=== PATIENT | female | born 1965 ===

== ENCOUNTER → 2020-08-18 07:56 | Outpatient (BNVA) | payer OTHER, SELFPAY | PROVIDERS: Visit Provider Advanced Practice Midwife | DX: Z76.89 Persons encountering health services in other specified circumstances (principal) ==

== ENCOUNTER → 2020-11-11 08:12 | Outpatient (BNVA) | payer OTHER, SELFPAY | PROVIDERS: PCP Internal Medicine; Visit Provider Internal Medicine Gastroenterology ==

== ENCOUNTER 2021-01-15 07:15 | Outpatient (REF) | payer OTHER, SELFPAY ==
--- NOTE | ~2021-01-15 | MM_ITS ---
EXAMINATION: MM SCREENING DIGITAL BREAST TOMOSYNTHESIS, BILATERAL CLINICAL INFORMATION: Screening. Asymptomatic. The lifetime risk of breast cancer based on the Tyrer-Cuzick Model is 9%. COMPARISON: Mammography: 10/30/2019, 10/26/2018, 10/05/2017 TECHNIQUE: Digital breast tomosynthesis is performed in both the craniocaudal and mediolateral oblique views along with computer-aided detection (CAD). Synthesized 2D images are generated from the tomosynthesis. FINDINGS: There are scattered areas of fibroglandular density (ACR BI-RADS breast composition Category b). There are no significant masses, abnormal calcifications, or other abnormalities. The axilla and skin contours are unremarkable. No significant changes from prior exams. MM/MM tomosynthesis screening BI IMPRESSION: No mammographic evidence of malignancy. ASSESSMENT: BI-RADS 1: Negative RECOMMENDATION: Routine annual mammography screening. This patient's information was entered into a reminder system with a target due date for their next mammogram.
== END 2021-01-15 07:16 | disposition home or self-care (01) ==
LOC: HO.MAMMO 07:15
PROVIDERS: PCP Internal Medicine; Visit Provider Internal Medicine
DX: Z12.31 Encounter for screening mammogram for malignant neoplasm of breast (principal)
CPT/HCPCS: 77063; 77067

== ENCOUNTER 2021-01-26 08:12 | Outpatient (REF) | payer OTHER, SELFPAY ==
[2021-01-26 08:53] LABS: COVID-19 Test Negative (Negative)
== END 2021-01-26 08:13 | disposition home or self-care (01) ==
LOC: HO.EMPCOV 08:12
PROVIDERS: Visit Provider Internal Medicine
DX: Z20.822 Contact with and (suspected) exposure to COVID-19 (principal)
CPT/HCPCS: 36415; 87635; C9803

== ENCOUNTER 2021-02-18 09:52 | Outpatient (REF) | payer OTHER, SELFPAY ==
[2021-02-18 10:10] LABS: COVID-19 Test Negative (Negative)
== END 2021-02-18 09:53 | disposition home or self-care (01) ==
LOC: HO.EMPCOV 09:52
PROVIDERS: Visit Provider Internal Medicine
DX: Z20.822 Contact with and (suspected) exposure to COVID-19 (principal)
CPT/HCPCS: 36415; 87635; C9803

== ENCOUNTER 2021-05-03 07:15 | Outpatient (REF) | payer OTHER, SELFPAY ==
[2021-05-03 08:02] LABS: MANUAL DIFF FLAG NO
[2021-05-03 08:07] LABS: Basophils Percent Auto 0.2 % (0-2); Eosinophils Absolute Auto 0.1 X10*3/uL (0.0-0.4); Hematocrit 41.8 % (37-47); Hemoglobin 13.7 g/dl (12.0-16.0); Lymphocytes Absolute Auto 1.7 X10*3/uL (1.2-4.9); Lymphocytes Percent Auto 34.9 % (20-40); Mean Corpuscular HGB Conc 32.8 g/dl (31.0-35.0); Mean Corpuscular Hemoglobin 30.8 pg (27.0-33.0); Mean Corpuscular Volume 93.9 fL (80-98); Mean Platelet Volume 10.7 fL (9.4-12.3); Monocytes Absolute Auto 0.4 X10*3/uL (0.1-1.2); Monocytes Percent Auto 8.1 % (2-11); Neutrophils Absolute Auto 2.7 X10*3/uL (2.0-8.3); Neutrophils Percent Auto 55.8 % (45-73); Platelet Count 208 X10*3/uL (160-400); Red Blood Count 4.45 X10*6/uL (4.20-5.50); Red Cell Distribution Width 12.6 % (11.0-16.0); White Blood Count 4.8 X10*3/uL (4.8-10.8)
[2021-05-03 08:25] LABS: Alanine Aminotransferase 16 U/L (0-31); Albumin Level 3.8 g/dL (3.5-5.0); Alkaline Phosphatase 74 U/L (39-117); Anion Gap 10 (12-20); Aspartate Amino Transferase 23 U/L (5-31); Bilirubin Total 0.4 mg/dL (0.0-1.0); Blood Urea Nitrogen 11 mg/dL (9-16); Calcium 8.9 mg/dL (8.4-10.2); Carbon Dioxide 27 mmol/L (22-29); Chloride 108 mmol/L (96-108); Cholesterol 172 mg/dL; Estimated Glomerular Filt Rate > 60; Glucose Fasting 97 mg/dL (60-99); HDL Cholesterol 62 mg/dL; LDL Cholesterol Calculated 100 mg/dl; Potassium 4.3 mmol/L (3.3-5.1); Sodium 141 mmol/L (135-145); Total Protein 6.5 g/dL (6.5-8.0); Triglycerides 54 mg/dL
[2021-05-03 08:51] LABS: TSH reflex Free T4 0.74 uIU/mL (0.32-4.0); Vitamin D 25-OH Total 33.6 ng/mL (>30)
[2021-05-03 09:17] LABS: Glucose Urine UA NEG (NEG); Leukocyte Esterase Urine TRACE (NEG); Nitrite Urine NEG (NEG); Specific Gravity - Urine 1.025 (1.005-1.025); UACC Culture Trigger YES; Urine Blood NEG (NEG); Urine Ketones NEG (NEG); Urine Protein NEG (NEG-TRACE)
[2021-05-03 09:37] LABS: Appearance Urine HAZY; Color Urine YELLOW
[2021-05-03 09:41] LABS: RBC Urine 0 /HPF (0); Squamous Epithelial Cell Urine TRACE /LPF; WBC Urine 0-2 /HPF (0-4)
== END 2021-05-03 07:16 | disposition home or self-care (01) ==
LOC: HO.LAB 07:15
PROVIDERS: PCP Internal Medicine; Visit Provider Internal Medicine
DX: Z00.00 Encounter for general adult medical examination without abnormal findings (principal); E04.1 Nontoxic single thyroid nodule; E55.9 Vitamin D deficiency, unspecified
CPT/HCPCS: 36415; 80053; 80061; 81001; 81003; 82306; 84443; 85025; 87086

== ENCOUNTER 2021-06-02 08:43 | Outpatient (REF) | payer OTHER, SELFPAY ==
--- NOTE | ~2021-06-02 | MM_ITS ---
EXAMINATION: BONE DENSITOMETRY CLINICAL INDICATION: Menopause. COMPARISON: None (current study represents initial baseline exam). TECHNIQUE: Using a [employer] DXA System (software version: 13.1) manufactured by [employer], dual-energy x-ray absorptiometry was performed of the lumbar spine and left hip. The images are of good technical quality. Summary results are attached. FINDINGS: AP SPINE L1-L4: BMD 1.088 g/cm2, Z-score -0.1, T-score -0.8, normal. LEFT FEMUR, NECK: BMD 0.871 g/cm2, Z-score -0.3, T-score -1.2, osteopenia. LEFT FEMUR, TOTAL: BMD 0.942 g/cm2, Z-score 0.0, T-score -0.5, normal. IDENTIFIED RISK FACTORS: Hysterectomy, menopause, bilateral oophorectomy. HISTORY OF FRACTURE: None listed. MEDICATIONS: Calcium, vitamin D. MM/XR DEXA axial skeleton IMPRESSION: 1. DIAGNOSIS: Osteopenia based on the lowest T-score value of -1.2 in the femoral neck applying World Health Organization criteria. 2. 10-YEAR FRACTURE RISK PREDICTION, FRAX: Major osteoporotic fracture (clinical spine, forearm, hip or shoulder) 3.1%. Hip fracture 0.2%. 3. Treatment Recommendations: NOF guidelines recommend consideration for treatment in postmenopausal women and men age 50 and older presenting with the following: -A hip or vertebral (clinical or morphometric) fracture. -T-score less than or equal to -2.5 at the femoral neck or spine after appropriate evaluation to exclude secondary causes. -Low bone mass at the hip or spine and a 10-year fracture probability by FRAX of greater than or equal to 3% for hip fracture or greater than or equal to 20% for major osteoporotic fracture based on the [place] adapted WHO algorithm. 4. Other Recommendations: All treatment decisions require clinical judgment and consideration of individual patient factors, including patient preferences, comorbidities, previous drug use, risk factors not captured in the FRAX model (e.g. frailty, falls, vitamin D deficiency, increased bone turnover, interval significant decline in bone density) and possible under or overestimation of fracture risk by FRAX. Additional medical evaluation for secondary cause of low bone mineral density may be appropriate. FUTURE SCAN RECOMMENDATION: People with diagnosed cases of osteoporosis or at high risk for fracture should have regular bone mineral density tests. For patients eligible for Medicare, routine testing is allowed once every 2 years. The testing frequency can be increased to one year for patients who have rapidly progressing disease, those who are receiving or discontinuing medical therapy to restore bone mass, or have additional risk factors.
== END 2021-06-02 08:44 | disposition home or self-care (01) ==
LOC: HO.MAMMO 08:43
PROVIDERS: Visit Provider Internal Medicine
DX: Z13.820 Encounter for screening for osteoporosis (principal); N95.8 Other specified menopausal and perimenopausal disorders; Z78.0 Asymptomatic menopausal state; Z98.890 Other specified postprocedural states; Z79.899 Other long term (current) drug therapy; Z90.722 Acquired absence of ovaries, bilateral
CPT/HCPCS: 77080

== ENCOUNTER → 2021-08-20 07:51 | Outpatient (BNVA) | payer OTHER, SELFPAY | PROVIDERS: PCP Internal Medicine; Visit Provider Advanced Practice Midwife ==

== ENCOUNTER 2021-12-27 14:10 | Outpatient (REF) | payer OTHER, SELFPAY ==
--- NOTE | ~2021-12-27 | XR_ITS ---
EXAMINATION: XR KNEE, LEFT CLINICAL INFORMATION: Unspecified injury of the left lower leg COMPARISON: None TECHNIQUE: Four views of the left knee. FINDINGS: There is mild loss of medial and patellofemoral compartment joint space with mild periarticular spurring medial compartment. No bony erosive changes. There are no loose bodies. No visible acute fracture or dislocation. There is no joint effusion or soft tissue swelling. XR/XR knee LT 3V IMPRESSION: Mild degenerative changes medial compartment with mild periarticular spurring.
== END 2021-12-27 14:11 | disposition home or self-care (01) ==
LOC: HO.XRAY 14:10
PROVIDERS: PCP Internal Medicine; Visit Provider Nurse Practitioner Acute Care
DX: S89.92XA Unspecified injury of left lower leg, initial encounter (principal)
CPT/HCPCS: 73562

== ENCOUNTER 2021-12-30 14:04 | Outpatient (REF) | payer OTHER, SELFPAY ==
[2021-12-30 14:54] LABS: COVID-19 Test Negative (Negative)
== END 2021-12-30 14:05 | disposition home or self-care (01) ==
LOC: HO.LAB 14:04
PROVIDERS: PCP Internal Medicine; Visit Provider Internal Medicine
DX: Z20.822 Contact with and (suspected) exposure to COVID-19 (principal)
CPT/HCPCS: 87635; C9803

== ENCOUNTER 2022-01-03 04:06 | Emergency (ER) | payer OTHER, SELFPAY ==
[2022-01-03] VITALS (10 sets, daily range): BP systolic 97–116; BP diastolic 56–73; PULSE 67–88; RESP 12–17; TEMP 36.8–37.1; O2SAT 98; BMI 23.4
--- NOTE | ~2022-01-03 | US_ITS ---
EXAMINATION: US VENOUS ULTRASOUND WITH DOPPLER LOWER EXTREMITY, LEFT CLINICAL INFORMATION: Left leg pain COMPARISON: None TECHNIQUE: Ultrasound of the deep veins is performed from the hip to the calf with compression sonography and color and pulse Doppler assessment. Spectral analysis with color-flow imaging is performed. FINDINGS: There is normal venous compression and respiratory variation and augmented flow. The visualized common femoral vein, superficial femoral vein, profunda femoral vein, popliteal vein, and the trifurcation region shows no evidence of deep venous thrombosis. There is a small Bundy's cyst medial proximal calf measuring 7.8 x 2.1 x 1.7 cm. If the patient's symptoms persist, followup ultrasound in 5 days 7 days might be of value to exclude proximal propagation from a non-visualized calf vein. US/US venous duplex LE LT IMPRESSION: No DVT demonstrated in the left lower extremity. Small Bundy's cyst.
[2022-01-03] MEDS: 0.9 % Sodium Chloride 1,000 ML 999 ML IVCONT (07:10)
--- NOTE | 2022-01-03 07:20 | ED_ITS ---
HPI - Syncope General Chief Complaint: Syncope Stated Complaint: Syncopal Epsoide Time Seen by Provider: 01/03/22 06:42 Source: patient Mode of arrival: EMS Limitations: no limitations History of Present Illness MD complaint: loss of consciousness, felt faint and collapsed Onset (ago): minute(s) (prior to arrival) -: second(s) Prodromal symptoms: lightheaded and diaphoresis Witnessed: Yes - by Bystander (daughter) Context: other (had just stood up to go bathroom - felt herself dizzy knew she was going to pass out.) Injuries sustained associated with event: none Current symptoms: none History: other (recently seen for L posterior knee pain dx with arthritis) Treatments prior to arrival: none Related Data Home Medications Medication Instructions Recorded Confirmed ascorbic acid (vitamin C) 500 mg 500 mg PO DAILY 11/04/20 12/27/21 tablet cholecalciferol (vitamin D3) 50 50 mcg PO DAILY 11/04/20 12/27/21 mcg (2,000 unit) capsule mecobalamin (vitamin B12) 1,000 1,000 mcg PO DAILY 11/04/20 12/27/21 mcg chewable tablet multivitamin 1 tab PO DAILY 11/04/20 12/27/21 omega-3 fatty acids 1,000 mg 1,000 mg PO DAILY 11/04/20 12/27/21 capsule (Fish Oil Concentrate) Previous Rx's Medication Instructions Recorded lorazepam 0.5 mg tablet 0.5 mg PO DAILY PRN 15 Days #15 tab 07/26/21 acetaminophen 500 mg tablet 1,000 mg PO Q6H PRN #20 tab 12/27/21 ibuprofen 800 mg tablet 800 mg PO Q8H PRN #20 tab 12/27/21 lidocaine 5 % topical patch 1 patch TOPICAL DAILY PRN #30 ea 12/31/21 MDD 1 a day Allergies Allergy/AdvReac Type Severity Reaction Status Date / Time No Known Allergies Allergy Verified 12/27/21 13:43 Review of Systems Review of Systems: Constitutional : No Fever, No Chills, No Fatigue, No Malaise ENT/Mouth : No sore throat, No Rhinorrhea Eyes: No Eye Pain, No Swelling, No Redness Cardiovascular : No Chest Pain, No SOB, No Dyspnea on Exertion, No Orthopnea, No Edema, No Palpitations Respiratory : No Cough, No Sputum, No Wheezing Gastrointestinal : No Nausea, No Vomiting, No Diarrhea, No Constipation, No abdominal Pain, No Hematochezia, No Melena Genitourinary : No Dysuria, No Urinary Frequency, No Hematuria, Musculoskeletal : No joint pain, No Myalgias, No Joint Swelling, pos L posterior knee pain Skin : No Skin Lesions, No rash Neuro : No Weakness, No Numbness, pos Dizziness, No Headache, pos syncope Psych : No Anxiety/Panic, No Depression Heme/Lymph: No Bruising, No Bleeding,No Lymphadenopathy Endocrine : No Polyuria, No Polydipsia All other systems reviewed and are negative [facility] Past Medical History Attestation statement: The following information was validated with the patient. Medical History Acquired chest/rib deformity Artificial menopause History of depression Thyroid nodule Tubular adenoma of colon Vitamin D deficiency Surgical History Hx of colonoscopy Hx of hysterectomy with oophorectomy Hx of tubal ligation Family History Family History Father Throat cancer Emphysema of lung TIA (transient ischemic attack) Social History Social History Household Members: Children and Other Household Members Other:: grandkids Housing: House Alcohol intake: current Alcohol intake frequency: holidays/special occasions only Patient Tobacco Use Status: Never used Tobacco e-Cigarette/Vaping Use: Never Used Second Hand Smoke Exposure: Yes Use of substances other than those prescribed or required for medical reasons: No Advance Directives: No Advance Directives Information Provided: No Patient : No service: No Current occupational status: employed 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 Oriented X3. No acute distress. Eyes: Pupils equal, round and reactive to light. ENT: Pharynx normal. Neck: Normal inspection. Neck supple. CVS: Normal heart rate and rhythm. Pulses normal. Respiratory: No respiratory distress. Breath sounds normal. Abdomen: Soft and non-tender. Skin: Skin warm and dry. Normal skin color. Normal skin turgor. Extremities: No lower extremity edema. No calf ttp . ttp in L pop fossa Neuro: Oriented X 3. No motor deficit. No sensory deficit. Course Course Course Narrative: negative orthostatic VS repeat trop ordered DVT study negative, ddimer negative, EKG and trop x 2 negative, stable for DC at this time MDM - Syncope MDM Narrative Medical decision making narrative: 56 yo female with hx of arthritis, s/p hysterectomy for fibroids comes in with c/o getting up to go to the bathroom tonight when she felt dizzy and knew she was going to pass out. She told her daughter who caught her. The patient reports she has been suffering from L posterior knee pain told she had arthritis. She denies GIB symptoms or CP/SOB. At this time will need EKG, labs, ortho VS, IVF, DVT study of LLE. Possibly vasovagal vs VTE (low to mod probability) Lab Data Result diagrams: 01/03/22 07:27 01/03/22 07:27 Labs: Lab Results 01/03/22 01/03/22 01/03/22 Range/Units 07:27 07:27 07:27 WBC 4.4 L (4.8-10.8) X10*3/uL RBC 4.48 (4.20-5.50) X10*6/uL Hgb 13.9 (12.0-16.0) g/dl Hct 41.9 (37.0-47.0) % MCV 93.5 (80.0-98.0) fL MCH 31.0 (27.0-33.0) pg MCHC 33.2 (31.0-35.0) g/dl RDW 12.8 (11.0-16.0) % Plt Count 225 (160-400) X10*3/uL MPV 10.3 (9.4-12.3) fL Immature Gran % (Auto) 0.0 (0.0-0.4) % Neut % (Auto) 68.1 (45-73) % Lymph % (Auto) 24.8 (20-40) % Osborne % (Auto) 6.7 (2-11) % Eos % (Auto) 0.2 (0-4) % Baso % (Auto) 0.2 (0-2) % Lymph # (Auto) 1.1 L (1.2-4.9) X10*3/uL Osborne # (Auto) 0.3 (0.1-1.2) X10*3/uL Eos # (Auto) 0.0 (0.0-0.4) X10*3/uL Baso # (Auto) 0.0 (0.0-0.2) X10*3/uL Abs Immat Gran (auto) 0.00 (0.00-0.03) X10*3/uL Absolute Neuts (auto) 3.0 (2.0-8.3) x10*3/uL Absolute Nucleated RBC 0.000 (0.0-0.012) X10*3/uL Nucleated RBC % (auto) 0.0 (0.0-0.2) /100WBC D-Dimer High Sensitivty < 150 NG/ML Sodium 144 (135-145) mmol/L Potassium 3.8 (3.3-5.1) mmol/L Chloride 111 H (96-108) mmol/L Carbon Dioxide 28 (22-29) mmol/L Anion Gap 9 L (12-20) BUN 12 (9-16) mg/dL Creatinine 0.71 (0.5-1.4) mg/dL Estim Creat Clear Calc 81.4 Estimated GFR > 60 Random Glucose 95 (60-115) mg/dL Calcium 8.9 (8.4-10.2) mg/dL Magnesium 2.2 (1.6-2.6) mg/dL Total Bilirubin 0.4 (0.0-1.0) mg/dL Direct Bilirubin 0.2 (0.0-0.5) mg/dL AST 17 (5-31) U/L ALT 17 (0-31) U/L Alkaline Phosphatase 67 (39-117) U/L Troponin I High Sens (<3.5-17.0) ng/L Total Protein 6.4 L (6.5-8.0) g/dL Albumin 3.8 (3.5-5.0) g/dL Urine Color Urine Appearance Urine pH (5.0-8.0) Ur Specific [place] (1.005-1.025) Urine Protein (NEG-TRACE) MG/DL Urine Glucose (UA) (NEG) MG/DL Urine Ketones (NEG) MG/DL Urine Blood (NEG) Urine Nitrite (NEG) Ur Leukocyte Esterase (NEG) Urine RBC (0) /HPF Urine WBC (0-4) /HPF Ur Squamous Epith Cells /LPF Urine Bacteria /LPF 01/03/22 01/03/22 01/03/22 Range/Units 07:27 07:27 09:27 WBC (4.8-10.8) X10*3/uL RBC (4.20-5.50) X10*6/uL Hgb (12.0-16.0) g/dl Hct (37.0-47.0) % MCV (80.0-98.0) fL MCH (27.0-33.0) pg MCHC (31.0-35.0) g/dl RDW (11.0-16.0) % Plt Count (160-400) X10*3/uL MPV (9.4-12.3) fL Immature Gran % (Auto) (0.0-0.4) % Neut % (Auto) (45-73) % Lymph % (Auto) (20-40) % Osborne % (Auto) (2-11) % Eos % (Auto) (0-4) % Baso % (Auto) (0-2) % Lymph # (Auto) (1.2-4.9) X10*3/uL Osborne # (Auto) (0.1-1.2) X10*3/uL Eos # (Auto) (0.0-0.4) X10*3/uL Baso # (Auto) (0.0-0.2) X10*3/uL Abs Immat Gran (auto) (0.00-0.03) X10*3/uL Absolute Neuts (auto) (2.0-8.3) x10*3/uL Absolute Nucleated RBC (0.0-0.012) X10*3/uL Nucleated RBC % (auto) (0.0-0.2) /100WBC D-Dimer High Sensitivty NG/ML Sodium (135-145) mmol/L Potassium (3.3-5.1) mmol/L Chloride (96-108) mmol/L Carbon Dioxide (22-29) mmol/L Anion Gap (12-20) BUN (9-16) mg/dL Creatinine (0.5-1.4) mg/dL Estim Creat Clear Calc Estimated GFR Random Glucose (60-115) mg/dL Calcium (8.4-10.2) mg/dL Magnesium (1.6-2.6) mg/dL Total Bilirubin (0.0-1.0) mg/dL Direct Bilirubin (0.0-0.5) mg/dL AST (5-31) U/L ALT (0-31) U/L Alkaline Phosphatase (39-117) U/L Troponin I High Sens < 3.5 < 3.5 (<3.5-17.0) ng/L Total Protein (6.5-8.0) g/dL Albumin (3.5-5.0) g/dL Urine Color STRAW Urine Appearance CLEAR Urine pH 7.0 (5.0-8.0) Ur Specific [place] <= 1.005 (1.005-1.025) Urine Protein NEG (NEG-TRACE) MG/DL Urine Glucose (UA) NEG (NEG) MG/DL Urine Ketones NEG (NEG) MG/DL Urine Blood NEG (NEG) Urine Nitrite NEG (NEG) Ur Leukocyte Esterase 1+ H (NEG) Urine RBC 0 (0) /HPF Urine WBC 0-2 (0-4) /HPF Ur Squamous Epith Cells TRACE /LPF Urine Bacteria NONE /LPF ECG Data Attestation: I personally reviewed and interpreted this ECG as follows: ECG interpretation date: 01/03/22 ECG interpretation time: 07:24 Interpretation: Rate: 63 Rhythm: NSR Holland: normal Normal P waves. Normal SANDRA. Normal QRS complex. ST T wave : no MARCIN, inverted t wave in V1 qTC: normal prior studies: no acute ischemia The study has been interpreted contemporaneously by me. Discharge Plan Discharge Clinical Impression: Vasovagal syncope Bundy's cyst of knee Qualifiers: Laterality: left Qualified Code(s): M71.22 - Synovial cyst of popliteal space [Bundy], left knee Patient Disposition: Home, Self-Care Instructions: Syncope (ED), Bakers Cyst (ED) Additional Instructions: return to ED for any worsening symptoms or concerns drink plenty of fluids today - rest paige wrap the knee for comfort Prescriptions: No Action lorazepam 0.5 mg tablet 0.5 mg PO DAILY PRN (Reason: anxiety) 15 Days Qty: 15 0RF lidocaine 5 % adhesive patch,medicated 1 patch topical DAILY MDD 1 a day PRN (Reason: pain (scale score 7-10)) Qty: 30 0RF Rx Instructions: leave on most painful area for up to 12 hrs cholecalciferol (vitamin D3) 50 mcg (2,000 unit) capsule 50 mcg PO DAILY 0RF multivitamin Tablet 1 tab PO DAILY 0RF omega-3 fatty acids [Fish Oil Concentrate] 1,000 mg capsule 1,000 mg PO DAILY 0RF mecobalamin (vitamin B12) 1,000 mcg tablet,chewable 1,000 mcg PO DAILY 0RF ascorbic acid (vitamin C) 500 mg tablet 500 mg PO DAILY 0RF ibuprofen 800 mg tablet 800 mg PO Q8H PRN (Reason: pain) Qty: 20 0RF acetaminophen 500 mg tablet 1,000 mg PO Q6H PRN (Reason: fever) Qty: 20 0RF Stand Alone Forms: Work/School Release Interventions: ED Discharge Assessment Last Done: 01/03/22 10:26 Discharge Date/Time: 01/03/22 10:27
--- NOTE | 2022-01-03 07:24 | ECG_ITS ---
Test Reason : syncope Blood Pressure : / mmHG Vent. Rate : 072 BPM Atrial Rate : 072 BPM P-R Int : 120 ms QRS Dur : 080 ms QT Int : 406 ms P-R-T Axes : 050 035 031 degrees QTc Int : 444 ms Normal sinus rhythm Normal ECG When compared with ECG of 03-JAN-2022 04:21, No significant change was found Referred By: Chikis Juan Electronically Signed By:
[2022-01-03 07:33] LABS: MANUAL DIFF FLAG NO
[2022-01-03 07:35] LABS: Appearance Urine CLEAR; Color Urine STRAW; Glucose Urine UA NEG (NEG); Leukocyte Esterase Urine 1+ (NEG); Nitrite Urine NEG (NEG); Specific Gravity - Urine <= 1.005 (1.005-1.025); UACC Culture Trigger YES; Urine Blood NEG (NEG); Urine Ketones NEG (NEG); Urine Protein NEG (NEG-TRACE)
[2022-01-03 07:38] LABS: Basophils Percent Auto 0.2 % (0-2); Eosinophils Percent Auto 0.2 % (0-4); Hematocrit 41.9 % (37.0-47.0); Hemoglobin 13.9 g/dl (12.0-16.0); Lymphocytes Absolute Auto 1.1 X10*3/uL (1.2-4.9); Lymphocytes Percent Auto 24.8 % (20-40); Mean Corpuscular HGB Conc 33.2 g/dl (31.0-35.0); Mean Corpuscular Volume 93.5 fL (80.0-98.0); Mean Platelet Volume 10.3 fL (9.4-12.3); Monocytes Absolute Auto 0.3 X10*3/uL (0.1-1.2); Monocytes Percent Auto 6.7 % (2-11); Neutrophils Percent Auto 68.1 % (45-73); Platelet Count 225 X10*3/uL (160-400); Red Blood Count 4.48 X10*6/uL (4.20-5.50); Red Cell Distribution Width 12.8 % (11.0-16.0); White Blood Count 4.4 X10*3/uL (4.8-10.8)
[2022-01-03 07:53] LABS: RBC Urine 0 /HPF (0); Squamous Epithelial Cell Urine TRACE /LPF; WBC Urine 0-2 /HPF (0-4)
[2022-01-03 07:59] LABS: Alanine Aminotransferase 17 U/L (0-31); Albumin Level 3.8 g/dL (3.5-5.0); Alkaline Phosphatase 67 U/L (39-117); Anion Gap 9 (12-20); Aspartate Amino Transferase 17 U/L (5-31); Bilirubin Direct 0.2 mg/dL (0.0-0.5); Bilirubin Total 0.4 mg/dL (0.0-1.0); Blood Urea Nitrogen 12 mg/dL (9-16); Calcium 8.9 mg/dL (8.4-10.2); Carbon Dioxide 28 mmol/L (22-29); Chloride 111 mmol/L (96-108); Creatinine Clr Calc Pharmacy 81.4; Estimated Glomerular Filt Rate > 60; Glucose Random 95 mg/dL (60-115); Magnesium 2.2 mg/dL (1.6-2.6); Potassium 3.8 mmol/L (3.3-5.1); Sodium 144 mmol/L (135-145); Total Protein 6.4 g/dL (6.5-8.0); Troponin-I High Sensitivity < 3.5 ng/L (<3.5-17.0)
[2022-01-03 08:02] LABS: D Dimer High Sensitivity < 150 NG/ML
[2022-01-03 09:58] LABS: Troponin-I High Sensitivity < 3.5 ng/L (<3.5-17.0)
== END 2022-01-03 10:27 | disposition home or self-care (01) ==
PROVIDERS: Emergency Provider Emergency Medicine; PCP Internal Medicine
DX: M71.22 Synovial cyst of popliteal space [Baker], left knee (principal); R55 Syncope and collapse
CPT/HCPCS: 36415; 80048; 80076; 81001; 83735; 84484; 85025; 85379; 87086; 93005; 93971; 96360; 99284; 99285

== ENCOUNTER 2022-01-06 08:37 | Outpatient (REF) | payer OTHER, SELFPAY ==
--- NOTE | ~2022-01-06 | XR_ITS ---
EXAMINATION: XR KNEE AP STANDING CLINICAL INFORMATION: Pain in the left knee. Osteoarthritis. COMPARISON: X-ray of the left knee 12/27/2021 and x-ray of the right knee 03/08/2018 TECHNIQUE: AP bilateral standing view of the knees was obtained. FINDINGS: RIGHT KNEE LIMITED: In the medial compartment there are marginal osteophytes with minimal if any joint space narrowing indicative of a [id number] osteoarthritis unchanged. Lateral compartment is normal. Surrounding bone and soft tissues are unremarkable. LEFT KNEE LIMITED: In the medial compartment, there are marginal osteophytes with minimal if any joint space narrowing indicative of [id number] osteoarthritis unchanged. Lateral compartment is normal. Surrounding bone and soft tissues are unremarkable. XR/XR knee standing BI IMPRESSION: RIGHT KNEE LIMITED: Osteoarthritis unchanged compared with 2017. LEFT KNEE: Osteoarthritis unchanged compared with x-ray 12/27/2021.
== END 2022-01-06 08:38 | disposition home or self-care (01) ==
LOC: HO.HOSX 08:37
PROVIDERS: PCP Internal Medicine; Visit Provider Orthopaedic Surgery
DX: M17.12 Unilateral primary osteoarthritis, left knee (principal)
CPT/HCPCS: 73565

== ENCOUNTER 2022-01-11 08:57 | Outpatient (REF) | payer OTHER, SELFPAY ==
[2022-01-11 09:39] LABS: COVID-19 Test Negative (Negative)
== END 2022-01-11 08:58 | disposition home or self-care (01) ==
LOC: HO.LAB 08:57
PROVIDERS: Visit Provider Internal Medicine
DX: Z20.822 Contact with and (suspected) exposure to COVID-19 (principal)
CPT/HCPCS: 87635; C9803

== ENCOUNTER 2022-01-15 07:30 | Outpatient (REF) | payer OTHER, SELFPAY ==
[2022-01-15 07:50] LABS: MANUAL DIFF FLAG NO
[2022-01-15 08:18] LABS: Hematocrit 43.2 % (37.0-47.0); Hemoglobin 14.2 g/dl (12.0-16.0); Imm Gran Abs Auto 0.01 X10*3/uL (0.00-0.03); Imm Gran Pct Auto 0.3 % (0.0-0.4); Lymphocytes Absolute Auto 1.7 X10*3/uL (1.2-4.9); Lymphocytes Percent Auto 54.1 % (20-40); Mean Corpuscular HGB Conc 32.9 g/dl (31.0-35.0); Mean Corpuscular Hemoglobin 30.8 pg (27.0-33.0); Mean Corpuscular Volume 93.7 fL (80.0-98.0); Mean Platelet Volume 10.4 fL (9.4-12.3); Monocytes Absolute Auto 0.3 X10*3/uL (0.1-1.2); Monocytes Percent Auto 10.2 % (2-11); Neutrophils Percent Auto 33.4 % (45-73); Platelet Count 251 X10*3/uL (160-400); Red Blood Count 4.61 X10*6/uL (4.20-5.50); Red Cell Distribution Width 12.8 % (11.0-16.0); White Blood Count 3.1 X10*3/uL (4.8-10.8)
[2022-01-15 08:46] LABS: Cholesterol 179 mg/dL; HDL Cholesterol 60 mg/dL; LDL Cholesterol Calculated 109 mg/dl; Triglycerides 51 mg/dL
[2022-01-15 09:10] LABS: TSH reflex Free T4 0.88 uIU/mL (0.32-4.0); Vitamin D 25-OH Total 37.7 ng/mL (>30)
== END 2022-01-15 07:31 | disposition home or self-care (01) ==
LOC: HO.LAB 07:30
PROVIDERS: PCP Internal Medicine; Visit Provider Internal Medicine
DX: Z00.00 Encounter for general adult medical examination without abnormal findings (principal); E78.00 Pure hypercholesterolemia, unspecified; E55.9 Vitamin D deficiency, unspecified
CPT/HCPCS: 36415; 80061; 82306; 84443; 85025

== ENCOUNTER 2022-01-20 12:38 | Outpatient (REF) | payer OTHER, SELFPAY ==
[2022-01-20 15:46] LABS: COVID-19 Test Negative (Negative); IDNOW Serial# 08D9AD1C
== END 2022-01-20 12:39 | disposition home or self-care (01) ==
LOC: HO.LAB 12:38
PROVIDERS: Visit Provider Internal Medicine
DX: Z20.822 Contact with and (suspected) exposure to COVID-19 (principal)
CPT/HCPCS: 87635; C9803

== ENCOUNTER 2022-01-22 08:08 | Outpatient (REF) | payer OTHER, SELFPAY ==
--- NOTE | ~2022-01-22 | MM_ITS ---
EXAMINATION: MM SCREENING DIGITAL BREAST TOMOSYNTHESIS, BILATERAL CLINICAL INFORMATION: Screening. Asymptomatic. The lifetime risk of breast cancer based on the Tyrer-Cuzick Model is 8%. COMPARISON: Mammography: 01/15/2021, 10/30/2019, 10/26/2018, 10/05/2017 TECHNIQUE: Digital breast tomosynthesis is performed in both the craniocaudal and mediolateral oblique views along with computer-aided detection (CAD). Synthesized 2D images are generated from the tomosynthesis. FINDINGS: There are scattered areas of fibroglandular density (ACR BI-RADS breast composition Category b). The right breast is unremarkable. There is no interval mass or architectural abnormality. Neither breast shows abnormal calcifications. The bilateral axilla and skin contours are unremarkable. Left breast has a 4 x 5 mm circumscribed nodule adjacent to the dermis periareolar 6:00 position, increased in size from prior studies. This may represent a small cyst. Patient will be recalled for targeted ultrasound. MM/MM tomosynthesis screening BI IMPRESSION: Left: Circumscribed 0.5 cm subdermal nodule periareolar 6:00 position increased in size from prior studies, possibly a cyst. Right: No mammographic evidence of malignancy. ASSESSMENT: BI-RADS 0: Incomplete - Need Additional Imaging Evaluation RECOMMENDATION: 1. Targeted ultrasound left breast. 2. Radiology department staff will contact the patient for additional imaging. This patient's information was entered into a reminder system with a target due date for their next mammogram.
== END 2022-01-22 08:09 | disposition home or self-care (01) ==
LOC: HO.MAMMO 08:08
PROVIDERS: PCP Internal Medicine; Visit Provider Internal Medicine
DX: Z12.31 Encounter for screening mammogram for malignant neoplasm of breast (principal)
CPT/HCPCS: 77063; 77067

== ENCOUNTER 2022-01-27 12:47 | Outpatient (REF) | payer OTHER, SELFPAY ==
--- NOTE | ~2022-01-27 | US_ITS ---
EXAMINATION: US DIAGNOSTIC ULTRASOUND BREAST, LEFT CLINICAL INFORMATION: Recall from screening for circumscribed subdermal nodule 6:00 periareolar left breast, increased in size from prior studies, possibly a cyst. COMPARISON: Mammography 01/22/2022, 01/15/2021, 10/30/2019, 10/26/2018. TECHNIQUE: Ultrasound left breast is targeted to the periareolar lower breast. Grayscale imaging and color Doppler are performed without and with harmonics. FINDINGS: There is a simple cyst at the deep dermis 6:00 periareolar position measuring 0.5 x 0.4 cm. The cyst is anechoic and circumscribed and shows increased through-transmission of sound. There is no peripheral or internal color flow. The cyst may be the intradermal sebaceous on some of the images but not confirmed on all views. Nevertheless, the finding is incidental and benign. There is no solid mass or architectural abnormality or focal duct ectasia. No skin thickening or edema tracking in soft tissue planes. Results are discussed with the patient and her daughter at time of visit. US/US breast LT limited IMPRESSION: Incidental cyst 6:00 periareolar left breast under 1 cm, corresponding to the finding on mammography. ASSESSMENT: BI-RADS 2: Benign RECOMMENDATION: Routine annual mammography screening. This patient's information was entered into a reminder system with a target due date for their next mammogram.
== END 2022-01-27 12:48 | disposition home or self-care (01) ==
LOC: HO.MAMMO 12:47
PROVIDERS: Visit Provider Internal Medicine
DX: N63.25 Unspecified lump in the left breast, overlapping quadrants (principal)
CPT/HCPCS: 76642

== ENCOUNTER 2022-02-09 08:23 | Outpatient (REF) | payer OTHER, SELFPAY ==
--- NOTE | ~2022-02-09 | US_ITS ---
EXAMINATION: US THYROID CLINICAL INFORMATION: Nontoxic multinodular goiter. COMPARISON: US thyroid 09/18/2019 and 12/06/2017. TECHNIQUE: Linear transducer grayscale and color Doppler examination with attention to the region of the thyroid. FINDINGS: SIZE: Measurements of the thyroid lobes and nodules are given in sagittal, anteroposterior and transverse dimensions respectively. Right Thyroid Lobe: 6.4 x 2.5 x 2.2 cm, volume 18.3 mL. Previously 5.9 x 2.0 x 2.6 cm, volume 13.1 mL. Parenchyma: The gland echotexture is homogeneous. Thyroid vascularity is normal. Left Thyroid Lobe: 5.8 x 2.3 x 2.1 cm, volume 14.7 mL. Previously 5.7 x 2.3 x 2.2 cm, volume 15.0 mL. Parenchyma: The gland echotexture is homogeneous. Thyroid vascularity is normal. Isthmus: 0.54 cm in maximum AP dimension. Previously 0.50 cm. Estimated total number of nodules greater than or equal to 1 cm: 1. Security Officer nodules are described as follows: 1. Location: Right superior. Size: 0.54 x 0.49 x 0.44 cm, volume 0.06 mL. Previously: 0.55 x 0.41 x 0.43 cm, volume 0.05 mL. Nodule characteristics: Composition: Spongiform (0). Echogenicity: Anechoic (0). Shape: Not taller than wide (0). Margins: Smooth (0). Echogenic Foci: None (0). ACR TI-RADS total points: 0 ACR TI-RADS category: 1 Significant change in size (>/= 20% in 2 dimensions and minimal increase of 2 mm or 50% or greater increase in volume): Change in features: Change in ACR TI-RADS risk category: Not applicable 2. Location: Right superior. Size: 0.29 x 0.27 x 0.26 cm, volume 0.01 mL. Previously: 0.33 x 0.21 x 0.30 cm, volume 0.01 mL. Nodule characteristics: Composition: Cystic(0). ACR TI-RADS total points: 0 ACR TI-RADS category: 1 Significant change in size (>/= 20% in 2 dimensions and minimal increase of 2 mm or 50% or greater increase in volume): Change in features: Change in ACR TI-RADS risk category: Not applicable 3. Location: Left superior. Size: 1.1 x 0.44 x 0.84 cm, volume 0.21 mL. Previously: 0.84 x 0.41 x 0.66 cm, volume 0.12 mL. Nodule characteristics: Composition: Cannot be determined (2). Echogenicity: Very hypoechoic (3). Shape: Not taller than wide (0). Margins: Smooth (0). Echogenic Foci: None (0). ACR TI-RADS total points: 5 ACR TI-RADS category: 4 Significant change in size (>/= 20% in 2 dimensions and minimal increase of 2 mm or 50% or greater increase in volume): Change in features: Change in ACR TI-RADS risk category: Not applicable 4. Location: Left mid. Size: 0.37 x 0.23 x 0.28 cm, volume 0.01 mL. Previously: 0.26 x 0.22 x 0.28 cm, volume 0.01 mL. Nodule characteristics: Composition: Cystic(0). ACR TI-RADS total points: 0 ACR TI-RADS category: 1 Significant change in size (>/= 20% in 2 dimensions and minimal increase of 2 mm or 50% or greater increase in volume): Change in features: Change in ACR TI-RADS risk category: Not applicable 5. Location: Left mid. Size: 0.29 x 0.24 x 0.38 cm, volume 0.01 mL. Previously: Not seen on the previous study. Nodule characteristics: Composition: Cystic(0). ACR TI-RADS total points: 0 ACR TI-RADS category: 1 NODES: No lymphadenopathy is seen in the tissue surrounding the thyroid gland. US/US thyroid IMPRESSION: Enlarged heterogeneous thyroid gland. Multiple bilateral small thyroid nodules not appreciably changed from September 2019. ACR TI-RADS RECOMMENDATION REFERENCE: Ultrasound-guided fine-needle aspiration, followup ultrasound, no further follow up. * TR1 (0 point) and TR 2 (2 points): No FNA or follow up * TR3 (3 points): FNA if more than or equal to 2.5 cm in maximum dimension, followup ultrasound in 1, 3 and 5 years if 1.5 to 2.4 cm in maximum dimension. * TR4 (4-6 points): FNA if more than or equal to 1.5 cm in maximum dimension, followup ultrasound in 1, 2, 3 and 5 years if 1 to 1.4 cm in maximum dimension. * TR5 (more than or equal to 7 points): FNA if more than or equal to 1 cm in maximum dimension, followup ultrasound every year for 5 years if 0.5 to 0.9 cm in maximum dimension. * TR3, TR4 or TR5 nodules that are below the size threshold for follow up receive no follow up.
== END 2022-02-09 08:24 | disposition home or self-care (01) ==
LOC: HO.US 08:23
PROVIDERS: Visit Provider Internal Medicine
DX: E04.2 Nontoxic multinodular goiter (principal)
CPT/HCPCS: 76536

== ENCOUNTER 2022-02-11 09:38 | Outpatient (REF) | payer OTHER, SELFPAY ==
[2022-02-11 10:03] LABS: COVID-19 Test Negative (Negative); IDNOW Serial# 08D9AD1C
== END 2022-02-11 09:39 | disposition home or self-care (01) ==
LOC: HO.LAB 09:38
PROVIDERS: Visit Provider Internal Medicine
DX: Z20.822 Contact with and (suspected) exposure to COVID-19 (principal)
CPT/HCPCS: 87635; C9803

== ENCOUNTER 2022-02-11 09:56 | Outpatient (REF) | payer OTHER, SELFPAY ==
--- NOTE | 2022-02-11 12:58 | EEG_ITS ---
Activity consists of low voltage fast frequencies seen diffusely, intermixed with a low voltage 11 hertz posterior alpha frequency. Photic stimulation is without activation. Hyperventilation was omitted. No sleep stages are identified. No focal, lateralizing, or paroxysmal discharges seen. IMPRESSION: This waking EEG is within normal limits. MD TIFFANIE Philip/FELICITAS / [id number]
== END 2022-02-11 09:57 | disposition home or self-care (01) ==
LOC: HO.NEURO 09:56
PROVIDERS: PCP Internal Medicine; Visit Provider Internal Medicine
DX: R55 Syncope and collapse (principal)
CPT/HCPCS: 95816

== ENCOUNTER 2022-02-16 08:12 | Outpatient (REF) | payer OTHER, SELFPAY ==
[2022-02-16 08:53] LABS: COVID-19 Test Negative (Negative); IDNOW Serial# 16C4AD1C
== END 2022-02-16 08:13 | disposition home or self-care (01) ==
LOC: HO.LAB 08:12
PROVIDERS: Visit Provider Internal Medicine
DX: Z20.822 Contact with and (suspected) exposure to COVID-19 (principal)
CPT/HCPCS: 87635; C9803

== ENCOUNTER 2022-02-25 07:20 | Outpatient (REF) | payer OTHER, SELFPAY ==
[2022-02-25 08:06] LABS: COVID-19 Test Negative (Negative); IDNOW Serial# 08D9AD1C
== END 2022-02-25 07:21 | disposition home or self-care (01) ==
LOC: HO.LAB 07:20
PROVIDERS: Visit Provider Internal Medicine
DX: Z20.822 Contact with and (suspected) exposure to COVID-19 (principal)
CPT/HCPCS: 87635; C9803

== ENCOUNTER 2022-03-25 07:29 | Outpatient (REF) | payer OTHER, SELFPAY ==
[2022-03-25 07:54] LABS: COVID-19 Test Negative (Negative); IDNOW Serial# 16C4AD1C
== END 2022-03-25 07:30 | disposition home or self-care (01) ==
LOC: HO.LAB 07:29
PROVIDERS: Visit Provider Internal Medicine
DX: Z20.822 Contact with and (suspected) exposure to COVID-19 (principal)
CPT/HCPCS: 87635; C9803

== ENCOUNTER 2022-04-28 07:39 | Outpatient (REF) | payer OTHER, SELFPAY ==
[2022-04-28 08:12] LABS: COVID-19 Test Negative (Negative); IDNOW Serial# 16C4AD1C
== END 2022-04-28 07:40 | disposition home or self-care (01) ==
LOC: HO.LAB 07:39
PROVIDERS: Visit Provider Internal Medicine
DX: Z20.822 Contact with and (suspected) exposure to COVID-19 (principal)
CPT/HCPCS: 87635; C9803

== ENCOUNTER 2022-05-03 07:36 | Outpatient (REF) | payer OTHER, SELFPAY ==
[2022-05-03 08:15] LABS: COVID-19 Test Negative (Negative); IDNOW Serial# 16C4AD1C
== END 2022-05-03 07:37 | disposition home or self-care (01) ==
LOC: HO.LAB 07:36
PROVIDERS: Visit Provider Internal Medicine
DX: Z20.822 Contact with and (suspected) exposure to COVID-19 (principal)
CPT/HCPCS: 87635; C9803

== ENCOUNTER 2022-05-19 07:45 | Outpatient (REF) | payer OTHER, SELFPAY ==
[2022-05-19 08:33] LABS: COVID-19 Test Negative (Negative)
== END 2022-05-19 07:46 | disposition home or self-care (01) ==
LOC: HO.LAB 07:45
PROVIDERS: Visit Provider Internal Medicine
DX: Z20.822 Contact with and (suspected) exposure to COVID-19 (principal)
CPT/HCPCS: 87635; C9803

== ENCOUNTER 2022-05-25 07:43 | Outpatient (REF) | payer OTHER, SELFPAY ==
[2022-05-25 08:05] LABS: COVID-19 Test Negative (Negative); IDNOW Serial# 16C4AD1C
== END 2022-05-25 07:44 | disposition home or self-care (01) ==
LOC: HO.LAB 07:43
PROVIDERS: Visit Provider Internal Medicine
DX: Z20.822 Contact with and (suspected) exposure to COVID-19 (principal)
CPT/HCPCS: 87635; C9803

== ENCOUNTER 2022-06-02 07:35 | Outpatient (REF) | payer OTHER, SELFPAY ==
[2022-06-02 08:08] LABS: COVID-19 Test Negative (Negative); IDNOW Serial# 16C4AD1C
== END 2022-06-02 07:36 | disposition home or self-care (01) ==
LOC: HO.LAB 07:35
PROVIDERS: Visit Provider Internal Medicine
DX: Z20.822 Contact with and (suspected) exposure to COVID-19 (principal)
CPT/HCPCS: 87635; C9803

== ENCOUNTER 2022-06-29 07:40 | Outpatient (REF) | payer OTHER, SELFPAY ==
[2022-06-29 08:42] LABS: IDNOW Serial# 55D5AD1C
[2022-06-29 08:43] LABS: COVID-19 Test Positive (Negative)
== END 2022-06-29 07:41 | disposition home or self-care (01) ==
LOC: HO.LAB 07:40
PROVIDERS: Visit Provider Internal Medicine
DX: Z20.822 Contact with and (suspected) exposure to COVID-19 (principal)
CPT/HCPCS: 87635; C9803

== ENCOUNTER 2022-07-04 10:56 | Outpatient (REF) | payer OTHER, SELFPAY ==
[2022-07-04 11:39] LABS: COVID-19 Test Negative (Negative); IDNOW Serial# 9DB6401D
== END 2022-07-04 10:57 | disposition home or self-care (01) ==
LOC: HO.LAB 10:56
PROVIDERS: Visit Provider Internal Medicine
DX: Z20.822 Contact with and (suspected) exposure to COVID-19 (principal)
CPT/HCPCS: 87635; C9803

== ENCOUNTER 2022-07-14 07:47 | Outpatient (REF) | payer OTHER, SELFPAY ==
[2022-07-14 08:49] LABS: COVID-19 Test Negative (Negative); IDNOW Serial# 16C4AD1C
== END 2022-07-14 07:48 | disposition home or self-care (01) ==
LOC: HO.LAB 07:47
PROVIDERS: Visit Provider Internal Medicine
DX: Z20.822 Contact with and (suspected) exposure to COVID-19 (principal)
CPT/HCPCS: 87635; C9803

== ENCOUNTER 2022-07-20 07:32 | Outpatient (REF) | payer OTHER, SELFPAY ==
[2022-07-20 08:27] LABS: COVID-19 Test Negative (Negative); IDNOW Serial# 9DB6401D
== END 2022-07-20 07:33 | disposition home or self-care (01) ==
LOC: HO.LAB 07:32
PROVIDERS: Visit Provider Internal Medicine
DX: Z20.822 Contact with and (suspected) exposure to COVID-19 (principal)
CPT/HCPCS: 87635; C9803

== ENCOUNTER 2022-07-28 07:46 | Outpatient (REF) | payer OTHER, SELFPAY ==
[2022-07-28 08:50] LABS: IDNOW Serial# 9DB6401D
[2022-07-28 08:51] LABS: COVID-19 Test Negative (Negative)
== END 2022-07-28 07:47 | disposition home or self-care (01) ==
LOC: HO.LAB 07:46
PROVIDERS: Visit Provider Internal Medicine
DX: Z20.822 Contact with and (suspected) exposure to COVID-19 (principal)
CPT/HCPCS: 87635; C9803

== ENCOUNTER 2022-08-25 08:28 | Outpatient (REF) | payer OTHER, SELFPAY ==
[2022-08-26 10:08] LABS: BV Int Neg Control Negative (Negative); BV Int Pos Control Positive (Positive)
== END 2022-08-25 08:29 | disposition home or self-care (01) ==
LOC: HO.LNP 08:28
PROVIDERS: Visit Provider Advanced Practice Midwife
DX: N89.8 Other specified noninflammatory disorders of vagina (principal)
CPT/HCPCS: 87480; 87510; 87660

== ENCOUNTER 2022-09-29 08:08 | Day surgery (SDC) | payer OTHER, SELFPAY ==
[2022-09-26 10:59] VITALS: BMI 23.4
--- NOTE | 2022-09-28 10:40 | P.CONAN_ITS ---
Documented by User: Leisa Juares NP 09/28/22 10:41 HPI - Anesthesia Eval Consult details Narrative: 57yo F for Upper Endoscopy PMFSH Active Problems Active Problems: All Active Problems (Updated 08/25/22 @ 08:23 by Corazon Mckeon) Heartburn (Acute) Injury of posterior cruciate ligament of left knee (Acute) Posterior knee pain (Acute) Osteoarthritis of left knee (Acute) Effusion, left knee (Acute) Annual physical exam (Acute) Syncope (Acute) Multinodular goiter (Acute) Anxiety with flying (Acute) Intermittent dysphagia (Acute) Encounter for annual routine gynecological examination (Acute) Vaginal odor (Acute) Vaginal discharge (Acute) Osteopenia (Acute) Artificial menopause (Acute) Acquired chest/rib deformity (Acute) Vitamin D deficiency (Acute) Thyroid nodule (Acute) Past Medical History Medical History Acquired chest/rib deformity Artificial menopause History of depression Osteopenia Thyroid nodule Tubular adenoma of colon Vitamin D deficiency Family History Family History Father Throat cancer Emphysema of lung TIA (transient ischemic attack) Surgical History Surgical History Hx of colonoscopy Hx of foot surgery Hx of hysterectomy with oophorectomy Hx of tubal ligation Social History Social History Household Members: None Housing: House Alcohol intake: current Alcohol intake frequency: holidays/special occasions only Patient Tobacco Use Status: Never used Tobacco e-Cigarette/Vaping Use: Never Used Second Hand Smoke Exposure: Yes Use of substances other than those prescribed or required for medical reasons: No Are you DNR?: No Advance Directives: No Advance Directives Information Provided: Yes service: No Current occupational status: employed 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 Sexual orientation: Straight/Heterosexual Gender identity: Female Cognitive needs: No Hearing needs: No Vision needs: Yes Meds Allergies Allergy/AdvReac Type Severity Reaction Status Date / Time No Known Allergies Allergy Verified 09/22/22 13:53 Home Medications Medication Instructions Recorded Confirmed Last Taken Type ascorbic acid (vitamin C) 500 mg 500 mg PO DAILY 11/04/20 09/22/22 Unknown History tablet cholecalciferol (vitamin D3) 50 50 mcg PO DAILY 11/04/20 09/22/22 Unknown History mcg (2,000 unit) capsule mecobalamin (vitamin B12) 1,000 1,000 mcg PO DAILY 11/04/20 09/22/22 Unknown History mcg chewable tablet multivitamin 1 tab PO DAILY 11/04/20 09/22/22 Unknown History omega-3 fatty acids 1,000 mg 1,000 mg PO DAILY 11/04/20 09/22/22 Unknown History capsule (Fish Oil Concentrate) Exam Exam Date and Time: September 28, 2022 1040 Height,Weight and Vital Signs: Height 5 ft 5 in Weight 63.957 kg Assessment and Plan Assessment Anesthesia Assessment: Chart Reviewed Documented by User: Benedict Rain MD 09/29/22 09:58 [facility] Past Medical History Medical History Acquired chest/rib deformity Artificial menopause History of depression Osteopenia Thyroid nodule Tubular adenoma of colon Vitamin D deficiency Family History Family History Father Throat cancer Emphysema of lung TIA (transient ischemic attack) Family history of problems with anesthesia: No Surgical History Surgical History Hx of colonoscopy Hx of foot surgery Hx of hysterectomy with oophorectomy Hx of tubal ligation History of Problems with Anesthesia: No Social History Social History Household Members: None Housing: House Alcohol intake: current Alcohol intake frequency: holidays/special occasions only Patient Tobacco Use Status: Never used Tobacco e-Cigarette/Vaping Use: Never Used Second Hand Smoke Exposure: Yes Use of substances other than those prescribed or required for medical reasons: No Are you DNR?: No Advance Directives: No Advance Directives Information Provided: Yes service: No Current occupational status: employed 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 Sexual orientation: Straight/Heterosexual Gender identity: Female Cognitive needs: No Hearing needs: No Vision needs: Yes Meds Allergies Allergy/AdvReac Type Severity Reaction Status Date / Time No Known Allergies Allergy Verified 09/22/22 13:53 Home Medications Medication Instructions Recorded Confirmed Last Taken Type ascorbic acid (vitamin C) 500 mg 500 mg PO DAILY 11/04/20 09/22/22 Unknown History tablet cholecalciferol (vitamin D3) 50 50 mcg PO DAILY 11/04/20 09/22/22 Unknown History mcg (2,000 unit) capsule mecobalamin (vitamin B12) 1,000 1,000 mcg PO DAILY 11/04/20 09/22/22 Unknown History mcg chewable tablet multivitamin 1 tab PO DAILY 11/04/20 09/22/22 Unknown History omega-3 fatty acids 1,000 mg 1,000 mg PO DAILY 11/04/20 09/22/22 Unknown History capsule (Fish Oil Concentrate) Exam Airway Mallampati Class: II TM Dist: >3cm Neck ROM: Full Loose/Missing/Broken Teeth: No Heart: [id number] Lungs: cta b/l Assessment and Plan Assessment Anesthesia Assessment: Anesthesia Plan Discussed Final Anesthetic Review Family History of Problems with Anesthesia: No History of Problems with Anesthesia: No NPO: Yes ASA Class: II Final Preanesthetic Review: No Changes in Pt Med Stat, Meds/Allgs Chart Reviewed, Consent Obtained/Reviewed and Anes Risks/Benef Reviewed Patient Risk: Intermediate Procedure Risk: Intermediate Assessment/Block/Sedation in SS: Assess/Block/Sedation-SS Anesthetic Plan Anesthetic Plan: MAC: and Agree w/ Assess. and Plan Disposition: Standard PACU
[2022-09-29 08:30] VITALS: BP 108/65; PULSE 73; RESP 15; TEMP 36.5; O2SAT 99
[2022-09-29] MEDS: Lactated Ringers 1,000 ML 100 ML IVCONT (08:45)
--- NOTE | 2022-09-29 11:06 | P.OP_ITS ---
Operative Note Operative Note Date of Service: 09/29/22 Narrative: Procedure: Esophagogastroduodenoscopy Endoscopist: Nancy Green MD Indication: Intermittent dysphagia Anesthesia Provider: Dr Mayra Mathew Anesthesia Type: MAC ?? EGD Procedure:?? The procedure, indications, preparation and potential complications were reviewed with the patient, who indicated understanding and gave written informed consent to proceed. A physical exam was performed. The endoscope was introduced through the mouth, and advanced to the third part of duodenum. The mucosa was carefully examined on slow withdrawal of the endoscope. The patient tolerated the procedure well. There were no immediate complications.? ? EGD Findings:? * Esophagus:?Subtle mucosal rings were noted in upper and mid esophagus. Cold forceps biopsies were obtained from middle esophagus. Multiple mucosal breaks and ulcerations from 34 cm to 30 cm involving almost 80% of the circumference. Contact bleeding was noted at the ulcerations especially near the Z line at 34 cm. Small hiatal hernia was noted with diaphragmatic pinch at 36 cm. * Stomach:? Normal mucosa was noted in the stomach. * Duodenum:? Erythema with multiple erosions were noted in the duodenal bulb. Cold forceps biopsies were taken. The duodenal sweep, second and third portion of the duodenum appeared normal. ? EGD Impressions:? * Grade D esophagitis * Mucosa suspicious for EoE (biopsy) * Hiatal hernia * Normal stomach * Peptic duodenitis (biopsy) ?? Recommendations:?? * Follow biopsy results. Our office will call or send a letter with results within 7-10 days. * Continue PPI therapy 40mg once daily for 8 weeks followed by 20mg once daily. * Avoid NSAIDs. Above has been reviewed with the patient. Relevant educational hand outs were provided at discharge.
--- NOTE | 2022-09-29 11:06 | MHC.SHP ---
Pre-Procedural Eval Section A Date of Service: 09/29/22 The patient is an INPATIENT: No The History & Physical has been completed within 30 days and I have reviewed it.: Yes Section B Chief Complaint: Other dysphagia Allergies: Allergies Allergy/AdvReac Type Severity Reaction Status Date / Time No Known Allergies Allergy Verified 09/22/22 13:53 Plan Diagnosis/Plan: Unchanged I have reviewed the history and physical and performed a pertinent physical examination on my patient. No changes have occurred unless specified. Time Spent With Patient Time: Total time managing care of this patient today ____ minutes.
[2022-09-29 11:11] VITALS: BP 88/60; PULSE 113; RESP 16; TEMP 36.9; O2SAT 98
[2022-09-29 11:27] VITALS: BP 94/73; PULSE 98; RESP 16; TEMP 36.9; O2SAT 98
[2022-09-29 11:41] VITALS: BP 107/74; PULSE 96; RESP 16; TEMP 36.9; O2SAT 98
== END 2022-09-29 12:11 | disposition home or self-care (01) ==
PROVIDERS: Visit Provider Internal Medicine
PROC: 0DJ08ZZ Inspection of Upper Intestinal Tract, Via Natural or Artificial Opening Endoscopic (ICD-10-PCS; CPT 43235; principal; 2022-09-29 09:30)
DX: R13.19 Other dysphagia (principal); K20.80 Other esophagitis without bleeding; K29.80 Duodenitis without bleeding; K44.9 Diaphragmatic hernia without obstruction or gangrene; K21.9 Gastro-esophageal reflux disease without esophagitis; E04.1 Nontoxic single thyroid nodule; E55.9 Vitamin D deficiency, unspecified; M85.80 Other specified disorders of bone density and structure, unspecified site; Z79.899 Other long term (current) drug therapy
CPT/HCPCS: 43239; 88305

== ENCOUNTER 2022-10-04 13:56 | Outpatient (REF) | payer OTHER, SELFPAY ==
[2022-10-04 14:41] LABS: Influenza A PCR NEGATIVE (Negative); Influenza B PCR NEGATIVE (Negative); Resp Syncy Virus RNA Qual PCR NEGATIVE (Negative); SARS COV2 PCR INHOUSE NEGATIVE (Negative)
== END 2022-10-04 13:57 | disposition home or self-care (01) ==
LOC: HO.LNP 13:56
PROVIDERS: Visit Provider Physician Assistant
DX: Z20.822 Contact with and (suspected) exposure to COVID-19 (principal); B34.9 Viral infection, unspecified
CPT/HCPCS: 0241U

== ENCOUNTER 2022-10-19 10:09 | Outpatient (REF) | payer OTHER, SELFPAY ==
--- NOTE | ~2022-10-19 | FL_ITS ---
EXAMINATION: FL BARIUM SWALLOW CLINICAL INFORMATION: R13.19 - Other dysphagia. Patient notes recent endoscopy showing esophagitis and hernia. COMPARISON: Ultrasound thyroid 02/09/2022, chest radiographs 10/17/2017 TECHNIQUE: Barium swallow examination is performed using fluoroscopic evaluation in addition to multiple fluoroscopic spot views, including cine images during swallowing. The patient is imaged both upright and prone and using both thick and thin sulfate along with effervescent granules. Barium pill challenge also performed. Fluoroscopy time: 1.5 minutes DAP: 3.45 Gycm2 Images: 27 FINDINGS: Swallowing function is normal and there is no aspiration. The cervical esophagus has no web or diverticulum or stricture. The cervical thoracic junction appears normal. Barium pill challenge shows prompt transit from mouth to stomach without delay. The thoracic esophagus shows normal motility with no obstruction, stricture, or ulceration. There is no hiatal hernia demonstrated. There is moderate gastroesophageal reflux during water siphon test to mid thoracic esophagus. A cursory view of the upper abdomen shows no gastric outlet obstruction. FL/FL barium swallow IMPRESSION: -Moderate gastroesophageal reflux during water siphon test to mid thoracic esophagus. -Normal motility. No ulceration or stricture.
== END 2022-10-19 10:10 | disposition home or self-care (01) ==
LOC: HO.XRAY 10:09
PROVIDERS: PCP Internal Medicine; Visit Provider Internal Medicine
DX: R13.19 Other dysphagia (principal)
CPT/HCPCS: 74220

== ENCOUNTER → 2022-10-21 12:54 | Outpatient (BNVA) | payer OTHER, SELFPAY | PROVIDERS: PCP Internal Medicine; Visit Provider Internal Medicine | DX: Z13.89 Encounter for screening for other disorder (principal) ==

== ENCOUNTER 2022-11-22 01:18 | Emergency (ER) | payer OTHER, SELFPAY ==
--- NOTE | 2022-11-22 | ECG_ITS ---
Test Reason : dizziness Blood Pressure : / mmHG Vent. Rate : 068 BPM Atrial Rate : 068 BPM P-R Int : 120 ms QRS Dur : 080 ms QT Int : 406 ms P-R-T Axes : 066 023 027 degrees QTc Int : 431 ms Normal sinus rhythm Anterior T wave inversions - consider ischemia Abnormal eCG When compared with ECG of 03-JAN-2022 04:21, T wave inversion now evident in Anterior leads Referred By: Generic ED Physician Electronically Signed By:Singh Cody
[2022-11-22 01:22] VITALS: BP 113/73; BP 124/84; PULSE 67; PULSE 70; RESP 20; TEMP 36.6; O2SAT 97; O2SAT 99; BMI 24.1
[2022-11-22 01:46] LABS: MANUAL DIFF FLAG NO
[2022-11-22 01:47] LABS: Basophils Percent Auto 0.5 % (0-2); Eosinophils Percent Auto 0.7 % (0-4); Hematocrit 39.7 % (37.0-47.0); Hemoglobin 13.2 g/dl (12.0-16.0); Imm Gran Abs Auto 0.04 X10*3/uL (0.00-0.03); Imm Gran Pct Auto 0.7 % (0.0-0.4); Lymphocytes Percent Auto 51.5 % (20-40); Mean Corpuscular HGB Conc 33.2 g/dl (31.0-35.0); Mean Corpuscular Hemoglobin 31.1 pg (27.0-33.0); Mean Corpuscular Volume 93.6 fL (80.0-98.0); Mean Platelet Volume 10.2 fL (9.4-12.3); Monocytes Absolute Auto 0.5 X10*3/uL (0.1-1.2); Monocytes Percent Auto 8.8 % (2-11); Neutrophils Absolute Auto 2.2 x10*3/uL (2.0-8.3); Neutrophils Percent Auto 37.8 % (45-73); Platelet Count 242 X10*3/uL (160-400); Red Blood Count 4.24 X10*6/uL (4.20-5.50); Red Cell Distribution Width 12.4 % (11.0-16.0); White Blood Count 5.8 X10*3/uL (4.8-10.8)
[2022-11-22 02:00] VITALS: BP 122/68; PULSE 84; RESP 16; TEMP 36.7; O2SAT 95
[2022-11-22 02:05] LABS: Anion Gap 13 (12-20); Blood Urea Nitrogen 20 mg/dL (9-16); Calcium 8.7 mg/dL (8.4-10.2); Carbon Dioxide 22 mmol/L (22-29); Chloride 110 mmol/L (96-108); Creatinine Clr Calc Pharmacy 76.2; Estimated Glomerular Filt Rate > 60; Glucose Random 101 mg/dL (60-115); Potassium 3.9 mmol/L (3.3-5.1); Sodium 141 mmol/L (135-145)
[2022-11-22 03:04] LABS: Troponin-I High Sensitivity < 3.5 ng/L (<3.5-17.0)
--- NOTE | 2022-11-22 03:44 | ED_ITS ---
HPI - Dizziness General Chief Complaint: Dizziness Stated Complaint: Dizziness Time Seen by Provider: 11/22/22 02:27 Source: patient and EMS Mode of arrival: EMS Limitations: no limitations History of Present Illness HPI Narrative: 57-year-old female who came in for evaluation of feeling shaky and dizzy. Patient woke up from sleep feeling shaky and anxious, patient went to her daughter's bedroom when she felt dizzy, patient declined CP or SOB, no LOC or syncopal episode , no weakness, no numbness, no change in his speech. Patient declined any bad dreams or nightmares that she can recall, patient also declined hyperventilation. while patient in the ED all her symptoms were resolved. Related Data Home Medications Medication Instructions Recorded Confirmed ascorbic acid (vitamin C) 500 mg 500 mg PO DAILY 11/04/20 09/22/22 tablet cholecalciferol (vitamin D3) 50 50 mcg PO DAILY 11/04/20 09/22/22 mcg (2,000 unit) capsule mecobalamin (vitamin B12) 1,000 1,000 mcg PO DAILY 11/04/20 09/22/22 mcg chewable tablet multivitamin 1 tab PO DAILY 11/04/20 09/22/22 omega-3 fatty acids 1,000 mg 1,000 mg PO DAILY 11/04/20 09/22/22 capsule (Fish Oil Concentrate) Previous Rx's Medication Instructions Recorded acetaminophen 500 mg tablet 1,000 mg PO Q6H PRN fever #20 tabs 12/27/21 lorazepam 0.5 mg tablet 0.5 mg PO DAILY PRN anxiety 15 01/13/22 days #15 tabs omeprazole 20 mg capsule,delayed 20 mg PO DAILY 90 days #90 caps 10/21/22 release Allergies Allergy/AdvReac Type Severity Reaction Status Date / Time No Known Allergies Allergy Verified 11/22/22 01:27 Review of Systems Review of Systems: All other systems are reviewed and are negative Constitutional: Reports as per HPI and Reports no additional constitutional complaints Eyes: Reports as per HPI and Reports no additional eye complaints Reports system reviewed and no additional complaints, except as documented Cardiovascular: Reports as per HPI and Reports no additional cardiovascular comp laints Respiratory: Reports as per HPI and Reports no additional respiratory complaints Gastrointestinal: Reports as per HPI and Reports no additional gastrointestinal complaints Genitourinary: Reports no additional female genitourinary complaints Musculoskeletal: Reports no additional musculoskeletal complaints Skin/Breast: Reports system reviewed and no additional complaints, except as docu Psychiatric: Reports no additional psychiatric complaints Endocrine: Reports no additional endocrine complaints Hematologic/Lymphatic: Reports no additional hematologic/lymphatic complaints Allergic/Immunologic: Reports no additional allergic/immunologic complaints Reports system reviewed and no additional complaints, except as documented and Reports Abnormal speech present [facility] Past Medical History Medical History Acquired chest/rib deformity Artificial menopause History of depression Osteopenia Thyroid nodule Tubular adenoma of colon Vitamin D deficiency Surgical History History of esophagogastroduodenoscopy (EGD) Hx of colonoscopy Hx of foot surgery Hx of hysterectomy with oophorectomy Hx of tubal ligation Family History Family History Father Throat cancer Emphysema of lung TIA (transient ischemic attack) Social History Social History Household Members: None Housing: House Alcohol intake: current Alcohol intake frequency: holidays/special occasions only Patient Tobacco Use Status: Never used Tobacco e-Cigarette/Vaping Use: Never Used Second Hand Smoke Exposure: Yes Advance Directives: No Advance Directives Information Provided: Yes service: No Current occupational status: employed 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 Blood pressure normal. Heart rate normal. Respiration rate normal. Temperature normal. Oxygen saturation normal. Appearance: Anxious, Alert. Oriented X3. No acute distress. Head: Normal external exam. Normocephalic. Atraumatic. No Izquierdo signs noted. No raccoon eyes noted Eyes: PERRLA. EOMI. Conjunctiva and sclera normal. Eyelids normal. ENT: TM's Normal. Pharynx normal. Uvula midline. Moist mucous membranes. No tr ismus noted. No drooling noted. No muffled voice noted. Neck: Normal inspection. Neck supple. FROM. No adenopathy. Thyroid Normal. No meningeal signs. No neck mass noted. CVS: Normal heart rate and rhythm. Heart sound normal. No murmurs noted. Pulses normal throughout. Respiratory: No respiratory distress. Painless inspiration. Breath sounds normal. No wheezes/rales/rhonchi noted. Chest nontender. No accessory muscle usage noted or decreased air movement noted. Abdomen: Soft and nontender. Bowel sounds normal in all 4 quadrants. No distention noted. No organomegaly noted. No visible injury noted. Back: No CVA tenderness. Full range of motion noted. Skin: Skin warm and dry. Normal skin color. Normal skin turgor. No rashes/lesions/lacerations noted. Extremities: No lower extremity edema. Extremities exhibit normal range of motion. Extremities nontender. Neuro: Oriented X 3. Cranial nerve exam: II-XII are grossly intact No motor deficit. No sensory deficit. Reflexes normal. Course Course Course Narrative: 57-year-old female came in with symptoms of feeling nervous and shaky and dizzy. Patient had a workup in the emergency department has unremarkable EKG and tr oponin, electrolytes within normal, vital sign within normal, normal neuro exam, patient is back to her normal baseline. Medical Decision Making Differential Diagnosis Differential Diagnoses: The differential diagnosis associated with the presentation includes ( CVA, TIA, vertigo, dehydration, anemia, electrolyte disturbance, anxiety.) Lab Data MDM Lab Attestation statement: I reviewed the patient's lab results. 11/22/22 01:41 11/22/22 01:41 Labs: Lab Results 11/22/22 11/22/22 11/22/22 Range/Units 01:41 01:41 02:39 WBC 5.8 (4.8-10.8) X10*3/uL RBC 4.24 (4.20-5.50) X10*6/uL Hgb 13.2 (12.0-16.0) g/dl Hct 39.7 (37.0-47.0) % MCV 93.6 (80.0-98.0) fL MCH 31.1 (27.0-33.0) pg MCHC 33.2 (31.0-35.0) g/dl RDW 12.4 (11.0-16.0) % Plt Count 242 (160-400) X10*3/uL MPV 10.2 (9.4-12.3) fL Immature Gran % (Auto) 0.7 H (0.0-0.4) % Neut % (Auto) 37.8 L (45-73) % Lymph % (Auto) 51.5 H (20-40) % Hart % (Auto) 8.8 (2-11) % Eos % (Auto) 0.7 (0-4) % Baso % (Auto) 0.5 (0-2) % Lymph # (Auto) 3.0 (1.2-4.9) X10*3/uL Hart # (Auto) 0.5 (0.1-1.2) X10*3/uL Eos # (Auto) 0.0 (0.0-0.4) X10*3/uL Baso # (Auto) 0.0 (0.0-0.2) X10*3/uL Abs Immat Gran (auto) 0.04 H (0.00-0.03) X10*3/uL Absolute Neuts (auto) 2.2 (2.0-8.3) x10*3/uL Absolute Nucleated RBC 0.000 (0.0-0.012) X10*3/uL Nucleated RBC % (auto) 0.0 (0.0-0.2) /100WBC Sodium 141 (135-145) mmol/L Potassium 3.9 (3.3-5.1) mmol/L Chloride 110 H (96-108) mmol/L Carbon Dioxide 22 (22-29) mmol/L Anion Gap 13 (12-20) BUN 20 H (9-16) mg/dL Creatinine 0.75 (0.5-1.4) mg/dL Estim Creat Clear Calc 76.2 Estimated GFR > 60 Random Glucose 101 (60-115) mg/dL Calcium 8.7 (8.4-10.2) mg/dL Troponin I High Sens < 3.5 (<3.5-17.0) ng/L Independent Interpretation I performed an independent interpretation of an: EKG ( Normal sinus rhythm at 68 beats per minutes, normal axis deviation, normal intervals, no ST-T changes.) Discharge Plan Discharge Clinical Impression: Anxiety Patient Disposition: Home, Self-Care Instructions: Anxiety (ED) Prescriptions: No Action cholecalciferol (vitamin D3) 50 mcg (2,000 unit) capsule 50 mcg PO DAILY multivitamin Tablet 1 tab PO DAILY omega-3 fatty acids [Fish Oil Concentrate] 1,000 mg capsule 1,000 mg PO DAILY mecobalamin (vitamin B12) 1,000 mcg tablet,chewable 1,000 mcg PO DAILY ascorbic acid (vitamin C) 500 mg tablet 500 mg PO DAILY lorazepam 0.5 mg tablet 0.5 mg PO DAILY PRN (Reason: anxiety) 15 Days Qty: 15 0RF acetaminophen 500 mg tablet 1,000 mg PO Q6H PRN (Reason: fever) Qty: 20 0RF omeprazole 20 mg capsule,delayed release(DR/EC) 20 mg PO DAILY 90 Days Qty: 90 0RF Referrals: Arnel Paulino MD [Primary Care Provider] -
[2022-11-22 03:48] VITALS: BP 102/61; PULSE 67; RESP 16; TEMP 37; O2SAT 98
== END 2022-11-22 04:00 | disposition home or self-care (01) ==
PROVIDERS: Emergency Provider Emergency Medicine; PCP Internal Medicine
DX: R42 Dizziness and giddiness (principal); F41.1 Generalized anxiety disorder; F43.0 Acute stress reaction; Z79.899 Other long term (current) drug therapy
CPT/HCPCS: 36415; 80048; 84484; 85025; 93005; 99283; 99284

== ENCOUNTER 2022-11-30 11:58 | Day surgery (SDC) | payer OTHER, SELFPAY ==
[2022-11-24 12:32] VITALS: BMI 24.7
[2022-11-30 12:42] VITALS: BMI 24.1
[2022-11-30 12:49] VITALS: BP 102/60; PULSE 90; RESP 18; TEMP 36.9; O2SAT 97; BMI 24.1
[2022-11-30] MEDS: Lactated Ringers 1,000 ML 50 ML IVCONT (13:14)
--- NOTE | 2022-11-30 14:52 | MHC.SHP ---
Pre-Procedural Eval Section A Date of Service: 11/30/22 Section B Chief Complaint: Esophagitis, unspecified without bleeding Details of Present Illness: PMH Acquired chest/rib deformity Artificial menopause History of depression Osteopenia Thyroid nodule Tubular adenoma of colon Vitamin D deficiency Surgical History History of esophagogastroduodenoscopy (EGD) Hx of colonoscopy Hx of foot surgery Hx of hysterectomy with oophorectomy Hx of tubal ligation Relevant Social History: None Present Medications: see Short Stay Collaborative assessment Medical History: Significant History (as above ) History of Previous Operations: Relevant previous surgery/procedure and date(s) (as above ) Allergies: Allergies Allergy/AdvReac Type Severity Reaction Status Date / Time No Known Allergies Allergy Verified 11/22/22 01:27 Review of Systems Review of Systems Comment: 10 point ROS negative except as above Exam Exam Comment: Gen appear: No acute distress HEENT: no icterus Chest: No overt resp distress Abd: soft, nontender, nondistended Psych: Stable affect, answering questions appropriately Neuro: A/Ox3 noted to move all extremities spontaneously Ext: no peripheral edema Plan Diagnosis/Plan: Unchanged I have reviewed the history and physical and performed a pertinent physical examination on my patient. No changes have occurred unless specified. Time Spent With Patient Time: Total time managing care of this patient today ____ minutes.
[2022-11-30 15:30] VITALS: BP 97/59; PULSE 97; RESP 15; TEMP 37.3; O2SAT 95
--- NOTE | 2022-11-30 15:43 | P.OP_ITS ---
Operative Note Operative Note Date of Service: 11/30/22 Narrative: Procedure: Esophagogastroduodenoscopy Endoscopist: Nancy Green MD Indication: Hx of esophagitis Anesthesia Provider: Dr Castellon Anesthesia Type: MAC ?? EGD Procedure:?? The procedure, indications, preparation and potential complications were revi ewed with the patient, who indicated understanding and gave written informed consent to proceed. A physical exam was performed. The endoscope was introduced through the mouth, and advanced to the second part of duodenum. The mucosa was carefully examined on slow withdrawal of the endoscope. The patient tolerated the procedure well. There were no immediate complications.? ? EGD Findings:? * Esophagus:? Again, trachealisation and furrowing of esophageal mucosa was noted. The Z line was at 30 cm. Large hiatal hernia with diaphragmatic pinch noted at 36 cm. Lower esophagus forceps biopsies were obtained to rule out eosinophilic esophagitis. * Stomach:? Normal mucosa was noted in the stomach. Retroflexion in the fundus confirmed size and morphology of the hiatal hernia. * Duodenum:? Normal mucosa was noted in the whole of the examined duodenum. ? EGD Impressions:? * Abnormal esophageal mucosa (biopsy) * Normal stomach * Normal duodenum ?? Recommendations:?? * Follow biopsy results. Our office will call or send a letter with results within 7-10 days. * Continue PPI therapy. Above has been reviewed with the patient. Relevant educational hand outs were provided at discharge.
[2022-11-30 15:45] VITALS: BP 105/63; PULSE 83; RESP 16; O2SAT 96
[2022-11-30 16:00] VITALS: BP 107/63; PULSE 79; RESP 14; TEMP 36.6; O2SAT 99
== END 2022-11-30 16:19 | disposition home or self-care (01) ==
PROVIDERS: PCP Internal Medicine; Visit Provider Internal Medicine
PROC: 0DJ08ZZ Inspection of Upper Intestinal Tract, Via Natural or Artificial Opening Endoscopic (ICD-10-PCS; CPT 43235; principal; 2022-11-30 13:10)
DX: K22.9 Disease of esophagus, unspecified (principal); K44.9 Diaphragmatic hernia without obstruction or gangrene; M95.4 Acquired deformity of chest and rib; M85.80 Other specified disorders of bone density and structure, unspecified site; E55.9 Vitamin D deficiency, unspecified; E04.1 Nontoxic single thyroid nodule; F32.A Depression, unspecified; Z79.899 Other long term (current) drug therapy
CPT/HCPCS: 43239; 88305; J2250

== ENCOUNTER 2022-12-17 08:15 | Outpatient (REF) | payer OTHER, SELFPAY ==
[2022-12-17 08:23] LABS: MANUAL DIFF FLAG NO
[2022-12-17 08:49] LABS: Basophils Percent Auto 0.3 % (0-2); Hematocrit 42.8 % (37.0-47.0); Hemoglobin 13.9 g/dl (12.0-16.0); Imm Gran Abs Auto 0.01 X10*3/uL (0.00-0.03); Imm Gran Pct Auto 0.3 % (0.0-0.4); Lymphocytes Absolute Auto 1.3 X10*3/uL (1.2-4.9); Mean Corpuscular HGB Conc 32.5 g/dl (31.0-35.0); Mean Corpuscular Hemoglobin 30.4 pg (27.0-33.0); Mean Corpuscular Volume 93.7 fL (80.0-98.0); Mean Platelet Volume 10.8 fL (9.4-12.3); Monocytes Absolute Auto 0.4 X10*3/uL (0.1-1.2); Neutrophils Absolute Auto 2.3 x10*3/uL (2.0-8.3); Neutrophils Percent Auto 57.4 % (45-73); Platelet Count 238 X10*3/uL (160-400); Red Blood Count 4.57 X10*6/uL (4.20-5.50); Red Cell Distribution Width 12.8 % (11.0-16.0)
[2022-12-17 09:24] LABS: Alanine Aminotransferase 23 U/L (0-31); Albumin Level 3.9 g/dL (3.5-5.0); Alkaline Phosphatase 83 U/L (39-117); Anion Gap 10 (12-20); Aspartate Amino Transferase 32 U/L (5-31); Bilirubin Total 0.4 mg/dL (0.0-1.0); Blood Urea Nitrogen 15 mg/dL (9-16); Calcium 9.1 mg/dL (8.4-10.2); Carbon Dioxide 28 mmol/L (22-29); Chloride 107 mmol/L (96-108); Estimated Glomerular Filt Rate > 60; Glucose Random 84 mg/dL (60-115); Potassium 4.9 mmol/L (3.3-5.1); Sodium 140 mmol/L (135-145); Total Protein 6.4 g/dL (6.5-8.0)
[2022-12-17 09:43] LABS: TSH reflex Free T4 0.64 uIU/mL (0.32-4.0)
== END 2022-12-17 08:16 | disposition home or self-care (01) ==
LOC: HO.LAB 08:15
PROVIDERS: PCP Internal Medicine; Visit Provider Internal Medicine
DX: R00.2 Palpitations (principal)
CPT/HCPCS: 36415; 80053; 84443; 85025

== ENCOUNTER 2022-12-19 03:51 | Emergency (ER) | payer OTHER, SELFPAY ==
[2022-12-19 03:56] VITALS: BP 110/74; PULSE 92; O2SAT 100
[2022-12-19 04:06] VITALS: BP 121/77; PULSE 83; RESP 16; TEMP 36.7; O2SAT 99; BMI 25.9
[2022-12-19] MEDS: ondansetron HCL 4 MG/2 ML VIAL IVPUSH (04:45)
[2022-12-19 04:46] VITALS: BP 103/74; PULSE 76; RESP 18; O2SAT 97
[2022-12-19 04:46] LABS: MANUAL DIFF FLAG NO
[2022-12-19 04:48] LABS: Eosinophils Percent Auto 0.6 % (0-4); Hematocrit 42.9 % (37.0-47.0); Hemoglobin 14.2 g/dl (12.0-16.0); Imm Gran Abs Auto 0.01 X10*3/uL (0.00-0.03); Imm Gran Pct Auto 0.3 % (0.0-0.4); Lymphocytes Absolute Auto 0.5 X10*3/uL (1.2-4.9); Lymphocytes Percent Auto 13.6 % (20-40); Mean Corpuscular HGB Conc 33.1 g/dl (31.0-35.0); Mean Corpuscular Volume 90.7 fL (80.0-98.0); Mean Platelet Volume 10.4 fL (9.4-12.3); Monocytes Absolute Auto 0.2 X10*3/uL (0.1-1.2); Monocytes Percent Auto 6.6 % (2-11); Neutrophils Absolute Auto 2.6 x10*3/uL (2.0-8.3); Neutrophils Percent Auto 78.9 % (45-73); Platelet Count 233 X10*3/uL (160-400); Red Blood Count 4.73 X10*6/uL (4.20-5.50); Red Cell Distribution Width 12.8 % (11.0-16.0); White Blood Count 3.3 X10*3/uL (4.8-10.8)
[2022-12-19 05:06] LABS: Alanine Aminotransferase 27 U/L (0-31); Albumin Level 3.9 g/dL (3.5-5.0); Alkaline Phosphatase 84 U/L (39-117); Anion Gap 12 (12-20); Aspartate Amino Transferase 31 U/L (5-31); Bilirubin Direct 0.2 mg/dL (0.0-0.5); Bilirubin Total 0.7 mg/dL (0.0-1.0); Blood Urea Nitrogen 15 mg/dL (9-16); Calcium 8.6 mg/dL (8.4-10.2); Carbon Dioxide 24 mmol/L (22-29); Chloride 109 mmol/L (96-108); Creatinine Clr Calc Pharmacy 85.9; Estimated Glomerular Filt Rate > 60; Glucose Random 101 mg/dL (60-115); Lipase 32 U/L (8-78); Potassium 4.1 mmol/L (3.3-5.1); Sodium 141 mmol/L (135-145); Total Protein 6.6 g/dL (6.5-8.0)
--- NOTE | 2022-12-19 05:11 | ED_ITS ---
HPI - Nausea/Vomiting/Diarrhea General Chief complaint: Nausea/Vomiting/Diarrhea Stated complaint: DIZZY,WEAK,NAUSEA,DIARRHEA X'S HOURS Time Seen by Provider: 12/19/22 05:05 Source: patient Mode of arrival: ambulatory Limitations: no limitations History of Present Illness HPI Narrative: Patient comes to the emergency room complaining of nausea and diarrhea. Patient states that it started 3-4 hours after she ate reheated cell min. patient complaining of abdominal cramping, no chest pain or shortness of breath, no URI or UTI symptoms patient states that she drank a bottle of milk of magnesia hoping that she would feel better. Related Data Home Medications Medication Instructions Recorded Confirmed ascorbic acid (vitamin C) 500 mg 500 mg PO DAILY 11/04/20 12/18/22 tablet cholecalciferol (vitamin D3) 50 50 mcg PO DAILY 11/04/20 12/18/22 mcg (2,000 unit) capsule mecobalamin (vitamin B12) 1,000 1,000 mcg PO DAILY 11/04/20 12/18/22 mcg chewable tablet multivitamin 1 tab PO DAILY 11/04/20 12/18/22 omega-3 fatty acids 1,000 mg 1,000 mg PO DAILY 11/04/20 12/18/22 capsule (Fish Oil Concentrate) Previous Rx's Medication Instructions Recorded acetaminophen 500 mg tablet 1,000 mg PO Q6H PRN fever #20 tabs 12/27/21 omeprazole 20 mg capsule,delayed 20 mg PO DAILY 90 days #90 caps 10/21/22 release lorazepam 0.5 mg tablet 0.5 mg PO DAILY PRN anxiety 15 12/16/22 days #15 tabs loperamide 2 mg tablet 2 mg PO Q4H PRN loose stool #14 12/19/22 tabs ondansetron 4 mg disintegrating 4 mg PO Q6H PRN nausea and 12/19/22 tablet vomiting #10 tabs Allergies Allergy/AdvReac Type Severity Reaction Status Date / Time No Known Allergies Allergy Verified 12/19/22 04:06 Review of Systems Review of Systems: Constitutional : No Weight loss, No Fever, No Chills, No Night Sweats, No Fatigue, No Malaise ENT/Mouth : No Hearing loss, No Ear Pain, No Nasal Congestion, No Sinus Pain, No Hoarseness, No sore throat, No Rhinorrhea, No Swallowing Difficulty Eyes: No Eye Pain, No Swelling, No Redness, No Foreign Body, No Discharge, No Vision Changes Cardiovascular : No Chest Pain, No SOB, No Dyspnea on Exertion, No Orthopnea, No Edema, No Palpitations Respiratory : No Cough, No Sputum, No Wheezing, No Smoke Exposure, No Dyspnea Gastrointestinal : Complaining of nausea, no vomiting, complaining of multiple episodes of diarrhea, complaining of abdominal cramping Genitourinary : no irregular bleeding, No Dysuria, No Urinary Frequency, No Hematuria, No Urinary Incontinence, No Urgency, No Flank Pain, No Urinary Flow Changes, No Hesitancy Musculoskeletal : No joint pain, No Myalgias, No Joint Swelling Skin : No Skin Lesions, No rash Neuro : No Weakness, No Numbness, No Paresthesias, No Loss of Consciousness, No Dizziness, No Headache Psych : No Anxiety/Panic, No Depression, No SI/HI/AH/VH, No Social Issues, Heme/Lymph: No Bruising, No Bleeding,No Lymphadenopathy Endocrine : No Polyuria, No Polydipsia, No Temperature Intolerance PMFSH Past Medical History Medical History Acquired chest/rib deformity Artificial menopause History of depression Osteopenia Thyroid nodule Tubular adenoma of colon Vitamin D deficiency Surgical History History of esophagogastroduodenoscopy (EGD) Hx of colonoscopy Hx of foot surgery Hx of hysterectomy with oophorectomy Hx of tubal ligation Family History Family History Father Throat cancer Emphysema of lung TIA (transient ischemic attack) Social History Social History Household Members: None Housing: House Alcohol intake: current Alcohol intake frequency: holidays/special occasions only Patient Tobacco Use Status: Never used Tobacco e-Cigarette/Vaping Use: Never Used Second Hand Smoke Exposure: Yes Advance Directives: No Advance Directives Information Provided: Yes Patient : No service: No Current occupational status: employed 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 Oriented X3. No acute distress. Eyes: Pupils equal, round and reactive to light. ENT: Pharynx normal. Neck: Normal inspection. Neck supple. No lymph nodes noted. No crepitus CVS: Normal heart rate and rhythm. Pulses normal. Normal S1 and S2 Respiratory: No respiratory distress. Breath sounds normal. No Wheezing. No rales Abdomen: Soft and nontender. No rigidity. No distention. Skin: Skin warm and dry. Normal skin color. Normal skin turgor. Extremities: No lower extremity edema. No Lacerations. No Rash Neuro: Oriented X 3. No motor deficit. No sensory deficit. Moving all extremities. No slurred speech. CN 2 through 12 grossly intact Psych: calm, cooperative, normal affect Course Course Course Narrative: Patient's white blood cell count 3.3, chronic, chemistry unremarkable -patient receiving IV fluids, Zofran and loperamide -patient likely has acute gastroenteritis. Medications Administered Discontinued Medications Generic Name Dose Route Start Last Admin Trade Name Freq PRN Reason Stop Dose Admin Ondansetron HCl 4 mg 12/19/22 04:34 12/19/22 04:45 Ondansetron Hcl 4 Mg/2 Ml Vial IVPUSH 12/19/22 04:35 4 mg ONCE ONE Administration Medical Decision Making Medical Decision Making [facility] [place] Narrative: -patient likely has acute gastroenteritis. Differential Diagnosis Differential Diagnoses: The differential diagnosis associated with the presentation includes (scmbroid, ciguatera, gastroenteritis) Lab Data [facility] [place] Lab Attestation statement: I reviewed the patient's lab results. 12/19/22 04:41 12/19/22 04:41 Labs: Lab Results 12/19/22 12/19/22 Range/Units 04:41 04:41 WBC 3.3 L (4.8-10.8) X10*3/uL RBC 4.73 (4.20-5.50) X10*6/uL Hgb 14.2 (12.0-16.0) g/dl Hct 42.9 (37.0-47.0) % MCV 90.7 (80.0-98.0) fL MCH 30.0 (27.0-33.0) pg MCHC 33.1 (31.0-35.0) g/dl RDW 12.8 (11.0-16.0) % Plt Count 233 (160-400) X10*3/uL MPV 10.4 (9.4-12.3) fL Immature Gran % (Auto) 0.3 (0.0-0.4) % Neut % (Auto) 78.9 H (45-73) % Lymph % (Auto) 13.6 L (20-40) % [place] % (Auto) 6.6 (2-11) % Eos % (Auto) 0.6 (0-4) % Baso % (Auto) 0.0 (0-2) % Lymph # (Auto) 0.5 L (1.2-4.9) X10*3/uL [place] # (Auto) 0.2 (0.1-1.2) X10*3/uL Eos # (Auto) 0.0 (0.0-0.4) X10*3/uL Baso # (Auto) 0.0 (0.0-0.2) X10*3/uL Abs Immat Gran (auto) 0.01 (0.00-0.03) X10*3/uL Absolute Neuts (auto) 2.6 (2.0-8.3) x10*3/uL Absolute Nucleated RBC 0.000 (0.0-0.012) X10*3/uL Nucleated RBC % (auto) 0.0 (0.0-0.2) /100WBC Sodium 141 (135-145) mmol/L Potassium 4.1 (3.3-5.1) mmol/L Chloride 109 H (96-108) mmol/L Carbon Dioxide 24 (22-29) mmol/L Anion Gap 12 (12-20) BUN 15 (9-16) mg/dL Creatinine 0.73 (0.5-1.4) mg/dL Estim Creat Clear Calc 85.9 Estimated GFR > 60 Random Glucose 101 (60-115) mg/dL Calcium 8.6 (8.4-10.2) mg/dL Total Bilirubin 0.7 (0.0-1.0) mg/dL Direct Bilirubin 0.2 (0.0-0.5) mg/dL AST 31 (5-31) U/L ALT 27 (0-31) U/L Alkaline Phosphatase 84 (39-117) U/L Total Protein 6.6 (6.5-8.0) g/dL Albumin 3.9 (3.5-5.0) g/dL Lipase 32 (8-78) U/L Discharge Plan Discharge Clinical Impression: Food poisoning Patient Disposition: Home, Self-Care Instructions: Food Poisoning (ED) Additional Instructions: Please follow-up with your primary care physician tomorrow. If you have any worsening or new symptoms, please return to the emergency room or call 911 Prescriptions: New ondansetron 4 mg tablet,disintegrating 4 mg PO Q6H PRN (Reason: nausea and vomiting) Qty: 10 0RF loperamide 2 mg tablet 2 mg PO Q4H PRN (Reason: loose stool) Qty: 14 0RF Rx Instructions: administer after each loose stool until symptoms controlled; do not exceed 8 mg per 24 hrs No Action cholecalciferol (vitamin D3) 50 mcg (2,000 unit) capsule 50 mcg PO DAILY multivitamin Tablet 1 tab PO DAILY omega-3 fatty acids [Fish Oil Concentrate] 1,000 mg capsule 1,000 mg PO DAILY mecobalamin (vitamin B12) 1,000 mcg tablet,chewable 1,000 mcg PO DAILY ascorbic acid (vitamin C) 500 mg tablet 500 mg PO DAILY acetaminophen 500 mg tablet 1,000 mg PO Q6H PRN (Reason: fever) Qty: 20 0RF lorazepam 0.5 mg tablet 0.5 mg PO DAILY PRN (Reason: anxiety) 15 Days Qty: 15 1RF omeprazole 20 mg capsule,delayed release(DR/EC) 20 mg PO DAILY 90 Days Qty: 90 0RF
[2022-12-19] MEDS: Loperamide HCl 2 MG CAPSULE 4 MG PO (05:19)
[2022-12-19] MEDS: 0.9 % Sodium Chloride 1,000 ML 999 ML IVCONT (05:20)
[2022-12-19 05:21] LABS: HCG Quantitative < 2 mIU/mL
[2022-12-19 05:30] LABS: Appearance Urine Clear; Color Urine Yellow; Glucose Urine UA Negative (Negative); Leukocyte Esterase Urine Small (1+) (Negative); Nitrite Urine Negative (Negative); PH >= 9.0 (5.0-9.0); UMIC TRIGGER UACC YES; Urine Blood Negative (Negative); Urine Ketones Negative (Negative); Urine Protein Negative (Neg-Trace)
[2022-12-19 05:41] LABS: Bacteria Urine None Seen (None Seen); Hyaline Casts Urine 0-2 /LPF (0-2); RBC Urine 0-2 /HPF (0-2); Squamous Epithelial Cell Urine 0-2 /HPF (0-2); UACC Culture Trigger YES; WBC Urine 0-5 /HPF (0-5)
[2022-12-19 06:06] VITALS: BP 107/72; PULSE 84; RESP 18; TEMP 36.6; O2SAT 98
== END 2022-12-19 06:10 | disposition home or self-care (01) ==
PROVIDERS: Emergency Provider Emergency Medicine
DX: A05.9 Bacterial foodborne intoxication, unspecified (principal); R42 Dizziness and giddiness; R19.7 Diarrhea, unspecified; R25.2 Cramp and spasm; Z79.899 Other long term (current) drug therapy
CPT/HCPCS: 36415; 80048; 80076; 81001; 83690; 84702; 85025; 87086; 96374; 99284; J2405

== ENCOUNTER → 2022-12-26 15:40 | Outpatient (BNVA) | payer OTHER, SELFPAY | PROVIDERS: PCP Internal Medicine; Visit Provider Internal Medicine | DX: Z13.89 Encounter for screening for other disorder (principal) ==

== ENCOUNTER → 2022-12-27 07:39 | Outpatient (REF) | payer OTHER, SELFPAY ==
--- NOTE | 2022-12-27 07:44 | HM_ITS ---
Conclusion: 1. Patient was monitored for total period of 3 days 2. Baseline was normal sinus rhythm with average heart of 76 beats per minute 3. No significant pauses or bradycardia noted 4. Very rare ectopy noted 5. Patient marked 1 event without associated symptoms that correlated with sinus rhythm MTDD
--- NOTE | 2022-12-27 07:44 | CA_ITS ---
Transthoracic Echocardiogram Patient (Last, First, Middle): Baylee Romero E Gender: Female Date of : 1965 Age: 57 Procedure Date: 12/27/2022 Procedure Type: Transthoracic Echocardiogram Location: OP Height: 165.1 cm Weight: 67.59 kg BSA: 1.75 m2 Heart Rate: bpm BP: 110 / 58 mmHg Administrative Services Director: TO Referring MD: Arnel Paulino MD [employer] Supervisor: Pieter Lopez MD Symptoms: R00.2 - Palpitations Study Quality: Good ECG Rhythm: Sinus Conclusions: - Essentially normal study Findings Left Ventricle Normal left ventricular size, thickness, and systolic function. The visually estimated ejection fraction is between 60-65%. Spectral Doppler is indicative of a normal filling pattern. Peak GLS is -21.4%, within normal limits. Right Ventricle Normal right ventricular cavity size and systolic function. Atria Both atria are normal in size. Interatrial shunt cannot be excluded. Aortic Valve Normal aortic valve structure and function. There is no aortic valve stenosis. There is no aortic valve regurgitation. Mitral Valve There is mild anterior and posterior mitral leaflet thickening. There is trace mitral valve regurgitation. There is no mitral valve stenosis. Pulmonic Valve The pulmonic valve is likely normal. There is trace pulmonic valve regurgitation. Tricuspid Valve Normal tricuspid valve structure. There is trace tricuspid valve regurgitation. The right ventricular systolic pressure is normal. The right ventricular systolic pressure is 17 mmHg. Normal right atrial pressure. There is no evidence of pulmonary hypertension. Great Vessels All visible segments of the aorta are normal in size. The pulmonary artery was not well visualized. Venous The inferior vena cava is normal in size and collapses greater than 50% with inspiration. Pericardium/Pleural There is no evidence of pericardial effusion. Prior Study Comparison No prior study available for comparison. Measurements 2D Linear Measurements IVSd: 0.88 0.6-0.9/0.6-1.0 cm LVIDd: 4.56 3.9-5.3/4.2-5.9 cm LVIDd Index: 2.61 2.4-3.2/2.2-3.1 cm/m2 LVIDs: 2.95 2.0-3.6 cm LVPWd: 0.71 0.7-1.1 cm LA Diam: 3.00 2.7-3.8/3.0-4.0 cm LAIDs Index: 1.71 1.5-2.3 cm/m2 LV Mass: 142.95 67-162/88-224 g LV Mass Index: 81.68 43-95/49-115 g/m2 LVOT Diam: 2.00 3.0+(-)1.3 cm 2D Systolic Function EF 4C: 64.00 >55% EF 2C: 67.80 >55% EF BiP: 65.50 >55% Mitral Valve MV Pk E: 0.90 MV PK A: 0.70 MV Decel Time: 182.00 E/A: 1.30 E'Lateral: 13.30 E'Medial: 9.79 E/E' Med: 9.20 E/E' Lat: 6.80 PHT: 53.00 MVA PHT: 4.15 Decel Hooker: 4.96 Aortic Valve AoV Pk Andrez: 1.48 AoV Mn Andrez: 1.12 AoV VTI: 0.34 AoV Pk Grad: 9.00 Aov Mn Grad: 5.00 LISA Cont.VTI: 2.42 LVOT LVOT Pk Andrez: 1.16 LVOT Mn Andrez: 0.79 LVOT VTI: 0.26 LVOT Pk Grad: 5.00 LVOT Mn Grad: 3.00 LVOT Diam: 2.00 LVOT Area: 3.14 Diastolic Function MV Pk E: 0.90 MV Pk A: 0.70 E/A: 1.30 E'Medial: 9.79 E/E' Med: 9.20 E' Laterial: 13.30 E/E' Lat: 6.80 Right Ventricle TAPSE (mm): 20.00 TVS' Andrez: 10.40 Tricuspid Valve TR Pk Andrez: 1.89 TR Pk Grad: 14.00 RA Press: 3.00 RVSP: 17.00 Great Vessels Aorta Sinus of Valsalva: 3.17 2.0-3.[address] [place]: 2.26 1.7-3.4 cm Ao Asc: 3.20 2.1-3.4 cm Updated in Other Vendor System with Status of Final Pieter Lopez MD electronically signed on 12/28/2022 9:29:25 AM with status of Final
== END ==
LOC: HO.CARD 07:39
PROVIDERS: PCP Internal Medicine; Visit Provider Internal Medicine
DX: R00.2 Palpitations (principal)
CPT/HCPCS: 93242; 93306; 93356

== ENCOUNTER 2023-01-28 07:52 | Outpatient (REF) | payer OTHER, SELFPAY ==
--- NOTE | ~2023-01-28 | MM_ITS ---
EXAMINATION: MM SCREENING DIGITAL BREAST TOMOSYNTHESIS, BILATERAL CLINICAL INFORMATION: Screening. Asymptomatic. The lifetime risk of breast cancer based on the Tyrer-Cuzick Model is 7%. COMPARISON: Mammography: 01/22/2022, 01/15/2021, 10/30/2019, 10/26/2018; left breast ultrasound 01/27/2022. TECHNIQUE: Digital breast tomosynthesis is performed in both the craniocaudal and mediolateral oblique views along with computer-aided detection (CAD). Synthesized 2D images are generated from the tomosynthesis. FINDINGS: There are scattered areas of fibroglandular density (ACR BI-RADS breast composition Category b). There are no significant masses, abnormal calcifications, or other abnormalities. There is a small intradermal cyst again seen anterior 6:00 left breast. The axilla and skin contours are unremarkable. There are no significant changes from prior study. MM/MM tomosynthesis screening BI IMPRESSION: No mammographic evidence of malignancy. ASSESSMENT: BI-RADS 2: Benign RECOMMENDATION: Routine annual mammography screening. This patient's information was entered into a reminder system with a target due date for their next mammogram.
[2023-01-28 08:28] LABS: MANUAL DIFF FLAG NO
[2023-01-28 08:34] LABS: Eosinophils Absolute Auto 0.2 X10*3/uL (0.0-0.4); Eosinophils Percent Auto 5.6 % (0-4); Hematocrit 41.7 % (37.0-47.0); Hemoglobin 13.6 g/dl (12.0-16.0); Imm Gran Abs Auto 0.01 X10*3/uL (0.00-0.03); Imm Gran Pct Auto 0.3 % (0.0-0.4); Lymphocytes Absolute Auto 1.5 X10*3/uL (1.2-4.9); Lymphocytes Percent Auto 47.9 % (20-40); Mean Corpuscular HGB Conc 32.6 g/dl (31.0-35.0); Mean Corpuscular Hemoglobin 29.8 pg (27.0-33.0); Mean Corpuscular Volume 91.2 fL (80.0-98.0); Mean Platelet Volume 10.1 fL (9.4-12.3); Monocytes Absolute Auto 0.3 X10*3/uL (0.1-1.2); Monocytes Percent Auto 8.6 % (2-11); Neutrophils Absolute Auto 1.1 x10*3/uL (2.0-8.3); Neutrophils Percent Auto 36.6 % (45-73); Platelet Count 253 X10*3/uL (160-400); Red Blood Count 4.57 X10*6/uL (4.20-5.50)
[2023-01-28 09:05] LABS: Alanine Aminotransferase 26 U/L (0-31); Albumin Level 3.9 g/dL (3.5-5.0); Alkaline Phosphatase 80 U/L (39-117); Anion Gap 10 (12-20); Aspartate Amino Transferase 22 U/L (5-31); Bilirubin Total 0.4 mg/dL (0.0-1.0); Blood Urea Nitrogen 11 mg/dL (9-16); Calcium 8.9 mg/dL (8.4-10.2); Carbon Dioxide 25 mmol/L (22-29); Chloride 109 mmol/L (96-108); Cholesterol 168 mg/dL; Estimated Glomerular Filt Rate > 60; Glucose Fasting 82 mg/dL (60-99); HDL Cholesterol 52 mg/dL; LDL Cholesterol Calculated 102 mg/dl; Potassium 4.2 mmol/L (3.3-5.1); Sodium 140 mmol/L (135-145); Total Protein 6.3 g/dL (6.5-8.0); Triglycerides 74 mg/dL
[2023-01-28 09:07] LABS: Appearance Urine Clear; Color Urine Yellow; Glucose Urine UA Negative (Negative); Leukocyte Esterase Urine Small (1+) (Negative); Nitrite Urine Negative (Negative); Specific Gravity - Urine 1.025 (1.005-1.025); UMIC TRIGGER UACC YES; Urine Blood Negative (Negative); Urine Ketones Trace mg/dL (Negative); Urine Protein Trace mg/dL (Neg-Trace)
[2023-01-28 09:20] LABS: Vitamin D 25-OH Total 36.9 ng/mL (>30)
[2023-01-28 09:20] LABS: Bacteria Urine None Seen (None Seen); Granular Casts Urine Present; RBC Urine 0-2 /HPF (0-2); Squamous Epithelial Cell Urine 0-2 /HPF (0-2); UACC Culture Trigger YES; WBC Urine 0-5 /HPF (0-5)
== END 2023-01-28 07:53 | disposition home or self-care (01) ==
LOC: HO.MAMMO 07:52
PROVIDERS: PCP Internal Medicine; Visit Provider Internal Medicine
DX: Z00.00 Encounter for general adult medical examination without abnormal findings (principal); Z12.31 Encounter for screening mammogram for malignant neoplasm of breast; E78.00 Pure hypercholesterolemia, unspecified; E55.9 Vitamin D deficiency, unspecified; R82.90 Unspecified abnormal findings in urine
CPT/HCPCS: 36415; 77063; 77067; 80053; 80061; 81001; 82306; 84443; 85025; 87086

== ENCOUNTER → 2023-02-23 08:22 | Outpatient (BNVA) | payer OTHER, SELFPAY | PROVIDERS: PCP Internal Medicine; Visit Provider Dietitian, Registered | DX: E66.3 Overweight (principal); Z68.29 Body mass index [BMI] 29.0-29.9, adult; K21.9 Gastro-esophageal reflux disease without esophagitis; K21.00 Gastro-esophageal reflux disease with esophagitis, without bleeding | CPT/HCPCS: 97802 ==

== ENCOUNTER 2023-04-18 09:05 | Outpatient (AMB) | payer OTHER, SELFPAY ==
--- NOTE | 2023-04-18 09:14 | A.OFFVIS_ITS ---
Intake Vital Signs 04/18/23 09:15 Height 5 ft 5 in Weight 152 lb 1.903 oz BMI 25.3 BP 110/75 Blood Pressure Location Lt brachial Position Sitting Pulse 77 Intake Visit Reasons: Gastroesophageal reflux disease (GERD) Intake Note: Baylee presents in the office as a follow up for GERD. CC: She states that she is having acid reflux. She is not sure if it was what she ate that day or if its something to worry about. IT only happened that one time and has been okay since. [employer] Tobacco Required: No Allergies No Known Allergies Allergy (Verified 04/18/23 09:15) HPI HPI Comments History of Present Illness Details 57y.o F with hx of thyroid nodules, GERD who is presenting for follow up for intermittent dysphagia. Initial visit 08/2022: Pt states that she noticed her first episode in June with rice and then another episode last month with pork. [place] that food got stuck in upper esophagus and had to wash it down with water/fluids. She has noticed regurgitation of scant volume of old food once. Otherwise, denies any abd pain, N,V changes in bowel habits, unintentional weight loss. Last colonoscopy 2018: 2 mm tubular adenoma, adequate prep. 09/14/22: Reports excellent response to PPI therapy. Has not had any further episodes of food getting stuck since starting PPI. No issues with regurgitation any more. Has not had barium swallow done yet - scheduled for Oct. EGD 09/2022 (done OFF ppi): * Grade D esophagitis * Mucosa suspicious for EoE (biopsy) * Hiatal hernia * Normal stomach * Peptic duodenitis (biopsy)?? Path: A.? Duodenum, biopsy:? Chronic active duodenitis. B.? Esophagus, mid, biopsy:? Squamous epithelium within normal limits; no inflammation seen. 10/21/22: No complaints today since resuming PPI therapy after the procedure. Tried to discontinue to PPI, today is day 2 but is already feeling some return of symptoms. EGD 11/30/22: (On ppi x 8 weeks) * Esophagus:? Again, trachealisation and furrowing of esophageal mucosa was noted. The Z line was at 30 cm. Large hiatal hernia with diaphragmatic pinch noted at 36 cm. Lower esophagus forceps biopsies were obtained to rule out eosinophilic esophagitis. * Stomach:? Normal mucosa was noted in the stomach. Retroflexion in the fundus confirmed size and morphology of the hiatal hernia. * Duodenum:? Normal mucosa was noted in the whole of the examined duodenum.? Path: Esophagus, lower, biopsy:? Squamous epithelium within normal limits; no inflammation seen; negative for eosinophilic esophagitis. 12/26/22: Was recently seen in ER last week for food borne GI illness from left over [employer] lunch. Currently no GI complaints to include abd pain, N,V,D. Has been doing well with Omeprazole 20mg, did not noticing return of sx with reduction in dose. 04/18/23: Requested follow up today for 2 reasons. Had breakthrough heartburn one day a few weeks ago. Thinks it was triggered by having [place] for breakfast. Secondly, she has questions if she should consider surgical repair for hiatal hernia. Otherwise, doing well. No dysphagia or sensation of food getting stuck. Has been able to taper down to Omeprazole 10mg without any difficulty. [facility] Medical History Acquired chest/rib deformity Artificial menopause Esophagitis determined by biopsy History of depression Osteopenia Overweight (BMI 25.0-29.9) Thyroid nodule Tubular adenoma of colon Vitamin D deficiency Surgical History History of esophagogastroduodenoscopy (EGD) Hx of colonoscopy Hx of foot surgery Hx of hysterectomy with oophorectomy Hx of tubal ligation Family History Father Throat cancer Emphysema of lung TIA (transient ischemic attack) Social History Household Members: None Housing: House Alcohol intake: current Alcohol intake frequency: holidays/special occasions only Patient Tobacco Use Status: Never used Tobacco e-Cigarette/Vaping Use: Never Used Second Hand Smoke Exposure: Yes service: No Current occupational status: employed 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 Sexual orientation: Straight/Heterosexual Gender identity: Female Cognitive needs: No Hearing needs: No Vision needs: Yes Female Reproductive History Menstrual Age of Menarche: 14 Review of Systems Const All systems reviewed & are unremarkable except as noted in HPI and below Physical Exam Vital Signs: Last Vital Signs Pulse 77 04/18/23 09:15 BP 110/75 04/18/23 09:15 BMI result Body Mass Index 25.3 Gen appear: NAD HEENT: nonicteric, no cervical lymphadenopathy Chest: CTA CVS: Regular S1/S2 Abd: soft, nontender, nondistended, bowel sounds + Ext: no peripheral edema Neuro: A/Ox3, noted to move all extremities spontaneously Psych: interacting appropriately Assessment & Plan Assessment & Plan (1) Heartburn: Code(s): R12 - Heartburn (2) Intermittent dysphagia: Code(s): R13.19 - Other dysphagia (3) GERD with esophagitis: Code(s): K21.00 - Gastro-esophageal reflux disease with esophagitis, without bleeding (4) Hiatal hernia: Code(s): K44.9 - Diaphragmatic hernia without obstruction or gangrene Plan EGD and barium swallow proven GERD with esophagitis grade D in Sep 2022. Clinical and endoscopic evidence of response to PPI in Nov 2022 i.e complete endoscopic and histological healing of esophagitis. Reviewed with the pt that surgical repair of type 1 hiatal hernia typically not needed as long as GERD is manageable with medical interventions - in her case she is able to taper down to the lowest dose of Omeprazole 10 mg. However, I am happy to refer to foregut surgeon for further discussion and evaluation. Pt would like to discuss with her daughter who works at [facility] and then get back to us through the portal for referral. Plan: - Cont omeprazole to 10mg once daily. - Reassured that occ breakthrough sx triggered by food are not alarming but to reach out to us if has persistent sx i.e sx occur a few days of the week consistently. - Pt will reach out once she has decided re surg referral - Follow up in December as previously planned. Coding Level of Care Code Est Pt Level 4 (40149) Diagnoses Heartburn R12 Intermittent dysphagia R13.19 GERD with esophagitis K21.00 Hiatal hernia K44.9
[2023-04-18 09:15] VITALS: BP 110/75; PULSE 77; BMI 25.3
== END 2023-04-18 09:46 | disposition home or self-care (01) ==
PROVIDERS: PCP Internal Medicine; Visit Provider Internal Medicine
DX: R12 Heartburn (principal); R13.19 Other dysphagia; K21.00 Gastro-esophageal reflux disease with esophagitis, without bleeding; K44.9 Diaphragmatic hernia without obstruction or gangrene
CPT/HCPCS: 99214

== ENCOUNTER → 2023-04-18 09:05 | Outpatient (BNVA) | payer OTHER, SELFPAY | PROVIDERS: PCP Internal Medicine; Visit Provider Internal Medicine ==

== ENCOUNTER 2023-05-18 10:15 | Outpatient (AMB) | payer OTHER, SELFPAY ==
[2023-05-18 10:21] VITALS: BP 112/70; PULSE 73; O2SAT 98; BMI 26.1
--- NOTE | 2023-05-18 10:21 | A.OFFPC_ITS ---
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 Accompanied by: Self / Same As Patient Allergies No Known Allergies Allergy (Verified 05/18/23 10:32) Medication List - Last Reconciled 05/18/23 by Arnel Paulino MD acetaminophen 1,000 mg (2 x 500 mg) PO Q6H PRN ascorbic acid (vitamin C) 500 mg PO DAILY cholecalciferol (vitamin D3) 50 mcg PO DAILY loperamide 2 mg PO Q4H PRN lorazepam 0.5 mg PO DAILY PRN 15 days mecobalamin (vitamin B12) 1,000 mcg PO DAILY multivitamin 1 tab PO DAILY omega-3 fatty acids (Fish Oil Concentrate) 1,000 mg PO DAILY omeprazole 10 mg PO DAILY ondansetron 4 mg PO Q6H PRN tizanidine 2 mg PO BEDTIME PRN 30 days Tobacco use date assessed: 05/18/23 Dental Screening Dental Screen Date: 05/18/23 Did you have a dental visit in the last 12 months?: No Did you have a dental problem in the last 6 months where you did not have access to dental care?: No Was dental information given to patient?: Patient has dentist HPI Knee Discomfort/ Pain HPI Details Patient comes in today complaining of increasing right knee pain/tightness and discomfort for the past 8 to 9 days Recalls that she could hardly move/bend her right knee last week due to the pain and swelling and that the back of her right knee felt very tight all week last week Notes that her knee symptoms are slightly better this week but she still feels some swelling over the medial aspect of her knee She denies any recent injury or trauma to her knee Last had x-rays of her knees done last year in 12/2021 - x-rays revealed (+) bilateral OA changes No other acute complaints or symptoms are noted presently [facility] Medical History Acquired chest/rib deformity Artificial menopause Esophagitis determined by biopsy History of depression Osteopenia Overweight (BMI 25.0-29.9) Thyroid nodule Tubular adenoma of colon Vitamin D deficiency Surgical History History of esophagogastroduodenoscopy (EGD) Hx of colonoscopy Hx of foot surgery Hx of hysterectomy with oophorectomy Hx of tubal ligation Family History Father Throat cancer Emphysema of lung TIA (transient ischemic attack) Social History Household Members: None Housing: House Alcohol intake: current Alcohol intake frequency: holidays/special occasions only Patient Tobacco Use Status: Never used Tobacco e-Cigarette/Vaping Use: Never Used Second Hand Smoke Exposure: Yes service: No Current occupational status: employed 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 1. Little interest or pleasure in doing things: not at all 2. Feeling down, depressed, or hopeless: not at all 3. Trouble falling or staying asleep, or sleeping too much: several days 4. Feeling tired or having little energy: not at all 5. Poor appetite or overeating: several days 6. Feeling bad about yourself - or that you are a failure or have let yourself or your family down: not at all 7. Trouble concentrating on things, such as reading the newspaper or watching television: not at all 8. Moving or speaking so slowly that other people could have noticed. Or the opposite - being so fidgety or restless that you have been moving around a lot more than usual: not at all 9. Thoughts that you would be better off or of hurting yourself in some way: not at all Total score: 2 Depression Screening Interpretation: Negative 41423 - PHQ-9 Billing: Yes Source: Developed by Drs. Micah Le, Antonia Ellis, Didier Gastelum and colleagues, with an educational luke from [employer]. Thrive Questionnaire Date Thrive assessed: 05/18/23 I am a: Patient What is your living situation today?: I have a steady place to live Within the past 12 months, did the food you bought not last and you didn't have the money to get more?: Never true Within the past 12 months, did you worry whether your food would run out before you got money to buy more?: Never true Do you have trouble paying for medicines?: No Do you have trouble getting transportation to medical appointments?: No Do you have trouble paying your heating and electricity bill?: No Do you have trouble taking care of your child, family member or friend?: No Do you have trouble with day-to-day activities such as bathing, preparing meals, shopping, managing finances, etc.?: No Are you currently unemployed and looking for a job?: No Are you interested in more education?: No Please select the resources that you would like help with: None Currently or been in a relationship where the following occur: no concerns reported AUDIT C Alcohol Use Questionnaire (AUDIT-C) 1. How often do you have a drink containing alcohol?: Monthly or less 2. How many drinks containing alcohol do you have on a typical day when you are drinking?: 1 or 2 3. How often do you have six or more drinks on one occasion?: Never Total Score: 1 Score Reviewed/Action Taken: Yes CARSON-7 AMB Questionnaire CARSON-7 Date CARSON - 7 assessed: 05/18/23 Feeling nervous, anxious, or on edge: 0 = Not at all Not being able to stop or control worryin = Not at all Worrying too much about different things: 0 = Not at all Trouble relaxin = Not at all Being so restless that it is hard to sit still: 0 = Not at all Becoming easily annoyed or irritable: 0 = Not at all Feeling afraid as if something awful might happen: 0 = Not at all Total CARSON-7 score (0-4 normal; 5-9 mild; 10-14 moderate; 15-21 severe): 0 Source: Developed by Drs. Micah Le, Antonia Ellis, Didier Gastelum and colleagues, with an educational luke from [employer]. Review of Systems Const Denies fatigue, Denies fever(s) and Denies headache(s) ENT Denies dysphagia, Denies dizziness, Denies headache(s) and Denies sore throat Card Denies chest pain, Denies irregular heart rhythm, Denies palpitations and Denies dyspnea Resp Denies cough and Denies dyspnea GI Denies abdominal pain, Denies change in bowel habits, Denies dysphagia, Denies nausea and Denies vomiting Musc Reports arthralgias (over the right knee - more of a 'discomfort' at present) and Reports joint swelling (in the right knee - last week; no swelling now) Neuro Denies dizziness and Denies headache(s) Endo Denies fatigue and Denies palpitations Physical exam (Primary Care) Vital Signs: Last Vital Signs Pulse 73 05/18/23 10:21 BP 112/70 05/18/23 10:21 Pulse Ox 98 05/18/23 10:21 Oxygen Delivery Method Room Air 05/18/23 10:21 BMI result Body Mass Index 26.1 Tobacco/Smoking Status: Tobacco use Status Tobacco use date assessed 05/18/23 05/18/23 10:26 Patient Tobacco Use Status Never used Tobacco 05/18/23 10:26 e-Cigarette/Vaping Use Never Used 05/18/23 10:26 PHQ-9: PHQ-9 Score PHQ-9: Total score 2 05/18/23 10:26 Depression Screening Interpretation: Negative Thrive Assessment: Date of Thrive Assessment Date Thrive assessed 05/18/23 05/18/23 10:26 Currently or been in a relationship where the following occur: no concerns reported Const General: no acute distress and alert HENMT Throat: Yes posterior oropharynx normal Neck Neck: Yes no lymphadenopathy and Yes supple Resp Auscultation: clear to auscultation bilaterally, no rales and no wheezes Cardio Rate: regular rate Rhythm: regular rhythm Heart sounds: no murmurs GI Palpation (GI): Soft to palpation and nontender Auscultation: normal bowel sounds Extrem General: Yes no clubbing, cyanosis or edema Right lower extremity: knee Details: tenderness (mild) Location: of the pre- patellar area; no swelling Assessment and Plan Assessment & Plan (1) Pain and swelling of right knee: Code(s): M25.561 - Pain in right knee; M25.461 - Effusion, right knee Plan: X-rays of the knees done back in December 2021 revealed (+) OA changes in both knees Will send her for repeat right knee x-rays MARIKA for further evaluation Will also refer her to orthopedics for further evaluation and management of her recent right knee symptoms Plan Follow up as scheduled in July 2023 Orders: Orders XR knee RT 4V Today M25.461 - Effusion, right knee, M25.561 - Pain in right knee Referrals Orthopedics Referral M25.461 - Effusion, right knee, M25.561 - Pain in right knee Coding Level of Care Code Est Pt Level 3 (07436) Diagnoses Pain and swelling of right knee M25.561; M25.461
== END 2023-05-18 10:39 | disposition home or self-care (01) ==
PROVIDERS: PCP Internal Medicine; Visit Provider Internal Medicine
DX: M25.561 Pain in right knee (principal); M25.461 Effusion, right knee
CPT/HCPCS: 99213

== ENCOUNTER 2023-05-18 10:41 | Outpatient (REF) | payer OTHER, SELFPAY ==
--- NOTE | ~2023-05-18 | XR_ITS ---
EXAMINATION: XR KNEE, RIGHT CLINICAL INFORMATION: Reason for Exam M25.561 - Pain in right knee COMPARISON: Knee radiographs 01/06/2022 TECHNIQUE: 4 views of the knee FINDINGS: No acute fracture or dislocation. Moderate degenerative changes of the knee with loss of medial compartment joint space and medial and patellofemoral compartment osteophytes and quadriceps tendon enthesopathy. No joint effusion. Soft tissues are unremarkable. XR/XR knee RT 4V IMPRESSION: * No acute osseous abnormality. * Moderate degenerative changes of the knee.
== END 2023-05-18 10:42 | disposition home or self-care (01) ==
LOC: HO.XRAY 10:41
PROVIDERS: PCP Internal Medicine; Visit Provider Internal Medicine
DX: M25.461 Effusion, right knee (principal); M25.561 Pain in right knee
CPT/HCPCS: 73564

== ENCOUNTER 2023-05-25 08:22 | Outpatient (AMB) | payer OTHER, SELFPAY ==
[2023-05-25 08:35] VITALS: BMI 26.2
--- NOTE | 2023-05-25 08:35 | MHC.AMNUTRGE ---
Intake VS Expanded 05/25/23 08:35 Height 5 ft 5 in Weight 157 lb 6.561 oz BMI 26.2 Intake Visit Reasons: Gastroesophageal reflux disease (GERD) Allergies No Known Allergies Allergy (Verified 05/18/23 10:32) HPI Nutrition Presentation Details Pt presents for MNT for GERD. Pt was referred by Dr. Paulino Most Recent Diabetes Results: Cholesterol 168 mg/dL 01/28/23 HDL Cholesterol 52 mg/dL 01/28/23 Triglycerides 74 mg/dL 01/28/23 Creatinine 0.76 mg/dL (0.5-1.4) 01/28/23 Blood Urea Nitrogen 11 mg/dL (9-16) 01/28/23 Sodium 140 mmol/L (135-145) 01/28/23 Potassium 4.2 mmol/L (3.3-5.1) 01/28/23 Chloride 109 mmol/L (96-108) H 01/28/23 Carbon Dioxide 25 mmol/L (22-29) 01/28/23 Calcium 8.9 mg/dL (8.4-10.2) 01/28/23 AST 22 U/L (5-31) 01/28/23 ALT 26 U/L (0-31) 01/28/23 Total Protein 6.3 g/dL (6.5-8.0) L 01/28/23 Albumin 3.9 g/dL (3.5-5.0) 01/28/23 [facility] Medical History Acquired chest/rib deformity Artificial menopause Esophagitis determined by biopsy History of depression Osteopenia Overweight (BMI 25.0-29.9) Thyroid nodule Tubular adenoma of colon Vitamin D deficiency Surgical History History of esophagogastroduodenoscopy (EGD) Hx of colonoscopy Hx of foot surgery Hx of hysterectomy with oophorectomy Hx of tubal ligation Family History Father Throat cancer Emphysema of lung TIA (transient ischemic attack) Social History Household Members: None Housing: House Alcohol intake: current Alcohol intake frequency: holidays/special occasions only Patient Tobacco Use Status: Never used Tobacco e-Cigarette/Vaping Use: Never Used Second Hand Smoke Exposure: Yes service: No Current occupational status: employed 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 Sexual orientation: Straight/Heterosexual Gender identity: Female Cognitive needs: No Hearing needs: No Vision needs: Yes Female Reproductive History Menstrual Age of Menarche: 14 Assessment & Plan Assessment & Plan (1) Overweight (BMI 25.0-29.9): Code(s): E66.3 - Overweight (2) GERD (gastroesophageal reflux disease): Code(s): K21.9 - Gastro-esophageal reflux disease without esophagitis Qualifiers: Esophagitis bleeding: without hemorrhage Esophagitis presence: with esophagitis Qualified Code(s): K21.00 - Gastro-esophageal reflux disease with esophagitis, without bleeding Plan: Educate Pt on meal planning to reduce GERD symptoms ? Used wt : 73 kg Est kcal as per MSJ: [id number](40% carb, 30% fat/prot) Est fluid needs: 1800 ml/d (25 ml/kg bw) Rec fiber: increase to 8-10 g per day and gradually increase to 25 g/d or as tolerated Rec Na: <2000 mg /d Educate patient on: (R= Reviewed, V = verbalizes understanding N/R= Needs review N/A= not applicable) General guidelines to reduce GERD symptoms (low acid foods, low fat foods, probiotics) R Healthy Plate method concept: R Patient Instructions: see 1600 jose meal plan, low in fat, low acidic foods Coding Level of Care Code Nutr Indiv Subseq (53906) Diagnoses Overweight (BMI 25.0-29.9) E66.3 GERD (gastroesophageal reflux disease) K21.00 Esophagitis bleeding: without hemorrhage Esophagitis presence: with esophagitis Time Spent (min) 30
== END 2023-05-25 09:32 | disposition home or self-care (01) ==
PROVIDERS: PCP Internal Medicine; Referring Provider Internal Medicine; Visit Provider Dietitian, Registered
DX: E66.3 Overweight (principal); K21.00 Gastro-esophageal reflux disease with esophagitis, without bleeding

== ENCOUNTER → 2023-05-25 08:22 | Outpatient (BNVA) | payer OTHER, SELFPAY | PROVIDERS: Visit Provider Dietitian, Registered | DX: K21.00 Gastro-esophageal reflux disease with esophagitis, without bleeding (principal); E66.3 Overweight; Z68.26 Body mass index [BMI] 26.0-26.9, adult; Z71.3 Dietary counseling and surveillance | CPT/HCPCS: 97803 ==

== ENCOUNTER 2023-06-07 07:54 | Outpatient (AMB) | payer OTHER, SELFPAY ==
--- NOTE | 2023-06-07 08:00 | A.OFFVIS_ITS ---
Intake Vital Signs 06/07/23 08:03 Height 5 ft 5 in Weight 157 lb BMI 26.1 Intake Visit Reasons: New PRob - Right knee pain Intake Note: Baylee is a 57 year old female who presents today as a new patient for a evaluation for her right knee pain and giving way. She describes her pain as sharp and severe in nature. Most of the pain is along the medial aspect of her knee. She did injure her knee approximately 1 year ago. She twisted her knee and had acute onset of pain. Since that time her symptoms have gotten worse in spite of continued non operative treatments. She has had injections in the past which gave her minimal relief. She has also done physical therapy for 12 weeks over the last 6 months aggravated her pain. She has tried Tylenol and anti- inflammatory medicines which gave her minimal relief. The patient states that her right knee will give out several times per day. Allergies No Known Allergies Allergy (Verified 06/07/23 08:03) Medication List - Last Reconciled 06/07/23 by Jordan Kaye MD acetaminophen 1,000 mg (2 x 500 mg) PO Q6H PRN ascorbic acid (vitamin C) 500 mg PO DAILY cholecalciferol (vitamin D3) 50 mcg PO DAILY loperamide 2 mg PO Q4H PRN lorazepam 0.5 mg PO DAILY PRN 15 days mecobalamin (vitamin B12) 1,000 mcg PO DAILY multivitamin 1 tab PO DAILY omega-3 fatty acids (Fish Oil Concentrate) 1,000 mg PO DAILY omeprazole 10 mg PO DAILY ondansetron 4 mg PO Q6H PRN tizanidine 2 mg PO BEDTIME PRN 30 days PFSH Medical History Acquired chest/rib deformity Artificial menopause Esophagitis determined by biopsy History of depression Osteopenia Overweight (BMI 25.0-29.9) Thyroid nodule Tubular adenoma of colon Vitamin D deficiency Surgical History History of esophagogastroduodenoscopy (EGD) Hx of colonoscopy Hx of foot surgery Hx of hysterectomy with oophorectomy Hx of tubal ligation Family History Father Throat cancer Emphysema of lung TIA (transient ischemic attack) Social History Household Members: None Housing: House Alcohol intake: current Alcohol intake frequency: holidays/special occasions only Patient Tobacco Use Status: Never used Tobacco e-Cigarette/Vaping Use: Never Used Second Hand Smoke Exposure: Yes service: No Current occupational status: employed 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 Sexual orientation: Straight/Heterosexual Gender identity: Female Cognitive needs: No Hearing needs: No Vision needs: Yes Female Reproductive History Menstrual Age of Menarche: 14 Physical Exam Vital Signs: BMI result Body Mass Index 26.1 Const Other: Well-nourished well-developed very friendly female awake alert and oriented x3 in no acute distress Extrem Other: Bilateral lower extremity examination shows good capillary refill, no skin lesions noted, normal sensation light touch Right knee examination shows a minimal effusion, minimal crepitus with range of motion, tenderness along her medial joint line, positive Hamilton's test, no instability Results Reviewed Results Reviewed: X-rays of the patient's right knee show mild diffuse joint space narrowing, no acute bony abnormalities Assessment & Plan Assessment & Plan (1) Tear of medial meniscus of right knee: Code(s): S83.241A - Other tear of medial meniscus, current injury, right knee, initial encounter Plan: Ms. Trujillo presents with progressively worsening right knee pain and mechanical symptoms most likely due to a medial meniscus tear. Thus, will send her for an MRI of her right knee for further evaluation. Will contact her by phone once the MRI results are available. She will continue with her activity m odifications in the meantime. Feel free to call me at any time should questions regarding her orthopedic management arise. Thank you very much for asking me to see this very friendly patient. I spent 22 minutes in reviewing the patient's records and imaging studies, seeing the patient and documenting in the medical record. Orders: Orders MR knee RT wo con Today S83.241A - Other tear of medial meniscus, current injury, right knee, initial encounter Coding Level of Care Code Est Pt Level 2 (79527) Diagnoses Tear of medial meniscus of right knee S83.241A
[2023-06-07 08:03] VITALS: BMI 26.1
== END 2023-06-07 08:15 | disposition home or self-care (01) ==
PROVIDERS: PCP Internal Medicine; Visit Provider Orthopaedic Surgery
DX: S83.241A Other tear of medial meniscus, current injury, right knee, initial encounter (principal)
CPT/HCPCS: 99212

== ENCOUNTER → 2023-06-07 07:54 | Outpatient (BNVA) | payer OTHER, SELFPAY | PROVIDERS: PCP Internal Medicine; Visit Provider Orthopaedic Surgery ==

== ENCOUNTER 2023-06-17 13:29 | Outpatient (REF) | payer OTHER, SELFPAY ==
--- NOTE | ~2023-06-17 | MR_ITS ---
EXAMINATION: MR KNEE WITHOUT CONTRAST, RIGHT CLINICAL INFORMATION: Right knee pain for 2 weeks. COMPARISON: Right knee radiographs dated 05/18/2023. TECHNIQUE: MRI of the knee without contrast was performed using routine sequences on a high-field scanner. FINDINGS: MENISCI: Medial Meniscus: Complex tearing of the posterior horn with a complete radial component measuring up to 0.5 cm in ML dimension. Oblique inner margin tearing extends into the posterior root as well as along the inner margin/tibial articular surface of the medial extruded meniscal body. There is a posteromedial parameniscal cyst measuring up to 1.7 x 0.3 x 0.5 cm. Lateral Meniscus: Intact. LIGAMENTS: Cruciate: Intact. Collateral: Intact. EXTENSOR MECHANISM: Small superior patellar enthesophytes. Mild distal quadriceps tendinosis. Intact patellar tendon. Normal patellofemoral alignment. ARTICULAR CARTILAGE/BONE: Patellofemoral Compartment: Patellar median ridge articular cartilage thinning with areas of full-thickness fissuring and mild subchondral cystic change. Mild central trochlear signal heterogeneity. Tiny marginal osteophytes. Medial Compartment: Articular cartilage thinning and signal heterogeneity with small marginal osteophytes. Lateral Compartment: Mild articular cartilage signal heterogeneity with small marginal osteophytes. JOINT FLUID AND BURSAE: Trace joint effusion and trace Bundy's cyst. Lobulated fluid extending both superior and inferior to the Bundy's cyst measuring up to 7.9 cm in craniocaudal dimension, consistent with a synovial recess versus ganglion cyst. MR/MR knee RT wo con IMPRESSION: 1. Complex tearing of the medial meniscus posterior horn with a complete radial component measuring 0.5 cm in ML dimension. Oblique inner margin tearing extending into the posterior root as well as along the inner margin/tibial articular surface of the extruded meniscal body. Posteromedial parameniscal cyst measuring up to 1.7 cm. 2. Mild distal quadriceps tendinosis. 3. Mild tricompartmental osteoarthritis. Trace joint effusion and trace Bundy's cyst. Lobulated fluid extending both superior and inferior to the Bundy's cyst measuring up to 7.9 cm, consistent with a synovial recess versus ganglion cyst.
== END 2023-06-17 13:30 | disposition home or self-care (01) ==
LOC: HO.MRI 13:29
PROVIDERS: PCP Internal Medicine; Visit Provider Orthopaedic Surgery
DX: S83.241A Other tear of medial meniscus, current injury, right knee, initial encounter (principal)
CPT/HCPCS: 73721

== ENCOUNTER 2023-06-28 08:14 | Outpatient (AMB) | payer OTHER, SELFPAY ==
--- NOTE | 2023-06-28 08:19 | A.OFFVIS_ITS ---
Intake Vital Signs 06/28/23 08:20 Height 5 ft 5 in Weight 157 lb BMI 26.1 Intake Visit Reasons: OV - Right Knee Euflexxa Gel Inj #1 Intake Note: Baylee is a 57 year old female who presents with complaints of right knee pain. She describes her pain as sharp in nature. She has had cortisone injections in the past which gave her minimal relief. She has also done physical therapy exercises which aggravated her pain. She has tried Tylenol and anti- inflammatory medicines which gave her minimal relief. Allergies No Known Allergies Allergy (Verified 06/28/23 08:20) Medication List - Last Reconciled 06/28/23 by Jordan Kaye MD acetaminophen 1,000 mg (2 x 500 mg) PO Q6H PRN ascorbic acid (vitamin C) 500 mg PO DAILY cholecalciferol (vitamin D3) 50 mcg PO DAILY loperamide 2 mg PO Q4H PRN lorazepam 0.5 mg PO DAILY PRN 15 days mecobalamin (vitamin B12) 1,000 mcg PO DAILY multivitamin 1 tab PO DAILY omega-3 fatty acids (Fish Oil Concentrate) 1,000 mg PO DAILY omeprazole 10 mg PO DAILY ondansetron 4 mg PO Q6H PRN tizanidine 2 mg PO BEDTIME PRN 30 days PFSH Medical History Esophagitis determined by biopsy Overweight (BMI 25.0-29.9) Osteopenia Artificial menopause Acquired chest/rib deformity Tubular adenoma of colon Thyroid nodule Vitamin D deficiency History of depression Surgical History History of esophagogastroduodenoscopy (EGD) Hx of foot surgery Hx of colonoscopy Hx of tubal ligation Hx of hysterectomy with oophorectomy Family History Father Throat cancer Emphysema of lung TIA (transient ischemic attack) Social History Household Members: None Housing: House Alcohol intake: current Alcohol intake frequency: holidays/special occasions on ly Patient Tobacco Use Status: Never used Tobacco e-Cigarette/Vaping Use: Never Used Second Hand Smoke Exposure: Yes service: No Current occupational status: employed 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 Sexual orientation: Straight/Heterosexual Gender identity: Female Cognitive needs: No Hearing needs: No Vision needs: Yes Female Reproductive History Menstrual Age of Menarche: 14 Physical Exam Vital Signs: BMI result Body Mass Index 26.1 Const Other: Well-nourished well-developed very friendly female awake alert and oriented x3 in no acute distress Extrem Other: Bilateral lower extremity examination shows good capillary refill, no skin lesions noted, normal sensation light touch Right knee examination shows a minimal effusion, mild crepitus with range of motion, no instability Office Procedures Joint Injection/Drain Joint Injection/Drain Primary Site: right knee Prep: site was prepped using aseptic technique Injected: 20 mg of (Euflexxa) and 1% plain lidocaine Procedure: The patient tolerated the procedure well Coding - Large joint Procedure code (CPT) selection complete Results Reviewed Results Reviewed: 06/28/23 08:12 Hyaluronate Sodium [Euflexxa] 20 mg INTRAARTIC .STK-MED ONE Lidocaine HCl 2 % MPF [Xylocaine 2 % MPF] 5 ml .ROUTE .STK-MED ONE X-rays of the patient's right knee show mild to moderate diffuse joint space narrowing, no acute bony abnormalities Assessment & Plan Assessment & Plan (1) Arthritis of right knee: Code(s): M17.11 - Unilateral primary osteoarthritis, right knee Plan: Ms. Romero presents with right knee pain due to early degenerative joint disease. I had a lengthy discussion with the patient regarding the treatment options. The patient has had injections of cortisone in the past. They gave her minimal relief. She wishes to hold off on surgery for as long as possible. Thus, the risks and benefits of a Euflexxa series of viscosupplementation injections were discussed at length with the patient. The patient wished to proceed. She tolerated the 1st injection well. She will continue with her activity modifications. She will follow up next week for her 2nd injection as scheduled. Feel free to call me at any time should questions regarding her orthopedic management arise. I spent 22 minutes in reviewing the patient's records and imaging studies, seeing the patient and documenting in the medical record. Orders: Orders AMB Joint Injection/Aspiration Today M17.11 - Unilateral primary osteoarthritis, right knee Coding Level of Care Code Est Pt Level 2 (73409) Diagnoses Arthritis of right knee M17.11 CPT Codes Coding - 68358 Large joint: 48616 - Large joint ([id number])
[2023-06-28 08:20] VITALS: BMI 26.1
== END 2023-06-28 08:57 | disposition home or self-care (01) ==
PROVIDERS: PCP Internal Medicine; Visit Provider Orthopaedic Surgery
DX: M17.11 Unilateral primary osteoarthritis, right knee (principal)
CPT/HCPCS: 20610; 99213

== ENCOUNTER → 2023-06-28 08:14 | Outpatient (BNVA) | payer OTHER, SELFPAY | PROVIDERS: PCP Internal Medicine; Visit Provider Orthopaedic Surgery | DX: M17.11 Unilateral primary osteoarthritis, right knee (principal) | CPT/HCPCS: 20610; J7323 ==

== ENCOUNTER 2023-07-05 08:17 | Outpatient (AMB) | payer OTHER, SELFPAY ==
--- NOTE | 2023-07-05 08:25 | MHC.OFFVIS ---
Intake Vital Signs 07/05/23 08:26 Height 5 ft 5 in Weight 157 lb BMI 26.1 Intake Visit Reasons: OV - Right Knee Euflexxa Gel Inj #2 Intake Note: Baylee is a 57 year old female who presents today for a her 2nd Euflexxa gel injection. Patient reports her last injection gave her fairly good relief. She states that her right knee discomfort has improved but she still has symptoms of instability. She states that her right knee will give out several times per day. She has not tried wearing a knee brace. Allergies No Known Allergies Allergy (Verified 07/05/23 08:26) [facility], [facility] Medical History Esophagitis determined by biopsy Overweight (BMI 25.0-29.9) Osteopenia Artificial menopause Acquired chest/rib deformity Tubular adenoma of colon Thyroid nodule Vitamin D deficiency History of depression Surgical History History of esophagogastroduodenoscopy (EGD) Hx of foot surgery Hx of colonoscopy Hx of tubal ligation Hx of hysterectomy with oophorectomy Family History Father Throat cancer Emphysema of lung TIA (transient ischemic attack) Social History Household Members: None Housing: House Alcohol intake: current Alcohol intake frequency: holidays/special occasions only Patient Tobacco Use Status: Never used Tobacco e-Cigarette/Vaping Use: Never Used Second Hand Smoke Exposure: Yes service: No Current occupational status: employed 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 Sexual orientation: Straight/Heterosexual Gender identity: Female Cognitive needs: No Hearing needs: No Vision needs: Yes Female Reproductive History Menstrual Age of Menarche: 14 Physical Exam Vital Signs: BMI result Body Mass Index 26.1 Const Other: Well-nourished well-developed very friendly female awake alert and oriented x3 in no acute distress Extrem Other: Right knee examination shows a minimal effusion, mild crepitus with range of motion, tenderness along her medial and lateral joint lines, positive Hamilton's test Office Procedures Joint Injection/Drain Joint Injection/Drain Primary Site: right knee Prep: site was prepped using aseptic technique Injected: 20 mg of (Euflexxa) Procedure: The patient tolerated the procedure well Coding - Large joint Procedure code (CPT) selection complete Results Reviewed Results Reviewed: 07/05/23 08:19 Hyaluronate Sodium [Euflexxa] 20 mg INTRAARTIC .STK-MED ONE 07/05/23 08:31 Lidocaine HCl 2 % MPF [Xylocaine 2 % MPF] 5 ml .ROUTE .STK-MED ONE Assessment & Plan Assessment & Plan (1) Arthritis of right knee: Code(s): M17.11 - Unilateral primary osteoarthritis, right knee Plan Ms. Romero presents with right knee pain and mechanical symptoms due to early degenerative joint disease as well as meniscus tearing. I had a lengthy discussion with patient regarding the treatment options. After verbal consent was given the 2nd Euflexxa viscosupplementation injection was given into her right knee. She tolerated the injection well. She will also be fitted for a right knee brace to help with her symptoms of instability. I do find that brace is a medical necessity to help prevent falls. She will follow up for her 3rd injection as scheduled. Feel free to call me at any time should questions regarding her orthopedic management arise. Orders: Orders AMB Joint Injection/Aspiration Today M17.11 - Unilateral primary osteoarthritis, right knee Coding Level of Care Code Procedure Only Diagnoses Arthritis of right knee M17.11 CPT Codes Coding - Large joint: 56393 - Large joint ([id number])
[2023-07-05 08:26] VITALS: BMI 26.1
== END 2023-07-05 08:52 | disposition home or self-care (01) ==
PROVIDERS: PCP Internal Medicine; Visit Provider Orthopaedic Surgery
DX: M17.11 Unilateral primary osteoarthritis, right knee (principal)
CPT/HCPCS: 20610

== ENCOUNTER → 2023-07-05 08:17 | Outpatient (BNVA) | payer OTHER, SELFPAY | PROVIDERS: PCP Internal Medicine; Visit Provider Orthopaedic Surgery | DX: M17.11 Unilateral primary osteoarthritis, right knee (principal) | CPT/HCPCS: 20610; J7323 ==

== ENCOUNTER 2023-07-12 08:19 | Outpatient (AMB) | payer OTHER, SELFPAY ==
--- NOTE | 2023-07-12 08:27 | MHC.OFFVIS ---
Intake Vital Signs 07/12/23 08:29 Height 5 ft 5 in Weight 157 lb BMI 26.1 Intake Visit Reasons: OV - Right Knee Euflexxa Gel Inj #3 Intake Note: Baylee is a 57 year old female who presents today for her 3rd euflexxa gel injection for her right knee. Patient reports she feels like they are working a little. She denies any fevers or chills. She has returned to working out at the gym. Allergies No Known Allergies Allergy (Verified 07/12/23 08:28) Medication List - Last Reconciled 07/12/23 by Jordan Kaye MD acetaminophen 1,000 mg (2 x 500 mg) PO Q6H PRN ascorbic acid (vitamin C) 500 mg PO DAILY cholecalciferol (vitamin D3) 50 mcg PO DAILY loperamide 2 mg PO Q4H PRN lorazepam 0.5 mg PO DAILY PRN 15 days mecobalamin (vitamin B12) 1,000 mcg PO DAILY multivitamin 1 tab PO DAILY omega-3 fatty acids (Fish Oil Concentrate) 1,000 mg PO DAILY omeprazole 10 mg PO DAILY ondansetron 4 mg PO Q6H PRN tizanidine 2 mg PO BEDTIME PRN 30 days PFSH Medical History Esophagitis determined by biopsy Overweight (BMI 25.0-29.9) Osteopenia Artificial menopause Acquired chest/rib deformity Tubular adenoma of colon Thyroid nodule Vitamin D deficiency History of depression Surgical History History of esophagogastroduodenoscopy (EGD) Hx of foot surgery Hx of colonoscopy Hx of tubal ligation Hx of hysterectomy with oophorectomy Family History Father Throat cancer Emphysema of lung TIA (transient ischemic attack) Social History Household Members: None Housing: House Alcohol intake: current Alcohol intake frequency: holidays/special occasions only Patient Tobacco Use Status: Never used Tobacco e-Cigarette/Vaping Use: Never Used Second Hand Smoke Exposure: Yes service: No Current occupational status: employed 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 Sexual orientation: Straight/Heterosexual Gender identity: Female Cognitive needs: No Hearing needs: No Vision needs: Yes Female Reproductive History Menstrual Age of Menarche: 14 Physical Exam Vital Signs: BMI result Body Mass Index 26.1 Extrem Other: Right knee examination shows a minimal effusion, palpable crepitus with range of motion, no instability Office Procedures Joint Injection/Drain Joint Injection/Drain Primary Site: right knee Prep: site was prepped using aseptic technique Injected: 20 mg of (Euflexxa) and 1% plain lidocaine Procedure: The patient tolerated the procedure well Coding 97070 - Large joint Procedure code (CPT) selection complete Results Reviewed Results Reviewed: 07/12/23 08:18 Hyaluronate Sodium [Euflexxa] 20 mg INTRAARTIC .STK-MED ONE Lidocaine HCl 2 % MPF [Xylocaine 2 % MPF] 5 ml .ROUTE .STK-MED ONE Assessment & Plan Assessment & Plan (1) Arthritis of right knee: Code(s): M17.11 - Unilateral primary osteoarthritis, right knee Plan Ms. Romero presents with right knee pain due to degenerative joint disease. The risks and benefits of a 3rd Euflexxa injection were discussed at length with the patient. The patient wished to proceed. She tolerated the injection well. She will continue with her exercise program. She will follow up with me on an as-needed basis should her symptoms not plateau at an unacceptable level over the next few months. Feel free to call me at any time should questions regarding her orthopedic management arise. I spent 22 minutes in reviewing the patient's records and imaging studies, seeing the patient and documenting in the medical record. Orders: Orders AMB Joint Injection/Aspiration Today M17.11 - Unilateral primary osteoarthritis, right knee Coding Level of Care Code Procedure Only Diagnoses Arthritis of right knee M17.11 CPT Codes Coding - 70460 Large joint: 74770 - Large joint ([id number])
[2023-07-12 08:29] VITALS: BMI 26.1
== END 2023-07-12 08:43 | disposition home or self-care (01) ==
PROVIDERS: PCP Internal Medicine; Visit Provider Orthopaedic Surgery
DX: M17.11 Unilateral primary osteoarthritis, right knee (principal)
CPT/HCPCS: 20610

== ENCOUNTER → 2023-07-12 08:19 | Outpatient (BNVA) | payer OTHER, SELFPAY | PROVIDERS: PCP Internal Medicine; Visit Provider Orthopaedic Surgery | DX: M17.11 Unilateral primary osteoarthritis, right knee (principal) | CPT/HCPCS: 20610; J7323 ==

== ENCOUNTER 2023-07-25 09:22 | Outpatient (AMB) | payer OTHER, SELFPAY ==
[2023-07-25 09:28] VITALS: BP 110/78; PULSE 67; O2SAT 98; BMI 26.8
--- NOTE | 2023-07-25 09:28 | MHC.PC.OV ---
Vital Signs 07/25/23 09:28 Height 5 ft 5 in Weight 161 lb 2 oz BMI 26.8 BP 110/78 Blood Pressure Location Lt brachial Position Sitting Pulse 67 Pulse Source Pulse Oximeter Pulse Oximetry (%) 98 Oxygen Delivery Method Room Air Intake Visit Reasons: esophagitis, anxiety, palpitations Associate Director Required: No Accompanied by: Self / Same As Patient Allergies No Known Allergies Allergy (Verified 07/25/23 09:40) Medication List - Last Reconciled 07/25/23 by Arnel Paulino MD acetaminophen 1,000 mg (2 x 500 mg) PO Q6H PRN ascorbic acid (vitamin C) 500 mg PO DAILY cholecalciferol (vitamin D3) 50 mcg PO DAILY loperamide 2 mg PO Q4H PRN lorazepam 0.5 mg PO DAILY PRN 15 days mecobalamin (vitamin B12) 1,000 mcg PO DAILY multivitamin 1 tab PO DAILY omega-3 fatty acids (Fish Oil Concentrate) 1,000 mg PO DAILY omeprazole 10 mg PO DAILY ondansetron 4 mg PO Q6H PRN tizanidine 2 mg PO BEDTIME PRN 30 days Tobacco use date assessed: 07/25/23 Dental Screening Dental Screen Date: 07/25/23 Did you have a dental visit in the last 12 months?: Yes Did you have a dental problem in the last 6 months where you did not have access to dental care?: No Was dental information given to patient?: Patient has dentist HPI esophagitis, anxiety, palpitations HPI Details Patient comes in today for her follow up visit States that she feels okay Just received her 3rd and final injection of Euflexxa into her right knee a couple of weeks ago Feels that the injections seem to be helping slightly as of now and will continue to follow up with orthopedics regularly for her knee She denies any headaches or dizziness Denies any chest pains, no SOB No nausea/vomiting, no abdominal pain No change in bowel habits noted PFSH Medical History Primary osteoarthritis of both knees Esophagitis determined by biopsy Overweight (BMI 25.0-29.9) Osteopenia Artificial menopause Acquired chest/rib deformity Tubular adenoma of colon Thyroid nodule Vitamin D deficiency History of depression Surgical History History of esophagogastroduodenoscopy (EGD) Hx of foot surgery Hx of colonoscopy Hx of tubal ligation Hx of hysterectomy with oophorectomy Family History Father Throat cancer Emphysema of lung TIA (transient ischemic attack) Social History Household Members: None Housing: House Alcohol intake: current Alcohol intake frequency: holidays/special occasions only Patient Tobacco Use Status: Never used Tobacco e-Cigarette/Vaping Use: Never Used Second Hand Smoke Exposure: Yes service: No Current occupational status: employed 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 1. Little interest or pleasure in doing things: not at all 2. Feeling down, depressed, or hopeless: not at all 3. Trouble falling or staying asleep, or sleeping too much: several days 4. Feeling tired or having little energy: not at all 5. Poor appetite or overeating: several days 6. Feeling bad about yourself - or that you are a failure or have let yourself or your family down: not at all 7. Trouble concentrating on things, such as reading the newspaper or watching television: not at all 8. Moving or speaking so slowly that other people could have noticed. Or the opposite - being so fidgety or restless that you have been moving around a lot more than usual: not at all 9. Thoughts that you would be better off or of hurting yourself in some way: not at all Total score: 2 Depression Screening Interpretation: Negative Depression Screening Done: Yes 37271 - PHQ-9 Billing: Yes Source: Developed by Drs. Micah Le, Antonia Ellis, Didier Gastelum and colleagues, with an educational luke from [employer]. Thrive Questionnaire Date Thrive assessed: 07/25/23 I am a: Patient What is your living situation today?: I have a steady place to live Within the past 12 months, did the food you bought not last and you didn't have the money to get more?: Never true Within the past 12 months, did you worry whether your food would run out before you got money to buy more?: Never true Do you have trouble paying for medicines?: No Do you have trouble getting transportation to medical appointments?: No Do you have trouble paying your heating and electricity bill?: No Do you have trouble taking care of your child, family member or friend?: No Do you have trouble with day-to-day activities such as bathing, preparing meals, shopping, managing finances, etc.?: No Are you currently unemployed and looking for a job?: No Are you interested in more education?: No Please select the resources that you would like help with: None Currently or been in a relationship where the following occur: no concerns reported AUDIT C Alcohol Use Questionnaire (AUDIT-C) 1. How often do you have a drink containing alcohol?: Monthly or less 2. How many drinks containing alcohol do you have on a typical day when you are drinking?: 1 or 2 3. How often do you have six or more drinks on one occasion?: Never Total Score: 1 Score Reviewed/Action Taken: Yes CARSON-7 AMB Questionnaire CARSON-7 Date CARSON - 7 assessed: 07/25/23 Feeling nervous, anxious, or on edge: 0 = Not at all Not being able to stop or control worryin = Not at all Worrying too much about different things: 0 = Not at all Trouble relaxin = Not at all Being so restless that it is hard to sit still: 0 = Not at all Becoming easily annoyed or irritable: 0 = Not at all Feeling afraid as if something awful might happen: 0 = Not at all Total CARSON-7 score (0-4 normal; 5-9 mild; 10-14 moderate; 15-21 severe): 0 Source: Developed by Drs. Micah Le, Antonia Ellis, Didier Gastelum and colleagues, with an educational luke from [employer]. Review of Systems Const Denies chills, Denies difficulty sleeping, Denies fatigue, Denies fever(s) and Denies headache(s) ENT Denies dysphagia, Denies dizziness, Denies otalgia, Denies headache(s), Denies neck pain, Denies odynophagia and Denies sore throat Card Denies chest pain, Denies palpitations and Denies dyspnea Resp Denies cough and Denies dyspnea GI Denies abdominal pain, Denies constipation, Denies dysphagia, Denies heartburn, Denies diarrhea, Denies nausea, Denies odynophagia and Denies vomiting Denies difficulty voiding, Denies nocturia and Denies dysuria Musc Reports arthralgias (recurrent, over both knees) and Denies neck pain Skin/Breast Denies rash Neuro Denies dizziness and Denies headache(s) Endo Denies fatigue and Denies palpitations Physical exam (Primary Care) Vital Signs: Last Vital Signs Pulse 67 07/25/23 09:28 BP 110/78 07/25/23 09:28 Pulse Ox 98 07/25/23 09:28 Oxygen Delivery Method Room Air 07/25/23 09:28 BMI result Body Mass Index 26.8 Tobacco/Smoking Status: Tobacco use Status Tobacco use date assessed 07/25/23 07/25/23 09:32 Patient Tobacco Use Status Never used Tobacco 07/25/23 09:32 e-Cigarette/Vaping Use Never Used 07/25/23 09:32 PHQ-9: PHQ-9 Score PHQ-9: Total score 2 07/25/23 09:32 Depression Screening Interpretation: Negative Thrive Assessment: Date of Thrive Assessment Date Thrive assessed 07/25/23 07/25/23 09:32 Currently or been in a relationship where the following occur: no concerns reported Const General: no acute distress and alert HENMT Ears: TM's normal bilaterally and EAC's normal Throat: Yes posterior oropharynx normal and Yes tonsils normal Neck Neck: Yes no lymphadenopathy and Yes supple Resp Auscultation: clear to auscultation bilaterally, no rales and no wheezes Cardio Rate: regular rate Rhythm: regular rhythm Heart sounds: no murmurs GI Palpation (GI): Soft to palpation and nontender Auscultation: normal bowel sounds Extrem General: Yes no clubbing, cyanosis or edema Right lower extremity: knee Details: tenderness (mild) Location: of the pre-patellar area; no swelling Left lower extremity: knee Details: tenderness Location: of the pre-patellar area; no swelling Assessment and Plan Assessment & Plan (1) Esophagitis determined by biopsy: Code(s): K20.90 - Esophagitis, unspecified without bleeding Plan: Initial EGD in 09/2022 revealed (+) findings of grade D esophagitis Repeat EGD in November 2022 showed (+) improvement of esophageal irritation with Tx Continue Omeprazole QD - has been advised by GI to stay on 10 mg QD and if symptoms flare up, can go to 20 mg QD Her previous symptoms of dysphagia and throat discomfort have completely resolved with Rx Dietary restrictions reinforced Follow up with GI as scheduled (2) Nocturnal leg cramps: Code(s): G47.62 - Sleep related leg cramps Plan: Symptoms are consistent with nocturnal leg cramps (possible RLS), which can occur more often when her muscles are fatigued towards the end of the day Continue Tizanidine 2 mg Q HS PRN (3) Palpitations: Code(s): R00.2 - Palpitations Plan: States that she's had no recurrence of her symptoms lately Echocardiogram and extended Holter monitor done over the past few months have all come out normal (4) Multinodular goiter: Code(s): E04.2 - Nontoxic multinodular goiter Plan: Repeat thyroid US done on 02/09/22 revealed (+) enlarged heterogenous thyroid gland and multiple bilateral thyroid nodules that are mostly unchanged from US back in 09/2019; US last done in 09/2019 showed no suspicious nodules and recommended yearly surveillance Was referred to endocrinology and was seen on 09/22/22 - Dr. Castillo felt that patient was clinically biochemically euthyroid and since her?recent thyroid ultrasound showed no change in the size of the nodules, she was returned back to our care as her primary care provider Have recommended that a repeat thyroid ultrasound should be done in about 2-3 years time and?if the nodules change in size or characteristics, she can be referred back to endocrinology for further management/work ups (5) Primary osteoarthritis of both knees: Code(s): M17.0 - Bilateral primary osteoarthritis of knee Plan: X-rays of both knees done over the past couple of years have revealed (+) OA changes in both knees Has been seen by orthopedics in the past for her left knee pain and recommended to try physical therapy back then She recently completed 3 injections of Euflexxa into her right knee by Dr. Kaye and feels that the injections have helped somewhat but advised to give it some more time before they can tell how much the injections have helped Has been advised that if the injections do not help much, arthroscopic surgery will be the next step Follow up with orthopedics as scheduled (6) Vitamin D deficiency: Code(s): E55.9 - Vitamin D deficiency, unspecified Plan: Continue Vitamin D3 2000 units QD (7) Osteopenia: Code(s): M85.80 - Other specified disorders of bone density and structure, unspecified site Qualifiers: Osteopenia location: femoral neck Laterality: left Qualified Code(s): M85.852 - Other specified disorders of bone density and structure, left thigh Plan: BMD done in 05/2021 revealed (+) osteopenia based on the lowest T-score value of -1.2 in the femoral neck; will repeat BMD next year (2023) for follow up Patient is encouraged to continue daily Vitamin D and Calcium supplements and to exercise regularly and stay physically active (8) Anxiety: Code(s): F41.9 - Anxiety disorder, unspecified Plan: Continue Lorazepam 0.5 mg QD PRN (9) Overweight (BMI 25.0-29.9): Code(s): E66.3 - Overweight Plan: Reinforced diet/exercise as tolerated/lose weight Plan To return as scheduled in January 2024 for her next annual physical examination She is reminded to get her labs done 1 to 2 weeks before she comes in for her appointment then Orders: Orders Complete Blood Count Auto Diff 01/12/24 K20.90 - Esophagitis, unspecified without bleeding, Z00.00 - Encounter for general adult medical examination without abnormal findings Vitamin D 25-OH Total 01/12/24 E55.9 - Vitamin D deficiency, unspecified, Z00.00 - Encounter for general adult medical examination without abnormal findings Comprehensive [facility]. Panel Fast 01/12/24 E78.00 - Pure hypercholesterolemia, unspecified, Z00.00 - Encounter for general adult medical examination without abnormal findings Lipid Panel 01/12/24 E78.00 - Pure hypercholesterolemia, unspecified, Z00.00 - Encounter for general adult medical examination without abnormal findings TSH reflex Free T4 01/12/24 E78.00 - Pure hypercholesterolemia, unspecified, Z00.00 - Encounter for general adult medical examination without abnormal findings UA CC w/rflx Micro + Cult 01/12/24 R30.0 - Dysuria, Z00.00 - Encounter for general adult medical examination without abnormal findings Coding Level of Care Code Est Pt Level 4 (56192) Diagnoses Esophagitis determined by biopsy K20.90 Nocturnal leg cramps G47.62 Palpitations R00.2 Multinodular goiter E04.2 Primary osteoarthritis of both knees M17.0 Vitamin D deficiency E55.9 Osteopenia of neck of left femur M85.852 Osteopenia location: femoral neck Laterality: left Anxiety F41.9 Overweight (BMI 25.0-29.9) E66.3
== END 2023-07-25 10:28 | disposition home or self-care (01) ==
PROVIDERS: Visit Provider Internal Medicine
DX: K20.90 Esophagitis, unspecified without bleeding (principal); G47.62 Sleep related leg cramps; R00.2 Palpitations; E04.2 Nontoxic multinodular goiter; M17.0 Bilateral primary osteoarthritis of knee; E55.9 Vitamin D deficiency, unspecified; M85.852 Other specified disorders of bone density and structure, left thigh; F41.9 Anxiety disorder, unspecified; E66.3 Overweight
CPT/HCPCS: 99214

== ENCOUNTER 2023-08-21 08:56 | Outpatient (AMB) | payer OTHER, SELFPAY ==
[2023-08-21 09:45] VITALS: BP 118/62; PULSE 82; TEMP 36.7; O2SAT 97; BMI 26.0
--- NOTE | 2023-08-21 09:45 | MHC.OFFWIV ---
Intake Vital Signs 08/21/23 09:45 Height 5 ft 5 in Weight 156 lb 6 oz BMI 26.0 BP 118/62 Blood Pressure Location Rt brachial Position Sitting Pulse 82 Pulse Source Pulse Oximeter Temp 98.1 F Temp Source Oral Pulse Oximetry (%) 97 Oxygen Delivery Method Room Air Intake Visit Reasons: EST/sore throat (lobby masked) Intake Note: Patient is here for a sore throat pt states begin Monday. Patient Tobacco Use Status: Never used Tobacco Allergies No Known Allergies Allergy (Verified 08/21/23 10:28) Medication List - Last Reconciled 08/21/23 by Faizan Cam MD acetaminophen 1,000 mg (2 x 500 mg) PO Q6H PRN ascorbic acid (vitamin C) 500 mg PO DAILY cholecalciferol (vitamin D3) 50 mcg PO DAILY loperamide 2 mg PO Q4H PRN lorazepam 0.5 mg PO DAILY PRN 15 days mecobalamin (vitamin B12) 1,000 mcg PO DAILY multivitamin 1 tab PO DAILY omega-3 fatty acids (Fish Oil Concentrate) 1,000 mg PO DAILY omeprazole 10 mg PO DAILY ondansetron 4 mg PO Q6H PRN tizanidine 2 mg PO BEDTIME PRN 30 days HPI EST/sore throat (lobby masked) HPI Details Patient presents for a sick visit. Reporting symptoms of sinus congestion, sore throat and difficulty swallowing. Low-grade fever. No family member is sick. No recent travel. Patient reports symptoms of malaise and fatigue. [facility] Medical History Primary osteoarthritis of both knees Esophagitis determined by biopsy Overweight (BMI 25.0-29.9) Osteopenia Artificial menopause Acquired chest/rib deformity Tubular adenoma of colon Thyroid nodule Vitamin D deficiency History of depression Surgical History History of esophagogastroduodenoscopy (EGD) Hx of foot surgery Hx of colonoscopy Hx of tubal ligation Hx of hysterectomy with oophorectomy Family History Father Throat cancer Emphysema of lung TIA (transient ischemic attack) Social History Household Members: None Housing: House Alcohol intake: current Alcohol intake frequency: holidays/special occasions only Patient Tobacco Use Status: Never used Tobacco e-Cigarette/Vaping Use: Never Used Second Hand Smoke Exposure: Yes service: No Current occupational status: employed 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 Sexual orientation: Straight/Heterosexual Gender identity: Female Cognitive needs: No Hearing needs: No Vision needs: Yes Female Reproductive History Menstrual Age of Menarche: 14 Physical Exam Vital Signs: Last Vital Signs Temp 98.1 F 08/21/23 09:45 Pulse 82 08/21/23 09:45 BP 118/62 08/21/23 09:45 Pulse Ox 97 08/21/23 09:45 Oxygen Delivery Method Room Air 08/21/23 09:45 BMI result Body Mass Index 26.0 Const General: cooperative and healthy appearing Nutritional Appearance: well nourished Orientation/consciousness: patient oriented x3 Limitations: no limitations HEENT Head: Yes normal to inspection Eyes General: appearance normal, both eyes and all related structures Neck Neck: Yes normal visual inspection Chest Chest palpation & inspection: normal palpation of entire chest wall Resp Effort & Inspection: normal respiratory effort Neuro General: patient oriented x3 Assessment & Plan Assessment & Plan (1) Upper respiratory tract infection: Code(s): J06.9 - Acute upper respiratory infection, unspecified Plan: Antibiotics ordered. Increase fluid intake. Tylenol for aches and pains. If symptoms worsen, follow-up here for a recheck. Coding Level of Care Code Est Pt Level 3 (85287) Diagnoses Upper respiratory tract infection J06.9
== END 2023-08-21 10:55 | disposition home or self-care (01) ==
PROVIDERS: PCP Internal Medicine; Visit Provider Internal Medicine
DX: J06.9 Acute upper respiratory infection, unspecified (principal); J02.9 Acute pharyngitis, unspecified
CPT/HCPCS: 87880; 99213

== ENCOUNTER 2023-08-29 07:51 | Outpatient (AMB) | payer OTHER, SELFPAY ==
[2023-08-29 08:03] VITALS: BP 98/68; BMI 26.0
--- NOTE | 2023-08-29 08:03 | MHC.OFFVIS ---
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 She is doing well with no concerns. Attempting to eat a healthy diet with vitamin D and stays active with exercise. Currently not sexually active. Denies any vaginal dryness or irritation. Last pap smear; 2012, s/p hyst for benign reasons. Last mammogram; UTD. Colonoscopy is UTD. Denies any family history of breast, ovarian or colon cancer. [facility] Medical History Primary osteoarthritis of both knees Esophagitis determined by biopsy Overweight (BMI 25.0-29.9) Osteopenia Artificial menopause Acquired chest/rib deformity Tubular adenoma of colon Thyroid nodule Vitamin D deficiency History of depression Surgical History History of esophagogastroduodenoscopy (EGD) Hx of foot surgery Hx of colonoscopy Hx of tubal ligation Hx of hysterectomy with oophorectomy Family History Father Throat cancer Emphysema of lung TIA (transient ischemic attack) Social History Household Members: None Housing: House Alcohol intake: current Alcohol intake frequency: holidays/special occasions only Patient Tobacco Use Status: Never used Tobacco e-Cigarette/Vaping Use: Never Used Second Hand Smoke Exposure: Yes service: No Current occupational status: employed 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 Sexual orientation: Straight/Heterosexual Gender identity: Female Cognitive needs: No Hearing needs: No Vision needs: Yes Female Reproductive History Menstrual Age of Menarche: 14 Menopause type: surgical Total pregnancies: 2 Full term: 2 Number of Living Children: 2 Date of last pap smear: 03/07/13 (neg) Date of Mammogram: 01/28/23 (Birad 2) Review of Systems Const All systems reviewed & are unremarkable except as noted in HPI and below Reports as per HPI Eyes Reports no additional complaints ENT Reports no additional complaints Card Reports no additional complaints Resp Reports no additional complaints GI Reports as per HPI and Reports no additional complaints Reports as per HPI Musc Reports no additional complaints Skin/Breast Reports as per HPI Neuro Reports no additional complaints Psych Reports no additional complaints Endo Reports no additional complaints Bill/Lymph Reports no additional complaints Aller/Immun Reports no additional complaints Physical Exam Vital Signs: Last Vital Signs BP 98/68 08/29/23 08:03 BMI result Body Mass Index 26.0 Const General: cooperative, healthy appearing, no acute distress, well developed and alert Orientation/consciousness: patient oriented x3 HEENT Head: Yes normal to inspection Eyes General: appearance normal, both eyes and all related structures Neck Neck: Yes normal visual inspection Thyroid: Thyroid normal Chest Chest palpation & inspection: normal inspection of the chest and other (no puckering, dimpling, peau de orange, retraction, discharge, masses) Breast/axilla inspection: normal inspection of the breasts Breast/axilla palpation: normal palpation of the breasts Resp Effort & Inspection: normal respiratory effort GI Inspection: Yes normal to inspection Palpation (GI): Soft to palpation Rectal Exam - Female: deferred General: Yes bladder normal to palpation External Female Exam: normal external appearance and normal appearance of the urethra Speculum Exam - Vagina: normal appearance of the vagina, normal palpation and normal vaginal discharge Speculum Exam - Cervix: normal appearance of the cervix and Cervix absent (vag cuff, no lesions or nodules) Bimanual exam- vagina & uterus: normal bimanual exam, normal palpation, bladder normal to palpation and uterus absent Bimanual Exam- Adnexa, other: no masses Skin General skin exam: no rashes or lesions noted Rashes: no rashes Neuro General: patient oriented x3 Cognition (Neuro): normal cognition Extrem General: Yes normal to inspection Psych Attitude: cooperative Thought process: Normal thought process present Assessment & Plan Assessment & Plan (1) Encounter for well woman exam with routine gynecological exam: Code(s): Z01.419 - Encounter for gynecological examination (general) (routine) without abnormal findings Plan: Discussed: Current recommendations for pap smears per ASCCP guidelines. Breast awareness, periodic self breast exams and yearly mammogram. Maintain a healthy lifestyle, well balanced diet including Calcium 1,200 mg and Vitamin D 600 IU daily, and routine exercise. All of her questions and concerns were addressed to the best of my ability. 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 Coding Level of Care Code Est Pt Prev Care 40-64y(68318) Diagnoses Encounter for well woman exam with routine gynecological exam Z01.419
== END 2023-08-29 08:36 | disposition home or self-care (01) ==
PROVIDERS: Visit Provider Advanced Practice Midwife
DX: Z01.419 Encounter for gynecological examination (general) (routine) without abnormal findings (principal)
CPT/HCPCS: 99396

== ENCOUNTER → 2023-08-29 07:51 | Outpatient (BNVA) | payer OTHER, SELFPAY | PROVIDERS: Visit Provider Advanced Practice Midwife ==

== ENCOUNTER 2023-09-05 08:00 | Outpatient (AMB) | payer OTHER, SELFPAY ==
--- NOTE | 2023-09-05 08:04 | MHC.OFFWIV ---
Intake Vital Signs 09/05/23 08:05 Height 5 ft 5 in Weight 156 lb BMI 26.0 BP 102/70 Blood Pressure Location Rt brachial Position Sitting Pulse 90 Pulse Source Pulse Oximeter Temp 99.7 F Temp Source Temporal Artery Scan Pulse Oximetry (%) 98 Oxygen Delivery Method Room Air Intake Visit Reasons: EST/back ache head ache stuffy nose (lobby masked) Intake Note: pt is here for c/o back aches, headache, stuffy nose Patient Tobacco Use Status: Never used Tobacco Allergies No Known Allergies Allergy (Verified 09/05/23 08:06) Do you need a note to return to daycare/school/sports/work: Yes HPI HPI Comments History of Present Illness Details Patient is a 58-year-old female in today with a sick visit. Patient reports fever, chills, body aches, headache, cough x1 day. Denies nausea, vomiting, diarrhea, chest pain, shortness of breath. Has not tried utilizing medication for symptom relief. Denies anyone else in the household being ill. Patient's head is normocephalic, TMs intact visible pearly ch, patient has frontal and maxillary sinus tenderness. Nasal congestion, erythema of the pharynx. No lymphadenopathy, full range of motion flexion extension of neck. likely to be upper respiratory infection. Will swab patient in house. This is unlikely to be meningitis, epiglottitis, or pose threat to the airway. Will prescribe prednisone to be taken as directed. Patient has also been instructed that she can use Tylenol and Motrin for symptom relief. Will return to patient results of swab. Patient has been educated on signs of worsening symptoms and when to return to the walk-in and when to present to the emergency room. [facility] Medical History Primary osteoarthritis of both knees Esophagitis determined by biopsy Overweight (BMI 25.0-29.9) Osteopenia Artificial menopause Acquired chest/rib deformity Tubular adenoma of colon Thyroid nodule Vitamin D deficiency History of depression Surgical History History of esophagogastroduodenoscopy (EGD) Hx of foot surgery Hx of colonoscopy Hx of tubal ligation Hx of hysterectomy with oophorectomy Family History Father Throat cancer Emphysema of lung TIA (transient ischemic attack) Household Members: None Housing: House Alcohol intake: current Alcohol intake frequency: holidays/special occasions only Patient Tobacco Use Status: Never used Tobacco e-Cigarette/Vaping Use: Never Used Second Hand Smoke Exposure: Yes service: No Current occupational status: employed 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 Sexual orientation: Straight/Heterosexual Gender identity: Female Cognitive needs: No Hearing needs: No Vision needs: Yes Female Reproductive History Menstrual Age of Menarche: 14 Review of Systems Const All systems reviewed & are unremarkable except as noted in HPI and below Reports headache(s) Eyes Denies change in vision, Denies diplopia and Denies eye discharge ENT Denies dizziness, Denies ear discharge, Reports headache(s), Reports nasal congestion, Reports sinus pressure and Reports sore throat Card Denies chest pain and Denies dyspnea Resp Reports cough, Denies dyspnea and Denies wheezing GI Denies diarrhea and Denies vomiting Neuro Reports as per HPI, Denies dizziness and Reports headache(s) Aller/Immun Denies wheezing Physical Exam Vital Signs: Last Vital Signs Temp 99.7 F 09/05/23 08:05 Pulse 90 09/05/23 08:05 BP 102/70 09/05/23 08:05 Pulse Ox 98 09/05/23 08:05 Oxygen Delivery Method Room Air 09/05/23 08:05 BMI result Body Mass Index 26.0 vital signs reviewed and are stable Const General: cooperative Limitations: no limitations HEENT Head: Yes normocephalic Ears: TM's normal bilaterally General nose exam: Nasal discharge present Face and sinus: Yes sinus tenderness Throat: Yes uvula midline and Yes cobblestoning Neck Neck: Yes full ROM and Yes no lymphadenopathy Resp Auscultation: clear to auscultation bilaterally Cardio Rate: regular rate Rhythm: regular rhythm Heart sounds: S1 normal heart sound present and S2 normal heart sound present Results Reviewed Results Reviewed: will call patient with results Assessment & Plan Assessment & Plan (1) Upper respiratory tract infection: Code(s): J06.9 - Acute upper respiratory infection, unspecified Qualifiers: URI type: unspecified URI Qualified Code(s): J06.9 - Acute upper respiratory infection, unspecified Plan: patient will be given prednisone to be taken as directed. Patient has also been instructed to alternate using Tylenol and [id number] Motrin for symptom relief. Patient has been educated on the side effects of these medications and how to take them properly. Patient has been educated on signs of worsening symptoms when to return to the walk-in clinic and when to report to the emergency room. Patient was agreeable to this plan. Orders: Orders SARS-CoV2/FLU/RSV Today R09.89 - Other specified symptoms and signs involving the circulatory and respiratory systems Medications: New prednisone 40 mg (2 x 20 mg) PO DAILY 5 tabs 0RF Coding Level of Care Code Est Pt Level 2 (40332) Diagnoses Upper respiratory tract infection, unspecified type J06.9 URI type: unspecified URI Time Spent (min) 15
[2023-09-05 08:05] VITALS: BP 102/70; PULSE 90; TEMP 37.6; O2SAT 98; BMI 26.0
== END 2023-09-05 08:36 | disposition home or self-care (01) ==
PROVIDERS: PCP Internal Medicine; Visit Provider Nurse Practitioner Primary Care
DX: J06.9 Acute upper respiratory infection, unspecified (principal)
CPT/HCPCS: 99212

== ENCOUNTER 2023-09-05 08:28 | Outpatient (REF) | payer OTHER, SELFPAY ==
[2023-09-05 13:09] LABS: Influenza A PCR NEGATIVE (Negative); Influenza B PCR NEGATIVE (Negative); Resp Syncy Virus RNA Qual PCR NEGATIVE (Negative); SARS COV2 PCR INHOUSE POSITIVE (Negative)
== END 2023-09-05 08:29 | disposition home or self-care (01) ==
LOC: HO.LNP 08:28
PROVIDERS: Visit Provider Nurse Practitioner Primary Care
DX: Z11.52 Encounter for screening for COVID-19 (principal); Z20.822 Contact with and (suspected) exposure to COVID-19; R09.89 Other specified symptoms and signs involving the circulatory and respiratory systems
CPT/HCPCS: 0241U

== ENCOUNTER 2023-10-12 09:14 | Outpatient (AMB) | payer OTHER, SELFPAY ==
--- NOTE | 2023-10-12 09:25 | MHC.OFFVIS ---
Intake Intake Visit Reasons: OV - Right Knee pain Intake Note: Baylee is a 58 year old patient, she is here for her follow up on her gel shot that she received back in July. She states her knee has been feeling better after the shot. 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 She denies any fevers or chills. She takes Tylenol as needed for her discomfort. She denies any locking or giving way. 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 Allergies No Known Allergies Allergy (Verified 10/12/23 09:27) Medication List - Last Reconciled 10/12/23 by Jordan Kaye MD acetaminophen 1,000 mg (2 x 500 mg) PO Q6H PRN ascorbic acid (vitamin C) 500 mg PO DAILY cholecalciferol (vitamin D3) 50 mcg PO DAILY loperamide 2 mg PO Q4H PRN lorazepam 0.5 mg PO DAILY PRN 15 days mecobalamin (vitamin B12) 1,000 mcg PO DAILY multivitamin 1 tab PO DAILY omega-3 fatty acids (Fish Oil Concentrate) 1,000 mg PO DAILY omeprazole 10 mg PO DAILY ondansetron 4 mg PO Q6H PRN prednisone 40 mg (2 x 20 mg) PO DAILY tizanidine 2 mg PO BEDTIME PRN 30 days PFSH Medical History Primary osteoarthritis of both knees Esophagitis determined by biopsy Overweight (BMI 25.0-29.9) Osteopenia Artificial menopause Acquired chest/rib deformity Tubular adenoma of colon Thyroid nodule Vitamin D deficiency History of depression Surgical History History of esophagogastroduodenoscopy (EGD) Hx of foot surgery Hx of colonoscopy Hx of tubal ligation Hx of hysterectomy with oophorectomy Family History Father Throat cancer Emphysema of lung TIA (transient ischemic attack) Social History Household Members: None Housing: House Alcohol intake: current Alcohol intake frequency: holidays/special occasions only Patient Tobacco Use Status: Never used Tobacco e-Cigarette/Vaping Use: Never Used Second Hand Smoke Exposure: Yes service: No Current occupational status: employed 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 Sexual orientation: Straight/Heterosexual Gender identity: Female Cognitive needs: No Hearing needs: No Vision needs: Yes Female Reproductive History Menstrual Age of Menarche: 14 Physical Exam Const Other: Well-nourished well-developed very friendly female awake alert and oriented x3 in no acute distress Extrem Other: Bilateral lower extremity examination shows good capillary refill, no skin lesions noted, normal sensation light touch Right knee examination shows a minimal effusion, mild crepitus with range of motion, minimal discomfort with range of motion, no instability Assessment & Plan Assessment & Plan (1) Arthritis of right knee: Code(s): M17.11 - Unilateral primary osteoarthritis, right knee Plan Ms. Romero presents with right knee pain due to degenerative joint disease. I had a lengthy discussion with the patient regarding the treatment options. At point the patient's symptoms are tolerable to her. She will continue with her activity modifications. She will follow up with me on an as-needed basis should her symptoms worsen in any way. Feel free to call me at any time should questions regarding her orthopedic management arise. I spent 20 minutes in reviewing the patient's records and imaging studies, seeing the patient and documenting in the medical record. Coding Level of Care Code Est Pt Level 2 (17130) Diagnoses Arthritis of right knee M17.11
== END 2023-10-12 09:46 | disposition home or self-care (01) ==
PROVIDERS: PCP Internal Medicine; Visit Provider Orthopaedic Surgery
DX: M17.11 Unilateral primary osteoarthritis, right knee (principal)
CPT/HCPCS: 99213

== ENCOUNTER → 2023-10-12 09:14 | Outpatient (BNVA) | payer OTHER, SELFPAY | PROVIDERS: PCP Internal Medicine; Visit Provider Orthopaedic Surgery ==

== ENCOUNTER 2023-10-22 03:05 | Emergency (ER) | payer OTHER, SELFPAY ==
[2023-10-22 03:14] VITALS: BP 112/78; PULSE 86; O2SAT 98
[2023-10-22 03:17] VITALS: BP 116/69; PULSE 77; RESP 18; TEMP 36.4; O2SAT 98; BMI 26.0
--- NOTE | 2023-10-22 03:38 | MHC.EDTECH ---
Patient brought into triage area,labs,and a urine sample obtained and sent to lab.
[2023-10-22 03:49] LABS: MANUAL DIFF FLAG NO
[2023-10-22 03:50] LABS: Appearance Urine Clear; Basophils Percent Auto 0.3 % (0-2); Color Urine Yellow; Eosinophils Percent Auto 0.8 % (0-4); Glucose Urine UA Negative (Negative); Hematocrit 43.2 % (37.0-47.0); Hemoglobin 14.4 g/dl (12.0-16.0); Leukocyte Esterase Urine Small (1+) (Negative); Lymphocytes Absolute Auto 1.5 X10*3/uL (1.2-4.9); Lymphocytes Percent Auto 36.3 % (20-40); Mean Corpuscular HGB Conc 33.3 g/dl (31.0-35.0); Mean Corpuscular Hemoglobin 30.3 pg (27.0-33.0); Mean Corpuscular Volume 90.9 fL (80.0-98.0); Mean Platelet Volume 10.1 fL (9.4-12.3); Monocytes Absolute Auto 0.4 X10*3/uL (0.1-1.2); Monocytes Percent Auto 9.3 % (2-11); Neutrophils Absolute Auto 2.1 x10*3/uL (2.0-8.3); Neutrophils Percent Auto 53.3 % (45-73); Nitrite Urine Negative (Negative); Platelet Count 249 X10*3/uL (160-400); Red Blood Count 4.75 X10*6/uL (4.20-5.50); Specific Gravity - Urine 1.025 (1.005-1.025); UMIC TRIGGER UACC YES; Urine Blood Trace (Negative); Urine Ketones Negative (Negative); Urine Protein Negative (Neg-Trace)
[2023-10-22 03:51] LABS: Bacteria Urine None Seen (None Seen); Hyaline Casts Urine 0-2 /LPF (0-2); RBC Urine 0-2 /HPF (0-2); WBC Urine 21-50 /HPF (0-5)
[2023-10-22 03:53] LABS: UACC Culture Trigger YES
[2023-10-22 03:55] LABS: Urine Pregnancy NEGATIVE (NEGATIVE)
[2023-10-22 03:56] LABS: UPreg QC Valid YES
[2023-10-22 04:08] LABS: Alanine Aminotransferase 25 U/L (0-31); Alkaline Phosphatase 86 U/L (39-117); Anion Gap 13 (12-20); Aspartate Amino Transferase 50 U/L (5-31); Bilirubin Direct 0.1 mg/dL (0.0-0.5); Bilirubin Total 0.3 mg/dL (0.0-1.0); Blood Urea Nitrogen 16 mg/dL (9-16); Calcium 9.3 mg/dL (8.4-10.2); Carbon Dioxide 25 mmol/L (22-29); Chloride 109 mmol/L (96-108); Creatinine Clr Calc Pharmacy 74.6; Estimated Glomerular Filt Rate > 60; Glucose Random 94 mg/dL (60-115); Sodium 143 mmol/L (135-145); Total Protein 7.3 g/dL (6.5-8.0)
[2023-10-22 04:53] VITALS: BP 116/76; PULSE 72; RESP 18; TEMP 36.4; O2SAT 97
[2023-10-22] MEDS: Ondansetron ODT 4 MG TAB.RAPDIS TRANSLINGU (04:55)
--- NOTE | 2023-10-22 04:56 | PC.NURSE ---
administered Zofran for nausea. pt noted to have eyal nahid and crackers. states she has been tolerating it without vomiting. c/o minor upset stomach. advised pt to stop eating an drinking if symptoms worsened. states she feels better than when she first came in.
--- NOTE | 2023-10-22 08:32 | ECG_ITS ---
Test Reason : DIZZINESS Blood Pressure : / mmHG Vent. Rate : 072 BPM Atrial Rate : 072 BPM P-R Int : 118 ms QRS Dur : 086 ms QT Int : 400 ms P-R-T Axes : 029 018 033 degrees QTc Int : 438 ms Normal sinus rhythm T wave abnormality, consider anterior ischemia Abnormal ECG When compared with ECG of 22-NOV-2022 01:32, No significant change was found Referred By: Carlos Kessler Electronically Signed By:RANDOLPH LOPEZ
--- NOTE | 2023-10-22 08:33 | ED.GENADULT ---
HPI - General Adult General Chief complaint: Abdominal Pain Stated complaint: dizziness nausea Time Seen by Provider: 10/22/23 08:23 Source: patient Mode of arrival: EMS Limitations: no limitations History of Present Illness HPI narrative: Patient is a 58 year old female with a past medical history of osteopenia, nontoxic thyroid nodule, multonodular goiter, Vitamin D deficiency, GERD, hx of hysterectomy presenting via EMS with sudden onset upset stomach , nausea that started this morning. Patient reports its not abdominal pain instead its just a boring discomfort, also tells me this started after eating pork last night. Her daughter had pork last night and she feels fine. Reports she hasnt actually been able to vomit but feels like she has to. Denies sick contacts. Had some lightheadedness this AM which has since resolved. Denies CP, sob, diarrhea, headache, vision changes, dizziness, weakness at this time. NIHSS-0 Related Data Home Medications Medication Instructions Recorded Confirmed ascorbic acid (vitamin C) 500 mg 500 mg PO DAILY 11/04/20 10/12/23 tablet cholecalciferol (vitamin D3) 50 50 mcg PO DAILY 11/04/20 10/12/23 mcg (2,000 unit) capsule mecobalamin (vitamin B12) 1,000 1,000 mcg PO DAILY 11/04/20 10/12/23 mcg chewable tablet multivitamin 1 tab PO DAILY 11/04/20 10/12/23 omega-3 fatty acids 1,000 mg 1,000 mg PO DAILY 11/04/20 10/12/23 capsule (Fish Oil Concentrate) Previous Rx's Medication Instructions Recorded acetaminophen 500 mg tablet 1,000 mg (2 x 500 mg) PO Q6H PRN 12/27/21 fever #20 tabs lorazepam 0.5 mg tablet 0.5 mg PO DAILY PRN anxiety 15 12/16/22 days #15 tabs loperamide 2 mg tablet 2 mg PO Q4H PRN loose stool #14 12/19/22 tabs omeprazole 10 mg capsule,delayed 10 mg PO DAILY #90 caps 12/26/22 release tizanidine 2 mg tablet 2 mg PO BEDTIME PRN leg 01/04/23 cramps/pain 30 days #30 tabs ondansetron 4 mg disintegrating 4 mg PO Q6H PRN nausea and 01/31/23 tablet vomiting #10 tabs prednisone 20 mg tablet 40 mg (2 x 20 mg) PO DAILY #5 tabs 09/05/23 ondansetron 4 mg disintegrating 4 mg PO Q6H PRN nausea and 10/22/23 tablet vomiting #14 tabs Allergies Allergy/AdvReac Type Severity Reaction Status Date / Time No Known Allergies Allergy Verified 10/22/23 03:21 Review of Systems Review of Systems: Constitutional : No Weight loss, No Fever, No Chills, No Fatigue, No Malaise ENT/Mouth : No sore throat, No Rhinorrhea Eyes: No Eye Pain, No Swelling, No Redness Cardiovascular : No Chest Pain, No SOB, No Dyspnea on Exertion, No Orthopnea, No Edema, No Palpitations Respiratory : No Cough, No Sputum, No Wheezing Gastrointestinal : No abdominal pain, +Nausea. No Vomiting, No Diarrhea, No Constipation,No Hematochezia, No Melena Genitourinary : No Dysuria, No Urinary Frequency, No Hematuria, Musculoskeletal : No joint pain, No Myalgias, No Joint Swelling Skin : No Skin Lesions, No rash Neuro : No Dizziness. No Weakness, No Numbness, No Headache Psych : No Anxiety/Panic, No Depression Heme/Lymph: No Bruising, No Bleeding,No Lymphadenopathy Endocrine : No Polyuria, No Polydipsia All other systems reviewed and are negative Yes all other systems are reviewed and are negative [facility] Past Medical History Attestation statement: The following information was validated with the patient. Source: old records reviewed and nursing notes reviewed Onset Date is defined in the Problem List Problems that require an onset date and time if occurred within 24 hrs of arrival to the ED Aortic Dissection and Rupture; Neurologic impairment; Cardiopulmonary Arrest; Endotracheal Intubation; Insertion or Replacement of Mechanical Circulatory Assist Device Medical History Primary osteoarthritis of both knees Esophagitis determined by biopsy Overweight (BMI 25.0-29.9) Osteopenia Artificial menopause Acquired chest/rib deformity Tubular adenoma of colon Thyroid nodule Vitamin D deficiency History of depression Surgical History History of esophagogastroduodenoscopy (EGD) Hx of foot surgery Hx of colonoscopy Hx of tubal ligation Hx of hysterectomy with oophorectomy Family History Family History Father Throat cancer Emphysema of lung TIA (transient ischemic attack) Social History Social History Household Members: None Housing: House Alcohol intake: never Patient Tobacco Use Status: Never used Tobacco Smoked in Last 30 Days: No e-Cigarette/Vaping Use: Never Used Second Hand Smoke Exposure: Yes Use of substances other than those prescribed or required for medical reasons: No Advance Directives: No Advance Directives Information Provided: No service: No Current occupational status: employed 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 Oriented X3.? No acute distress.? Head: Normocephalic, atraumatic, no step-offs or deformities Eyes: Pupils equal, round and reactive to light.? ENT: Pharynx normal.??External ears normal, TMs normal bilaterally and EAC's normal. No pain with manipulation of external ears bilaterally. No mastoid tenderness. Neck: Normal inspection.? Neck supple.? CVS: Normal heart rate and rhythm.? Pulses normal.? Respiratory: No respiratory distress.? Breath sounds normal.? Abdomen: Soft and nontender.?Normoactive BS throughout Skin: Skin warm and dry.? Normal skin color.? Normal skin turgor.? Extremities: No lower extremity edema.? No calf ttp. 5/5 strength to bilateral upper and lower extremities Back: No midline tenderness, no C-spine tenderness, full range of motion, no CVA tenderness bilaterally Neuro: Oriented X 3.? No motor deficit.? No sensory deficit. CN 2-12 intact Course Reevaluation(s) Reevaluation #1: CBC with baseline leukopenia. Chemistry no acute findings requiring intervention. UA without infection. Urine negative. Patient is still feeling nauseous however she is telling me she is afraid to vomit I explained to patient if she feels like vomiting she should just vomit and not hold it back this could also cause worsening symptoms Time: 10:30 Reevaluation #2: Patient vomited and states she feels so much better. She states she has not having any abdominal discomfort and she is much better. Re-evaluation abdominal discomfort no need for imaging. I suspect this is likely viral or gastroenteritis or food poisoning. Patient feeling well tolerating p.o.. Educated patient on diagnosis and treatment plan, answered all question, patient verbalizes understanding. At this time patient will be discharged home, advised to return with new or worsening symptoms. Educated on worrisome signs and symptoms and when to return. At this time I feel comfortable discharge home. Time: 11:28 Medications Administered Discontinued Medications Generic Name Dose Route Start Last Admin Trade Name Freq PRN Reason Stop Dose Admin Diphenhydramine HCl 25 mg 10/22/23 08:49 10/22/23 09:01 Diphenhydramine Hcl 25 Mg Capsule PO 10/22/23 08:50 25 mg ONCE ONE Administration Metoclopramide HCl 10 mg 10/22/23 08:49 10/22/23 09:01 Metoclopramide Hcl 10 Mg Tablet PO 10/22/23 08:50 10 mg ONCE ONE Administration Ondansetron HCl 4 mg 10/22/23 04:24 10/22/23 04:55 Ondansetron Odt 4 Mg Tab.Rapdis TRANSLINGU 10/22/23 04:25 4 mg ONCE ONE Administration Prochlorperazine Edisylate 5 mg 10/22/23 11:02 10/22/23 11:24 Prochlorperazine Edisylate 10 Mg/2 Ml Vial IVPUSH 10/22/23 11:03 Not Given ONCE ONE Medical Decision Making Medical Decision Making MDM Narrative: Patient is a 58 year old female presenting w/ upset stomach , nausea this am PE benign Likely viral illness vs food poisoning versus gastroenteritis. Unlikely acute abdomen, metabolic derangements, stroke, posterior stroke, UTI. History and physical exam not consistent with vertigo. No signs of obstruction. Unlikely , torsion, pancreatitis, diverticulitis, pancreatitis, cholecystitis. Will rule out flu versus COVID versus RSV. Plan labs, imaging, serology Differential Diagnosis Differential Diagnoses: The differential diagnosis associated with the presentation includes Likely viral illness vs food poisoning versus gastroenteritis. Unlikely acute abdomen, metabolic derangements, stroke, posterior stroke, UTI. History and physical exam not consistent with vertigo. No signs of obstruction. Unlikely , torsion, pancreatitis, diverticulitis, pancreatitis, cholecystitis. Will rule out flu versus COVID versus RSV. Admission/Observation Consideration of admission/observation: Escalation of care including admission/observation considered Lab Data MDM Lab Attestation statement: I reviewed the patient's lab results. CBC unremarkable from patients baseline. CMP revealed an elevated AST of 50. UA significant for 1+ leukocytes and WBC. test negative 10/22/23 03:42 10/22/23 03:42 Labs: Lab Results 10/22/23 10/22/23 Range/Units 03:42 09:05 WBC 4.0 L (4.8-10.8) X10*3/uL RBC 4.75 (4.20-5.50) X10*6/uL Hgb 14.4 (12.0-16.0) g/dl Hct 43.2 (37.0-47.0) % MCV 90.9 (80.0-98.0) fL MCH 30.3 (27.0-33.0) pg MCHC 33.3 (31.0-35.0) g/dl RDW 13.0 (11.0-16.0) % Plt Count 249 (160-400) X10*3/uL MPV 10.1 (9.4-12.3) fL Immature Gran % (Auto) 0.0 (0.0-0.4) % Neut % (Auto) 53.3 (45-73) % Lymph % (Auto) 36.3 (20-40) % [place] % (Auto) 9.3 (2-11) % Eos % (Auto) 0.8 (0-4) % Baso % (Auto) 0.3 (0-2) % Lymph # (Auto) 1.5 (1.2-4.9) X10*3/uL [place] # (Auto) 0.4 (0.1-1.2) X10*3/uL Eos # (Auto) 0.0 (0.0-0.4) X10*3/uL Baso # (Auto) 0.0 (0.0-0.2) X10*3/uL Abs Immat Gran (auto) 0.00 (0.00-0.03) X10*3/uL Absolute Neuts (auto) 2.1 (2.0-8.3) x10*3/uL Absolute Nucleated RBC 0.000 (0.0-0.012) X10*3/uL Nucleated RBC % (auto) 0.0 (0.0-0.2) /100WBC Sodium 143 (135-145) mmol/L Potassium 4.0 (3.3-5.1) mmol/L Chloride 109 H (96-108) mmol/L Carbon Dioxide 25 (22-29) mmol/L Anion Gap 13 (12-20) BUN 16 (9-16) mg/dL Creatinine 0.83 (0.5-1.4) mg/dL Estim Creat Clear Calc 74.6 Estimated GFR > 60 Random Glucose 94 (60-115) mg/dL Calcium 9.3 (8.4-10.2) mg/dL Total Bilirubin 0.3 (0.0-1.0) mg/dL Direct Bilirubin 0.1 (0.0-0.5) mg/dL AST 50 H (5-31) U/L ALT 25 (0-31) U/L Alkaline Phosphatase 86 (39-117) U/L Total Protein 7.3 (6.5-8.0) g/dL Albumin 4.0 (3.5-5.0) g/dL Urine Color Yellow Urine Appearance Clear Urine pH 6.0 (5.0-9.0) Ur Specific [place] 1.025 (1.005-1.025) Urine Protein Negative (Neg-Trace) mg/dL Urine Glucose (UA) Negative (Negative) mg/dL Urine Ketones Negative (Negative) mg/dL Urine Blood Trace (Negative) Urine Nitrite Negative (Negative) Ur Leukocyte Esterase Small (1+) H (Negative) Urine RBC 0-2 (0-2) /HPF Urine WBC 21-50 H (0-5) /HPF Ur Squamous Epith Cells 3-5 (0-2) /HPF Urine Bacteria None Seen (None Seen) Hyaline Casts 0-2 (0-2) /LPF Urine Test NEGATIVE (NEGATIVE) COVID-19 ([place]) Negative (Negative) COVID-19 Clin Com See Note Influenza Type A ([place]) Negative (Negative) Influenza Type B ([place]) Negative (Negative) Influenza A & B Note See Note Independent Interpretation I performed an independent interpretation of an: CT Scan Radiology Impression Discussion of test interpretation with radiology: I have reviewed the radiologist's reading. Critical Care Time Critical Care Time Critical Care Time: No Discharge Plan Discharge Clinical Impression: Nausea & vomiting Patient Disposition: Home, Self-Care Instructions: Acute Nausea and Vomiting (ED) Additional Instructions: Take your medications as prescribed. If you were prescribed antibiotics today, it is important that you take your medication to their entirety, do not skip any doses, do not finish them early. Follow-up with your primary care provider this week. Return to the emergency department with new or worsening symptoms. Such as fevers, chills, chest pain, shortness of breath, nausea, vomiting, dizziness, headache, vision changes, lethargy In case of emergency call 911 Zofran has been sent for nausea and vomiting. Please take this as instructed Prescriptions: New ondansetron 4 mg tablet,disintegrating 4 mg PO Q6H PRN (Reason: nausea and vomiting) Qty: 14 0RF No Action ondansetron 4 mg tablet,disintegrating 4 mg PO Q6H PRN (Reason: nausea and vomiting) Qty: 10 0RF loperamide 2 mg tablet 2 mg PO Q4H PRN (Reason: loose stool) Qty: 14 0RF Rx Instructions: administer after each loose stool until symptoms controlled; do not exceed 8 mg per 24 hrs cholecalciferol (vitamin D3) 50 mcg (2,000 unit) capsule 50 mcg PO DAILY multivitamin Tablet 1 tab PO DAILY omega-3 fatty acids [Fish Oil Concentrate] 1,000 mg capsule 1,000 mg PO DAILY mecobalamin (vitamin B12) 1,000 mcg tablet,chewable 1,000 mcg PO DAILY ascorbic acid (vitamin C) 500 mg tablet 500 mg PO DAILY acetaminophen 500 mg tablet 1,000 mg PO Q6H PRN (Reason: fever) Qty: 20 0RF tizanidine 2 mg tablet 2 mg PO BEDTIME PRN (Reason: leg cramps/pain) 30 Days Qty: 30 2RF prednisone 20 mg tablet 40 mg PO DAILY Qty: 5 0RF lorazepam 0.5 mg tablet 0.5 mg PO DAILY PRN (Reason: anxiety) 15 Days Qty: 15 1RF omeprazole 10 mg capsule,delayed release(DR/EC) 10 mg PO DAILY Qty: 90 2RF Referrals: Arnel Paulino MD [Primary Care Provider] - 2 days Stand Alone Forms: Work/School Release
[2023-10-22] MEDS: Metoclopramide HCl 10 MG TABLET PO (09:01)
[2023-10-22] MEDS: diphenhydrAMINE HCL 25 MG CAPSULE PO (09:01)
[2023-10-22 09:28] LABS: IDNOW Serial# 9DB6401D; Influenza A Negative (Negative); Influenza B2 Negative (Negative)
[2023-10-22 09:29] LABS: COVID-19 Test Negative (Negative); IDNOW Serial# 152EDE1D
--- NOTE | 2023-10-22 11:24 | PC.NURSE ---
Patient reports went into bathroom and threw up does not want IV medication at this time, provider aware
[2023-10-22 11:58] LABS: Lipase 47 U/L (8-78)
== END 2023-10-22 11:43 | disposition home or self-care (01) ==
PROVIDERS: Emergency Medicine Emergency Medical Services; Physician Assistant; Emergency Provider Emergency Medicine; PCP Internal Medicine
DX: R11.2 Nausea with vomiting, unspecified (principal); R42 Dizziness and giddiness; R94.31 Abnormal electrocardiogram [ECG] [EKG]; Z79.899 Other long term (current) drug therapy; Z11.52 Encounter for screening for COVID-19; Z20.828 Contact with and (suspected) exposure to other viral communicable diseases
CPT/HCPCS: 36415; 80048; 80076; 81001; 81025; 83690; 85025; 87086; 87502; 87635; 93005; 99283; 99284

== ENCOUNTER → 2023-10-22 08:32 | Outpatient (BNV) | payer OTHER, SELFPAY | PROVIDERS: Emergency Provider Emergency Medicine; PCP Internal Medicine; Visit Provider Internal Medicine | DX: R42 Dizziness and giddiness (principal) | CPT/HCPCS: 93010 ==

== ENCOUNTER 2023-11-23 08:24 | Outpatient (AMB) | payer OTHER, SELFPAY ==
[2023-11-23 08:33] VITALS: BMI 25.8
--- NOTE | 2023-11-23 08:33 | A.OFFVIS_ITS ---
Intake VS Expanded 11/23/23 08:33 Height 5 ft 5 in Weight 155 lb 3.287 oz BMI 25.8 Intake Visit Reasons: GERD/ LVM Allergies No Known Allergies Allergy (Verified 10/22/23 03:21) HPI Nutrition Presentation Details Pt presents for MNT f/u for GERD Pt reports doing well, had recent ER visit related to n/v however feeling better now Reports working on choosing low fat protein foods : choosing poultry vs beef/pork and reducing of fried foods. Reports having 3 meals/day following [employer] plate method Physical activity: participating in exercise prog 4 x/wk 45-60 m in AM fluid: water 64 oz/d fruits: 2/d dairy: 3 /d vegetables: 2 serving/d Most Recent Diabetes Results: Creatinine 0.83 mg/dL (0.5-1.4) 10/22/23 Blood Urea Nitrogen 16 mg/dL (9-16) 10/22/23 Sodium 143 mmol/L (135-145) 10/22/23 Potassium 4.0 mmol/L (3.3-5.1) 10/22/23 Chloride 109 mmol/L (96-108) H 10/22/23 Carbon Dioxide 25 mmol/L (22-29) 10/22/23 Calcium 9.3 mg/dL (8.4-10.2) 10/22/23 AST 50 U/L (5-31) H 10/22/23 ALT 25 U/L (0-31) 10/22/23 Total Protein 7.3 g/dL (6.5-8.0) 10/22/23 Albumin 4.0 g/dL (3.5-5.0) 10/22/23 [facility] Medical History Primary osteoarthritis of both knees Esophagitis determined by biopsy Overweight (BMI 25.0-29.9) Osteopenia Artificial menopause Acquired chest/rib deformity Tubular adenoma of colon Thyroid nodule Vitamin D deficiency History of depression Surgical History History of esophagogastroduodenoscopy (EGD) Hx of foot surgery Hx of colonoscopy Hx of tubal ligation Hx of hysterectomy with oophorectomy Family History Father Throat cancer Emphysema of lung TIA (transient ischemic attack) Social History Household Members: None Housing: House Alcohol intake: never Patient Tobacco Use Status: Never used Tobacco e-Cigarette/Vaping Use: Never Used Second Hand Smoke Exposure: Yes service: No Current occupational status: employed 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 Sexual orientation: Straight/Heterosexual Gender identity: Female Cognitive needs: No Hearing needs: No Vision needs: Yes Female Reproductive History Menstrual Age of Menarche: 14 Assessment & Plan Assessment & Plan (1) Overweight (BMI 25.0-29.9): Code(s): E66.3 - Overweight Plan: Educate patient on: (R= Reviewed, V = verbalizes understanding N/R= Needs review N/A= not applicable) * General guidelines to reduce GERD symptoms (low acid foods, low fat foods, probiotics) R, V * Healthy Plate method concept: R, V * physical activity: R, V (2) GERD (gastroesophageal reflux disease): Code(s): K21.9 - Gastro-esophageal reflux disease without esophagitis Qualifiers: Esophagitis bleeding: without hemorrhage Esophagitis presence: with esophagitis Qualified Code(s): K21.00 - Gastro-esophageal reflux disease with esophagitis, without bleeding Plan: Review meal planning to reduce GERD symptoms ? Used wt : 73 kg (05/2023) ( 70 kg 11/2023) Est kcal as per MSJ: 6060-4709(40% carb, 30% fat/prot) Est fluid needs: 1800 ml/d (25 ml/kg bw) Rec fiber: increase to 8-10 g per day and gradually increase to 25 g/d or as tolerated Rec Na: <2000 mg /d Educate patient on: (R= Reviewed, V = verbalizes understanding N/R= Needs review N/A= not applicable) * General guidelines to reduce GERD symptoms (low acid foods, low fat foods, probiotics) R, V * Healthy Plate method concept: R, V * physical activity: R, V Patient Instructions: Continue working on following healthy plate method Keep hydrated by having water with meals and snacks Be mindful of foods high in fats, sauces, spices, red meats include probiotics/prebiotic sources of foods daily in your diet Coding Level of Care Code Nutr Indiv Subseq (15450) Diagnoses Overweight (BMI 25.0-29.9) E66.3 Gastroesophageal reflux disease with esophagitis without hemorrhage K21.00 Esophagitis bleeding: without hemorrhage Esophagitis presence: with esophagitis Time Spent (min) 24
== END 2023-11-23 09:06 | disposition home or self-care (01) ==
PROVIDERS: PCP Internal Medicine; Visit Provider Dietitian, Registered
DX: E66.3 Overweight (principal); K21.00 Gastro-esophageal reflux disease with esophagitis, without bleeding

== ENCOUNTER → 2023-11-23 08:24 | Outpatient (BNVA) | payer OTHER, SELFPAY | PROVIDERS: PCP Internal Medicine; Visit Provider Dietitian, Registered | DX: K21.00 Gastro-esophageal reflux disease with esophagitis, without bleeding (principal); E66.3 Overweight; Z68.25 Body mass index [BMI] 25.0-25.9, adult; Z71.3 Dietary counseling and surveillance | CPT/HCPCS: 97803 ==

== ENCOUNTER 2023-12-25 15:15 | Outpatient (AMB) | payer OTHER, SELFPAY ==
[2023-12-25 15:27] VITALS: BP 104/58; PULSE 80; BMI 26.3
--- NOTE | 2023-12-25 15:27 | MHC.OFFVIS ---
Intake Vital Signs 12/25/23 15:27 Height 5 ft 5 in Weight 157 lb 13.616 oz BMI 26.3 BP 104/58 L Blood Pressure Location Lt brachial Position Sitting Pulse 80 Pulse Source Pulse Oximeter Intake Visit Reasons: 1 year follow up Intake Note: Pt presents to the office today for a 1 year follow up for GERD. Pt states she has been feeling well and states the omeperazole has been helping. She did state that she had some wine a few weeks ago that she believes triggered her GERD but states other than that it hasn't been bothering her as much. Pt denies any N/V/D. Allergies No Known Allergies Allergy (Verified 12/25/23 15:33) HPI HPI Comments History of Present Illness Details 57y.o F with hx of thyroid nodules, GERD who is presenting for follow up for intermittent dysphagia. Initial visit 08/2022: Pt states that she noticed her first episode in June with rice and then another episode last month with pork. [place] that food got stuck in upper esophagus and had to wash it down with water/fluids. She has noticed regurgitation of scant volume of old food once. Otherwise, denies any abd pain, N,V changes in bowel habits, unintentional weight loss. Last colonoscopy 2018: 2 mm tubular adenoma, adequate prep. 09/14/22: Reports excellent response to PPI therapy. Has not had any further episodes of food getting stuck since starting PPI. No issues with regurgitation any more. Has not had barium swallow done yet - scheduled for EGD 09/2022 (done OFF ppi): Grade D esophagitis Mucosa suspicious for EoE (biopsy) Hiatal hernia Normal stomach Peptic duodenitis (biopsy)?? Path: A.? Duodenum, biopsy:? Chronic active duodenitis. B.? Esophagus, mid, biopsy:? Squamous epithelium within normal limits; no inflammation seen. 10/21/22: No complaints today since resuming PPI therapy after the procedure. Tried to discontinue to PPI, today is day 2 but is already feeling some return of symptoms. EGD 11/30/22: (On ppi x 8 weeks) Esophagus:? Again, trachealisation and furrowing of esophageal mucosa was noted. The Z line was at 30 cm. Large hiatal hernia with diaphragmatic pinch noted at 36 cm. Lower esophagus forceps biopsies were obtained to rule out eosinophilic esophagitis. Stomach:? Normal mucosa was noted in the stomach. Retroflexion in the fundus confirmed size and morphology of the hiatal hernia. Duodenum:? Normal mucosa was noted in the whole of the examined duodenum.? Path: Esophagus, lower, biopsy:? Squamous epithelium within normal limits; no inflammation seen; negative for eosinophilic esophagitis. 12/26/22: Was recently seen in ER last week for food borne GI illness from left over [employer] lunch. Currently no GI complaints to include abd pain, N,V,D. Has been doing well with Omeprazole 20mg, did not noticing return of sx with reduction in dose. 04/18/23: Requested follow up today for 2 reasons. Had breakthrough heartburn one day a few weeks ago. Thinks it was triggered by having noble for breakfast. Secondly, she has questions if she should consider surgical repair for hiatal hernia. Otherwise, doing well. No dysphagia or sensation of food getting stuck. Has been able to taper down to Omeprazole 10mg without any difficulty. 12/25/23: Here for yearly follow up. Sx mostly controlled but triggered by certain foods such as alcohol. Avoids most of them. Remains omeprazole 10mg PO once daily. Was in ER in Oct for food poisoning and since then avoiding red meat. Pt today also a bit overwhelmed in office as describes having episodes where she feels very anxious with chest pressure and feeling of doom jerry at night. Had been taking low dose ativan PRN but not helping much. [facility] Medical History Primary osteoarthritis of both knees Esophagitis determined by biopsy Overweight (BMI 25.0-29.9) Osteopenia Artificial menopause Acquired chest/rib deformity Tubular adenoma of colon Thyroid nodule Vitamin D deficiency History of depression Surgical History History of esophagogastroduodenoscopy (EGD) Hx of foot surgery Hx of colonoscopy Hx of tubal ligation Hx of hysterectomy with oophorectomy Family History Father Throat cancer Emphysema of lung TIA (transient ischemic attack) Social History Household Members: None Housing: House Alcohol intake: never Patient Tobacco Use Status: Never used Tobacco e-Cigarette/Vaping Use: Never Used Second Hand Smoke Exposure: Yes service: No Current occupational status: employed 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 Sexual orientation: Straight/Heterosexual Gender identity: Female Cognitive needs: No Hearing needs: No Vision needs: Yes Female Reproductive History Menstrual Age of Menarche: 14 Review of Systems Const All systems reviewed & are unremarkable except as noted in HPI and below Physical Exam Vital Signs: Last Vital Signs Pulse 80 12/25/23 15:27 BP 104/58 L 12/25/23 15:27 BMI result Body Mass Index 26.3 NAD Nonicteric Abd soft, nontender A/Ox3, normal gait Assessment & Plan Assessment & Plan (1) Heartburn: Code(s): R12 - Heartburn (2) Intermittent dysphagia: Code(s): R13.19 - Other dysphagia (3) GERD with esophagitis: Code(s): K21.00 - Gastro-esophageal reflux disease with esophagitis, without bleeding (4) Hiatal hernia: Code(s): K44.9 - Diaphragmatic hernia without obstruction or gangrene (5) Anxiety: Code(s): F41.9 - Anxiety disorder, unspecified Plan EGD and barium swallow proven GERD with esophagitis grade D in Sep 2022. Clinical and endoscopic evidence of response to PPI in Nov 2022 i.e complete endoscopic and histological healing of esophagitis. Cont to get break through sx and reviewed options: change med to nexium to monitor response, refer to surg for consideration of anti-reflux surgery including LYNX vs TIF vs fundoplication. Pt prefers to change med for now and monitor response. However if response not adequate despite this prefers to explore the option of TIF which is done at [facility]. Plan: - Pt just picked up a refill of omeprazole - will send nexium later this month - Pt to call us if sx unchanged in 6-8 weeks for referral to [facility] - Otherwise follow up in a year #? Panic attack Reports feeling of doom with chest pressure and feeling very anxious. DOes not think ativan helps as much. - Pt was encouraged to discuss referral to [facility] for ? anxiety vs panic disorder management Coding Level of Care Code Est Pt Level 4 (01977) Diagnoses Heartburn R12 Intermittent dysphagia R13.19 GERD with esophagitis K21.00 Hiatal hernia K44.9 Anxiety F41.9
== END 2023-12-25 16:22 | disposition home or self-care (01) ==
PROVIDERS: PCP Internal Medicine; Visit Provider Internal Medicine
DX: R12 Heartburn (principal); R13.19 Other dysphagia; K21.00 Gastro-esophageal reflux disease with esophagitis, without bleeding; K44.9 Diaphragmatic hernia without obstruction or gangrene; F41.9 Anxiety disorder, unspecified
CPT/HCPCS: 99214

== ENCOUNTER → 2023-12-25 15:15 | Outpatient (BNVA) | payer OTHER, SELFPAY | PROVIDERS: PCP Internal Medicine; Visit Provider Internal Medicine ==

== ENCOUNTER 2024-01-23 08:49 | Outpatient (AMB) | payer OTHER, SELFPAY ==
--- NOTE | 2024-01-23 08:52 | MHC.PC.OV ---
Vital Signs 01/23/24 08:53 Height 5 ft 5 in Weight 155 lb BMI 25.8 BP 110/56 L Blood Pressure Location Lt brachial Position Sitting Pulse 78 Pulse Source Pulse Oximeter Pulse Oximetry (%) 98 Oxygen Delivery Method Room Air Intake Visit Reasons: Annual Exam Intake Note: Patient is here today for a physical. Sewage Screen Operator Required: No Lab Assistant: Not Required per policy Accompanied by: Self / Same As Patient Allergies No Known Allergies Allergy (Verified 01/23/24 09:28) Medication List - Last Reconciled 01/23/24 by Arnel Paulino MD esomeprazole magnesium (Nexium) 20 mg PO DAILY lorazepam 0.5 mg PO DAILY PRN 15 days multivitamin 1 tab PO DAILY ondansetron 4 mg PO Q6H PRN Tobacco use date assessed: 01/23/24 Dental Screening Dental Screen Date: 01/23/24 Did you have a dental visit in the last 12 months?: Yes Did you have a dental problem in the last 6 months where you did not have access to dental care?: No Was dental information given to patient?: Patient has dentist HPI Annual Exam HPI Details Patient comes in today for her annual physical examination States that she feels okay She denies any headaches or dizziness Denies any chest pains, no SOB No nausea/vomiting, no abdominal pain - states that her heartburn symptoms have been better controlled since she was switched from Omeprazole to Nexium No change in bowel habits noted Denies any acute urinary symptoms She was not able to get her previously ordered labs done yet She is scheduled for her annual mammogram in a couple of weeks She last had her screening colonoscopy done in 2017 - (+) tubular adenoma and was recommended for a repeat colonoscopy in 5 years (2022) She is scheduled for her annual gynecology exam and pap smear in September 2024 She was recently seen by the packaging operator next door for guidance on her diet for her GERD with esophagitis and was advised that she needs to get a referral from her PCP [facility] Medical History (Updated 01/23/24 @ 10:34 by Arnel Paulino MD) Primary osteoarthritis of both knees Esophagitis determined by biopsy Overweight (BMI 25.0-29.9) Osteopenia Artificial menopause Acquired chest/rib deformity Tubular adenoma of colon Thyroid nodule Vitamin D deficiency History of depression Surgical History (Updated 01/23/24 @ 09:36 by Arnel Paulino MD) History of esophagogastroduodenoscopy (EGD) Hx of foot surgery Hx of colonoscopy Hx of tubal ligation Hx of hysterectomy with oophorectomy Family History Father Throat cancer Emphysema of lung TIA (transient ischemic attack) Social History Household Members: None Housing: House Alcohol intake: never Patient Tobacco Use Status: Never used Tobacco e-Cigarette/Vaping Use: Never Used Second Hand Smoke Exposure: Yes service: No Current occupational status: employed 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 1. Little interest or pleasure in doing things: not at all 2. Feeling down, depressed, or hopeless: not at all 3. Trouble falling or staying asleep, or sleeping too much: more than half the days 4. Feeling tired or having little energy: not at all 5. Poor appetite or overeating: not at all 6. Feeling bad about yourself - or that you are a failure or have let yourself or your family down: not at all 7. Trouble concentrating on things, such as reading the newspaper or watching television: not at all 8. Moving or speaking so slowly that other people could have noticed. Or the opposite - being so fidgety or restless that you have been moving around a lot more than usual: not at all 9. Thoughts that you would be better off or of hurting yourself in some way: not at all Total score: 2 Depression Screening Interpretation: Negative Depression Screening Done: Yes 84407 - PHQ-9 Billing: Yes Source: Developed by Drs. Micah Le, Antonia Ellis, Didier Gastelum and colleagues, with an educational luke from [employer]. Thrive Questionnaire Date Thrive assessed: 01/23/24 I am a: Patient What is your living situation today?: I have a steady place to live Within the past 12 months, did the food you bought not last and you didn't have the money to get more?: Never true Within the past 12 months, did you worry whether your food would run out before you got money to buy more?: Never true Do you have trouble paying for medicines?: No Do you have trouble getting transportation to medical appointments?: No Do you have trouble paying your heating and electricity bill?: No Do you have trouble taking care of your child, family member or friend?: No Do you have trouble with day-to-day activities such as bathing, preparing meals, shopping, managing finances, etc.?: No Are you currently unemployed and looking for a job?: No Are you interested in more education?: No Currently or been in a relationship where the following occur: no concerns reported THRIVE Score: 0 AUDIT C Alcohol Use Questionnaire (AUDIT-C) 1. How often do you have a drink containing alcohol?: Monthly or less 2. How many drinks containing alcohol do you have on a typical day when you are drinking?: 1 or 2 3. How often do you have six or more drinks on one occasion?: Never Total Score: 1 Score Reviewed/Action Taken: Yes CARSON-7 AMB Questionnaire CARSON-7 Date CARSON - 7 assessed: 01/23/24 Feeling nervous, anxious, or on edge: 1 = Several days Not being able to stop or control worryin = Several days Worrying too much about different things: 1 = Several days Trouble relaxin = Several days Being so restless that it is hard to sit still: 2 = More than half the days Becoming easily annoyed or irritable: 0 = Not at all Feeling afraid as if something awful might happen: 3 = Nearly every day Total CARSON-7 score (0-4 normal; 5-9 mild; 10-14 moderate; 15-21 severe): 9 Source: Developed by Drs. Micah Le, Antonia Ellis, Didier Gastelum and colleagues, with an educational luke from [employer]. Review of Systems Const Denies chills, Denies fatigue, Denies fever(s), Denies headache(s) and Denies malaise Eyes Denies blurry vision, Denies change in vision, Denies irritation and Denies itchy eyes ENT Denies dysphagia, Denies dizziness, Denies otalgia, Denies headache(s), Denies nasal congestion, Denies neck pain, Denies odynophagia, Denies sinus pain and Denies sore throat Card Denies chest pain, Denies rapid heart rate, Denies irregular heart rhythm, Denies palpitations and Denies dyspnea Resp Denies chest congestion, Denies cough, Denies dyspnea and Denies wheezing GI Denies abdominal pain, Denies bloating, Denies constipation, Denies dysphagia, Denies heartburn (controlled on Rx), Denies diarrhea, Denies nausea, Denies odynophagia and Denies vomiting Denies hematuria, Denies urinary frequency, Denies dysuria, Denies urinary incontinence and Denies urinary urgency Musc Denies back pain, Denies arthralgias, Denies joint swelling, Denies muscle weakness and Denies neck pain Skin/Breast Denies breast pain, Denies breast mass, Denies change in pigmentation, Denies lesions, Denies rash and Denies unusual bruising Neuro Denies dizziness, Denies headache(s) and Denies paresthesias Psych Denies anxiety and Denies depression Endo Denies fatigue and Denies palpitations Bill/Lymph Denies easy bruising Aller/Immun Denies itchy eyes and Denies wheezing Physical exam (Primary Care) Vital Signs: Last Vital Signs Pulse 78 01/23/24 08:53 BP 110/56 L 01/23/24 08:53 Pulse Ox 98 01/23/24 08:53 Oxygen Delivery Method Room Air 01/23/24 08:53 BMI result Body Mass Index 25.8 Tobacco/Smoking Status: Tobacco use Status Tobacco use date assessed 01/23/24 01/23/24 08:59 Patient Tobacco Use Status Never used Tobacco 01/23/24 08:59 e-Cigarette/Vaping Use Never Used 01/23/24 08:59 PHQ-9: PHQ-9 Score PHQ-9: Total score 2 01/23/24 08:59 Depression Screening Interpretation: Negative Thrive Assessment: Date of Thrive Assessment Date Thrive assessed 01/23/24 01/23/24 08:59 Currently or been in a relationship where the following occur: no concerns reported Const General: no acute distress, alert and awake Orientation/consciousness: patient oriented x3 HENMT Head: Yes normocephalic and Yes atraumatic Ears: external ears normal, TM's normal bilaterally and EAC's normal General nose exam: No nasal discharge present Face and sinus: Yes normal facial exam and Yes sinuses nontender Teeth and gingiva: dentition normal Throat: Yes posterior oropharynx normal and Yes tonsils normal (no TP congestion) Eyes Eyelids: Yes eyelids normal Conjunctivae: conjunctivae normal Pupils: Equal, round and reactive pupils present EOM: EOMs intact bilaterally Neck Neck: Yes no lymphadenopathy and Yes supple Thyroid: Thyroid normal Resp Auscultation: clear to auscultation bilaterally, no rales and no wheezes Cardio Rate: regular rate Rhythm: regular rhythm Heart sounds: no murmurs GI Palpation (GI): Soft to palpation, nontender and No hepatosplenomegaly present Auscultation: normal bowel sounds General: Yes no CVA tenderness Back/Spine/Pelvis Back: no CVA tenderness Thoracic/Lumbar Spine: thoracic and lumbar spine normal to inspection Skin Lesions: no lesions Rashes: no rashes Neuro General: patient oriented x3, moves all extremities, no focal motor deficits and CN's II-XI intact bilaterally Cranial nerves: Yes Equal, round and reactive pupils present Cognition (Neuro): normal cognition Gait exam (Neuro): Normal gait present Extrem General: Yes no clubbing, cyanosis or edema Assessment and Plan Assessment & Plan (1) Annual physical exam: Code(s): Z00.00 - Encounter for general adult medical examination without abnormal findings Plan: Check labs - labs were previously ordered She is scheduled for her annual mammogram in a couple of weeks She last had her screening colonoscopy done in 2018 - (+) tubular adenoma and was recommended for a repeat colonoscopy in 5 years (2022) She is scheduled for her annual gynecology exam and pap smear in September 2024 (2) Esophagitis determined by biopsy: Code(s): K20.90 - Esophagitis, unspecified without bleeding Plan: Initial EGD in 09/2022 revealed (+) findings of grade D esophagitis Repeat EGD in November 2022 showed (+) improvement of esophageal irritation with Tx and her previous symptoms of dysphagia and throat discomfort have completely resolved with Tx She was recently switched over to Esomeprazole 20 mg QD from Omeprazole by GI due to recurrence of heartburn - was advised that she should pursue surgical options for cure if symptoms persist despite switching Rx Dietary restrictions reinforced Follow up with GI as scheduled (3) GERD (gastroesophageal reflux disease): Code(s): K21.9 - Gastro-esophageal reflux disease without esophagitis Qualifiers: Esophagitis presence: with esophagitis Esophagitis bleeding: without hemorrhage Qualified Code(s): K21.00 - Gastro-esophageal reflux disease with esophagitis, without bleeding Plan: Dietary restrictions reinforced Continue Esomeprazole 20 mg QD Per request, will also refer her to packaging operator for guidance on her diet - she has already been seen once a couple of months ago (4) Nocturnal leg cramps: Code(s): G47.62 - Sleep related leg cramps Plan: Symptoms are likely due to muscle fatigue; can also be possibly RLS, which can occur more often when her muscles are fatigued towards the end of the day Continue Tizanidine 2 mg Q HS PRN If symptoms persist despite muscle relaxant Tx, can consider trial of Ropinirole at bedtime (5) Palpitations: Code(s): R00.2 - Palpitations Plan: Appears resolved - states that she's had no recurrence of her symptoms of palpitations for a while now Echocardiogram and extended Holter monitor done last year have all come out normal (6) Multinodular goiter: Code(s): E04.2 - Nontoxic multinodular goiter Plan: Repeat thyroid US done on 02/09/22 revealed (+) enlarged heterogenous thyroid gland and multiple bilateral thyroid nodules that are mostly unchanged from US back in 09/2019; US last done in 09/2019 showed no suspicious nodules and recommended yearly surveillance Was referred to endocrinology and was seen on 09/22/22 - Dr. Castillo felt that patient was clinically biochemically euthyroid and since her?recent thyroid ultrasound showed no change in the size of the nodules, she was returned back to our care as her primary care provider Have recommended that a repeat thyroid ultrasound should be done in about 2-3 years time and?if the nodules change in size or characteristics, she can be referred back to endocrinology for further management/work ups Will now send her for repeat thyroid US for follow up (7) Primary osteoarthritis of both knees: Code(s): M17.0 - Bilateral primary osteoarthritis of knee Plan: X-rays of both knees done over the past couple of years have revealed (+) OA changes in both knees Has been seen by orthopedics in the past for her left knee pain and recommended to try physical therapy back then She recently completed 3 injections of Euflexxa into her right knee by Dr. Kaye and feels that the injections have helped somewhat but was advised to give it some more time before they can tell how much the injections have helped She has been advised that if the injections do not help much, arthroscopic surgery will be the next step Follow up with orthopedics as scheduled (8) Vitamin D deficiency: Code(s): E55.9 - Vitamin D deficiency, unspecified Plan: Continue Vitamin D3 2000 units QD Will recheck her Vitamin D level for follow up (9) Osteopenia: Code(s): M85.80 - Other specified disorders of bone density and structure, unspecified site Qualifiers: Osteopenia location: femoral neck Laterality: left Qualified Code(s): M85.852 - Other specified disorders of bone density and structure, left thigh Plan: BMD done in 05/2021 revealed (+) osteopenia based on the lowest T-score value of -1.2 in the femoral neck; will repeat BMD next year (2023) for follow up Patient is encouraged to continue daily Vitamin D and Calcium supplements and to exercise regularly and stay physically active Will send her for repeat BMD at her next follow up visit later this year (10) Anxiety: Code(s): F41.9 - Anxiety disorder, unspecified Plan: Continue Lorazepam 0.5 mg QD PRN (11) Overweight (BMI 25.0-29.9): Code(s): E66.3 - Overweight Plan: Reinforced diet/exercise as tolerated/lose weight (12) Colon cancer screening: Code(s): Z12.11 - Encounter for screening for malignant neoplasm of colon Plan: Will refer her to GI for repeat colonoscopy (due in 2022) Plan Follow up in 6 months Orders: Orders US thyroid Today E04.1 - Nontoxic single thyroid nodule Vitamin B12 and Folate Today E53.8 - Deficiency of other specified B group vitamins Referrals Nutrition/Dietitian Referral K20.90 - Esophagitis, unspecified without bleeding, K21.00 - Gastro-esophageal reflux disease with esophagitis, without bleeding Gastroenterology Referral Z12.11 - Encounter for screening for malignant neoplasm of colon Coding Level of Care Code Est Pt Prev Care 40-64y(20070) Diagnoses Annual physical exam Z00.00 Esophagitis determined by biopsy K20.90 Gastroesophageal reflux disease with esophagitis without hemorrhage K21.00 Esophagitis presence: with esophagitis Esophagitis bleeding: without hemorrhage Nocturnal leg cramps G47.62 Palpitations R00.2 Multinodular goiter E04.2 Primary osteoarthritis of both knees M17.0 Vitamin D deficiency E55.9 Osteopenia of neck of left femur M85.852 Osteopenia location: femoral neck Laterality: left Anxiety F41.9 Overweight (BMI 25.0-29.9) E66.3 Colon cancer screening Z12.11
[2024-01-23 08:53] VITALS: BP 110/56; PULSE 78; O2SAT 98; BMI 25.8
== END 2024-01-23 09:35 | disposition home or self-care (01) ==
PROVIDERS: PCP Internal Medicine; Visit Provider Internal Medicine
DX: Z00.00 Encounter for general adult medical examination without abnormal findings (principal); K21.00 Gastro-esophageal reflux disease with esophagitis, without bleeding; G47.62 Sleep related leg cramps; R00.2 Palpitations; E04.2 Nontoxic multinodular goiter; M17.0 Bilateral primary osteoarthritis of knee; E55.9 Vitamin D deficiency, unspecified; M85.852 Other specified disorders of bone density and structure, left thigh; F41.9 Anxiety disorder, unspecified; E66.3 Overweight; Z12.11 Encounter for screening for malignant neoplasm of colon
CPT/HCPCS: 99396

== ENCOUNTER 2024-01-24 08:14 | Outpatient (REF) | payer OTHER, SELFPAY ==
[2024-01-24 08:36] LABS: MANUAL DIFF FLAG NO
[2024-01-24 09:20] LABS: Basophils Percent Auto 0.6 % (0-2); Eosinophils Percent Auto 1.2 % (0-4); Hemoglobin 14.1 g/dl (12.0-16.0); Lymphocytes Absolute Auto 1.3 X10*3/uL (1.2-4.9); Lymphocytes Percent Auto 39.8 % (20-40); Mean Corpuscular HGB Conc 33.6 g/dl (31.0-35.0); Mean Corpuscular Hemoglobin 30.5 pg (27.0-33.0); Mean Corpuscular Volume 90.9 fL (80.0-98.0); Mean Platelet Volume 10.5 fL (9.4-12.3); Monocytes Absolute Auto 0.3 X10*3/uL (0.1-1.2); Monocytes Percent Auto 8.7 % (2-11); Neutrophils Absolute Auto 1.7 x10*3/uL (2.0-8.3); Neutrophils Percent Auto 49.7 % (45-73); Platelet Count 237 X10*3/uL (160-400); Red Blood Count 4.62 X10*6/uL (4.20-5.50); Red Cell Distribution Width 13.2 % (11.0-16.0); White Blood Count 3.3 X10*3/uL (4.8-10.8)
[2024-01-24 09:38] LABS: Appearance Urine Clear; Color Urine Yellow; Glucose Urine UA Negative (Negative); Leukocyte Esterase Urine Trace (Negative); Nitrite Urine Negative (Negative); Specific Gravity - Urine 1.025 (1.005-1.025); UMIC TRIGGER UACC YES; Urine Blood Negative (Negative); Urine Ketones Negative (Negative); Urine Protein Negative (Neg-Trace)
[2024-01-24 09:41] LABS: Bacteria Urine None Seen (None Seen); Hyaline Casts Urine 0-2 /LPF (0-2); RBC Urine 0-2 /HPF (0-2); Squamous Epithelial Cell Urine 0-2 /HPF (0-2); WBC Urine 0-5 /HPF (0-5)
[2024-01-24 10:49] LABS: Vitamin B12 435 pg/mL (200-900)
[2024-01-24 11:21] LABS: Alanine Aminotransferase 19 U/L (0-31); Alkaline Phosphatase 76 U/L (39-117); Anion Gap 11 (12-20); Aspartate Amino Transferase 20 U/L (5-31); Bilirubin Total 0.5 mg/dL (0.0-1.0); Blood Urea Nitrogen 15 mg/dL (9-16); Calcium 9.2 mg/dL (8.4-10.2); Carbon Dioxide 25 mmol/L (22-29); Chloride 107 mmol/L (96-108); Cholesterol 162 mg/dL (<200); Estimated Glomerular Filt Rate > 60; Glucose Fasting 89 mg/dL (60-99); HDL Cholesterol 54 mg/dL (>40); LDL Cholesterol Calculated 98 mg/dL (<100); Sodium 139 mmol/L (135-145); Total Protein 7.1 g/dL (6.5-8.0); Triglycerides 54 mg/dL (<150)
[2024-01-24 11:39] LABS: TSH reflex Free T4 0.54 uIU/mL (0.32-4.0); Vitamin D 25-OH Total 34.8 ng/mL (>30)
== END 2024-01-24 08:15 | disposition home or self-care (01) ==
LOC: HO.LAB 08:14
PROVIDERS: PCP Internal Medicine; Visit Provider Internal Medicine
DX: Z00.00 Encounter for general adult medical examination without abnormal findings (principal); K20.90 Esophagitis, unspecified without bleeding; E55.9 Vitamin D deficiency, unspecified; E78.00 Pure hypercholesterolemia, unspecified; E53.8 Deficiency of other specified B group vitamins
CPT/HCPCS: 36415; 80053; 80061; 81001; 81003; 82306; 82607; 82746; 84443; 85025

== ENCOUNTER 2024-01-31 08:19 | Outpatient (REF) | payer OTHER, SELFPAY ==
--- NOTE | ~2024-01-31 | US_ITS ---
EXAMINATION: US THYROID CLINICAL INFORMATION: Nontoxic single thyroid nodule. Follow up of multiple thyroid nodules. COMPARISON: Thyroid ultrasound 02/09/2022 and 09/18/2019. TECHNIQUE: Linear transducer grayscale and color Doppler examination with attention to the region of the thyroid. FINDINGS: SIZE: Measurements of the thyroid lobes and nodules are given in sagittal, anteroposterior and transverse dimensions respectively. Right Thyroid Lobe: 5.9 x 2.8 x 2.3 cm, volume 19.4 mL. Previously 6.4 x 2.5 x 2.2 cm, volume 18.3 mL. Parenchyma: The gland echotexture is homogeneous. Thyroid vascularity is increased. Left Thyroid Lobe: 5.7 x 2.3 x 2.5 cm, volume 16.8 mL. Previously 5.8 x 2.3 x 2.1 cm, volume 14.7 mL. Parenchyma: The gland echotexture is homogeneous. Thyroid vascularity is increased. Isthmus: 0.7 cm in maximum AP dimension. Previously 0.5 cm. Estimated total number of nodules greater than or equal to 1 cm: 1. Lead Section Supervisor nodules are described as follows: 1. Location: Right upper pole. Size: 0.4 x 0.3 x 0.4 cm, volume 0.2 mL. Previously: Not documented. Nodule characteristics: Composition: Cystic(0). ACR TI-RADS total points: 0 ACR TI-RADS category: 1 2. Location: Right upper pole. Size: 0.5 x 0.4 x 0.5 cm, volume 0.06 mL. Previously: 0.5 x 0.5 x 0.4 cm, volume 0.06 mL. Nodule characteristics: Composition: Spongiform (0). ACR TI-RADS total points: 0 Previous: 0 ACR TI-RADS category: 1 Previous: 1 Significant change in size (>/= 20% in 2 dimensions and minimal increase of 2 mm or 50% or greater increase in volume): No Change in features: No Change in ACR TI-RADS risk category: No 3. Location: Right mid pole. Size: 0.5 x 0.4 x 0.4 cm, volume 0.05 mL. Previously: Not documented. Nodule characteristics: Composition: Spongiform (0). ACR TI-RADS total points: 0 ACR TI-RADS category: 1 4. Location: Right lower pole. Size: 0.5 x 0.3 x 0.5 cm, volume 0.04 mL. Previously: Not documented. Nodule characteristics: Composition: Spongiform (0). ACR TI-RADS total points: 0 ACR TI-RADS category: 1 5. Location: Left upper pole. Size: 1.1 x 0.5 x 0.8 cm, volume 0.22 mL. Previously: 1.1 x 0.4 x 0.8 cm, volume 0.21 mL. Nodule characteristics: Composition: Solid (2). Echogenicity: Very hypoechoic (3). Shape: Not taller than wide (0). Margins: Smooth (0). Echogenic Foci: None (0). ACR TI-RADS total points: 5 Previous: 5 ACR TI-RADS category: 4 Previous: 4 Significant change in size (>/= 20% in 2 dimensions and minimal increase of 2 mm or 50% or greater increase in volume): No Change in features: No Change in ACR TI-RADS risk category: No NODES: No lymphadenopathy is seen in the tissue surrounding the thyroid gland. US/US thyroid IMPRESSION: Enlarged hypervascular thyroid with only a single nodule over 1 cm in size, which is a 1.1 cm left upper pole nodule, TR class 4. This nodule meets the recommendations for follow-up in one year. ACR TI-RADS RECOMMENDATION REFERENCE: Ultrasound-guided fine-needle aspiration, follow up ultrasound, no further followup. * TR1 (0 point) and TR2 (2 points): No FNA or followup * TR3 (3 points): FNA if more than or equal to 2.5 cm in maximum dimension, follow up ultrasound in 1, 3 and 5 years if 1.5 to 2.4 cm in maximum dimension. * TR4 (4-6 points): FNA if more than or equal to 1.5 cm in maximum dimension, follow up ultrasound in 1, 2, 3 and 5 years if 1 to 1.4 cm in maximum dimension. * TR5 (more than or equal to 7 points): FNA if more than or equal to 1 cm in maximum dimension, follow up ultrasound every year for 5 years if 0.5 to 0.9 cm in maximum dimension. * TR3, TR4 or TR5 nodules that are below the size threshold for follow up receive no followup.
== END 2024-01-31 08:20 | disposition home or self-care (01) ==
LOC: HO.US 08:19
PROVIDERS: PCP Internal Medicine; Visit Provider Internal Medicine
DX: E04.1 Nontoxic single thyroid nodule (principal)
CPT/HCPCS: 76536

== ENCOUNTER 2024-02-12 08:26 | Outpatient (AMB) | payer OTHER, SELFPAY ==
[2024-02-12 08:32] VITALS: BMI 26.1
--- NOTE | 2024-02-12 08:32 | A.OFFVIS_ITS ---
Intake VS Expanded 02/12/24 08:32 Height 5 ft 5 in Weight 156 lb 11.979 oz BMI 26.1 Intake Visit Reasons: GERD/ CONFIRMED Allergies No Known Allergies Allergy (Verified 01/23/24 09:28) HPI Nutrition Presentation Details Pt presents for MNT f/u for GERD Pt has questions regarding vit D sources of foods and reports needing review on how to interpret food labels. Most Recent Diabetes Results: Cholesterol 162 mg/dL (<200) 01/24/24 HDL Cholesterol 54 mg/dL (>40) 01/24/24 Triglycerides 54 mg/dL (<150) 01/24/24 Creatinine 0.73 mg/dL (0.5-1.4) 01/24/24 Blood Urea Nitrogen 15 mg/dL (9-16) 01/24/24 Sodium 139 mmol/L (135-145) 01/24/24 Potassium 4.0 mmol/L (3.3-5.1) 01/24/24 Chloride 107 mmol/L (96-108) 01/24/24 Carbon Dioxide 25 mmol/L (22-29) 01/24/24 Calcium 9.2 mg/dL (8.4-10.2) 01/24/24 AST 20 U/L (5-31) 01/24/24 ALT 19 U/L (0-31) 01/24/24 Total Protein 7.1 g/dL (6.5-8.0) 01/24/24 Albumin 4.0 g/dL (3.5-5.0) 01/24/24 PFSH Medical History (Updated 01/23/24 @ 10:34 by Arnel Paulino MD) Primary osteoarthritis of both knees Esophagitis determined by biopsy Overweight (BMI 25.0-29.9) Osteopenia Artificial menopause Acquired chest/rib deformity Tubular adenoma of colon Thyroid nodule Vitamin D deficiency History of depression Surgical History (Updated 01/23/24 @ 09:36 by Arnel Paulino MD) History of esophagogastroduodenoscopy (EGD) Hx of foot surgery Hx of colonoscopy Hx of tubal ligation Hx of hysterectomy with oophorectomy Family History Father Throat cancer Emphysema of lung TIA (transient ischemic attack) Social History Household Members: None Housing: House Alcohol intake: never Patient Tobacco Use Status: Never used Tobacco e-Cigarette/Vaping Use: Never Used Second Hand Smoke Exposure: Yes service: No Current occupational status: employed 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 Sexual orientation: Straight/Heterosexual Gender identity: Female Cognitive needs: No Hearing needs: No Vision needs: Yes Female Reproductive History Menstrual Age of Menarche: 14 Assessment & Plan Assessment & Plan (1) Overweight (BMI 25.0-29.9): Code(s): E66.3 - Overweight Plan: Educate patient on: (R= Reviewed, V = verbalizes understanding N/R= Needs review N/A= not applicable) * General guidelines to reduce GERD symptoms (low acid foods, low fat foods, probiotics) R, V * Healthy Plate method concept: R, V * physical activity: R, V * Reading food labels: R (difference between % DV, grams, food sources of Calcium, Vit D), R * Discussed relationship of Vit D, Ca and physical activity: R, V (2) GERD (gastroesophageal reflux disease): Code(s): K21.9 - Gastro-esophageal reflux disease without esophagitis Qualifiers: Esophagitis presence: with esophagitis Esophagitis bleeding: without hemorrhage Qualified Code(s): K21.00 - Gastro-esophageal reflux disease with esophagitis, without bleeding Plan: Review meal planning to reduce GERD symptoms ? Used wt : 73 kg (05/2023) ( 70 kg 11/2023) Est kcal as per MSJ: 3918-8480(40% carb, 30% fat/prot) Est fluid needs: 1800 ml/d (25 ml/kg bw) Rec fiber: increase to 8-10 g per day and gradually increase to 25 g/d or as tolerated Rec Na: <2000 mg /d Educate patient on: (R= Reviewed, V = verbalizes understanding N/R= Needs review N/A= not applicable) * General guidelines to reduce GERD symptoms (low acid foods, low fat foods, probiotics) R, V * Healthy Plate method concept: R, V * physical activity: R, V Patient Instructions: Include food sources of vitamin D in your diet (calcium, vit D fortified foods: 1% milk , yogurts/ include fish at least twice a week : sardines, swordfish, salmon/ fortified Tofu, include mushrooms in your diet/, egg yolk, vitamin d supplement Aim at consuming minimum 600 IU per day ) distributed throughout the day. Keep physically active goal 150 minutes per week. Keep hydrated by having water with meals and snacks Coding Level of Care Code Nutr Indiv Subseq (39812) Diagnoses Overweight (BMI 25.0-29.9) E66.3 Gastroesophageal reflux disease with esophagitis without hemorrhage K21.00 Esophagitis presence: with esophagitis Esophagitis bleeding: without hemorrhage Time Spent (min) 30
== END 2024-02-12 09:09 | disposition home or self-care (01) ==
PROVIDERS: PCP Internal Medicine; Visit Provider Dietitian, Registered
DX: E66.3 Overweight (principal); K21.00 Gastro-esophageal reflux disease with esophagitis, without bleeding

== ENCOUNTER → 2024-02-12 08:26 | Outpatient (BNVA) | payer OTHER, SELFPAY | PROVIDERS: PCP Internal Medicine; Visit Provider Dietitian, Registered | DX: E66.3 Overweight (principal); Z68.26 Body mass index [BMI] 26.0-26.9, adult; K21.9 Gastro-esophageal reflux disease without esophagitis; Z71.3 Dietary counseling and surveillance | CPT/HCPCS: 97803 ==

== ENCOUNTER 2024-02-17 09:42 | Outpatient (REF) | payer OTHER, SELFPAY | END 2024-02-17 09:43 | disposition home or self-care (01) | LOC: HO.MAMMO 09:42 | PROVIDERS: PCP Internal Medicine; Visit Provider Internal Medicine | DX: Z12.31 Encounter for screening mammogram for malignant neoplasm of breast (principal) | CPT/HCPCS: 77063; 77067 ==

== ENCOUNTER → 2024-02-17 10:00 | Outpatient (BNV) | payer OTHER, SELFPAY | PROVIDERS: PCP Internal Medicine; Visit Provider Radiology Diagnostic Radiology | DX: Z12.31 Encounter for screening mammogram for malignant neoplasm of breast (principal) | CPT/HCPCS: 77063; 77067 ==

== ENCOUNTER 2024-03-06 08:02 | Outpatient (AMB) | payer OTHER, SELFPAY ==
[2024-03-06 08:07] VITALS: BP 110/60; PULSE 78; TEMP 36.7; O2SAT 98; BMI 26.0
--- NOTE | 2024-03-06 08:07 | AM.OFFWIN_ITS ---
Intake Vital Signs 03/06/24 08:07 Height 5 ft 5 in Weight 156 lb BMI 26.0 BP 110/60 Blood Pressure Location Rt brachial Position Sitting Pulse 78 Pulse Source Pulse Oximeter Temp 98.1 F Temp Source Oral Pulse Oximetry (%) 98 Intake Visit Reasons: EST/sore throat (lobby) Intake Note: pt is here for sore throat Patient Tobacco Use Status: Never used Tobacco Allergies No Known Allergies Allergy (Verified 03/06/24 08:17) Do you need a note to return to daycare/school/sports/work: No HPI HPI Comments History of Present Illness Details 58 y/o female patient who presents to [facility] with c/o white spot on the back of her throat. Pt reports noticing this morning. Denies Sore- throat, fevers, or chills. PFSH Medical History (Updated 01/23/24 @ 10:34 by Arnel Paulino MD) Primary osteoarthritis of both knees Esophagitis determined by biopsy Overweight (BMI 25.0-29.9) Osteopenia Artificial menopause Acquired chest/rib deformity Tubular adenoma of colon Thyroid nodule Vitamin D deficiency History of depression Surgical History (Updated 01/23/24 @ 09:36 by Arnel Paulino MD) History of esophagogastroduodenoscopy (EGD) Hx of foot surgery Hx of colonoscopy Hx of tubal ligation Hx of hysterectomy with oophorectomy Family History Father Throat cancer Emphysema of lung TIA (transient ischemic attack) Social History Household Members: None Housing: House Alcohol intake: never Patient Tobacco Use Status: Never used Tobacco e-Cigarette/Vaping Use: Never Used Second Hand Smoke Exposure: Yes service: No Current occupational status: employed 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 Sexual orientation: Straight/Heterosexual Gender identity: Female Cognitive needs: No Hearing needs: No Vision needs: Yes Female Reproductive History Menstrual Age of Menarche: 14 Review of Systems Const All systems reviewed & are unremarkable except as noted in HPI and below Physical Exam Vital Signs: Last Vital Signs Temp 98.1 F 03/06/24 08:07 Pulse 78 03/06/24 08:07 BP 110/60 03/06/24 08:07 Pulse Ox 98 03/06/24 08:07 BMI result Body Mass Index 26.0 Const General: comfortable and no acute distress Orientation/consciousness: patient oriented x3 HEENT Head: Yes normocephalic Ears: external ears normal and TM's normal bilaterally General nose exam: Normal nasal mucous membranes and turbinates present Face and sinus: Yes sinuses nontender Mouth: moist mucous membranes Throat: Yes tonsils normal, Yes abnormal tonsil, Yes postnasal drainage and Yes other (Tonsil stones seen back of throat) Neuro General: patient oriented x3 Results AMB Rapid Strep AMB Rapid Strep Negative Last Edit by Marcio Guy CMA on 03/06/24 08 :45 Results Reviewed Results Reviewed: Laboratory Last Values Strep Scn Rapid Clinic Negative 03/06/24 08:18 Assessment & Plan Assessment & Plan (1) Tonsil stone: Code(s): J35.8 - Other chronic diseases of tonsils and adenoids Plan: -Rapid Strep Negative - Tonsil stones present vs Infection - Advised a good oral hygiene - Use mouth wash BID - [place] back of throat and tongue Orders: Orders AMB Rapid Strep Screen Today Z13.9 - Encounter for screening, unspecified Coding Level of Care Code Est Pt Level 3 (62551) Diagnoses Tonsil stone J35.8 Time Spent (min) 15
== END 2024-03-06 08:39 | disposition home or self-care (01) ==
PROVIDERS: PCP Internal Medicine; Visit Provider Nurse Practitioner Family
DX: J35.8 Other chronic diseases of tonsils and adenoids (principal)
CPT/HCPCS: 87880; 99213

== ENCOUNTER 2024-05-07 08:02 | Outpatient (AMB) | payer OTHER, SELFPAY ==
--- NOTE | 2024-05-07 08:05 | AM.OFFWIN_ITS ---
Intake Vital Signs 05/07/24 08:09 Height 5 ft 5 in Weight 156 lb BMI 26.0 BP 122/78 Blood Pressure Location Lt brachial Position Sitting Pulse 80 Pulse Source Pulse Oximeter Temp 97.9 F Temp Source Oral Pulse Oximetry (%) 98 Intake Visit Reasons: EP congestion Intake Note: pt is here for congestion for 1 week Patient Tobacco Use Status: Never used Tobacco Allergies No Known Allergies Allergy (Verified 05/07/24 08:10) Do you need a note to return to daycare/school/sports/work: Yes HPI EP congestion HPI Details This note is constructed using voice recognition software. While every effort has been made to ensure accuracy, upholsterer limousine and hearse errors may have been included. The patient is a 52 year old female who presents to the clinic today with one- week history of sinus congestion. She reports subjective fever on Monday, but did not take her temperature, denies chills. Denies cough, shortness of breath, thighs. She has not been around anybody who is sick. She reports sinus congestion primarily frontal, has been taking a nasal decongestant spray and this has helped reduce the symptoms, which she does feel better this morning. When she is blowing her nose she is getting a pale green secretions. She is also noting that her voice has some irritation to it. No sore throat. HPI Comments History of Present Illness Details 58 y/o female patient who presents to [facility] with c/o Congestion [facility] Medical History (Updated 01/23/24 @ 10:34 by Arnel Paulino MD) Primary osteoarthritis of both knees Esophagitis determined by biopsy Overweight (BMI 25.0-29.9) Osteopenia Artificial menopause Acquired chest/rib deformity Tubular adenoma of colon Thyroid nodule Vitamin D deficiency History of depression Surgical History (Updated 01/23/24 @ 09:36 by Arnel Paulino MD) History of esophagogastroduodenoscopy (EGD) Hx of foot surgery Hx of colonoscopy Hx of tubal ligation Hx of hysterectomy with oophorectomy Family History Father Throat cancer Emphysema of lung TIA (transient ischemic attack) Social History Household Members: None Housing: House Alcohol intake: never Patient Tobacco Use Status: Never used Tobacco e-Cigarette/Vaping Use: Never Used Second Hand Smoke Exposure: Yes service: No Current occupational status: employed 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 Sexual orientation: Straight/Heterosexual Gender identity: Female Cognitive needs: No Hearing needs: No Vision needs: Yes Female Reproductive History Menstrual Age of Menarche: 14 Review of Systems Const All systems reviewed & are unremarkable except as noted in HPI and below Physical Exam Vital Signs: Last Vital Signs Temp 97.9 F 05/07/24 08:09 Pulse 80 05/07/24 08:09 BP 122/78 05/07/24 08:09 Pulse Ox 98 05/07/24 08:09 BMI result Body Mass Index 26.0 Const General: cooperative, healthy appearing, comfortable and no acute distress Orientation/consciousness: patient oriented x3 Limitations: no limitations HEENT Head: Yes normal to inspection Ears: hearing grossly normal bilaterally, external ears normal and TM's normal bilaterally General nose exam: Normal external nose present, Normal nares present and No nasal discharge present Face and sinus: Yes normal facial exam and Yes sinuses nontender Mouth: Normal oral and palatal mucosa present and moist mucous membranes Throat: Yes uvula midline, Yes abnormal tonsil (enlarged grade, no erythema or exudate) and Yes posterior oropharynx abnormal (Erythema) Eyes General: appearance normal, both eyes and all related structures Neck Neck: Yes normal visual inspection Resp Effort & Inspection: normal respiratory effort, able to speak in complete sentences, Actively coughing, no respiratory distress, not tachypneic, no tripod positioning and no use of accessory muscles Auscultation: clear to auscultation bilaterally Cardio Jugular venous distension: no JVD Rate: regular rate Rhythm: regular rhythm Heart sounds: S1 normal heart sound present, S2 normal heart sound present, no click, no gallops, no murmurs and no rubs Skin General skin exam: no rashes or lesions noted, elasticity normal and turgor normal Neuro General: patient oriented x3 Extrem General: Yes normal to inspection and Yes no clubbing, cyanosis or edema Assessment & Plan Assessment & Plan (1) URI (upper respiratory infection): Code(s): J06.9 - Acute upper respiratory infection, unspecified Qualifiers: URI type: unspecified URI Qualified Code(s): J06.9 - Acute upper respiratory infection, unspecified Plan: Supportive measures encouraged and reviewed. Advised patient to continue nasal decongestant as she has been doing so. Given timeline since onset, deferred testing at this time. Advised follow up with worsening or failure to resolve. (2) Laryngitis: Code(s): J04.0 - Acute laryngitis Plan: Likely secondary to viral URI. Prednisone burst prescribed symptomatic ma nagement. Advised to increase hydration and humidification. Follow up as needed with worsening or failure to resolve. Plan See above for full details and plan. Coding Level of Care Code Est Pt Level 3 (37855) Diagnoses Upper respiratory tract infection, unspecified type J06.9 URI type: unspecified URI Laryngitis J04.0
[2024-05-07 08:09] VITALS: BP 122/78; PULSE 80; TEMP 36.6; O2SAT 98; BMI 26.0
== END 2024-05-07 10:06 | disposition home or self-care (01) ==
PROVIDERS: PCP Internal Medicine; Visit Provider Registered Nurse
DX: J06.9 Acute upper respiratory infection, unspecified (principal); J04.0 Acute laryngitis
CPT/HCPCS: 99213

== ENCOUNTER 2024-05-20 09:23 | Outpatient (AMB) | payer OTHER, SELFPAY ==
[2024-05-20 09:25] VITALS: BP 108/70; PULSE 83; O2SAT 99; BMI 25.8
--- NOTE | 2024-05-20 09:25 | A.OFFPC_ITS ---
Vital Signs 05/20/24 09:25 Height 5 ft 5 in Weight 155 lb 0.8 oz BMI 25.8 BP 108/70 Blood Pressure Location Lt brachial Position Sitting Pulse 83 Pulse Source Pulse Oximeter Pulse Oximetry (%) 99 Oxygen Delivery Method Room Air Intake Visit Reasons: Loosing Voice Software Requirements Engineer Required: No Allergies No Known Allergies Allergy (Verified 05/20/24 10:23) Medication List - Last Reconciled 05/20/24 by Faizan Cam MD azithromycin take 500 mg today (day 1), then 250 mg for 4 days (days 2-5) PO esomeprazole magnesium 20 mg PO DAILY lorazepam 0.5 mg PO DAILY PRN 15 days multivitamin 1 tab PO DAILY Tobacco use date assessed: 01/23/24 Dental Screening Dental Screen Date: 01/23/24 HPI Loosing Voice HPI Details Patient presents for a sick visit. Reporting symptoms of sinus congestion, sore throat and difficulty swallowing. Low-grade fever. No family member is sick. No recent travel. Patient reports symptoms of malaise and fatigue. [facility] Medical History (Updated 01/23/24 @ 10:34 by Arnel Paulino MD) Primary osteoarthritis of both knees Esophagitis determined by biopsy Overweight (BMI 25.0-29.9) Osteopenia Artificial menopause Acquired chest/rib deformity Tubular adenoma of colon Thyroid nodule Vitamin D deficiency History of depression Surgical History (Updated 01/23/24 @ 09:36 by Arnel Paulino MD) History of esophagogastroduodenoscopy (EGD) Hx of foot surgery Hx of colonoscopy Hx of tubal ligation Hx of hysterectomy with oophorectomy Family History Father Throat cancer Emphysema of lung TIA (transient ischemic attack) Social History Household Members: None Housing: House Alcohol intake: never Patient Tobacco Use Status: Never used Tobacco e-Cigarette/Vaping Use: Never Used Second Hand Smoke Exposure: Yes service: No Current occupational status: employed 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 How often do you have a drink containing alcohol?: Monthly or less 2. How many drinks containing alcohol do you have on a typical day when you are drinking?: 1 or 2 3. How often do you have six or more drinks on one occasion?: Never Total Score: 1 Score Reviewed/Action Taken: Yes CARSON-7 AMB Questionnaire CARSON-7 Date CARSON - 7 assessed: 01/23/24 Source: Developed by Drs. Micah Le, Antonia Ellis, Didier Gastelum and colleagues, with an educational luke from [email or web address]. Physical exam (Primary Care) Vital Signs: Last Vital Signs Pulse 83 05/20/24 09:25 BP 108/70 05/20/24 09:25 Pulse Ox 99 05/20/24 09:25 Oxygen Delivery Method Room Air 05/20/24 09:25 BMI result Body Mass Index 25.8 Tobacco/Smoking Status: Tobacco use Status Tobacco use date assessed 01/23/24 05/20/24 09:26 Patient Tobacco Use Status Never used Tobacco 05/20/24 09:26 e-Cigarette/Vaping Use Never Used 05/20/24 09:26 Thrive Assessment: Date of Thrive Assessment Date Thrive assessed 01/23/24 05/20/24 09:26 Const General: cooperative and healthy appearing Nutritional Appearance: well nourished Orientation/consciousness: patient oriented x3 Limitations: no limitations HENMT Head: Yes normal to inspection Eyes General: appearance normal, both eyes and all related structures Neck Neck: Yes normal visual inspection Chest Chest palpation & inspection: normal palpation of entire chest wall Resp Effort & Inspection: normal respiratory effort Neuro General: patient oriented x3 Assessment and Plan Assessment & Plan (1) URI (upper respiratory infection): Code(s): J06.9 - Acute upper respiratory infection, unspecified Plan: Antibiotics ordered. Increase fluid intake. Tylenol for aches and pains. If symptoms worsen, follow-up here for a recheck. Medications: New azithromycin take 500 mg today (day 1), then 250 mg for 4 days (days 2-5) PO 6 tabs 0RF Coding Level of Care Code Est Pt Level 3 (83410) Diagnoses URI (upper respiratory infection) J06.9
== END 2024-05-20 11:36 | disposition home or self-care (01) ==
PROVIDERS: PCP Internal Medicine; Visit Provider Internal Medicine
DX: J06.9 Acute upper respiratory infection, unspecified (principal)
CPT/HCPCS: 99213

== ENCOUNTER 2024-06-22 09:41 | Outpatient (AMB) | payer OTHER, SELFPAY ==
--- NOTE | 2024-06-22 10:51 | AM.OFFWIN_ITS ---
Intake Vital Signs 3 06/22/24 10:57 Weight 157 lb BP 90/70 Blood Pressure Location Rt brachial Position Sitting Pulse 98 Pulse Source Pulse Oximeter Pulse Oximetry (%) 96 Oxygen Delivery Method Room Air Intake Visit Reasons: EP bump on face, infected? [phone] Intake Note: Patient here for Bump on right side of chin that started two days ago as a pimple and is not very inflamed and has discharge Patient Tobacco Use Status: Never used Tobacco Allergies No Known Allergies Allergy (Verified 06/22/24 10:57) Do you need a note to return to daycare/school/sports/work: No HPI HPI Comments 2 History of Present Illness0 Details 58 y/o female patient who presents to [facility] with c/o large abscess on her face x 4 days. She has been putting warm compress, and noticed the abscess draining. Denies fevers, chills, nausea or vomiting. PFSH Medical History (Updated 01/23/24 @ 10:34 by Arnel Paulino MD) Primary osteoarthritis of both knees Esophagitis determined by biopsy Overweight (BMI 25.0-29.9) Osteopenia Artificial menopause Acquired chest/rib deformity Tubular adenoma of colon Thyroid nodule Vitamin D deficiency History of depression Surgical History (Updated 01/23/24 @ 09:36 by Arnel Paulino MD) History of esophagogastroduodenoscopy (EGD) Hx of foot surgery Hx of colonoscopy Hx of tubal ligation Hx of hysterectomy with oophorectomy Family History Father Throat cancer Emphysema of lung TIA (transient ischemic attack) Social History Household Members: None Housing: House Alcohol intake: never Patient Tobacco Use Status: Never used Tobacco e-Cigarette/Vaping Use: Never Used Second Hand Smoke Exposure: Yes service: No Current occupational status: employed 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 Large abscess lower right mandible/chin, draining yellow discharge, erythema, tender to touch. Mouth: moist mucous membranes Skin General skin exam: erythema and fluctuance Neuro General: patient oriented x3, gait normal and moves all extremities Psych Speech and movement: Normal speech and movement present Assessment & Plan Assessment & Plan (1) Abscess of skin and subcutaneous tissue: Code(s): L02.91 - Cutaneous abscess, unspecified Qualifiers: Site of cutaneous abscess: face Qualified Code(s): L02.01 - Cutaneous abscess of face Plan: Warm compress to allow drainage of fluid Systemic Abx RTC if symptoms worse. Medications: New 2 sulfamethoxazole-trimethoprim 800-160 mg (Bactrim DS) 1 tab PO Q12H 14 tabs 0RF 7 days L02.01 - Cutaneous abscess of face Coding Level of Care Code Est Pt Level 3 (88214) Diagnoses Cutaneous abscess of face L02.01 Site of cutaneous abscess: face Time Spent (min) 15
[2024-06-22 10:57] VITALS: BP 90/70; PULSE 98; O2SAT 96
== END 2024-06-22 11:22 | disposition home or self-care (01) ==
PROVIDERS: PCP Internal Medicine; Visit Provider Nurse Practitioner Family
DX: L02.01 Cutaneous abscess of face (principal)
CPT/HCPCS: 99051; 99213

== ENCOUNTER 2024-07-29 08:59 | Outpatient (AMB) | payer OTHER, SELFPAY ==
[2024-07-29 09:09] VITALS: BP 94/72; PULSE 73; O2SAT 97; BMI 25.2
--- NOTE | 2024-07-29 09:09 | MHC.PC.OV ---
Vital Signs 07/29/24 09:09 Height 5 ft 5 in Weight 151 lb 4 oz BMI 25.2 BP 94/72 Blood Pressure Location Lt brachial Position Sitting Pulse 73 Pulse Source Pulse Oximeter Pulse Oximetry (%) 97 Oxygen Delivery Method Room Air Intake Visit Reasons: GERD with esophagitis, anxiety Technology Sales Consultant Required: No Accompanied by: Self / Same As Patient Allergies No Known Allergies Allergy (Verified 07/29/24 09:29) Medication List - Last Reconciled 07/29/24 by Arnel Paulino MD esomeprazole magnesium 20 mg PO DAILY lorazepam 0.5 mg PO DAILY PRN 15 days multivitamin 1 tab PO DAILY Tobacco use date assessed: 07/29/24 Dental Screening Dental Screen Date: 07/29/24 Did you have a dental visit in the last 12 months?: Yes Did you have a dental problem in the last 6 months where you did not have access to dental care?: No Was dental information given to patient?: Patient has dentist HPI GERD with esophagitis, anxiety HPI Details Patient comes in today for her follow up visit States that she feels okay except for recurrent left shoulder pain, which she states has been bothering her for about 3 months now Thinks that she may have pulled her shoulder while working out a few months ago Notes that her shoulder pain feels worse when she raises her left arm above her head but the ROM in her shoulder is otherwise normal She denies any headaches or dizziness Denies any chest pains, no SOB No nausea/vomiting, no abdominal pain States that her symptoms of heartburn have been well-controlled on her current Rx (Nexium) No change in bowel habits noted Needs a couple of her Rx refilled Would also like to know how she did on her labs done right after her physical in January 2024 and how her thyroid US came out [facility] Medical History Primary osteoarthritis of both knees Esophagitis determined by biopsy Overweight (BMI 25.0-29.9) Osteopenia Artificial menopause Acquired chest/rib deformity Tubular adenoma of colon Thyroid nodule Vitamin D deficiency History of depression Surgical History History of esophagogastroduodenoscopy (EGD) Hx of foot surgery Hx of colonoscopy Hx of tubal ligation Hx of hysterectomy with oophorectomy Family History Father Throat cancer Emphysema of lung TIA (transient ischemic attack) Social History Household Members: None Housing: House Alcohol intake: never Patient Tobacco Use Status: Never used Tobacco e-Cigarette/Vaping Use: Never Used Second Hand Smoke Exposure: Yes service: No Current occupational status: employed 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 1. Little interest or pleasure in doing things: not at all 2. Feeling down, depressed, or hopeless: not at all 3. Trouble falling or staying asleep, or sleeping too much: more than half the days 4. Feeling tired or having little energy: not at all 5. Poor appetite or overeating: not at all 6. Feeling bad about yourself - or that you are a failure or have let yourself or your family down: not at all 7. Trouble concentrating on things, such as reading the newspaper or watching television: not at all 8. Moving or speaking so slowly that other people could have noticed. Or the opposite - being so fidgety or restless that you have been moving around a lot more than usual: not at all 9. Thoughts that you would be better off or of hurting yourself in some way: not at all Total score: 2 Depression Screening Interpretation: Negative Depression Screening Done: Yes 79293 - PHQ-9 Billing: Yes Source: Developed by Drs. Micah Le, Antonia Ellis, Didier Gastelum and colleagues, with an educational luke from [place]. Thrive Questionnaire Date Thrive assessed: 07/29/24 I am a: Patient What is your living situation today?: I have a steady place to live Within the past 12 months, did the food you bought not last and you didn't have the money to get more?: Never true Within the past 12 months, did you worry whether your food would run out before you got money to buy more?: Never true Do you have trouble paying for medicines?: No Do you have trouble getting transportation to medical appointments?: No Do you have trouble paying your heating and electricity bill?: No Do you have trouble taking care of your child, family member or friend?: No Do you have trouble with day-to-day activities such as bathing, preparing meals, shopping, managing finances, etc.?: No Are you currently unemployed and looking for a job?: No Are you interested in more education?: No Please select the resources that you would like help with: None Currently or been in a relationship where the following occur: No concerns reported THRIVE Score: 0 AUDIT C Alcohol Use Questionnaire (AUDIT-C) 1. How often do you have a drink containing alcohol?: Monthly or less 2. How many drinks containing alcohol do you have on a typical day when you are drinking?: 1 or 2 3. How often do you have six or more drinks on one occasion?: Never Total Score: 1 Score Reviewed/Action Taken: Yes CARSON-7 AMB Questionnaire CARSON-7 Date CARSON - 7 assessed: 07/29/24 Feeling nervous, anxious, or on edge: 0 = Not at all Not being able to stop or control worryin = Not at all Worrying too much about different things: 0 = Not at all Trouble relaxin = Not at all Being so restless that it is hard to sit still: 0 = Not at all Becoming easily annoyed or irritable: 0 = Not at all Feeling afraid as if something awful might happen: 0 = Not at all Total CARSON-7 score (0-4 normal; 5-9 mild; 10-14 moderate; 15-21 severe): 0 Source: Developed by Drs. Micah Le, Antonia Ellis, Didier Gastelum and colleagues, with an educational luke from [place]. Review of Systems Const Denies chills, Denies fatigue, Denies fever(s) and Denies headache(s) ENT Denies dysphagia, Denies dizziness, Denies otalgia, Denies headache(s), Denies neck pain, Denies odynophagia and Denies sore throat Card Denies chest pain, Denies irregular heart rhythm, Denies palpitations and Denies dyspnea Resp Denies chest congestion, Denies cough and Denies dyspnea GI Denies abdominal pain, Denies constipation, Denies dysphagia, Denies heartburn (controlled on Rx), Denies diarrhea, Denies nausea, Denies odynophagia and Denies vomiting Denies urinary frequency, Denies dysuria and Denies urinary incontinence Musc Denies back pain, Reports arthralgias (in the left shoulder - see HPI), Denies muscle cramps (her previous leg cramps at night appear to have cleared up) and Denies neck pain Skin/Breast Denies rash Neuro Denies dizziness, Denies headache(s) and Denies paresthesias Psych Denies anxiety and Denies depression Endo Denies fatigue and Denies palpitations Bill/Lymph Denies easy bruising Physical exam (Primary Care) Vital Signs: Last Vital Signs Pulse 73 07/29/24 09:09 BP 94/72 07/29/24 09:09 Pulse Ox 97 07/29/24 09:09 Oxygen Delivery Method Room Air 07/29/24 09:09 BMI result Body Mass Index 25.2 Tobacco/Smoking Status: Tobacco use Status Tobacco use date assessed 07/29/24 07/29/24 09:10 Patient Tobacco Use Status Never used Tobacco 07/29/24 09:10 e-Cigarette/Vaping Use Never Used 07/29/24 09:10 PHQ-9: PHQ-9 Score PHQ-9: Total score 2 07/29/24 09:21 Depression Screening Interpretation: Negative Thrive Assessment: Date of Thrive Assessment Date Thrive assessed 07/29/24 07/29/24 09:10 Currently or been in a relationship where the following occur: No concerns reported Const General: no acute distress and alert HENMT Ears: TM's normal bilaterally and EAC's normal Throat: Yes posterior oropharynx normal and Yes tonsils normal (no TP congestion) Neck Neck: Yes no lymphadenopathy and Yes supple Thyroid: Thyroid normal Resp Auscultation: clear to auscultation bilaterally, no rales and no wheezes Cardio Rate: regular rate Rhythm: regular rhythm Heart sounds: no murmurs GI Palpation (GI): Soft to palpation and nontender Auscultation: normal bowel sounds General: Yes no CVA tenderness Back/Spine/Pelvis Back: no CVA tenderness Thoracic/Lumbar Spine: No lumbar spinal tenderness Skin Rashes: no rashes Extrem General: Yes no clubbing, cyanosis or edema Left upper extremity: shoulder/upper arm Details: tenderness (minimal - mostly when arm is raised above her head) Location: of the A-C joint and normal ROM Office Procedures Flu Questionnaire Does the patient have a severe egg allergy?: No Immunizations Fluarix Triv [id number] (PF) 45 mcg (15 mcg x 3)/0.5 mL IM syringe Performing Provider: Arnel Paulino MD [place] [facility] Documented (not given) by: JUAN Rosenberg on 07/29/24 09:21 Reason Not Given: Patient Refused Results Reviewed Results Reviewed: Laboratory Tests 01/24/24 01/24/24 08:31 08:34 WBC 3.3 L Hgb 14.1 Hct 42.0 Plt Count 237 Sodium 139 Potassium 4.0 Creatinine 0.73 Estimated GFR > 60 Fasting Glucose 89 Calcium 9.2 AST 20 ALT 19 Triglycerides 54 Cholesterol 162 LDL Cholesterol, Calc 98 HDL Cholesterol 54 25-OH Vitamin D Total 34.8 TSH 0.54 Ur Specific [place] 1.025 Urine Protein Negative Urine Glucose (UA) Negative Urine Blood Negative Urine Nitrite Negative Ur Leukocyte Esterase Trace H Coding Level of Care Code Est Pt Level 4 (79215) Diagnoses Gastroesophageal reflux disease with esophagitis without hemorrhage K21.00 Esophagitis bleeding: without hemorrhage Multinodular goiter E04.2 Primary osteoarthritis of both knees M17.0 Vitamin D deficiency E55.9 Osteopenia of neck of left femur M85.852 Osteopenia location: femoral neck Laterality: left Left shoulder pain, unspecified chronicity M25.512 Chronicity: unspecified Anxiety F41.9 Overweight (BMI 25.0-29.9) E66.3 Colon cancer screening Z12.11 Assessment & Plan Assessment & Plan (1) GERD with esophagitis: Code(s): K21.00 - Gastro-esophageal reflux disease with esophagitis, without bleeding Category: Medical Qualifiers: Esophagitis bleeding: without hemorrhage Qualified Code(s): K21.00 - Gastro-esophageal reflux disease with esophagitis, without bleeding Plan: Patient's initial EGD in 09/2022 revealed (+) findings of grade D esophagitis Repeat EGD in November 2022 showed (+) improvement of esophageal irritation with Tx and her previous symptoms of dysphagia and throat discomfort have completely resolved with Tx She was switched over to Esomeprazole 20 mg QD from Omeprazole by GI due to recurrence of heartburn - was advised that she should pursue surgical options for cure if symptoms persist despite switching Rx Patient states that her symptoms have improved significantly on Esomeprazole 20 mg QD - is advised to continue on current Rx Dietary restrictions reinforced Follow up with GI as scheduled (2) Multinodular goiter: Code(s): E04.2 - Nontoxic multinodular goiter Category: Medical Plan: Thyroid US done on 02/09/22 revealed (+) enlarged heterogenous thyroid gland and multiple bilateral thyroid nodules that are mostly unchanged from US back in 09/2019; US last done in 09/2019 showed no suspicious nodules and recommended yearly surveillance Was referred to endocrinology and was seen on 09/22/22 - Dr. Castillo felt that patient was clinically biochemically euthyroid and since her?recent thyroid ultrasound showed no change in the size of the nodules, she was returned back to our care as her primary care provider Have recommended that a repeat thyroid ultrasound should be done in about 2-3 years time and?if the nodules change in size or characteristics, she can be referred back to endocrinology for further management/work ups Repeat thyroid US done most recently on 01/31/2024 revealed (+) enlarged hypervascular thyroid with only a single nodule over 1 cm in size, which is a 1.1 cm left upper pole nodule, TR class 4. This nodule meets the recommendations for follow-up in one year Advised that we will repeat her US again next year (3) Primary osteoarthritis of both knees: Code(s): M17.0 - Bilateral primary osteoarthritis of knee Category: Medical Plan: X-rays of both knees done over the past couple of years have revealed (+) OA changes in both knees Has been seen by orthopedics in the past for her left knee pain and recommended to try physical therapy back then She completed 3 injections of Euflexxa into her right knee by Dr. Kaye and feels that the injections have helped somewhat She has been advised that if the injections do not help, arthroscopic surgery will then be the next step Follow up with orthopedics as scheduled (4) Vitamin D deficiency: Code(s): E55.9 - Vitamin D deficiency, unspecified Category: Medical Plan: Continue Vitamin D3 2000 units QD (5) Osteopenia: Code(s): M85.80 - Other specified disorders of bone density and structure, unspecified site Category: Medical Qualifiers: Osteopenia location: femoral neck Laterality: left Qualified Code(s): M85.852 - Other specified disorders of bone density and structure, left thigh Plan: BMD done in 05/2021 revealed (+) osteopenia based on the lowest T-score value of -1.2 in the femoral neck; will repeat BMD next year (2023) for follow up Patient is encouraged to continue daily Vitamin D and Calcium supplements and to exercise regularly and stay physically active Will send her now for repeat BMD for follow up (6) Left shoulder pain: Code(s): M25.512 - Pain in left shoulder Category: Medical Qualifiers: Chronicity: unspecified Qualified Code(s): M25.512 - Pain in left shoulder Plan: Patient states that her left shoulder has been bothering her for about 3 months now and she feels (+) pain in her shoulder mostly when she raises her arm above her head Thinks that she may have pulled something while working out a few months ago Per request, will send her for left shoulder x-rays for further evaluation (7) Anxiety: Code(s): F41.9 - Anxiety disorder, unspecified Category: Medical Plan: This is mostly associated only with flying on a plane Continue Lorazepam 0.5 mg QD PRN - Rx refilled (8) Overweight (BMI 25.0-29.9): Code(s): E66.3 - Overweight Category: Medical Plan: Reinforced diet/exercise as tolerated/lose weight (9) Colon cancer screening: Code(s): Z12.11 - Encounter for screening for malignant neoplasm of colon Category: Medical Plan: Will refer her again to GI for repeat colonoscopy (was last done in 2017 and recommended to get repeat colonoscopy in 5 years Patient was referred back in January 2024 but she states that no one called her up to schedule her for this - will redo referral Plan To return in 6 months for her next annual physical examination Patient is advised to try getting her labs done just BEFORE she comes in for her annual PE in January 2025 She declined flu vaccine today Orders: Orders XR shoulder LT min 2V Today M25.512 - Pain in left shoulder Complete Blood Count Auto Diff 6 Months D64.9 - Anemia, unspecified, Z00.00 - Encounter for general adult medical examination without abnormal findings Comprehensive [place]. Panel Fast 6 Months E78.00 - Pure hypercholesterolemia, unspecified, Z00.00 - Encounter for general adult medical examination without abnormal findings Lipid Panel 6 Months E78.00 - Pure hypercholesterolemia, unspecified, Z00.00 - Encounter for general adult medical examination without abnormal findings TSH reflex Free T4 6 Months E78.00 - Pure hypercholesterolemia, unspecified, Z00.00 - Encounter for general adult medical examination without abnormal findings UA CC w/rflx Micro + Cult 6 Months R30.0 - Dysuria, Z00.00 - Encounter for general adult medical examination without abnormal findings Influenza [id number] Immunization Today Z23 - Encounter for immunization XR DEXA axial skeleton Today M85.852 - Other specified disorders of bone density and structure, left thigh, Z78.0 - Asymptomatic menopausal state Vitamin D 25-OH Total 6 Months E55.9 - Vitamin D deficiency, unspecified, Z00.00 - Encounter for general adult medical examination without abnormal findings Referrals Gastroenterology Referral Z12.11 - Encounter for screening for malignant neoplasm of colon Medications: Refilled lorazepam 0.5 mg PO DAILY 15 days PRN 15 tabs 1RF anxiety esomeprazole magnesium 20 mg PO DAILY 90 caps 1RF
== END 2024-07-29 10:15 | disposition home or self-care (01) ==
PROVIDERS: PCP Internal Medicine; Visit Provider Internal Medicine
DX: K21.00 Gastro-esophageal reflux disease with esophagitis, without bleeding (principal); E04.2 Nontoxic multinodular goiter; M17.0 Bilateral primary osteoarthritis of knee; E55.9 Vitamin D deficiency, unspecified; M85.852 Other specified disorders of bone density and structure, left thigh; M25.512 Pain in left shoulder; F41.9 Anxiety disorder, unspecified; E66.3 Overweight; Z12.11 Encounter for screening for malignant neoplasm of colon; Z23 Encounter for immunization

== ENCOUNTER → 2024-07-29 08:59 | Outpatient (BNVA) | payer OTHER, SELFPAY | PROVIDERS: PCP Internal Medicine; Visit Provider Internal Medicine | DX: K21.00 Gastro-esophageal reflux disease with esophagitis, without bleeding (principal); E04.2 Nontoxic multinodular goiter; M17.0 Bilateral primary osteoarthritis of knee; E55.9 Vitamin D deficiency, unspecified; M85.852 Other specified disorders of bone density and structure, left thigh; M25.512 Pain in left shoulder; F41.9 Anxiety disorder, unspecified; E66.3 Overweight; Z68.25 Body mass index [BMI] 25.0-25.9, adult; Z79.899 Other long term (current) drug therapy; Z28.21 Immunization not carried out because of patient refusal | CPT/HCPCS: 90471; 96127 ==

== ENCOUNTER 2024-08-05 10:13 | Outpatient (REF) | payer OTHER, SELFPAY ==
--- NOTE | ~2024-08-05 | XR_ITS ---
EXAMINATION: XR SHOULDER, LEFT CLINICAL INFORMATION: Pain COMPARISON: None available. TECHNIQUE: AP external rotation, Grashey, scapular Y, and axillary views of the left shoulder. FINDINGS: No acute cortical disruption or malalignment. No lytic or blastic lesions. XR/XR shoulder LT min 2V IMPRESSION: No acute fracture or dislocation. Electronically signed by: Magno Chery MD 08/16/2024 03:10 PM EST
== END 2024-08-05 10:14 | disposition home or self-care (01) ==
LOC: HO.XRAY 10:13
PROVIDERS: PCP Internal Medicine; Visit Provider Internal Medicine
DX: M25.512 Pain in left shoulder (principal)
CPT/HCPCS: 73030

== ENCOUNTER → 2024-08-05 10:17 | Outpatient (BNV) | payer OTHER, SELFPAY | PROVIDERS: PCP Internal Medicine; Visit Provider Radiology Diagnostic Radiology | DX: M25.512 Pain in left shoulder (principal) | CPT/HCPCS: 73030 ==

== ENCOUNTER 2024-08-22 08:14 | Outpatient (REF) | payer OTHER, SELFPAY ==
--- NOTE | ~2024-08-22 | MM_ITS ---
EXAMINATION: BONE DENSITOMETRY CLINICAL INDICATION: Menopause. COMPARISON: Baseline BD dated 06/02/2021. TECHNIQUE: Using a [employer] DXA System (software version: 13.1) manufactured by [employer], dual-energy x-ray absorptiometry was performed of the lumbar spine and left hip. The images are of good technical quality. Summary results are attached. FINDINGS: LEFT FEMUR, NECK: Current: BMD 0.838 g/cm2, Z-score -0.4, T-score -1.4, osteopenia. Baseline: BMD 0.871 g/cm2. LEFT FEMUR, TOTAL: Current: BMD 0.910 g/cm2, Z-score -0.1, T-score -0.8, normal, 3.4% decrease from baseline (<5% change is not significant). Baseline: BMD 0.942 g/cm2. AP SPINE L1-L4: Current: BMD 1.066 g/cm2, Z-score -0.1, T-score -1.0, normal, 2.0% decrease from baseline (<5% change is not significant). Baseline: BMD 1.088 g/cm2. IDENTIFIED RISK FACTORS: Menopause, hysterectomy, low calcium intake, right oophorectomy. HISTORY OF FRACTURE: None listed. MEDICATIONS: Calcium, multivitamin. MM/XR DEXA axial skeleton IMPRESSION: 1. DIAGNOSIS: Osteopenia based on the lowest T-score value of -1.4 in the femoral neck applying World Health Organization criteria. 2. 10-YEAR FRACTURE RISK PREDICTION, FRAX: Major osteoporotic fracture (clinical spine, forearm, hip or shoulder) 4.0%. Hip fracture 0.3%. 3. Treatment Recommendations: NOF guidelines recommend consideration for treatment in postmenopausal women and men age 50 and older presenting with the following: -A hip or vertebral (clinical or morphometric) fracture. -T-score less than or equal to -2.5 at the femoral neck or spine after appropriate evaluation to exclude secondary causes. -Low bone mass at the hip or spine and a 10-year fracture probability by FRAX of greater than or equal to 3% for hip fracture or greater than or equal to 20% for major osteoporotic fracture based on the [place] adapted WHO algorithm. 4. Other Recommendations: All treatment decisions require clinical judgment and consideration of individual patient factors, including patient preferences, comorbidities, previous drug use, risk factors not captured in the FRAX model (e.g. frailty, falls, vitamin D deficiency, increased bone turnover, interval significant decline in bone density) and possible under or overestimation of fracture risk by FRAX. Additional medical evaluation for secondary cause of low bone mineral density may be appropriate. FUTURE SCAN RECOMMENDATION: People with diagnosed cases of osteoporosis or at high risk for fracture should have regular bone mineral density tests. For patients eligible for Medicare, routine testing is allowed once every 2 years. The testing frequency can be increased to one year for patients who have rapidly progressing disease, those who are receiving or discontinuing medical therapy to restore bone mass, or have additional risk factors. Electronically signed by: Kallie Ortega MD 08/22/2024 09:23 AM JESSICA HEATH
== END 2024-08-22 08:15 | disposition home or self-care (01) ==
LOC: HO.MAMMO 08:14
PROVIDERS: PCP Internal Medicine; Visit Provider Internal Medicine
DX: Z78.0 Asymptomatic menopausal state (principal); M85.852 Other specified disorders of bone density and structure, left thigh
CPT/HCPCS: 77080

== ENCOUNTER 2024-09-10 09:16 | Outpatient (REF) | payer OTHER, SELFPAY ==
[2024-09-10 11:00] LABS: Basophils Percent Auto 0.6 % (0-2); Eosinophils Percent Auto 0.6 % (0-4); Hematocrit 42.6 % (37.0-47.0); Imm Gran Abs Auto 0.01 X10*3/uL (0.00-0.03); Imm Gran Pct Auto 0.3 % (0.0-0.4); Lymphocytes Percent Auto 61.9 % (20-40); MANUAL DIFF FLAG SCAN; Mean Corpuscular HGB Conc 32.9 g/dl (31.0-35.0); Mean Corpuscular Hemoglobin 30.6 pg (27.0-33.0); Mean Platelet Volume 10.3 fL (9.4-12.3); Monocytes Absolute Auto 0.3 X10*3/uL (0.1-1.2); Monocytes Percent Auto 8.9 % (2-11); Neutrophils Absolute Auto 0.9 x10*3/uL (2.0-8.3); Neutrophils Percent Auto 27.7 % (45-73); Platelet Count 257 X10*3/uL (160-400); Red Blood Count 4.58 X10*6/uL (4.20-5.50); SCAN SMEAR FLAG 1; White Blood Count 3.2 X10*3/uL (4.8-10.8)
[2024-09-10 11:27] LABS: Appearance Urine Clear; Color Urine Yellow; Glucose Urine UA Negative (Negative); Leukocyte Esterase Urine Small (1+) (Negative); Nitrite Urine Negative (Negative); UMIC TRIGGER UACC YES; Urine Blood Negative (Negative); Urine Ketones Negative (Negative); Urine Protein Negative (Neg-Trace)
[2024-09-10 11:50] LABS: Alanine Aminotransferase 24 U/L (0-31); Alkaline Phosphatase 74 U/L (39-117); Anion Gap 9 (12-20); Aspartate Amino Transferase 28 U/L (5-31); Bilirubin Total 0.4 mg/dL (0.0-1.0); Blood Urea Nitrogen 11 mg/dL (9-16); Calcium 9.2 mg/dL (8.4-10.2); Carbon Dioxide 28 mmol/L (22-29); Chloride 108 mmol/L (96-108); Cholesterol 185 mg/dL (<200); Estimated Glomerular Filt Rate > 60; Glucose Fasting 91 mg/dL (60-99); HDL Cholesterol 64 mg/dL (>40); LDL Cholesterol Calculated 110 mg/dL (<100); Potassium 4.1 mmol/L (3.3-5.1); Sodium 141 mmol/L (135-145); Total Protein 6.9 g/dL (6.5-8.0); Triglycerides 56 mg/dL (<150)
[2024-09-10 11:51] LABS: TSH reflex Free T4 0.64 uIU/mL (0.32-4.0); Vitamin D 25-OH Total 33.6 ng/mL (>30)
[2024-09-10 11:52] LABS: Bacteria Urine None Seen (None Seen); Hyaline Casts Urine 0-2 /LPF (0-2); RBC Urine 0-2 /HPF (0-2); Squamous Epithelial Cell Urine 0-2 /HPF (0-2); UACC Culture Trigger YES; WBC Urine 0-5 /HPF (0-5)
[2024-09-10 11:57] LABS: SLIDE REVIEW VERIFIED
== END 2024-09-10 09:17 | disposition home or self-care (01) ==
LOC: HO.LAB 09:16
PROVIDERS: PCP Internal Medicine; Visit Provider Internal Medicine
DX: R73.9 Hyperglycemia, unspecified (principal); K21.00 Gastro-esophageal reflux disease with esophagitis, without bleeding; E04.2 Nontoxic multinodular goiter; M17.0 Bilateral primary osteoarthritis of knee; E55.9 Vitamin D deficiency, unspecified; M85.852 Other specified disorders of bone density and structure, left thigh; F41.9 Anxiety disorder, unspecified; E66.3 Overweight; R30.0 Dysuria; Z79.899 Other long term (current) drug therapy; Z00.00 Encounter for general adult medical examination without abnormal findings; D64.9 Anemia, unspecified; E78.00 Pure hypercholesterolemia, unspecified
CPT/HCPCS: 36415; 80053; 80061; 81001; 82306; 84443; 85025; 87086; 96127

== ENCOUNTER 2024-09-10 09:16 | Outpatient (AMB) | payer OTHER, SELFPAY ==
[2024-09-10 09:18] VITALS: BP 110/76; PULSE 56; O2SAT 96; BMI 25.3
--- NOTE | 2024-09-10 09:18 | MHC.PC.OV ---
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: No Accompanied by: Self / Same As Patient Allergies No Known Allergies Allergy (Verified 09/10/24 09:43) Medication List - Last Reconciled 09/10/24 by Arnel Paulino MD esomeprazole magnesium 20 mg PO DAILY lorazepam 0.5 mg PO DAILY PRN 15 days multivitamin 1 tab PO DAILY Tobacco use date assessed: 09/10/24 Dental Screening Dental Screen Date: 09/10/24 Did you have a dental visit in the last 12 months?: Yes Did you have a dental problem in the last 6 months where you did not have access to dental care?: No Was dental information given to patient?: Patient has dentist HPI High Blood Sugar HPI Details Patient comes in today for further evaluation of her blood sugar, which she has noticed to be running high often lately when she has it checked She is concerned about her having diabetes at this time - her HgbA1c = 5.5% at the walk-in clinic last week on 09/04/24 States that she currently feels okay She denies any headaches or dizziness Denies any chest pains, no increased shortness of breath No nausea/vomiting, no abdominal pain No change in bowel habits noted PFSH Medical History Primary osteoarthritis of both knees Esophagitis determined by biopsy Overweight (BMI 25.0-29.9) Osteopenia Artificial menopause Acquired chest/rib deformity Tubular adenoma of colon Thyroid nodule Vitamin D deficiency History of depression Surgical History History of esophagogastroduodenoscopy (EGD) Hx of foot surgery Hx of colonoscopy Hx of tubal ligation Hx of hysterectomy with oophorectomy Family History Father Throat cancer Emphysema of lung TIA (transient ischemic attack) Social History Household Members: None Housing: House Alcohol intake: never Patient Tobacco Use Status: Never used Tobacco e-Cigarette/Vaping Use: Never Used Second Hand Smoke Exposure: Yes service: No Current occupational status: employed 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 1. Little interest or pleasure in doing things: not at all 2. Feeling down, depressed, or hopeless: not at all 3. Trouble falling or staying asleep, or sleeping too much: more than half the days 4. Feeling tired or having little energy: not at all 5. Poor appetite or overeating: not at all 6. Feeling bad about yourself - or that you are a failure or have let yourself or your family down: not at all 7. Trouble concentrating on things, such as reading the newspaper or watching television: not at all 8. Moving or speaking so slowly that other people could have noticed. Or the opposite - being so fidgety or restless that you have been moving around a lot more than usual: not at all 9. Thoughts that you would be better off or of hurting yourself in some way: not at all Total score: 2 Depression Screening Interpretation: Negative Depression Screening Done: Yes 91176 - PHQ-9 Billing: Yes Source: Developed by Drs. Micah Le, Antonia Ellis, Didier Gastelum and colleagues, with an educational luke from [employer]. Thrive Questionnaire Date Thrive assessed: 09/10/24 I am a: Patient What is your living situation today?: I have a steady place to live Within the past 12 months, did the food you bought not last and you didn't have the money to get more?: Never true Within the past 12 months, did you worry whether your food would run out before you got money to buy more?: Never true Do you have trouble paying for medicines?: No Do you have trouble getting transportation to medical appointments?: No Do you have trouble paying your heating and electricity bill?: No Do you have trouble taking care of your child, family member or friend?: No Do you have trouble with day-to-day activities such as bathing, preparing meals, shopping, managing finances, etc.?: No Are you currently unemployed and looking for a job?: No Are you interested in more education?: No Please select the resources that you would like help with: None Currently or been in a relationship where the following occur: No concerns reported THRIVE Score: 0 AUDIT C Alcohol Use Questionnaire (AUDIT-C) 1. How often do you have a drink containing alcohol?: Monthly or less 2. How many drinks containing alcohol do you have on a typical day when you are drinking?: 1 or 2 3. How often do you have six or more drinks on one occasion?: Never Total Score: 1 Score Reviewed/Action Taken: Yes CARSON-7 AMB Questionnaire CARSON-7 Date CARSON - 7 assessed: 09/10/24 Feeling nervous, anxious, or on edge: 0 = Not at all Not being able to stop or control worryin = Not at all Worrying too much about different things: 0 = Not at all Trouble relaxin = Not at all Being so restless that it is hard to sit still: 0 = Not at all Becoming easily annoyed or irritable: 0 = Not at all Feeling afraid as if something awful might happen: 0 = Not at all Total CARSON-7 score (0-4 normal; 5-9 mild; 10-14 moderate; 15-21 severe): 0 Source: Developed by Drs. Micah Le, Antonia Ellis, Didier Gastelum and colleagues, with an educational luke from [employer]. Review of Systems Const Denies chills, Denies fatigue, Denies fever(s) and Denies headache(s) ENT Denies dysphagia, Denies dizziness, Denies otalgia, Denies headache(s), Denies neck pain, Denies odynophagia and Denies sore throat Card Denies chest pain, Denies irregular heart rhythm, Denies palpitations and Denies dyspnea Resp Denies chest congestion, Denies cough and Denies dyspnea GI Denies abdominal pain, Denies constipation, Denies dysphagia, Denies heartburn (controlled on Rx), Denies diarrhea, Denies nausea, Denies odynophagia and Denies vomiting Denies urinary frequency, Denies dysuria and Denies urinary incontinence Musc Denies back pain, Reports arthralgias (in the left shoulder, on and off ), Denies muscle cramps and Denies neck pain Skin/Breast Denies rash Neuro Denies dizziness, Denies headache(s) and Denies paresthesias Psych Denies anxiety and Denies depression Endo Denies fatigue and Denies palpitations Bill/Lymph Denies easy bruising Physical exam (Primary Care) Vital Signs: Last Vital Signs Pulse 56 09/10/24 09:18 BP 110/76 09/10/24 09:18 Pulse Ox 96 09/10/24 09:18 Oxygen Delivery Method Room Air 09/10/24 09:18 BMI result Body Mass Index 25.3 Tobacco/Smoking Status: Tobacco use Status Tobacco use date assessed 09/10/24 09/10/24 09:26 Patient Tobacco Use Status Never used Tobacco 09/10/24 09:26 e-Cigarette/Vaping Use Never Used 09/10/24 09:26 PHQ-9: PHQ-9 Score PHQ-9: Total score 2 09/10/24 09:49 Depression Screening Interpretation: Negative Thrive Assessment: Date of Thrive Assessment Date Thrive assessed 09/10/24 09/10/24 09:26 Currently or been in a relationship where the following occur: No concerns reported Const General: no acute distress and alert HENMT Ears: TM's normal bilaterally and EAC's normal Throat: Yes posterior oropharynx normal and Yes tonsils normal (no TP congestion) Neck Neck: Yes supple and No lymphadenopathy Thyroid: Thyroid normal Resp Auscultation: clear to auscultation bilaterally, no rales and no wheezes Cardio Rate: regular rate Rhythm: regular rhythm Heart sounds: no murmurs GI Palpation (GI): Soft to palpation and nontender Auscultation: normal bowel sounds General: Yes no CVA tenderness Back/Spine/Pelvis Back: no CVA tenderness Thoracic/Lumbar Spine: No lumbar spinal tenderness Skin Rashes: no rashes Extrem General: Yes no clubbing, cyanosis or edema Coding Level of Care Code Est Pt Level 4 (55280) Diagnoses Hyperglycemia R73.9 Gastroesophageal reflux disease with esophagitis without hemorrhage K21.00 Esophagitis presence: with esophagitis Esophagitis bleeding: without hemorrhage Multinodular goiter E04.2 Primary osteoarthritis of both knees M17.0 Vitamin D deficiency E55.9 Osteopenia of neck of left femur M85.852 Osteopenia location: femoral neck Laterality: left Anxiety F41.9 Overweight (BMI 25.0-29.9) E66.3 Additional Codes PHQ-9 - 60862 - PHQ-9 Billing: Yes ([id number]) Assessment & Plan Assessment & Plan (1) Hyperglycemia: Code(s): R73.9 - Hyperglycemia, unspecified Category: Medical Plan: Patient is reassured that her recent HgbA1c of 5.5% indicates that she does NOT have diabetes Will send her for some additional labs for further evaluation (2) GERD (gastroesophageal reflux disease): Code(s): K21.9 - Gastro-esophageal reflux disease without esophagitis Category: Medical Qualifiers: Esophagitis presence: with esophagitis Esophagitis bleeding: without hemorrhage Qualified Code(s): K21.00 - Gastro-esophageal reflux disease with esophagitis, without bleeding Plan: Patient's initial EGD in 09/2022 revealed (+) findings of grade D esophagitis Repeat EGD in November 2022 showed (+) improvement of esophageal irritation with Tx and her previous symptoms of dysphagia and throat discomfort have completely resolved with Tx She was switched over to Esomeprazole 20 mg QD from Omeprazole by GI due to recurrence of heartburn Her symptoms have improved significantly on Esomeprazole 20 mg QD, and she is advised to continue on current Rx Dietary restrictions reinforced Follow up with GI as scheduled (3) Multinodular goiter: Code(s): E04.2 - Nontoxic multinodular goiter Category: Medical Plan: Thyroid US done on 02/09/22 revealed (+) enlarged heterogenous thyroid gland and multiple bilateral thyroid nodules that are mostly unchanged from US back in 09/2019; US last done in 09/2019 showed no suspicious nodules and recommended yearly surveillance Was referred to endocrinology and was seen on 09/22/22 - Dr. Castillo felt that patient was clinically biochemically euthyroid and since her?recent thyroid ultrasound showed no change in the size of the nodules, she was returned back to our care as her primary care provider Have recommended that a repeat thyroid ultrasound should be done in about 2-3 years time and?if the nodules change in size or characteristics, she can be referred back to endocrinology for further management/work ups Repeat thyroid US done most recently on 01/31/2024 revealed (+) enlarged hypervascular thyroid with only a single nodule over 1 cm in size, which is a 1.1 cm left upper pole nodule, TR class 4. This nodule meets the recommendations for follow-up in one year Advised that we will repeat her US again next year (4) Primary osteoarthritis of both knees: Code(s): M17.0 - Bilateral primary osteoarthritis of knee Category: Medical Plan: X-rays of both knees done over the past couple of years have revealed (+) OA changes in both knees She has been seen by orthopedics in the past for her left knee pain and recommended to try physical therapy back then She completed 3 injections of Euflexxa into her right knee by Dr. Kaye and feels that the injections have helped somewhat She has been advised that if the injections do not help, arthroscopic surgery will then be the next step Follow up with orthopedics as scheduled (5) Vitamin D deficiency: Code(s): E55.9 - Vitamin D deficiency, unspecified Category: Medical Plan: Corrected - continue Vitamin D3 2000 units QD (6) Osteopenia: Code(s): M85.80 - Other specified disorders of bone density and structure, unspecified site Category: Medical Qualifiers: Osteopenia location: femoral neck Laterality: left Qualified Code(s): M85.852 - Other specified disorders of bone density and structure, left thigh Plan: Her most recent BMD done a few weeks ago on 08/22/2024 revealed (+) osteopenia based on the lowest T-score value of -1.4 in the femoral neck applying World Health Organization criteria. Her 10-YEAR FRACTURE RISK PREDICTION, FRAX: Major osteoporotic fracture (clinical spine, forearm, hip or shoulder) 4.0%. Hip fracture 0.3%. Have advised patient that her current BMD is mostly unchanged compared to her previous BMD done in 05/2021 Patient is encouraged to continue daily Vitamin D and Calcium supplements and to exercise regularly and stay physically active Will continue to monitor her BMD every 2 to 3 years (7) Anxiety: Code(s): F41.9 - Anxiety disorder, unspecified Category: Medical Plan: This is mostly associated only with flying on a plane Continue Lorazepam 0.5 mg QD PRN (8) Overweight (BMI 25.0-29.9): Code(s): E66.3 - Overweight Category: Medical Plan: Reinforced diet/exercise as tolerated/lose weight Plan Follow up as scheduled in January 2025 Orders: Orders Comprehensive [place]. Panel Fast 09/10/24 R73.9 - Hyperglycemia, unspecified UA CC w/rflx Micro + Cult 09/10/24 R30.0 - Dysuria
== END 2024-09-10 10:24 | disposition home or self-care (01) ==
PROVIDERS: PCP Internal Medicine; Visit Provider Internal Medicine
DX: R73.9 Hyperglycemia, unspecified (principal); K21.00 Gastro-esophageal reflux disease with esophagitis, without bleeding; E04.2 Nontoxic multinodular goiter; M17.0 Bilateral primary osteoarthritis of knee; E55.9 Vitamin D deficiency, unspecified; M85.852 Other specified disorders of bone density and structure, left thigh; F41.9 Anxiety disorder, unspecified; E66.3 Overweight

== ENCOUNTER 2024-09-17 07:51 | Outpatient (AMB) | payer OTHER, SELFPAY ==
[2024-09-17 07:54] VITALS: BP 98/60; BMI 25.0
--- NOTE | 2024-09-17 07:54 | A.OFFVIS_ITS ---
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 She is doing well with concerns. Currently not sexually active. Denies any vaginal dryness or irritation. STI testing offered; she declines. Attempting to eat and stays active with exercise. History of hysterectomy for benign conditions. Last mammogram; 2023. Colonoscopy is UTD. Denies any family history of breast, ovarian or colon cancer. [facility] Medical History Primary osteoarthritis of both knees Esophagitis determined by biopsy Overweight (BMI 25.0-29.9) Osteopenia Artificial menopause Acquired chest/rib deformity Tubular adenoma of colon Thyroid nodule Vitamin D deficiency History of depression Surgical History History of esophagogastroduodenoscopy (EGD) Hx of foot surgery Hx of colonoscopy Hx of tubal ligation Hx of hysterectomy with oophorectomy Family History Father Throat cancer Emphysema of lung TIA (transient ischemic attack) Social History Household Members: None Housing: House Alcohol intake: never Patient Tobacco Use Status: Never used Tobacco e-Cigarette/Vaping Use: Never Used Second Hand Smoke Exposure: Yes service: No Current occupational status: employed 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 Sexual orientation: Straight/Heterosexual Gender identity: Female Cognitive needs: No Hearing needs: No Vision needs: Yes Female Reproductive History Menstrual Age of Menarche: 14 control method: permanent sterilization Menopause type: surgical Date of Mammogram: 02/17/24 Date of last Bone Density Screenin08/22/24 Review of Systems Const All systems reviewed & are unremarkable except as noted in HPI and below Reports as per HPI Eyes Reports no additional complaints ENT Reports no additional complaints Card Reports no additional complaints Resp Reports no additional complaints GI Reports as per HPI and Reports no additional complaints Reports as per HPI Musc Reports no additional complaints Skin/Breast Reports as per HPI Neuro Reports no additional complaints Psych Reports no additional complaints Endo Reports no additional complaints Bill/Lymph Reports no additional complaints Aller/Immun Reports no additional complaints Physical Exam Vital Signs: Last Vital Signs BP 98/60 09/17/24 07:54 BMI result Body Mass Index 25.0 Const General: cooperative, healthy appearing, no acute distress, well developed and alert Orientation/consciousness: patient oriented x3 HEENT Head: Yes normal to inspection Eyes General: appearance normal, both eyes and all related structures Neck Neck: Yes normal visual inspection Thyroid: Thyroid normal Chest Chest palpation & inspection: normal inspection of the chest and other (no puckering, dimpling, peau de orange, retraction, discharge, masses) Breast/axilla inspection: normal inspection of the breasts Breast/axilla palpation: normal palpation of the breasts Resp Effort & Inspection: normal respiratory effort GI Inspection: Yes normal to inspection Palpation (GI): Soft to palpation Rectal Exam - Female: deferred General: Yes bladder normal to palpation and Yes deferred External Female Exam: normal external appearance and normal appearance of the urethra Speculum Exam - Vagina: normal appearance of the vagina, normal palpation, normal vaginal discharge and vagina atrophic Speculum Exam - Cervix: Cervix absent (Vaginal cuff no lesions or nodules) Bimanual exam- vagina & uterus: normal bimanual exam, normal palpation, bladder normal to palpation and uterus absent Bimanual Exam- Adnexa, other: no masses Skin General skin exam: no rashes or lesions noted Rashes: no rashes Neuro General: patient oriented x3 Cognition (Neuro): normal cognition Extrem General: Yes normal to inspection Psych Attitude: cooperative Thought process: Normal thought process present Assessment & Plan Assessment & Plan (1) Encounter for annual routine gynecological examination: Code(s): Z01.419 - Encounter for gynecological examination (general) (routine) without abnormal findings Category: Medical Plan Discussed: Current recommendations for pap smears per ASCCP guidelines. Breast awareness, periodic self breast exams and yearly mammogram. Maintain a healthy lifestyle, well balanced diet including Calcium 1,200 mg and Vitamin D 600 IU daily, and routine exercise. Replens moisturizer, use of lubricant if becomes sexually active. Patient verbalizes understanding and agrees to the plan of care. She was given opportunity to ask questions and all questions were answered to the best of my ability. RTO in 1 year for annual it business systems analyst exam. This note is constructed using voice recognition software. While every effort has been made to ensure accuracy, catering coordinator errors may have been included. Coding Level of Care Code Est Pt Prev Care 40-64y(23788) Diagnoses Encounter for annual routine gynecological examination Z01.419
== END 2024-09-17 09:31 | disposition home or self-care (01) ==
LOC: HO.HWS 07:51
PROVIDERS: PCP Internal Medicine; Visit Provider Advanced Practice Midwife
DX: Z01.419 Encounter for gynecological examination (general) (routine) without abnormal findings (principal)
CPT/HCPCS: 99396

== ENCOUNTER 2024-09-24 09:32 | Outpatient (AMB) | payer OTHER, SELFPAY ==
--- NOTE | 2024-09-24 10:45 | AM.OFFWIN_ITS ---
Intake Vital Signs 09/24/24 10:46 Weight 153 lb BP 98/70 Blood Pressure Location Lt brachial Position Sitting Pulse 68 Pulse Source Pulse Oximeter Temp 98.5 F Temp Source Oral Pulse Oximetry (%) 98 Oxygen Delivery Method Room Air Intake Visit Reasons: EP Body ache, sore throat Intake Note: Patient here for body aches, headaches and sore throat that started 2 days ago. Patient Tobacco Use Status: Never used Tobacco Allergies No Known Allergies Allergy (Verified 09/24/24 10:47) Do you need a note to return to daycare/school/sports/work: Yes HPI EP Body ache, sore throat HPI Details This is a 59-year-old female patient who presents to the walk-in clinic today with a 2 day history of sore throat. She also reports developing body aches And headache today. Denies any respiratory symptoms or cough. Denies any GI symptoms. Denies any fever/ chills. Denies any known exposure to sick contacts. REPLACED BY [facility] Medical History Primary osteoarthritis of both knees Esophagitis determined by biopsy Overweight (BMI 25.0-29.9) Osteopenia Artificial menopause Acquired chest/rib deformity Tubular adenoma of colon Thyroid nodule Vitamin D deficiency History of depression Surgical History History of esophagogastroduodenoscopy (EGD) Hx of foot surgery Hx of colonoscopy Hx of tubal ligation Hx of hysterectomy with oophorectomy Family History Father Throat cancer Emphysema of lung TIA (transient ischemic attack) Social History Household Members: None Housing: House Alcohol intake: never Patient Tobacco Use Status: Never used Tobacco e-Cigarette/Vaping Use: Never Used Second Hand Smoke Exposure: Yes service: No Current occupational status: employed 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 Sexual orientation: Straight/Heterosexual Gender identity: Female Cognitive needs: No Hearing needs: No Vision needs: Yes Female Reproductive History Menstrual Age of Menarche: 14 Review of Systems Const All systems reviewed & are unremarkable except as noted in HPI and below Physical Exam Vital Signs: Last Vital Signs Temp 98.5 F 09/24/24 10:46 Pulse 68 09/24/24 10:46 BP 98/70 09/24/24 10:46 Pulse Ox 98 09/24/24 10:46 Oxygen Delivery Method Room Air 09/24/24 10:46 Const General: cooperative, no acute distress and well developed HEENT Head: Yes normal to inspection Ears: hearing grossly normal bilaterally General nose exam: Normal external nose present Face and sinus: Yes normal facial exam and Yes sinuses nontender Mouth: Normal oral and palatal mucosa present Throat: Yes posterior oropharynx abnormal ( Tonsillar hypertrophy, mild. No erythema or exudate) Neck Neck: Yes no lymphadenopathy Resp Effort & Inspection: normal respiratory effort Auscultation: clear to auscultation bilaterally Cardio Rate: regular rate Rhythm: regular rhythm Skin General skin exam: no rashes or lesions noted Extrem General: Yes capillary refill normal and Yes no clubbing, cyanosis or edema Psych Appearance: grossly normal Mental Status: mental status grossly normal Speech and movement: Normal speech and movement present Assessment & Plan Assessment & Plan (1) Viral pharyngitis: Code(s): J02.9 - Acute pharyngitis, unspecified Plan: Patient has symptoms consistent with viral illness. Rapid strep in the office was negative. COVID/flu/RSV swab was obtained, and patient aware she will be notified with results once these are available. She has some mild tonsillar hypertrophy, otherwise assessment is normal. Advised conservative measures with rest, increased hydration, healthy diet, Tylenol/ Motrin for body aches /headache, and warm/ saltwater gargles and lozenges as needed for sore throat. Work note was provided. If she does not improve with time and conservative measures, or if symptoms worsen / new symptoms develop, she should return to the clinic for further evaluation. She verbalizes understanding and agrees to plan. Orders: Orders SARS-CoV2/FLU/RSV Today J06.9 - Acute upper respiratory infection, unspecified Coding Level of Care Code Est Pt Level 4 (45224) Diagnoses Viral pharyngitis J02.9
[2024-09-24 10:46] VITALS: BP 98/70; PULSE 68; TEMP 36.9; O2SAT 98
== END 2024-09-24 11:24 | disposition home or self-care (01) ==
PROVIDERS: PCP Internal Medicine; Visit Provider Nurse Practitioner Family
DX: Z13.9 Encounter for screening, unspecified (principal); J02.9 Acute pharyngitis, unspecified

== ENCOUNTER → 2024-09-24 09:32 | Outpatient (BNVA) | payer OTHER, SELFPAY | PROVIDERS: PCP Internal Medicine | DX: J02.9 Acute pharyngitis, unspecified (principal) | CPT/HCPCS: 87880 ==

== ENCOUNTER 2024-09-24 13:03 | Outpatient (REF) | payer OTHER, SELFPAY ==
[2024-09-24 14:03] LABS: Influenza A PCR NEGATIVE (Negative); Influenza B PCR NEGATIVE (Negative); Resp Syncy Virus RNA Qual PCR NEGATIVE (Negative); SARS COV2 PCR INHOUSE NEGATIVE (Negative)
== END 2024-09-24 13:04 | disposition home or self-care (01) ==
LOC: HO.LNP 13:03
PROVIDERS: Visit Provider Nurse Practitioner Family
DX: J06.9 Acute upper respiratory infection, unspecified (principal)
CPT/HCPCS: 0241U

== ENCOUNTER 2024-10-21 07:46 | Outpatient (RCR) | payer OTHER, SELFPAY ==
--- NOTE | 2024-09-25 15:30 | MHC.PT.EP ---
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 SHE IS Lt HAND DOMINANT AND AMBIDEXTROUS W ADLs. OBJECTIVE: LIMITED Lt SH IR POST AND ABD, (+) ANDREA'S Lt/ (+) BEAR HUG Lt/(+) KUNAL LAI.. STRENGTH DEFICITS IN POST RC/ SH COMPLEX/ CORE REGION, AND MILD SCOLIOSIS-> DECR POSTURAL AWARENESS. FUNCTIONALLY, THE Pt HAS DIFFIC DOFFING TOPS/ UPPER BODY DRESSING AND ADLs REQ OVERHEAD OR POSTERIOR REACHING. 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 Frequency and Duration: The patient will be seen 2 x WK x 4 WKS Short Term Goals: DECR Lt SH SXS TO 2-3/10 W REG ADLs/ WORK/FITNESS INITIATE HEP-> SCAP RETR/ LATS, ENGAGING CORE REGION IMPROVE POSTURAL AWARENESS WFL CERV AROM/ SH IR POSTERIORLY White Sugar Supervisor Goals: *Pt INDEP W PROGR HEP AND SELF-SX MGMT TECHN Pt RESUME REG ADLs / FITNESS-> IMPROVED SPADI (AT EVAL 96/100) INCREASED POST RC/ SCAP STRENGTH Treatment Plan: Modalities to reduce pain, spasms and effusion. Manual therapy to restore motion and function. Therapeutic exercise to improve strength and flexibility. Neuromuscular re-education for posture and balance. Therapeutic activities to return to functional activities of daily living. Electronically signed by: CRISTINA CEEPT Please sign and return to therapist. Thank you for your referral.
--- NOTE | 2025-01-13 15:03 | MHC.PT.DC ---
[facility] [place] Office [place] Office [place] Office [address] Funmilayo Chow 140 [facility] [phone] F: [phone] F: [phone] F: [phone] F: [phone] Physical Therapy Discharge Report Diagnosis: LEFT UE STRAIN MUSCLE/FASCIA/TENDON Date of Surgery: Date of Evaluation: 09/25/24 Date of Discharge: 01/13/25 Treatments to Date: 3 Cancellations to Date: 4 No Shows to Date: Discharge Status: Visit Non-compliance Discharge Summary: HENRY APPEARED TO BE BENEFITTING FROM PT , ADDRESSING HER Lt SHOULDER COMLEX- HOWEVER, SHE DID NOT ATTEND HER LAST 4 APPTS AND IS D/C PER THE DEPT ATTENDANCE POLICY. Electronically signed by: CRISTINA CEEPT Please sign and return to therapist. Thank you for your referral.
--- NOTE | 2025-01-13 15:06 | MHC.PT.DC ---
[facility] [place] Office [place] Office [place] Office [address] Funmilayo Chow 140 [facility] [phone] F: [phone] F: [phone] F: [phone] F: [phone] Physical Therapy Discharge Report Diagnosis: LEFT UE STRAIN MUSCLE/FASCIA/TENDON Date of Surgery: Date of Evaluation: 09/25/24 Date of Discharge: 01/13/25 Treatments to Date: 3 Cancellations to Date: 4 No Shows to Date: Discharge Status: Visit Non-compliance Discharge Summary: HENRY APPEARED TO BE BENEFITTING FROM PT , ADDRESSING HER Lt SHOULDER COMLEX- HOWEVER, SHE DID NOT ATTEND HER LAST 4 APPTS AND IS D/C PER THE DEPT ATTENDANCE POLICY. Electronically signed by: CRISTINA CEEPT Please sign and return to therapist. Thank you for your referral.
== END 2025-01-13 15:07 | disposition home or self-care (01) ==
LOC: HO.PT 07:46
PROVIDERS: PCP Internal Medicine; Visit Provider Internal Medicine
DX: S46.912D Strain of unspecified muscle, fascia and tendon at shoulder and upper arm level, left arm, subsequent encounter (principal)
CPT/HCPCS: 97110; 97140; 97162

== ENCOUNTER 2024-12-23 09:23 | Outpatient (AMB) | payer OTHER, SELFPAY ==
--- NOTE | 2024-12-23 09:28 | A.OFFVIS_ITS ---
Vital Signs 12/23/24 09:33 Height 5 ft 5 in Weight 149 lb 14.629 oz BMI 24.9 BP 94/68 Blood Pressure Location Lt brachial Position Sitting Pulse 86 Intake Visit Reasons: 1 year follow up GERD Intake Note: Baylee presents in the office as a 1 year follow up for GERD. CC: She states that she is having the heartburn but she notices it is when she does not take her medications but when she takes it everything works. 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 Initial visit 08/2022: Pt states that she noticed her first episode in June with rice and then another episode last month with pork. Hubbard that food got stuck in upper esophagus and had to wash it down with water/fluids. She has noticed regurgitation of scant volume of old food once. Otherwise, denies any abd pain, N,V changes in bowel habits, unintentional weight loss. Last colonoscopy 2018: 2 mm tubular adenoma, adequate prep. 09/14/22: Reports excellent response to PPI therapy. Has not had any further episodes of food getting stuck since starting PPI. No issues with regurgitation any more. Has not had barium swallow done yet - scheduled for Oct. EGD 09/2022 (done OFF ppi): * Grade D esophagitis * Mucosa suspicious for EoE (biopsy) * Hiatal hernia * Normal stomach * Peptic duodenitis (biopsy)?? Path: A.? Duodenum, biopsy:? Chronic active duodenitis. B.? Esophagus, mid, biopsy:? Squamous epithelium within normal limits; no inflammation seen. 10/21/22: No complaints today since resuming PPI therapy after the procedure. Tried to discontinue to PPI, today is day 2 but is already feeling some return of symptoms. EGD 11/30/22: (On ppi x 8 weeks) * Esophagus:? Again, trachealisation and furrowing of esophageal mucosa was noted. The Z line was at 30 cm. Large hiatal hernia with diaphragmatic pinch noted at 36 cm. Lower esophagus forceps biopsies were obtained to rule out eosinophilic esophagitis. * Stomach:? Normal mucosa was noted in the stomach. Retroflexion in the fundus confirmed size and morphology of the hiatal hernia. * Duodenum:? Normal mucosa was noted in the whole of the examined duodenum.? Path: Esophagus, lower, biopsy:? Squamous epithelium within normal limits; no inflammation seen; negative for eosinophilic esophagitis. 12/26/22: Was recently seen in ER last week for food borne GI illness from left over [employer] lunch. Currently no GI complaints to include abd pain, N,V,D. Has been doing well with Omeprazole 20mg, did not noticing return of sx with reduction in dose. 04/18/23: Requested follow up today for 2 reasons. Had breakthrough heartburn one day a few weeks ago. Thinks it was triggered by having noble for breakfast. Secondly, she has questions if she should consider surgical repair for hiatal hernia. Otherwise, doing well. No dysphagia or sensation of food getting stuck. Has been able to taper down to Omeprazole 10mg without any difficulty. 12/25/23: Here for yearly follow up. Sx mostly controlled but triggered by certain foods such as alcohol. Avoids most of them. Remains omeprazole 10mg PO once daily. Was in ER in Oct for food poisoning and since then avoiding red meat. Pt today also a bit overwhelmed in office as describes having episodes where she feels very anxious with chest pressure and feeling of doom jerry at night. Had been taking low dose ativan PRN but not helping much. 12/23/24: Here for routine 1 year follow up. Sx much better with nexium. Currently not interested in pursuing any surgical consult. Due for colo. Last colo 2018 - [facility] Medical History Primary osteoarthritis of both knees Esophagitis determined by biopsy Overweight (BMI 25.0-29.9) Osteopenia Artificial menopause Acquired chest/rib deformity Tubular adenoma of colon Thyroid nodule Vitamin D deficiency History of depression Surgical History History of esophagogastroduodenoscopy (EGD) Hx of foot surgery Hx of colonoscopy Hx of tubal ligation Hx of hysterectomy with oophorectomy Family History Father Throat cancer Emphysema of lung TIA (transient ischemic attack) Social History Household Members: None Housing: House Alcohol intake: never Patient Tobacco Use Status: Never used Tobacco e-Cigarette/Vaping Use: Never Used Second Hand Smoke Exposure: Yes service: No Current occupational status: employed 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 Sexual orientation: Straight/Heterosexual Gender identity: Female Cognitive needs: No Hearing needs: No Vision needs: Yes Female Reproductive History Menstrual Age of Menarche: 14 Review of Systems Const All systems reviewed & are unremarkable except as noted in HPI and below Physical Exam Vital Signs: Last Vital Signs Pulse 86 12/23/24 09:33 BP 94/68 12/23/24 09:33 BMI result Body Mass Index 24.9 No apparent distress Nonicteric Abdomen soft, nondistended Alert and oriented x3, normal gait Assessment & Plan Assessment & Plan (1) Heartburn: Code(s): R12 - Heartburn Category: Medical (2) GERD with esophagitis: Code(s): K21.00 - Gastro-esophageal reflux disease with esophagitis, without bleeding Category: Medical Qualifiers: Esophagitis bleeding: without hemorrhage Qualified Code(s): K21.00 - Gastro-esophageal reflux disease with esophagitis, without bleeding (3) Hiatal hernia: Code(s): K44.9 - Diaphragmatic hernia without obstruction or gangrene Category: Medical (4) Personal history of colonic polyps: Code(s): Z86.0100 - Personal history of colon polyps, unspecified Category: Medical Plan # EGD and barium swallow proven GERD with esophagitis grade D in Sep 2022. Clinical and endoscopic evidence of response to PPI in Nov 2022. Sx much better on nexium. Pt aware will likely need it lifelong. Plan: - Nexium 20 once daily - refills done #Hx of polyps Due for repeat colo. This will be booked electively. Plan: - PEG prep Rxed, instructions reviewed - Follow up after colo as needed. Medications: New 2 peg 3350-electrolytes 236-22.74-6.74 -5.86 gram (Golytely) as per split prep instructions, until fecal effluent is clear 240 mL PO Q10M 4,000 mL 0RF colonoscopy Refilled esomeprazole magnesium 20 mg PO DAILY 90 caps 2RF esomeprazole magnesium 20 mg PO DAILY 90 caps 2RF Coding Level of Care Code Est Pt Level 4 (37742) Diagnoses Heartburn R12 Gastroesophageal reflux disease with esophagitis without hemorrhage K21.00 Esophagitis bleeding: without hemorrhage Hiatal hernia K44.9 Personal history of colonic polyps Z86.0102
[2024-12-23 09:33] VITALS: BP 94/68; PULSE 86; BMI 24.9
== END 2024-12-23 10:16 | disposition home or self-care (01) ==
LOC: HO.HGI 09:23
PROVIDERS: PCP Internal Medicine; Visit Provider Internal Medicine
DX: R12 Heartburn (principal); K21.00 Gastro-esophageal reflux disease with esophagitis, without bleeding; K44.9 Diaphragmatic hernia without obstruction or gangrene; Z86.0100 Personal history of colon polyps, unspecified
CPT/HCPCS: 99214

== ENCOUNTER 2025-01-27 09:21 | Outpatient (REF) | payer OTHER, SELFPAY ==
[2025-01-27 10:42] LABS: MANUAL DIFF FLAG NO
[2025-01-27 11:07] LABS: Basophils Percent Auto 0.9 % (0-2); Eosinophils Absolute Auto 0.1 X10*3/uL (0.0-0.4); Eosinophils Percent Auto 4.1 % (0-4); Hematocrit 42.8 % (37.0-47.0); Hemoglobin 14.3 g/dl (12.0-16.0); Imm Gran Abs Auto 0.01 X10*3/uL (0.00-0.03); Imm Gran Pct Auto 0.3 % (0.0-0.4); Lymphocytes Absolute Auto 1.8 X10*3/uL (1.2-4.9); Lymphocytes Percent Auto 51.2 % (20-40); Mean Corpuscular HGB Conc 33.4 g/dl (31.0-35.0); Mean Corpuscular Hemoglobin 30.5 pg (27.0-33.0); Mean Corpuscular Volume 91.3 fL (80.0-98.0); Mean Platelet Volume 10.2 fL (9.4-12.3); Monocytes Absolute Auto 0.3 X10*3/uL (0.1-1.2); Monocytes Percent Auto 9.6 % (2-11); Neutrophils Absolute Auto 1.2 x10*3/uL (2.0-8.3); Neutrophils Percent Auto 33.9 % (45-73); Platelet Count 239 X10*3/uL (160-400); Red Blood Count 4.69 X10*6/uL (4.20-5.50); Red Cell Distribution Width 12.7 % (11.0-16.0); White Blood Count 3.4 X10*3/uL (4.8-10.8)
[2025-01-27 11:16] LABS: Appearance Urine Clear; Color Urine Yellow; Glucose Urine UA Negative (Negative); Leukocyte Esterase Urine Moderate (2+) (Negative); Nitrite Urine Negative (Negative); Specific Gravity - Urine 1.015 (1.005-1.025); UMIC TRIGGER UACC YES; Urine Blood Negative (Negative); Urine Ketones Trace mg/dL (Negative); Urine Protein Negative (Neg-Trace)
[2025-01-27 11:27] LABS: Bacteria Urine None Seen (None Seen); Hyaline Casts Urine 0-2 /LPF (0-2); RBC Urine 0-2 /HPF (0-2); Squamous Epithelial Cell Urine 0-2 /HPF (0-2); UACC Culture Trigger YES; WBC Urine 0-5 /HPF (0-5)
[2025-01-27 11:39] LABS: Alanine Aminotransferase 17 U/L (0-31); Albumin Level 3.9 g/dL (3.5-5.0); Alkaline Phosphatase 79 U/L (39-117); Anion Gap 10 (12-20); Aspartate Amino Transferase 30 U/L (5-31); Bilirubin Total 0.4 mg/dL (0.0-1.0); Blood Urea Nitrogen 13 mg/dL (9-16); Carbon Dioxide 27 mmol/L (22-29); Chloride 107 mmol/L (96-108); Cholesterol 181 mg/dL (<200); Estimated Glomerular Filt Rate > 60; Glucose Fasting 85 mg/dL (60-99); HDL Cholesterol 66 mg/dL (>40); LDL Cholesterol Calculated 106 mg/dL (<100); Potassium 4.2 mmol/L (3.3-5.1); Sodium 140 mmol/L (135-145); Triglycerides 46 mg/dL (<150)
[2025-01-27 11:49] LABS: Free T4 (Free Thyroxine) 1.14 ng/dL (0.71-1.85); Thyroid Stimulating Hormone 0.57 uIU/mL (0.32-4.0); Vitamin D 25-OH Total 31.7 ng/mL (>30)
== END 2025-01-27 09:22 | disposition home or self-care (01) ==
LOC: HO.LAB 09:21
PROVIDERS: PCP Internal Medicine; Visit Provider Internal Medicine
DX: Z00.00 Encounter for general adult medical examination without abnormal findings (principal); J30.9 Allergic rhinitis, unspecified; K21.00 Gastro-esophageal reflux disease with esophagitis, without bleeding; E04.2 Nontoxic multinodular goiter; M17.0 Bilateral primary osteoarthritis of knee; E55.9 Vitamin D deficiency, unspecified; M85.852 Other specified disorders of bone density and structure, left thigh; F41.9 Anxiety disorder, unspecified; E78.00 Pure hypercholesterolemia, unspecified; R30.0 Dysuria; E03.9 Hypothyroidism, unspecified; D64.9 Anemia, unspecified; Z79.899 Other long term (current) drug therapy
CPT/HCPCS: 36415; 80053; 80061; 81001; 82306; 84439; 84443; 85025; 87086; 96127

== ENCOUNTER 2025-01-27 09:21 | Outpatient (AMB) | payer OTHER, SELFPAY ==
[2025-01-27 09:30] VITALS: BP 110/70; PULSE 62; O2SAT 98; BMI 24.8
--- NOTE | 2025-01-27 09:30 | A.OFFPC_ITS ---
Vital Signs 01/27/25 09:30 Height 5 ft 5 in Weight 149 lb 2 oz BMI 24.8 BP 110/70 Blood Pressure Location Lt brachial Position Sitting Pulse 62 Pulse Source Pulse Oximeter Pulse Oximetry (%) 98 Oxygen Delivery Method Room Air Intake Visit Reasons: annual PE Whizzer Required: No Accompanied by: Self / Same As Patient Allergies No Known Allergies Allergy (Verified 01/27/25 09:51) Medication List - Last Reconciled 01/27/25 by Arnel Paulino MD cetirizine-pseudoephedrine 5-120 mg ER 1 tab PO BID PRN esomeprazole magnesium 20 mg PO DAILY lorazepam 0.5 mg PO DAILY PRN 15 days multivitamin 1 tab PO DAILY peg 3350-electrolytes 236-22.74-6.74 -5.86 gram (Golytely) 240 mL PO Q10M Tobacco use date assessed: 01/27/25 Dental Screening Dental Screen Date: 01/27/25 Did you have a dental visit in the last 12 months?: Yes Did you have a dental problem in the last 6 months where you did not have access to dental care?: No Was dental information given to patient?: Patient has dentist HPI annual PE HPI Details Patient comes in today for her annual physical examination States that she feels okay except for increased allergy symptoms lately, especially for recurrent itching of her eyes States that she has been taking some OTC Zyrtec-D lately with little relief She denies any headaches or dizziness; denies any sore throat Denies any chest pains, no SOB No nausea/vomiting, no abdominal pain No change in bowel habits noted Denies any acute urinary symptoms Needs her Lorazepam Rx refilled today She is up-to-date with her cancer screenings - she had her screening colonoscopy done back in 2017 She had a polyp removed that came out as a tubular adenoma on pathology and she is now due for repeat colonoscopy - states that this is in the process of being scheduled as she just saw Dr. Green for her GI follow up recently Her last annual mammography was in February 2024 and she is scheduled for this year's mammogram next month on 02/22/2025 Her next gynecology exam and pap smear is scheduled in September 2025 [facility] Medical History (Updated 01/27/25 @ 12:32 by Arnel Paulino MD) Allergic rhinitis Primary osteoarthritis of both knees Esophagitis determined by biopsy Overweight (BMI 25.0-29.9) Osteopenia Artificial menopause Acquired chest/rib deformity Tubular adenoma of colon Thyroid nodule Vitamin D deficiency History of depression Surgical History History of esophagogastroduodenoscopy (EGD) Hx of foot surgery Hx of colonoscopy Hx of tubal ligation Hx of hysterectomy with oophorectomy Family History Father Throat cancer Emphysema of lung TIA (transient ischemic attack) Social History Household Members: None Housing: House Alcohol intake: never Patient Tobacco Use Status: Never used Tobacco e-Cigarette/Vaping Use: Never Used Second Hand Smoke Exposure: Yes service: No Current occupational status: employed 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 1. Little interest or pleasure in doing things: not at all 2. Feeling down, depressed, or hopeless: not at all 3. Trouble falling or staying asleep, or sleeping too much: not at all 4. Feeling tired or having little energy: not at all 5. Poor appetite or overeating: not at all 6. Feeling bad about yourself - or that you are a failure or have let yourself or your family down: not at all 7. Trouble concentrating on things, such as reading the newspaper or watching television: not at all 8. Moving or speaking so slowly that other people could have noticed. Or the opposite - being so fidgety or restless that you have been moving around a lot more than usual: not at all 9. Thoughts that you would be better off or of hurting yourself in some way: not at all Total score: 0 Depression Screening Interpretation: Negative Depression Screening Done: Yes 63576 - PHQ-9 Billing: Yes Source: Developed by Drs. Micah Le, Antonia B.WDidier Paredes and colleagues, with an educational luke from [employer]. Thrive Questionnaire Date Thrive assessed: 01/27/25 I am a: Patient What is your living situation today?: I have a steady place to live Within the past 12 months, did the food you bought not last and you didn't have the money to get more?: Never true Within the past 12 months, did you worry whether your food would run out before you got money to buy more?: Never true Do you have trouble paying for medicines?: No Do you have trouble getting transportation to medical appointments?: No Do you have trouble paying your heating and electricity bill?: No Do you have trouble taking care of your child, family member or friend?: No Do you have trouble with day-to-day activities such as bathing, preparing meals, shopping, managing finances, etc.?: No Are you currently unemployed and looking for a job?: No Are you interested in more education?: No Please select the resources that you would like help with: None Currently or been in a relationship where the following occur: No concerns reported THRIVE Score: 0 AUDIT C Alcohol Use Questionnaire (AUDIT-C) 1. How often do you have a drink containing alcohol?: Monthly or less 2. How many drinks containing alcohol do you have on a typical day when you are drinking?: 1 or 2 3. How often do you have six or more drinks on one occasion?: Never Total Score: 1 Score Reviewed/Action Taken: Yes CARSON-7 AMB Questionnaire CARSON-7 Date CARSON - 7 assessed: 01/27/25 Feeling nervous, anxious, or on edge: 0 = Not at all Not being able to stop or control worryin = Not at all Worrying too much about different things: 0 = Not at all Trouble relaxin = Not at all Being so restless that it is hard to sit still: 0 = Not at all Becoming easily annoyed or irritable: 0 = Not at all Feeling afraid as if something awful might happen: 0 = Not at all Total CARSON-7 score (0-4 normal; 5-9 mild; 10-14 moderate; 15-21 severe): 0 Source: Developed by Drs. Micah Le, Didier Oneal and colleagues, with an educational luke from [employer]. Review of Systems Const Denies chills, Denies fatigue, Denies fever(s), Denies headache(s) and Denies malaise Eyes Denies blurry vision, Denies change in vision, Denies irritation and Denies itchy eyes ENT Denies dysphagia, Denies dizziness, Denies otalgia, Denies headache(s), Denies nasal congestion, Denies neck pain, Denies odynophagia, Denies sinus pain and Denies sore throat Card Denies chest pain, Denies rapid heart rate, Denies irregular heart rhythm, Denies palpitations and Denies dyspnea Resp Denies chest congestion, Denies cough, Denies dyspnea and Denies wheezing GI Denies abdominal pain, Denies bloating, Denies constipation, Denies dysphagia, Denies heartburn, Denies diarrhea, Denies nausea, Denies odynophagia and Denies vomiting Denies hematuria, Denies urinary frequency, Denies dysuria, Denies urinary i ncontinence and Denies urinary urgency Musc Denies back pain, Denies arthralgias, Denies joint swelling, Denies muscle weakness and Denies neck pain Skin/Breast Denies breast pain, Denies breast mass, Denies change in pigmentation, Denies lesions, Denies rash and Denies unusual bruising Neuro Denies dizziness, Denies headache(s) and Denies paresthesias Psych Denies anxiety and Denies depression Endo Denies fatigue and Denies palpitations Bill/Lymph Denies easy bruising Aller/Immun Denies itchy eyes and Denies wheezing Physical exam (Primary Care) Vital Signs: Last Vital Signs Pulse 62 01/27/25 09:30 BP 110/70 01/27/25 09:30 Pulse Ox 98 01/27/25 09:30 Oxygen Delivery Method Room Air 01/27/25 09:30 BMI result Body Mass Index 24.8 Tobacco/Smoking Status: Tobacco use Status Tobacco use date assessed 01/27/25 01/27/25 09:34 Patient Tobacco Use Status Never used Tobacco 01/27/25 09:34 e-Cigarette/Vaping Use Never Used 01/27/25 09:34 PHQ-9: PHQ-9 Score PHQ-9: Total score 0 01/27/25 09:58 Depression Screening Interpretation: Negative Thrive Assessment: Date of Thrive Assessment Date Thrive assessed 01/27/25 01/27/25 09:34 Currently or been in a relationship where the following occur: No concerns reported Const General: no acute distress, alert and awake Orientation/consciousness: patient oriented x3 HENMT Head: Yes normocephalic and Yes atraumatic Ears: external ears normal, TM's normal bilaterally and EAC's normal General nose exam: No nasal discharge present Face and sinus: Yes normal facial exam and Yes sinuses nontender Teeth and gingiva: dentition normal Throat: Yes posterior oropharynx normal and Yes tonsils normal (no TP congestion) Eyes Eyelids: Yes eyelids normal Conjunctivae: conjunctivae normal Pupils: Equal, round and reactive pupils present EOM: EOMs intact bilaterally Neck Neck: Yes no lymphadenopathy and Yes supple Thyroid: Thyroid normal Resp Auscultation: clear to auscultation bilaterally, no rales and no wheezes Cardio Rate: regular rate Rhythm: regular rhythm Heart sounds: no murmurs GI Palpation (GI): Soft to palpation, nontender and No hepatosplenomegaly present Auscultation: normal bowel sounds General: Yes no CVA tenderness Back/Spine/Pelvis Back: no CVA tenderness Thoracic/Lumbar Spine: thoracic and lumbar spine normal to inspection Skin Lesions: no lesions Rashes: no rashes Neuro General: patient oriented x3, moves all extremities, no focal motor deficits and CN's II-XI intact bilaterally Cranial nerves: Yes Equal, round and reactive pupils present Cognition (Neuro): normal cognition Gait exam (Neuro): Normal gait present Extrem General: Yes no clubbing, cyanosis or edema Coding Level of Care Code Est Pt Prev Care 40-64y([id number]) Diagnoses Annual physical exam Z00.00 Allergic rhinitis, unspecified seasonality, unspecified trigger J30.9 Allergic rhinitis trigger: unspecified Allergic rhinitis seasonality: unspecified Gastroesophageal reflux disease with esophagitis without hemorrhage K21.00 Esophagitis bleeding: without hemorrhage Esophagitis presence: with esophagitis Multinodular goiter E04.2 Primary osteoarthritis of both knees M17.0 Vitamin D deficiency E55.9 Osteopenia of neck of left femur M85.852 Laterality: left Osteopenia location: femoral neck Anxiety F41.9 Additional Codes PHQ-9 - 71506 - PHQ-9 Billing: Yes ([id number]) Assessment & Plan Assessment & Plan (1) Annual physical exam: Code(s): Z00.00 - Encounter for general adult medical examination without abnormal findings Category: Medical Plan: Check labs She is up-to-date with her cancer screenings - she had her screening colonoscopy done back in 2017 She had a polyp removed that came out as a tubular adenoma on pathology and she is now due for repeat colonoscopy - states that this is in the process of being scheduled as she just saw Dr. Green for her GI follow up recently Her last annual mammography was in February 2024 and she is scheduled for this year's mammogram next month on 02/22/2025 Her next gynecology exam and pap smear is scheduled in September 2025 (2) Allergic rhinitis: Code(s): J30.9 - Allergic rhinitis, unspecified Category: Medical Qualifiers: Allergic rhinitis trigger: unspecified Allergic rhinitis seasonality: unspecified Qualified Code(s): J30.9 - Allergic rhinitis, unspecified Plan: Continue Zyrtec-D BID PRN Will start patient additionally on Fluticasone 50 mcg nasal spray 2 sprays into each nostril QD PRN (3) GERD (gastroesophageal reflux disease): Code(s): K21.9 - Gastro-esophageal reflux disease without esophagitis Category: Medical Qualifiers: Esophagitis bleeding: without hemorrhage Esophagitis presence: with esophagitis Qualified Code(s): K21.00 - Gastro-esophageal reflux disease with esophagitis, without bleeding Plan: Patient's initial EGD in 09/2022 revealed (+) findings of grade D esophagitis Repeat EGD in November 2022 showed (+) improvement of esophageal irritation with Tx and her previous symptoms of dysphagia and throat discomfort have completely resolved with Rx She was switched over to Esomeprazole 20 mg QD from Omeprazole by GI due to recurrence of her heartburn symptoms while on Omeprazole Her symptoms have improved significantly on Esomeprazole 20 mg QD, and she is advised to continue on current Rx Dietary restrictions reinforced Follow up with GI as scheduled (4) Multinodular goiter: Code(s): E04.2 - Nontoxic multinodular goiter Category: Medical Plan: Thyroid US done on 02/09/22 revealed (+) enlarged heterogenous thyroid gland and multiple bilateral thyroid nodules that are mostly unchanged from US back in 09/2019; US last done in 09/2019 showed no suspicious nodules and recommended yearly surveillance She was referred to endocrinology and was seen on 09/22/22 - Dr. Castillo felt that patient was clinically biochemically euthyroid and since her?recent thyroid ultrasound showed no change in the size of the nodules, she was returned back to our care as her primary care provider They have recommended that a repeat thyroid ultrasound should be done in about 2-3 years time and?if the nodules change in size or characteristics, she can be referred back to endocrinology for further management/work ups Repeat thyroid US done most recently on 01/31/2024 revealed (+) enlarged hypervascular thyroid with only a single nodule over 1 cm in size, which is a 1.1 cm left upper pole nodule, TR class 4. This nodule meets the recommendations for follow-up in one year We will now send her for repeat thyroid US for her 1 year follow up (5) Primary osteoarthritis of both knees: Code(s): M17.0 - Bilateral primary osteoarthritis of knee Category: Medical Plan: X-rays of both knees done over the past couple of years have revealed (+) OA changes in both knees She has been seen by orthopedics in the past for her left knee pain and they have recommended she try physical therapy back then She completed 3 injections of Euflexxa into her right knee by Dr. Kaye and patient feels that the injections have helped somewhat She has been advised that if the injections do not help, arthroscopic surgery will then be the next step Follow up with orthopedics as scheduled (6) Vitamin D deficiency: Code(s): E55.9 - Vitamin D deficiency, unspecified Category: Medical Plan: Continue Vitamin D3 2000 units QD (7) Osteopenia: Code(s): M85.80 - Other specified disorders of bone density and structure, unspecified site Category: Medical Qualifiers: Laterality: left Osteopenia location: femoral neck Qualified Code(s): M85.852 - Other specified disorders of bone density and structure, left thigh Plan: Her most recent BMD done on 08/22/2024 revealed (+) osteopenia based on the lowest T-score value of -1.4 in the femoral neck, applying World Health Organization criteria. Her 10-YEAR FRACTURE RISK PREDICTION, FRAX: Major osteoporotic fracture (clinical spine, forearm, hip or shoulder) 4.0%. Hip fracture 0.3%. Have advised patient that her current BMD is mostly unchanged compared to her previous BMD done in 05/2021 Patient is encouraged to continue daily Vitamin D and Calcium supplements and to exercise regularly and stay physically active Will continue to monitor her BMD every 2 to 3 years (8) Anxiety: Code(s): F41.9 - Anxiety disorder, unspecified Category: Medical Plan: This is mostly associated only with flying on a plane Continue Lorazepam 0.5 mg QD PRN (Rx refilled) - states that she will be flying to [place] sometime next month Plan Follow up in 6 months Orders: Orders US thyroid Today E04.2 - Nontoxic multinodular goiter Lipid Panel Today E78.00 - Pure hypercholesterolemia, unspecified, Z00.00 - Encounter for general adult medical examination without abnormal findings UA CC w/rflx Micro + Cult Today R30.0 - Dysuria, Z00.00 - Encounter for general adult medical examination without abnormal findings Vitamin D 25-OH Total Today E55.9 - Vitamin D deficiency, unspecified, Z00.00 - Encounter for general adult medical examination without abnormal findings Thyroid Stimulating Hormone Today E03.9 - Hypothyroidism, unspecified, Z00.00 - Encounter for general adult medical examination without abnormal findings Complete Blood Count Auto Diff Today D64.9 - Anemia, unspecified, Z00.00 - Encounter for general adult medical examination without abnormal findings Comprehensive L[place]o. Panel Fast Today E78.00 - Pure hypercholesterolemia, unspecified, Z00.00 - Encounter for general adult medical examination without abnormal findings Free T4 (Free Thyroxine) Today E03.9 - Hypothyroidism, unspecified, Z00.00 - Encounter for general adult medical examination without abnormal findings Medications: New fluticasone propionate 50 mcg/actuation administer into each nostril 2 sprays intranasal DAILY PRN 16 grams 5RF allergy symptoms 30 days Refilled lorazepam 0.5 mg PO DAILY PRN 15 tabs 1RF anxiety 15 days
== END 2025-01-27 10:16 | disposition home or self-care (01) ==
LOC: HO.HMCH 09:21
PROVIDERS: PCP Internal Medicine; Visit Provider Internal Medicine
DX: Z00.00 Encounter for general adult medical examination without abnormal findings (principal); J30.9 Allergic rhinitis, unspecified; K21.00 Gastro-esophageal reflux disease with esophagitis, without bleeding; E04.2 Nontoxic multinodular goiter; M17.0 Bilateral primary osteoarthritis of knee; E55.9 Vitamin D deficiency, unspecified; M85.852 Other specified disorders of bone density and structure, left thigh; F41.9 Anxiety disorder, unspecified

== ENCOUNTER 2025-02-12 07:41 | Outpatient (REF) | payer OTHER, SELFPAY ==
--- NOTE | ~2025-02-12 | XR_ITS ---
EXAMINATION: XR HAND 3 OR MORE VIEWS RIGHT HISTORY: M79.641 - Pain in right hand COMPARISON: There are no prior studies available for comparison. FINDINGS: Three views of the right hand are submitted. Osseous mineralization is normal. There is no fracture or dislocation. The joint spaces are preserved. The soft tissues are unremarkable. XR/XR hand RT min 3V IMPRESSION: Unremarkable examination of the right hand. Electronically signed by: Micah Rangel MD 02/12/2025 08:03 AM EDT
== END 2025-02-12 07:42 | disposition home or self-care (01) ==
LOC: HO.XRAY 07:41
PROVIDERS: PCP Internal Medicine; Visit Provider Internal Medicine
DX: M79.641 Pain in right hand (principal)
CPT/HCPCS: 73130

== ENCOUNTER → 2025-02-12 07:44 | Outpatient (BNV) | payer OTHER, SELFPAY | PROVIDERS: PCP Internal Medicine; Visit Provider Radiology Diagnostic Radiology | DX: M79.641 Pain in right hand (principal) | CPT/HCPCS: 73130 ==

== ENCOUNTER 2025-02-19 11:42 | Outpatient (REF) | payer OTHER, SELFPAY | END 2025-02-19 11:43 | disposition home or self-care (01) | LOC: HO.MAMMO 11:42 | PROVIDERS: PCP Internal Medicine; Visit Provider Internal Medicine | DX: Z12.31 Encounter for screening mammogram for malignant neoplasm of breast (principal) | CPT/HCPCS: 77063; 77067 ==

== ENCOUNTER → 2025-02-19 12:00 | Outpatient (BNV) | payer OTHER, SELFPAY | PROVIDERS: PCP Internal Medicine; Visit Provider Internal Medicine | DX: Z12.31 Encounter for screening mammogram for malignant neoplasm of breast (principal) | CPT/HCPCS: 77063; 77067 ==

== ENCOUNTER 2025-03-13 07:46 | Outpatient (REF) | payer OTHER, SELFPAY ==
--- NOTE | ~2025-03-13 | US_ITS ---
EXAMINATION: US THYROID HISTORY: E04.2 - Nontoxic multinodular goiter TECHNIQUE: Real-time grayscale ultrasound imaging was performed and images were reviewed. COMPARISON: Comparison is made with the prior examination dated 01/31/2024. FINDINGS: SIZE: The right thyroid lobe measures 6.1 x 2.7 x 2.8 cm. The left thyroid lobe measures 5.9 x 2.8 x 2.3 cm. The isthmus measures 6 mm. FLOW: Flow to the gland is increased. ECHOGENICITY: The echotexture of the gland is heterogeneous. NODULES: Multiple subcentimeter cystic and spongiform nodules are again seen bilaterally. A single solid nodule is identified as described below: Nodule #: 1 Location: Left upper pole measuring 12 x 5 x 9 mm (previously 11 x 5 x 8 mm). Shape: Wider than tall (0 points) Margins: Smooth (0 points) Echotexture: Very hypoechoic (3 points) Composition: Mostly solid (2 points) Calcifications: None (0 points) Total points: 5 TIRADS: TR4: Moderately suspicious. US/US thyroid IMPRESSION: Enlarged thyroid demonstrating multiple cystic and spongiform nodules as seen previously. Single stable solid nodule on the left. Continued ultrasound follow-up is recommended. ACR TI-RADS Guidelines TR1 (0 points): Benign, No follow-up or biopsy required TR2 (2 points): Not Suspicious, No biopsy or follow up indicated TR3 (3 points): Mildly Suspicious, FNA if >= 2.5 cm, Follow if >= 1.5 cm TR4 (4-6 points): Moderately Suspicious, FNA if >= 1.5 cm, Follow if >= 1.0 cm TR5 (>=7 points): Highly Suspicious, FNA if >= 1.0 cm, Follow if >= 0.5 cm Electronically signed by: Micah Rangel MD 03/13/2025 10:33 AM EDT
== END 2025-03-13 07:47 | disposition home or self-care (01) ==
LOC: HO.US 07:46
PROVIDERS: PCP Internal Medicine; Visit Provider Internal Medicine
DX: E04.2 Nontoxic multinodular goiter (principal)
CPT/HCPCS: 76536

== ENCOUNTER → 2025-03-13 07:48 | Outpatient (BNV) | payer OTHER, SELFPAY | PROVIDERS: PCP Internal Medicine; Visit Provider Radiology Diagnostic Radiology | DX: E04.1 Nontoxic single thyroid nodule (principal) | CPT/HCPCS: 76536 ==

== ENCOUNTER 2025-04-10 07:53 | Day surgery (SDC) | payer OTHER, SELFPAY ==
[2025-04-08 16:31] VITALS: BMI 24.8
--- NOTE | 2025-04-09 09:25 | HO.ANESPROP2 ---
Documented by User: Leisa Juares NP 04/09/25 09:25 HPI - Anesthesia Eval Consult details Narrative: 59yo F for Colonoscopy PMFSH Active Problems Active Problems: All Active Problems Leukopenia (Acute) Lymphocytosis (Acute) Leukopenia (Acute) Right hand pain (Acute) Allergic rhinitis (Acute) Personal history of colonic polyps (Acute) Hyperglycemia (Acute) Left shoulder pain (Acute) Colon cancer screening (Acute) Primary osteoarthritis of both knees (Acute) Arthritis of right knee (Acute) Tear of medial meniscus of right knee (Acute) Pain and swelling of right knee (Acute) Hiatal hernia (Acute) Esophagitis determined by biopsy (Acute) Overweight (BMI 25.0-29.9) (Acute) Nocturnal leg cramps (Acute) Acute gastroenteritis (Acute) GERD (gastroesophageal reflux disease) (Acute) Anxiety (Acute) Palpitations (Acute) Heartburn (Acute) Injury of posterior cruciate ligament of left knee (Acute) Posterior knee pain (Acute) Osteoarthritis of left knee (Acute) Effusion, left knee (Acute) Annual physical exam (Acute) Syncope (Acute) Multinodular goiter (Acute) Anxiety with flying (Acute) Intermittent dysphagia (Acute) Encounter for annual routine gynecological examination (Acute) GERD with esophagitis (Acute) Osteopenia (Acute) Artificial menopause (Acute) Acquired chest/rib deformity (Acute) Vitamin D deficiency (Acute) Thyroid nodule (Acute) Past Medical History Medical History GERD (gastroesophageal reflux disease) Leukopenia Allergic rhinitis Primary osteoarthritis of both knees Esophagitis determined by biopsy Overweight (BMI 25.0-29.9) Osteopenia Artificial menopause Acquired chest/rib deformity Tubular adenoma of colon Thyroid nodule Vitamin D deficiency History of depression Family History Family History Father Throat cancer Emphysema of lung TIA (transient ischemic attack) Family history of problems with anesthesia: No Surgical History Surgical History History of esophagogastroduodenoscopy (EGD) Hx of foot surgery Hx of colonoscopy Hx of tubal ligation Hx of hysterectomy with oophorectomy History of Problems with Anesthesia: No Social History Social History Household Members: None Housing: House Alcohol intake: never Patient Tobacco Use Status: Never used Tobacco e-Cigarette/Vaping Use: Never Used Second Hand Smoke Exposure: Yes Use of substances other than those prescribed or required for medical reasons: No Are you DNR?: No Advance Directives: No Advance Directives Information Provided: Yes service: No Current occupational status: employed 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 Sexual orientation: Straight/Heterosexual Gender identity: Female Cognitive needs: No Hearing needs: No Vision needs: Yes Meds Allergies Allergy/AdvReac Type Severity Reaction Status Date / Time No Known Allergies Allergy Verified 04/10/25 08:15 Home Medications ?Medication ?Instructions ?Recorded ?Confirmed ?Last Taken ?Type multivitamin 1 tab PO DAILY 11/04/20 04/10/25 Unknown History Exam Height,Weight and Vital Signs: Height 5 ft 5 in Weight 67.642 kg Assessment and Plan Assessment Anesthesia Assessment: Chart Reviewed Final Anesthetic Review Family History of Problems with Anesthesia: No History of Problems with Anesthesia: No Documented by User: Claudia Amaya MD 04/10/25 09:40 PMFSH Past Medical History Medical History GERD (gastroesophageal reflux disease) Leukopenia Allergic rhinitis Primary osteoarthritis of both knees Esophagitis determined by biopsy Overweight (BMI 25.0-29.9) Osteopenia Artificial menopause Acquired chest/rib deformity Tubular adenoma of colon Thyroid nodule Vitamin D deficiency History of depression Family History Family History Father Throat cancer Emphysema of lung TIA (transient ischemic attack) Surgical History Surgical History History of esophagogastroduodenoscopy (EGD) Hx of foot surgery Hx of colonoscopy Hx of tubal ligation Hx of hysterectomy with oophorectomy Social History Social History Household Members: None Housing: House Alcohol intake: never Patient Tobacco Use Status: Never used Tobacco e-Cigarette/Vaping Use: Never Used Second Hand Smoke Exposure: Yes Use of substances other than those prescribed or required for medical reasons: No Are you DNR?: No Advance Directives: No Advance Directives Information Provided: Yes service: No Current occupational status: employed 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 Sexual orientation: Straight/Heterosexual Gender identity: Female Cognitive needs: No Hearing needs: No Vision needs: Yes Meds Allergies Allergy/AdvReac Type Severity Reaction Status Date / Time No Known Allergies Allergy Verified 04/10/25 08:15 Home Medications ?Medication ?Instructions ?Recorded ?Confirmed ?Last Taken ?Type multivitamin 1 tab PO DAILY 11/04/20 04/10/25 Unknown History Exam Airway Mallampati Class: II TM Dist: >3cm Neck ROM: Full Loose/Missing/Broken Teeth: No Heart: RRR Lungs: CTA Assessment and Plan Assessment Anesthesia Assessment: Anesthesia Plan Discussed Final Anesthetic Review NPO: Yes ASA Class: II Final Preanesthetic Review: Meds/Allgs Chart Reviewed, Consent Obtained/Reviewed and Anes Risks/Benef Reviewed Patient Risk: Low Procedure Risk: Low Anesthetic Plan Anesthetic Plan: MAC: Disposition: Standard PACU
[2025-04-10 08:15] VITALS: BMI 25.4
[2025-04-10 08:41] VITALS: BP 97/73; PULSE 86; RESP 15; TEMP 36.8; O2SAT 99
[2025-04-10] MEDS: Lactated Ringers 1,000 ML 100 ML IVCONT (08:43)
--- NOTE | 2025-04-10 09:33 | MHC.SHP ---
Pre-Procedural Eval Section A - 24 Hr Update-Section A only Date of Service: 04/10/25 Section B - Complete if H&P > 30 days Chief Complaint: Personal history of colon polyps, unspecified Details of Present Illness: Primary osteoarthritis of both knees Esophagitis determined by biopsy Osteopenia Artificial menopause Acquired chest/rib deformity Tubular adenoma of colon Thyroid nodule Vitamin D deficiency History of depression Surgical History History of esophagogastroduodenoscopy (EGD) Hx of foot surgery Hx of colonoscopy Hx of tubal ligation Hx of hysterectomy with oophorectomy Present Medications: see Short Stay Collaborative assessment Allergies: Allergies Allergy/AdvReac Type Severity Reaction Status Date / Time No Known Allergies Allergy Verified 04/10/25 08:15 Review of Systems Review of Systems Comment: Ten point ROS negative Exam Exam Comment: Gen appear: No acute distress HEENT: no icterus Chest: No overt resp distress Abd: soft, nontender, nondistended Psych: Stable affect, answering questions appropriately Neuro: A/Ox3 noted to move all extremities spontaneously Ext: no peripheral edema Plan I have reviewed the history and physical and performed a pertinent physical examination on my patient. No changes have occurred unless specified. Time Spent With Patient Time: Total time managing care of this patient today ____ minutes.
--- NOTE | 2025-04-10 09:59 | P.OPN-COLO_ITS ---
Colonoscopy Operative Note Operative Note Date of Service: 04/10/25 Narrative: Procedure: Colonoscopy Indication: Screening Endoscopist: Nancy Green MD Anesthesia Provider: Dr Claudia Amaya Anesthesia type: MAC Instrument: Olympus [id number]-[id number] Consent: Indication, risks vs benefits, and alternatives were discussed with the patient who gave written informed consent to proceed. EKG, pulse, pulse oximetry and blood pressure were monitored throughout the procedure. Please see anesthesia flowsheet. Procedure: The patient was brought to the procedure room and placed in the left lateral decubitus position. IV medications were administered by the anesthesia provider in attendance. A digital rectal exam was performed which was normal. A distal attachment cap was affixed to the tip of the colonoscope which was then inserted through the anus and advanced through the colon to the cecum at 75 cm ,and terminal ileum. Appendiceal orifice and ileocecal valve were identified. Mucosa was carefully examined under high definition white light as the instrument was slowly withdrawn in a retrograde panoramic fashion. Retroflexion was performed in rectum. The procedure was not difficult. There were no immediate obvious complications. The quality of the prep was BBPS: 3+2+3 = adequate Withdrawal time 6 minutes. Limitations: No limitations. Findings: Mucosa: Normal to cecum and terminal ileum. Protruding lesions: * Medium internal hemorrhoids without stigmata of recent bleeding. Excavated lesions: * Mild diverticulosis of left sided colon. Impression: 1. Normal colon and terminal ileum mucosa 2. Diverticulosis 3. Internal hemorrhoids Recommendations: - Repeat colonoscopy in 10 years for asymptomatic colorectal cancer screening.
[2025-04-10 10:05] VITALS: BP 91/60; PULSE 90; RESP 18; TEMP 36.3; O2SAT 98
[2025-04-10 10:19] VITALS: PULSE 91; RESP 18; O2SAT 98
[2025-04-10 10:37] VITALS: BP 109/72; PULSE 84; RESP 16; TEMP 36.4; O2SAT 99
== END 2025-04-10 11:10 | disposition home or self-care (01) ==
PROVIDERS: PCP Internal Medicine; Visit Provider Internal Medicine
PROC: 0DJD8ZZ Inspection of Lower Intestinal Tract, Via Natural or Artificial Opening Endoscopic (ICD-10-PCS; CPT 45378; principal; 2025-04-10 10:10)
DX: Z12.11 Encounter for screening for malignant neoplasm of colon (principal); K57.30 Diverticulosis of large intestine without perforation or abscess without bleeding; K64.8 Other hemorrhoids; Z86.0101 Personal history of adenomatous and serrated colon polyps; K21.9 Gastro-esophageal reflux disease without esophagitis; K20.90 Esophagitis, unspecified without bleeding; K44.9 Diaphragmatic hernia without obstruction or gangrene; R13.19 Other dysphagia; Z79.899 Other long term (current) drug therapy
CPT/HCPCS: 45378; J2003; J2704

== ENCOUNTER → 2025-04-10 07:53 | Outpatient (BNV) | payer OTHER, SELFPAY | PROVIDERS: PCP Internal Medicine; Visit Provider Internal Medicine | DX: Z12.11 Encounter for screening for malignant neoplasm of colon (principal) | CPT/HCPCS: 45378 ==

== ENCOUNTER 2025-05-05 11:28 | Outpatient (AMB) | payer OTHER, SELFPAY ==
--- NOTE | 2025-05-05 11:30 | A.OFFVIS_ITS ---
Intake Visit Reasons: Telehealth s/p colo Intake Note: Telehealth follow up s/p colonoscopy. CC: Patient reports doing well and denies having any GI symptoms or concerns. 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 Initial visit 08/2022: Pt states that she noticed her first episode in June with rice and then another episode last month with pork. [place] that food got stuck in upper esophagus and had to wash it down with water/fluids. She has noticed regurgitation of scant volume of old food once. Otherwise, denies any abd pain, N,V changes in bowel habits, unintentional weight loss. Last colonoscopy 2018: 2 mm tubular adenoma, adequate prep. 09/14/22: Reports excellent response to PPI therapy. Has not had any further episodes of food getting stuck since starting PPI. No issues with regurgitation any more. Has not had barium swallow done yet - scheduled for Oct. EGD 09/2022 (done OFF ppi): * Grade D esophagitis * Mucosa suspicious for EoE (biopsy) * Hiatal hernia * Normal stomach * Peptic duodenitis (biopsy)?? Path: A.? Duodenum, biopsy:? Chronic active duodenitis. B.? Esophagus, mid, biopsy:? Squamous epithelium within normal limits; no infla mmation seen. 10/21/22: No complaints today since resuming PPI therapy after the procedure. Tried to discontinue to PPI, today is day 2 but is already feeling some return of symptoms. EGD 11/30/22: (On ppi x 8 weeks) * Esophagus:? Again, trachealisation and furrowing of esophageal mucosa was noted. The Z line was at 30 cm. Large hiatal hernia with diaphragmatic pinch noted at 36 cm. Lower esophagus forceps biopsies were obtained to rule out eosinophilic esophagitis. * Stomach:? Normal mucosa was noted in the stomach. Retroflexion in the fundus confirmed size and morphology of the hiatal hernia. * Duodenum:? Normal mucosa was noted in the whole of the examined duodenum.? Path: Esophagus, lower, biopsy:? Squamous epithelium within normal limits; no inflammation seen; negative for eosinophilic esophagitis. 12/26/22: Was recently seen in ER last week for food borne GI illness from left over [place] lunch. Currently no GI complaints to include abd pain, N,V,D. Has been doing well with Omeprazole 20mg, did not noticing return of sx with reduction in dose. 04/18/23: Requested follow up today for 2 reasons. Had breakthrough heartburn one day a few weeks ago. Thinks it was triggered by having [place] for breakfast. Secondly, she has questions if she should consider surgical repair for hiatal hernia. Otherwise, doing well. No dysphagia or sensation of food getting stuck. Has been able to taper down to Omeprazole 10mg without any difficulty. 12/25/23: Here for yearly follow up. Sx mostly controlled but triggered by certain foods such as alcohol. Avoids most of them. Remains omeprazole 10mg PO once daily. Was in ER in Oct for food poisoning and since then avoiding red meat. Pt today also a bit overwhelmed in office as describes having episodes where she feels very anxious with chest pressure and feeling of doom jerry at night. Had been taking low dose ativan PRN but not helping much. 12/23/24: Here for routine 1 year follow up. Sx much better with nexium. Currently not interested in pursuing any surgical consult. Due for colo. Last colo 2018 - T.A. 04/10/25: 1. Normal colon and terminal ileum mucosa 2. Diverticulosis 3. Internal hemorrhoids 05/05/25: Here as a phone tele visit. Currently asymptomatic. No abdominal pain, nausea, vomiting. Has occasional heartburn maybe once or twice a month, easily manageable with the omeprazole. [facility] Medical History GERD (gastroesophageal reflux disease) Leukopenia Allergic rhinitis Primary osteoarthritis of both knees Esophagitis determined by biopsy Overweight (BMI 25.0-29.9) Osteopenia Artificial menopause Acquired chest/rib deformity Tubular adenoma of colon Thyroid nodule Vitamin D deficiency History of depression Surgical History (Updated 05/05/25 @ 11:33 by SAMIR Díaz) History of esophagogastroduodenoscopy (EGD) Hx of foot surgery Hx of colonoscopy Hx of tubal ligation Hx of hysterectomy with oophorectomy Family History Father Throat cancer Emphysema of lung TIA (transient ischemic attack) Social History Household Members: None Housing: House Alcohol intake: never Patient Tobacco Use Status: Never used Tobacco e-Cigarette/Vaping Use: Never Used Second Hand Smoke Exposure: Yes service: No Current occupational status: employed 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 Sexual orientation: Straight/Heterosexual Gender identity: Female Cognitive needs: No Hearing needs: No Vision needs: Yes Female Reproductive History Menstrual Age of Menarche: 14 Review of Systems Const All systems reviewed & are unremarkable except as noted in HPI and below Physical Exam Exam Exam: phone visit Assessment & Plan Assessment & Plan (1) Heartburn: Code(s): R12 - Heartburn Category: Medical (2) GERD with esophagitis: Code(s): K21.00 - Gastro-esophageal reflux disease with esophagitis, without bleeding Category: Medical Qualifiers: Esophagitis bleeding: without hemorrhage Qualified Code(s): K21.00 - Gastro-esophageal reflux disease with esophagitis, without bleeding (3) Hiatal hernia: Code(s): K44.9 - Diaphragmatic hernia without obstruction or gangrene Category: Medical (4) Personal history of colonic polyps: Code(s): Z86.0100 - Personal history of colon polyps, unspecified Category: Medical Plan # EGD and barium swallow proven GERD with esophagitis grade D in Sep 2022. Clinical and endoscopic evidence of response to PPI in Nov 2022. Sx much better on nexium. Pt aware will likely need it lifelong. Pt questions if needs HH repair, reviewed was not noted on Barium swallow 2022 but can get another barium swallow if interested in pursuing surgery. She would like to hold off for now. Plan: - Nexium 20 once daily #CRC Screening Next colo due 2034. Follow up 1 year Coding Level of Care Code Tele Est Pt Level 3 (61543) Diagnoses Heartburn R12 Gastroesophageal reflux disease with esophagitis without hemorrhage K21.00 Esophagitis bleeding: without hemorrhage Hiatal hernia K44.9 Personal history of colonic polyps Z86.0100
== END 2025-05-05 12:30 | disposition home or self-care (01) ==
LOC: HO.HGI 11:28
PROVIDERS: PCP Internal Medicine; Visit Provider Internal Medicine
DX: K21.00 Gastro-esophageal reflux disease with esophagitis, without bleeding (principal); K44.9 Diaphragmatic hernia without obstruction or gangrene; Z86.0100 Personal history of colon polyps, unspecified
CPT/HCPCS: 99213

== ENCOUNTER 2025-05-26 08:30 | Outpatient (AMB) | payer OTHER, SELFPAY ==
[2025-05-26 08:31] VITALS: BP 112/74; PULSE 86; O2SAT 97; BMI 26.2
--- NOTE | 2025-05-26 08:31 | A.OFFVIS_ITS ---
Vital Signs 05/26/25 08:31 Height 5 ft 5 in Weight 157 lb 3.033 oz BMI 26.2 BP 112/74 Blood Pressure Location Lt brachial Position Sitting Pulse 86 Pulse Source Pulse Oximeter Pulse Oximetry (%) 97 Oxygen Delivery Method Room Air Intake Visit Reasons: Nontoxic single thyroid nodule Intake Note: New patient present today for Nontoxic single thyroid nodule. Manager Office Required: No Accompanied by: Self / Same As Patient Allergies No Known Allergies Allergy (Verified 05/26/25 08:35) Medication List - Last Reconciled 05/26/25 by Sarah Fields MD [id number] 600 mg calcium- 800 unit-40 mg (Caltrate 600-D Plus Minerals) 1 tab PO BID esomeprazole magnesium 20 mg PO DAILY fluticasone propionate 50 mcg/actuation 2 sprays intranasal DAILY PRN 30 days lorazepam 0.5 mg PO DAILY PRN 15 days multivitamin 1 tab PO DAILY HPI Comments Details: 59-year-old female coming in today for initial evaluation of multiple thyroid nodules. She has had thyroid nodules at least since 2018. Most recent thyroid ultrasound done 03/13/2025, I reviewed the images myself which showed multiple cysts and spongiform nodules in bilateral thyroid, a dominant left superior 1.2 cm thyroid nodule which has remained stable in size compared to ultrasound from January 2024. It is solid, very hypoechoic, TR 4 category. There was a jump in the size of the nodule between ultrasounds in 2019 to 2021. However it still does not exactly meet criteria for FNA per TI-RADS guidelines. Per CECIL 2024 guidelines which are still in draft, this would be an intermediate suspicion nodule which carry a 20-50% risk of malignancy, and threshold for biopsies between 1-2 cm. I discussed with the patient both options of surveillance ultrasounds versus going ahead with the biopsy. Patient currently denies heat or cold intolerance, diarrhea or constipation, hair loss, palpitation, anxiety, weight changes, mood changes, low energy, changes in appearance of eyes or vision changes, tremors, increased diaphoresis or dry skin. ? Patient denies any difficulty swallowing, pain on swallowing or voice changes or difficulty breathing. Patient denies any history of childhood neck radiation. Denies having ever used lithium, amiodarone or biotin supplements. Patient denies any family history of thyroid cancer or thyroid disease. Normal TSH from January 2025. Physical exam General: sitting comfortably in no acute distress HEENT: normocephalic/atraumatic, Neck: supple, large palpable goiter Cardiac: normal heart sounds Pulm: normal breath sounds B/L, no added breath sounds Abd: not distended, no tenderness Extremities: no edema, no signs of myxedema Neuro: AAO x3, Speech: normal, no facial droop, moving all 4 extremities Laboratory Tests 01/27/25 10:40 TSH 0.57 EXAMINATION: US THYROID 03/13/2025 HISTORY: E04.2 - Nontoxic multinodular goiter TECHNIQUE: Real-time grayscale ultrasound imaging was performed and images were reviewed. COMPARISON: Comparison is made with the prior examination dated 01/31/2024. FINDINGS: SIZE: The right thyroid lobe measures 6.1 x 2.7 x 2.8 cm. The left thyroid lobe measures 5.9 x 2.8 x 2.3 cm. The isthmus measures 6 mm. FLOW: Flow to the gland is increased. ECHOGENICITY: The echotexture of the gland is heterogeneous. NODULES: Multiple subcentimeter cystic and spongiform nodules are again seen bilaterally. A single solid nodule is identified as described below: Nodule #: 1 Location: Left upper pole measuring 12 x 5 x 9 mm (previously 11 x 5 x 8 mm). Shape: Wider than tall (0 points) Margins: Smooth (0 points) Echotexture: Very hypoechoic (3 points) Composition: Mostly solid (2 points) Calcifications: None (0 points) Total points: 5 TIRADS: TR4: Moderately suspicious. US/US thyroid IMPRESSION: Enlarged thyroid demonstrating multiple cystic and spongiform nodules as seen previously. Single stable solid nodule on the left. Continued ultrasound follow-up is recommended. [facility] Medical History GERD (gastroesophageal reflux disease) Leukopenia Allergic rhinitis Primary osteoarthritis of both knees Esophagitis determined by biopsy Overweight (BMI 25.0-29.9) Osteopenia Artificial menopause Acquired chest/rib deformity Tubular adenoma of colon Thyroid nodule Vitamin D deficiency History of depression Surgical History History of esophagogastroduodenoscopy (EGD) Hx of foot surgery Hx of colonoscopy Hx of tubal ligation Hx of hysterectomy with oophorectomy Family History Father Throat cancer Emphysema of lung TIA (transient ischemic attack) Social History Household Members: None Housing: House Alcohol intake: never Patient Tobacco Use Status: Never used Tobacco e-Cigarette/Vaping Use: Never Used Second Hand Smoke Exposure: Yes service: No Current occupational status: employed 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 Sexual orientation: Straight/Heterosexual Gender identity: Female Cognitive needs: No Hearing needs: No Vision needs: Yes Female Reproductive History Menstrual Age of Menarche: 14 Physical Exam Vital Signs: Last Vital Signs Pulse 86 05/26/25 08:31 BP 112/74 05/26/25 08:31 Pulse Ox 97 05/26/25 08:31 Oxygen Delivery Method Room Air 05/26/25 08:31 BMI result Body Mass Index 26.2 Assessment & Plan Assessment & Plan (1) Multinodular goiter: Code(s): E04.2 - Nontoxic multinodular goiter Category: Medical Plan: 59-year-old female with no family history of thyroid cancer, with no personal history of head or neck radiation coming in today to establish care for nontoxic multinodular goiter. She has had thyroid nodules at least since 2018. Most recent thyroid ultrasound done 03/13/2025, I reviewed the images myself which showed multiple cysts and spongiform nodules in bilateral thyroid, a dominant left superior 1.2 cm thyroid nodule which has remained stable in size compared to ultrasound from January 2024. It is solid, very hypoechoic, TR 4 category. There was a jump in the size of the nodule between ultrasounds in 2018 to 2021. However it still does not exactly meet criteria for FNA per TI-RADS guidelines. Per CECIL 2024 guidelines which are still in draft, this would be an intermediate suspicion nodule which carry a 20-50% risk of malignancy, and threshold for biopsies between 1-2 cm. I discussed with the patient both options of surve illance ultrasounds versus going ahead with the biopsy. I explained that it is common to have thyroid nodules. About 95% of the time these nodules are benign. However if the nodule is > 1 cm in size or suspicious on ultrasound then a fine need aspiration biopsy is recommended. We discussed that a FNAB involves 4-5 passes with a small gauge needle and material obtained is sent off for cytology.If the cytopathology is benign then the nodule will be followed annually with repeat ultrasounds. However if it is suspicious or malignant, we will need to discuss further management. Indeterminate cytology can be further investigated with repeat FNA, genetic testing or empiric lobectomy. Malignant cytology is managed with either lobectomy or total thyroidectomy. We discussed briefly that thyroid cancer is, in most patients, an indolent disease that does not affect mortality. At this point she would like to opt for surveillance ultrasounds. We will plan to repeat an ultrasound in 1 year. No compressive symptoms. Normal TSH from January 2025. Plan: -ordered ultrasound of the thyroid to be done in April 2026, prior to follow up in 1 year in May 2026 -ordered TSH with reflex free T4 to be done prior to follow up in 1 year -follow up in 1 year in May 2026 Plan I spent 45 minutes in reviewing the record, seeing the patient and documenting in the medical record. Orders: Orders US thyroid 04/20/26 E04.2 - Nontoxic multinodular goiter TSH reflex Free T4 04/20/26 E04.2 - Nontoxic multinodular goiter Patient Instructions: Do ultrasound thyroid in April 2026, someone will call you to schedule this, please make sure this is done a few weeks prior to your follow up with me in May 2026 Do thyroid blood work a few days prior to your next follow up with me in May 2026, orders have been placed Coding Level of Care Code New Pt Level 4 (41928) Diagnoses Multinodular goiter E04.2 Time Spent (min) 45
== END 2025-05-26 08:56 | disposition home or self-care (01) ==
LOC: HO.ENCR 08:31
PROVIDERS: PCP Internal Medicine; Visit Provider Student in an Organized Health Care Education/Training Program
DX: E04.2 Nontoxic multinodular goiter (principal)
CPT/HCPCS: 99204

== ENCOUNTER → 2025-06-10 09:20 | Outpatient (BNV) | payer OTHER, SELFPAY | PROVIDERS: PCP Internal Medicine; Referring Provider Internal Medicine; Visit Provider Nurse Practitioner Family | DX: D72.819 Decreased white blood cell count, unspecified (principal) | CPT/HCPCS: 99204; 99213 ==

== ENCOUNTER 2025-07-02 07:55 | Outpatient (REF) | payer OTHER, SELFPAY ==
--- NOTE | 2025-07-02 08:30 | PCN2_ITS ---
Brief Operative Note Date of procedure: 07/02/25 Pre-op diagnosis: left superior 1.2 cm thyroid nodule FNA biopsy Post-op diagnosis: same Procedure: THYROID FINE NEEDLE ASPIRATION PROCEDURE NOTE ? PROCEDURE PERFORMED: Ultrasound-guided FNA of thyroid nodule ? OPERATORS: Dr. Sarah Fields ? INDICATION:left superior 1.2 cm thyroid nodule ; FNA performed to assess for malignancy ? DESCRIPTION OF PROCEDURE: The indications for FNA (to assess for malignancy) were reviewed with the patient in detail. Potential complications (e.g., bleeding, infection, damage to local structures, absence of clear diagnosis after FNA) were reviewed. Alternatives to FNA including conservative observation or surgery were described. The patient understood and agreed to proceed. This was documented by the signing of the written informed consent form. A time-out was performed to confirm the patient's identity and the site of planned FNA. The nodule of interest was identified using ultrasound (14 MHz linear array probe). The site of FNA was then draped in the usual fashion and carefully cleaned and prepared using alcohol swabs. The skin at the previously-identified site of needle insertion was iced and sprayed with numbing spray. Under ultrasound guidance, 4__ passes were performed using a 1.5-inch, 25-gauge needle, and sample was obtained via capillary action. The needle tip was clearly visualized to be within the nodule at the time of sampling for _4 of _4_ passes [Insert image recorded as part of the procedure] The patient tolerated the procedure well. There were no immediate complications. A small adhesive bandage was applied, and the patient was advised to take a cetaminophen (rather than NSAIDs) for any discomfort and to report any signs of inflammation/infection or marked swelling. IMPRESSION: Technically successful ultrasound-guided fine needle aspiration of left superior 1.2 cm thyroid nodule. PLAN: The patient was advised that I will provide follow-up regarding the cytology result and any subsequent plans. Sarah Fields MD Endocrinology Attending Condition: stable Disposition: same day
== END 2025-07-02 07:56 | disposition home or self-care (01) ==
LOC: HO.US 07:55
PROVIDERS: PCP Internal Medicine; Visit Provider Student in an Organized Health Care Education/Training Program
DX: E04.1 Nontoxic single thyroid nodule (principal)
CPT/HCPCS: 10005; 88173; 88305

== ENCOUNTER → 2025-07-02 07:55 | Outpatient (BNV) | payer OTHER, SELFPAY | PROVIDERS: PCP Internal Medicine; Visit Provider Student in an Organized Health Care Education/Training Program | DX: E04.1 Nontoxic single thyroid nodule (principal) | CPT/HCPCS: 10005 ==

== ENCOUNTER 2025-07-16 14:41 | Outpatient (AMB) | payer OTHER, SELFPAY ==
[2025-07-16 14:43] VITALS: BP 108/76; PULSE 79; O2SAT 98; BMI 26.4
--- NOTE | 2025-07-16 14:43 | MHC.OFFVIS ---
Vital Signs 07/16/25 14:43 Height 5 ft 5 in Weight 158 lb 11.725 oz BMI 26.4 BP 108/76 Blood Pressure Location Lt brachial Position Sitting Pulse 79 Pulse Source Pulse Oximeter Pulse Oximetry (%) 98 Oxygen Delivery Method Room Air Intake Visit Reasons: Biopsy f/u Intake Note: Patient present today for biopsy follow up. 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 HPI She has had thyroid nodules at least since 2018. Most recent thyroid ultrasound done 03/13/2025, I reviewed the images myself which showed multiple cysts and spongiform nodules in bilateral thyroid, a dominant left superior 1.2 cm thyroid nodule which has remained stable in size compared to ultrasound from January 2024. It is solid, very hypoechoic, TR 4 category. There was a jump in the size of the nodule between ultrasounds in 2019 to 2021. However it still does not exactly meet criteria for FNA per TI-RADS guidelines. Per CECIL 2024 guidelines which are still in draft, this would be an intermediate suspicion nodule which carry a 20-50% risk of malignancy, and threshold for biopsies between 1-2 cm. I discussed with the patient both options of surveillance ultrasounds versus going ahead with the biopsy. Patient currently denies heat or cold intolerance, diarrhea or constipation, hair loss, palpitation, anxiety, weight changes, mood changes, low energy, changes in appearance of eyes or vision changes, tremors, increased diaphoresis or dry skin. ? Patient denies any difficulty swallowing, pain on swallowing or voice changes or difficulty breathing. Patient denies any history of childhood neck radiation. Denies having ever used lithium, amiodarone or biotin supplements. Patient denies any family history of thyroid cancer or thyroid disease. Normal TSH from January 2025. Interval history 07/02/2025: Status post FNA of the left superior 1.2 cm nodule which came back as nondiagnostic, [place] category 1 with thin prep slide only showing blood in peripheral blood elements and the cell block with a rare small global benign-appearing follicular epithelial cells insufficient for diagnosis. Physical exam General: sitting comfortably in no acute distress HEENT: normocephalic/atraumatic, Neck: supple, large palpable goiter Cardiac: normal heart sounds Pulm: normal breath sounds B/L, no added breath sounds Abd: not distended, no tenderness Extremities: no edema, no signs of myxedema Neuro: AAO x3, Speech: normal, no facial droop, moving all 4 extremities Laboratory Tests 01/27/25 10:40 TSH 0.57 EXAMINATION: US THYROID 03/13/2025 HISTORY: E04.2 - Nontoxic multinodular goiter TECHNIQUE: Real-time grayscale ultrasound imaging was performed and images were reviewed. COMPARISON: Comparison is made with the prior examination dated 01/31/2024. FINDINGS: SIZE: The right thyroid lobe measures 6.1 x 2.7 x 2.8 cm. The left thyroid lobe measures 5.9 x 2.8 x 2.3 cm. The isthmus measures 6 mm. FLOW: Flow to the gland is increased. ECHOGENICITY: The echotexture of the gland is heterogeneous. NODULES: Multiple subcentimeter cystic and spongiform nodules are again seen bilaterally. A single solid nodule is identified as described below: Nodule #: 1 Location: Left upper pole measuring 12 x 5 x 9 mm (previously 11 x 5 x 8 mm). Shape: Wider than tall (0 points) Margins: Smooth (0 points) Echotexture: Very hypoechoic (3 points) Composition: Mostly solid (2 points) Calcifications: None (0 points) Total points: 5 TIRADS: TR4: Moderately suspicious. US/US thyroid IMPRESSION: Enlarged thyroid demonstrating multiple cystic and spongiform nodules as seen previously. Single stable solid nodule on the left. Continued ultrasound follow-up is recommended. ON LICENSE OF [facility] Medical History GERD (gastroesophageal reflux disease) Leukopenia Allergic rhinitis Primary osteoarthritis of both knees Esophagitis determined by biopsy Overweight (BMI 25.0-29.9) Osteopenia Artificial menopause Acquired chest/rib deformity Tubular adenoma of colon Thyroid nodule Vitamin D deficiency History of depression Surgical History History of esophagogastroduodenoscopy (EGD) Hx of foot surgery Hx of colonoscopy Hx of tubal ligation Hx of hysterectomy with oophorectomy Family History Father Throat cancer Emphysema of lung TIA (transient ischemic attack) Social History Household Members: None Housing: House Alcohol intake: never Patient Tobacco Use Status: Never used Tobacco e-Cigarette/Vaping Use: Never Used Second Hand Smoke Exposure: Yes service: No Current occupational status: employed 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 Sexual orientation: Straight/Heterosexual Gender identity: Female Cognitive needs: No Hearing needs: No Vision needs: Yes Female Reproductive History Menstrual Age of Menarche: 14 Physical Exam Vital Signs: Last Vital Signs Pulse 79 07/16/25 14:43 BP 108/76 07/16/25 14:43 Pulse Ox 98 07/16/25 14:43 Oxygen Delivery Method Room Air 07/16/25 14:43 BMI result Body Mass Index 26.4 Assessment & Plan Assessment & Plan (1) Multinodular goiter: Code(s): E04.2 - Nontoxic multinodular goiter Category: Medical Plan: 59-year-old female with no family history of thyroid cancer, with no personal history of head or neck radiation coming in today for fup for nontoxic multinodular goiter. She has had thyroid nodules at least since 2018. Most recent thyroid ultrasound done 03/13/2025, I reviewed the images myself which showed multiple cysts and spongiform nodules in bilateral thyroid, a dominant left superior 1.2 cm thyroid nodule which has remained stable in size compared to ultrasound from January 2024. It is solid, very hypoechoic, TR 4 category. There was a jump in the size of the nodule between ultrasounds in 2018 to 2021. However it still does not exactly meet criteria for FNA per TI-RADS guidelines. Per CECIL 2024 guidelines which are still in draft, this would be an intermediate suspicion nodule which carry a 20-50% risk of malignancy, and threshold for biopsies between 1-2 cm. I discussed with the patient both options of surveillance ultrasounds versus going ahead with the biopsy. 07/02/2025: Status post FNA of the left superior 1.2 cm nodule which came back as nondiagnostic, [place] category 1 with thin prep slide only showing blood in peripheral blood elements and the cell block with a rare small global benign-appearing follicular epithelial cells insufficient for diagnosis. I discussed with the patient that nondiagnostic results yield a 5-20% risk of malignancy. Given overall her nodule us very small in size, when I measured at during the biopsied was measuring 1 cm in the maximum dimension. It has regular borders, no not taller than wide no high suspicion features, at this time it would be okay to monitor it. She does understand the small risk of malignancy. We discussed briefly that thyroid cancer is, in most patients, an indolent disease that does not affect mortality. At this point we have mutually agreed for surveillance ultrasounds. We will plan to repeat an ultrasound in 1 year. No compressive symptoms. Normal TSH from January 2025. Plan: -ordered ultrasound of the thyroid to be done in June 2026, prior to follow up in 1 year in July 2026 -ordered TSH with reflex free T4 to be done prior to follow up in 1 year -follow up in 1 year in July 2026 Plan See above Orders: Orders TSH reflex Free T4 06/22/26 E04.2 - Nontoxic multinodular goiter US thyroid 06/22/26 E04.2 - Nontoxic multinodular goiter Patient Instructions: Please do ultrasound of the thyroid in June 2026, someone we will call you to schedule this, please make sure this is done a few weeks prior to her next follow up with me in July 2026 Please do thyroid blood work a few days prior to your next follow up with me in 1 year, orders have been placed Coding Level of Care Code Est Pt Level 3 (83956) Diagnoses Multinodular goiter E04.2
== END 2025-07-16 15:23 | disposition home or self-care (01) ==
LOC: HO.ENCR 14:42
PROVIDERS: PCP Internal Medicine; Visit Provider Student in an Organized Health Care Education/Training Program
DX: E04.2 Nontoxic multinodular goiter (principal)
CPT/HCPCS: 99213

== ENCOUNTER 2025-07-28 06:14 | Outpatient (REF) | payer OTHER, SELFPAY ==
--- OUTSIDE RECORDS SUMMARY | 2025-07-28 06:18 | XMS_ITS ---
Author Organization Unknown ENCOUNTERS Encounter Performer Location Date Diagnosis Diagnosis Status Outpatient [id number] [place] [address] [id number] SHANNAN [facility] [address] [place] [address] [id number] SHANNAN Pre Admit Generic ED Physician [address] [address] [id number] Emergency Generic ED Physician [address] [address] [id number] Pre Admit [facility] [address] [place] [id number] Outpatient [facility] [address] [place] [phone] [id number] SHANNAN Emergency [facility] [address] [place] [address] [id number] SHANNAN Emergency [facility] [address] [place] [id number] SHANNAN *Note: Encounters from your own facility or health system may be excluded. Allergies, Adverse Reactions, Alerts Allergen Type Severity Identification Date Medications Name Date Quantity Days Supplied GPI Number
== END 2025-07-28 06:15 | disposition home or self-care (01) ==
LOC: HO.LAB 06:14
PROVIDERS: PCP Internal Medicine; Visit Provider Internal Medicine
DX: Z13.89 Encounter for screening for other disorder (principal)

== ENCOUNTER 2025-07-29 09:40 | Outpatient (AMB) | payer OTHER, SELFPAY ==
--- NOTE | 2025-07-29 09:57 | A.OFFPC_ITS ---
Vital Signs 07/29/25 09:58 07/29/25 10:17 Height 5 ft 5 in Weight 155 lb 8 oz BMI 25.9 BP 142/62 H 118/68 Blood Pressure Location Lt brachial Lt brachial Position Sitting Sitting Pulse 90 Pulse Source Pulse Oximeter Temp 97.3 F Temp Source Temporal Artery Scan Pulse Oximetry (%) 95 Oxygen Delivery Method Room Air Intake Visit Reasons: GERD, allergic rhinitis, goiter Intake Note: Patient is here to follow up on GERD, Allergic rhinitis, Goiter. Kitchen Hand Required: No News Librarian: Not Required per policy Accompanied by: Self / Same As Patient Allergies No Known Allergies Allergy (Verified 07/29/25 10:20) Medication List - Last Reconciled 07/29/25 by Arnel Paulino MD [id number] 600 mg calcium- 800 unit-40 mg (Caltrate 600-D Plus Minerals) 1 tab PO BID esomeprazole magnesium 20 mg PO DAILY fluticasone propionate 50 mcg/actuation 2 sprays intranasal DAILY PRN 30 days lorazepam 0.5 mg PO DAILY PRN 15 days multivitamin 1 tab PO DAILY Tobacco use date assessed: 07/29/25 Dental Screening Dental Screen Date: 01/27/25 HPI GERD, allergic rhinitis, goiter HPI Details Patient comes in today for her follow up visit Thinks that she may be coming down with a virus or a cold as she has been feeling achy all morning today She denies any fever or sore throat; denies any headaches or dizziness Denies any chest pains, no SOB No nausea/vomiting, no abdominal pain No change in bowel habits noted She had aspiration biopsy of her thyroid nodule(s) by Dr. Fields last month - Bx was non-diagnostic and she will be getting a repeat thyroid US in 1 year for surveillance/observation She was seen also by hematology last month for her chronic leukopenia - work ups revealed (+) KARLO and as leucopenia can be a common manifestation of lupus, she was referred to rheumatology for consultation regarding her KARLO positivity but patient is not able to get in to see rheumatology until July of 2026 so she would like to see if she can be referred to someone else who can see her much earlier as she is very concerned about the possibility that she may have lupus as she has a cousin who has lupus [facility] Medical History (Updated 07/29/25 @ 11:12 by Arnel Paulino MD) GERD (gastroesophageal reflux disease) Leukopenia Allergic rhinitis Primary osteoarthritis of both knees Esophagitis determined by biopsy Overweight (BMI 25.0-29.9) Osteopenia Artificial menopause Acquired chest/rib deformity Tubular adenoma of colon Thyroid nodule Vitamin D deficiency History of depression Surgical History History of esophagogastroduodenoscopy (EGD) Hx of foot surgery Hx of colonoscopy Hx of tubal ligation Hx of hysterectomy with oophorectomy Family History Father Throat cancer Emphysema of lung TIA (transient ischemic attack) Social History Household Members: None Housing: House Alcohol intake: never Patient Tobacco Use Status: Never used Tobacco e-Cigarette/Vaping Use: Never Used Second Hand Smoke Exposure: No service: No Current occupational status: employed 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 Depression Screening Interpretation: Negative Depression Screening Done: Yes Source: Developed by Drs. Micah Le, Antonia Ellis, Didier Gastelum and colleagues, with an educational luke from [employer]. Thrive Questionnaire Date Thrive assessed: 01/21/25 I am a: Patient What is your living situation today?: I have a steady place to live Within the past 12 months, did the food you bought not last and you didn't have the money to get more?: Never true Within the past 12 months, did you worry whether your food would run out before you got money to buy more?: Never true Do you have trouble paying for medicines?: No Do you have trouble getting transportation to medical appointments?: No Do you have trouble paying your heating and electricity bill?: No Do you have trouble taking care of your child, family member or friend?: No Do you have trouble with day-to-day activities such as bathing, preparing meals, shopping, managing finances, etc.?: No Are you currently unemployed and looking for a job?: No Are you interested in more education?: No Please select the resources that you would like help with: None Currently or been in a relationship where the following occur: No concerns reported THRIVE Score: 0 CARSON-7 AMB Questionnaire CARSON-7 Date CARSON - 7 assessed: 01/27/25 Source: Developed by Drs. Micah Le, Antonia Ellis, Didier Gastelum and colleagues, with an educational luke from [employer]. Review of Systems Const Denies chills, Denies fatigue, Denies fever(s) and Denies headache(s) ENT Denies dysphagia, Denies dizziness, Denies otalgia, Denies headache(s), Denies neck pain, Denies odynophagia and Denies sore throat Card Denies chest pain, Denies irregular heart rhythm, Denies palpitations and Denies dyspnea Resp Denies chest congestion, Denies cough and Denies dyspnea GI Denies abdominal pain, Denies constipation, Denies dysphagia, Denies heartburn, Denies diarrhea, Denies nausea, Denies odynophagia and Denies vomiting Denies difficulty voiding, Denies dysuria and Denies urinary urgency Musc Denies back pain, Denies arthralgias and Denies neck pain Skin/Breast Denies rash Neuro Denies dizziness, Denies headache(s) and Denies paresthesias Psych Denies anxiety and Denies depression Endo Denies fatigue and Denies palpitations Bill/Lymph Denies easy bruising Physical exam (Primary Care) Vital Signs: Last Vital Signs Temp 97.3 F 07/29/25 09:58 Pulse 90 07/29/25 09:58 BP 142/62 H 07/29/25 09:58 Pulse Ox 95 07/29/25 09:58 Oxygen Delivery Method Room Air 07/29/25 09:58 BMI result Body Mass Index 25.9 Tobacco/Smoking Status: Tobacco use Status Tobacco use date assessed 07/29/25 07/29/25 10:01 Patient Tobacco Use Status Never used Tobacco 07/29/25 10:01 e-Cigarette/Vaping Use Never Used 07/29/25 10:01 Depression Screening Interpretation: Negative Thrive Assessment: Date of Thrive Assessment Date Thrive assessed 01/21/25 07/29/25 10:01 Currently or been in a relationship where the following occur: No concerns reported Const General: no acute distress and alert HENMT Ears: TM's normal bilaterally and EAC's normal Throat: Yes posterior oropharynx normal and Yes tonsils normal (no TP congestion) Neck Neck: Yes supple and No lymphadenopathy Thyroid: Thyroid normal Resp Auscultation: clear to auscultation bilaterally, no rales and no wheezes Cardio Rate: regular rate Rhythm: regular rhythm Heart sounds: no murmurs GI Palpation (GI): Soft to palpation and nontender Auscultation: normal bowel sounds General: Yes no CVA tenderness Back/Spine/Pelvis Back: no CVA tenderness Thoracic/Lumbar Spine: No lumbar spinal tenderness Skin Rashes: no rashes Extrem General: Yes no clubbing, cyanosis or edema Coding Level of Care Code Est Pt Level 4 (64140) Diagnoses Positive KARLO (antinuclear antibody) R76.8 Leukopenia, unspecified type D72.819 Leukopenia type: unspecified Multinodular goiter E04.2 Allergic rhinitis, unspecified seasonality, unspecified trigger J30.9 Allergic rhinitis trigger: unspecified Allergic rhinitis seasonality: unspecified Gastroesophageal reflux disease with esophagitis without hemorrhage K21.00 Esophagitis presence: with esophagitis Esophagitis bleeding: without hemorrhage Primary osteoarthritis of both knees M17.0 Vitamin D deficiency E55.9 Osteopenia of neck of left femur M85.852 Osteopenia location: femoral neck Laterality: left Anxiety F41.9 Assessment & Plan Assessment & Plan (1) Positive KARLO (antinuclear antibody): Code(s): R76.8 - Other specified abnormal immunological findings in serum Category: Medical Plan: This came up during her hematology evaluation for her leucopenia although her KARLO positivity is the nuclear, dense fine speckled pattern, which is seen in normal individuals and rarely associated with systemic lupus erythematosis (SLE), Sjogren's syndrome and systemic sclerosis For completion, she was referred by hematology for rheumatology consultation but patient is scheduled out to July of next year (2025) with [facility] Rheumatology and she is looking for a referral to another functional analyst where she can be seen much earlier as she would like to get some resolution on this MARIKA Per request, will try referring her to Dr. Headley at [facility] Rheumatology for further evaluation and recommendations (2) Leukopenia: Code(s): D72.819 - Decreased white blood cell count, unspecified Category: Medical Qualifiers: Leukopenia type: unspecified Qualified Code(s): D72.819 - Decreased white blood cell count, unspecified Plan: Patient has been noted to be leukopenic consistently for the past 5 years She is currently being seen by hematology for further evaluation; has been referred to rheumatology for recommendations regarding her KARLO positivity as part of her overall work up Follow up with hematology as scheduled (3) Multinodular goiter: Code(s): E04.2 - Nontoxic multinodular goiter Category: Medical Plan: She had aspiration biopsy of her thyroid nodule(s) by Dr. Fields last month - Bx was non-diagnostic and she will be getting a repeat thyroid US in 1 year for continuing surveillance/observation Follow up with endocrinology as scheduled (4) Allergic rhinitis: Code(s): J30.9 - Allergic rhinitis, unspecified Category: Medical Qualifiers: Allergic rhinitis trigger: unspecified Allergic rhinitis seasonality: unspecified Qualified Code(s): J30.9 - Allergic rhinitis, unspecified Plan: Continue Zyrtec-D BID PRN and Fluticasone 50 mcg nasal spray 2 sprays into each nostril QD PRN (5) GERD (gastroesophageal reflux disease): Code(s): K21.9 - Gastro-esophageal reflux disease without esophagitis Category: Medical Qualifiers: Esophagitis presence: with esophagitis Esophagitis bleeding: without hemorrhage Qualified Code(s): K21.00 - Gastro-esophageal reflux disease with esophagitis, without bleeding Plan: Patient's initial EGD in 09/2022 revealed (+) findings of grade D esophagitis Repeat EGD in November 2022 showed (+) improvement of esophageal irritation with Tx and her previous symptoms of dysphagia and throat discomfort have completely resolved with Rx Continue Esomeprazole 20 mg QD Dietary restrictions reinforced Follow up with GI as scheduled (6) Primary osteoarthritis of both knees: Code(s): M17.0 - Bilateral primary osteoarthritis of knee Category: Medical Plan: X-rays of both knees done over the past couple of years have revealed (+) OA changes in both knees She has been seen by orthopedics in the past for her left knee pain and they have recommended she try physical therapy back then She completed 3 injections of Euflexxa into her right knee by Dr. Kaye and patient feels that the injections have helped somewhat She has been advised that if the injections do not help, arthroscopic surgery will then be the next step Follow up with orthopedics as scheduled (7) Vitamin D deficiency: Code(s): E55.9 - Vitamin D deficiency, unspecified Category: Medical Plan: Continue Vitamin D3 2000 units QD (8) Osteopenia: Code(s): M85.80 - Other specified disorders of bone density and structure, unspecified site Category: Medical Qualifiers: Osteopenia location: femoral neck Laterality: left Qualified Code(s): M85.852 - Other specified disorders of bone density and structure, left thigh Plan: Her most recent BMD done on 08/22/2024 revealed (+) osteopenia based on the lowest T-score value of -1.4 in the femoral neck, applying World Health Organization criteria. Her 10-YEAR FRACTURE RISK PREDICTION, FRAX: Major osteoporotic fracture (clinical spine, forearm, hip or shoulder) 4.0%. Hip fracture 0.3%. Have advised patient that her current BMD is mostly unchanged compared to her previous BMD done in 05/2021 Patient is encouraged to continue on her daily Vitamin D and Calcium supplements and to exercise regularly and stay physically active Will continue to monitor her BMD every 2 to 3 years (9) Anxiety: Code(s): F41.9 - Anxiety disorder, unspecified Category: Medical Plan: This is mostly associated only with flying on a plane and she takes Lorazepam 0.5 mg only when needed Plan Will have her recheck her labs in 3 months for follow up Follow up in 3 months Orders: Orders Complete Blood Count Auto Diff 3 Months D64.9 - Anemia, unspecified Lipid Panel 3 Months E78.00 - Pure hypercholesterolemia, unspecified UA CC w/rflx Micro + Cult 3 Months R30.0 - Dysuria Vitamin D 25-OH Total 3 Months E55.9 - Vitamin D deficiency, unspecified Comprehensive [place]. Panel Fast 3 Months E78.00 - Pure hypercholesterolemia, unspecified TSH reflex Free T4 3 Months E78.00 - Pure hypercholesterolemia, unspecified Referrals Rheumatology Referral R76.8 - Other specified abnormal immunological findings in serum
[2025-07-29 09:58] VITALS: BP 142/62; PULSE 90; TEMP 36.3; O2SAT 95; BMI 25.9
[2025-07-29 10:17] VITALS: BP 118/68
== END 2025-07-29 11:17 | disposition home or self-care (01) ==
LOC: HO.HMCH 09:41
PROVIDERS: PCP Internal Medicine; Visit Provider Internal Medicine
DX: R76.89 Other specified abnormal immunological findings in serum (principal); D72.819 Decreased white blood cell count, unspecified; E04.2 Nontoxic multinodular goiter; J30.9 Allergic rhinitis, unspecified; K21.00 Gastro-esophageal reflux disease with esophagitis, without bleeding; M17.0 Bilateral primary osteoarthritis of knee; E55.9 Vitamin D deficiency, unspecified; M85.852 Other specified disorders of bone density and structure, left thigh; F41.9 Anxiety disorder, unspecified

== ENCOUNTER 2025-09-18 07:56 | Outpatient (AMB) | payer OTHER, SELFPAY ==
--- NOTE | 2025-09-17 10:53 | A.OFFVIS_ITS ---
Vital Signs 09/18/25 08:07 Height 5 ft 5 in Weight 157 lb 2 oz BMI 26.1 BP 98/52 L Blood Pressure Location Lt brachial Position Sitting Intake Visit Reasons: annual Radio Aerial Installer Required: No Allergies No Known Allergies Allergy (Verified 09/18/25 08:10) Medication List - Last Reconciled 09/18/25 by Monik Jimenez LPN [id number]-boron 600 mg calcium- 800 unit-40 mg (Caltrate 600-D Plus Minerals) 1 tab PO BID esomeprazole magnesium 20 mg PO DAILY fluticasone propionate 50 mcg/actuation 2 sprays intranasal DAILY PRN 30 days lorazepam 0.5 mg PO DAILY PRN 15 days multivitamin 1 tab PO DAILY Post menopausal: Yes Patient : No Do you need a note to return to daycare/school/sports/work: No HPI Comments Details: 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 Internal Medicine Specialist concerns: Occasional vaginal discharge and odor, admits to finger cleaning. Currently not sexually active. STI testing offered; she declined. Attempting to eat a healthy diet with calcium and vitamin D and stays active with exercise. Hysterectomy due to fibroids 2010. Last mammogram; 2024. Colonoscopy is UTD. [facility] Medical History GERD (gastroesophageal reflux disease) Leukopenia Allergic rhinitis Primary osteoarthritis of both knees Esophagitis determined by biopsy Overweight (BMI 25.0-29.9) Osteopenia Artificial menopause Acquired chest/rib deformity Tubular adenoma of colon Thyroid nodule Vitamin D deficiency History of depression Surgical History Status post biopsy of thyroid gland History of esophagogastroduodenoscopy (EGD) Hx of foot surgery Hx of colonoscopy Hx of tubal ligation Hx of hysterectomy with oophorectomy Family History Father Throat cancer Emphysema of lung TIA (transient ischemic attack) Social History Household Members: None Housing: House Alcohol intake: never Patient Tobacco Use Status: Never used Tobacco e-Cigarette/Vaping Use: Never Used Second Hand Smoke Exposure: No service: No Current occupational status: employed 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 Sexual orientation: Straight/Heterosexual Gender identity: Female Cognitive needs: No Hearing needs: No Vision needs: Yes Female Reproductive History Menstrual Age of Menarche: 14 control method: other Total pregnancies: 2 Full term: 2 Number of Living Children: 2 History of abnormal pap smear: No History of STI: No Date of Mammogram: 02/19/25 (Bi rads 1) History of abnormal mammogram: No Review of Systems Const All systems reviewed & are unremarkable except as noted in HPI and below Reports as per HPI Eyes Reports no additional complaints ENT Reports no additional complaints Card Reports no additional complaints Resp Reports no additional complaints GI Reports as per HPI and Reports no additional complaints Reports as per HPI Musc Reports no additional complaints Skin/Breast Reports as per HPI Neuro Reports no additional complaints Psych Reports no additional complaints Endo Reports no additional complaints Bill/Lymph Reports no additional complaints Aller/Immun Reports no additional complaints Physical Exam Vital Signs: Last Vital Signs BP 98/52 L 09/18/25 08:07 BMI result Body Mass Index 26.1 Const General: cooperative, healthy appearing, no acute distress, well developed and alert Orientation/consciousness: patient oriented x3 HEENT Head: Yes normal to inspection Eyes General: appearance normal, both eyes and all related structures Neck Neck: Yes normal visual inspection Thyroid: Thyroid normal Chest Chest palpation & inspection: normal inspection of the chest and other (no puckering, dimpling, peau de orange, retraction, discharge, masses) Breast/axilla inspection: normal inspection of the breasts Breast/axilla palpation: normal palpation of the breasts Resp Effort & Inspection: normal respiratory effort GI Inspection: Yes normal to inspection Palpation (GI): Soft to palpation Rectal Exam - Female: deferred General: Yes bladder normal to palpation External Female Exam: normal external appearance and normal appearance of the urethra Speculum Exam - Vagina: normal appearance of the vagina, normal palpation and normal vaginal discharge Speculum Exam - Cervix: normal appearance of the cervix and Cervix absent (Vaginal cuff no lesions or nodules) Bimanual exam- vagina & uterus: normal bimanual exam, normal palpation, bladder normal to palpation and uterus absent Bimanual Exam- Adnexa, other: no masses Skin General skin exam: no rashes or lesions noted Rashes: no rashes Neuro General: patient oriented x3 Cognition (Neuro): normal cognition Extrem General: Yes normal to inspection Psych Attitude: cooperative Thought process: Normal thought process present Assessment & Plan Assessment & Plan (1) Encounter for annual routine gynecological examination: Code(s): Z01.419 - Encounter for gynecological examination (general) (routine) without abnormal findings Category: Medical Plan: Discussed: Current recommendations for pap smears per ASCCP guidelines. Breast awareness, periodic self breast exams and yearly mammogram. Maintain a healthy lifestyle, well balanced diet including Calcium 1,200 mg and Vitamin D 600 IU daily, and routine exercise. Use of condoms for STI prevention if indicated. Patient verbalizes understanding and agrees to the plan of care. She was given opportunity to ask questions and all questions were answered to the best of my ability. 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 This note is constructed using voice recognition software. While every effort has been made to ensure accuracy, bag machine adjuster errors may have been included. (2) Vaginal odor: Code(s): N89.8 - Other specified noninflammatory disorders of vagina Plan GC chlamydia and BV panel obtained await results for final plan of care. Advised not to do sure finger cleaned, the role of vaginal bridgett. The patient expressed understanding and agreement with the plan of care. All of her questions and concerns were addressed to the best of my ability. Orders: Orders Bacterial Vaginosis Panel Today N89.8 - Other specified noninflammatory disorders of vagina Coding Level of Care Code Est Pt Prev Care 40-64y(43083) Diagnoses Encounter for annual routine gynecological examination Z01.419 Vaginal odor N89.8
--- OUTSIDE RECORDS SUMMARY | 2025-09-18 08:04 | XMS_ITS ---
Author Organization Unknown ENCOUNTERS Encounter Performer Location Date Diagnosis Diagnosis Status Outpatient [id number] [place] [address] [id number] [facility] [address] [place] [address] [id number] SHANNAN Pre Admit Generic ED Physician [address] [id number] Emergency Generic ED Physician [address] [id number] Pre Admit [facility] [address] [place] [id number] Outpatient [facility] [address] [place] [id number] [facility] [address] [place] [address] [id number] SH[facility] Emergency [facility] [address] [place] [id number] SHANNAN *Note: Encounters from your own facility or health system may be excluded. Allergies, Adverse Reactions, Alerts Allergen Type Severity Identification Date Medications Name Date Quantity Days Supplied GPI Number
[2025-09-18 08:07] VITALS: BP 98/52; BMI 26.1
== END 2025-09-18 09:41 | disposition home or self-care (01) ==
LOC: HO.HWS 07:56
PROVIDERS: PCP Internal Medicine; Visit Provider Advanced Practice Midwife
DX: Z01.419 Encounter for gynecological examination (general) (routine) without abnormal findings (principal); N89.8 Other specified noninflammatory disorders of vagina
CPT/HCPCS: 99396; 99459

== ENCOUNTER 2025-09-18 07:56 | Outpatient (REF) | payer OTHER, SELFPAY ==
[2025-09-19 10:11] LABS: Bacterial Vaginosis PCR NEGATIVE (Negative); Candida Group PCR NOT DETECTED (Not Detect); Candida glab krusei PCR NOT DETECTED (Not Detect); Trichomonas vaginalis PCR NOT DETECTED (Not Detect)
== END 2025-09-18 07:57 | disposition home or self-care (01) ==
LOC: HO.LNP 07:56
PROVIDERS: PCP Internal Medicine; Visit Provider Advanced Practice Midwife
DX: Z01.419 Encounter for gynecological examination (general) (routine) without abnormal findings (principal); N89.8 Other specified noninflammatory disorders of vagina; Z98.51 Tubal ligation status
CPT/HCPCS: 81515